=== PATIENT | female | born 1950 | race Caucasian/White ===

== ENCOUNTER 2016-09-24 13:54 | Inpatient (IN) | payer MEDICARE, MEDICAID, OTHER ==
--- NOTE | 2016-09-24 14:07 | EDM.PDOC ---
ED HPI GENERAL MEDICAL PROBLEM - General Chief Complaint: Respiratory Problem Stated Complaint: SOB Time Seen by Provider: 09/24/16 13:59 - History of Present Illness INITIAL COMMENTS - FREE TEXT/NARRATIVE: 65-year-old female presents emergency room with shortness of breath. This shortness of breath has been progressively been getting worse over the last week. The patient has noticed an increased cough sometimes productive. She denies fevers or chills however. Patient has a history of emphysema. She's currently using dulara this is her only medication. She cannot recall ever being on steroids for her breathing problems in the past. She denies any history of heart problems. The patient has long smoking history she has not used alcohol in many years and does not use any illicit drugs Lower Back Pain Score (Numeric/FACES): 1 - Related Data Allergies Allergy/AdvReac Type Severity Reaction Status Date / Time No Known Allergies Allergy Verified 09/24/16 14:00 Home Meds: Home Meds Mometasone/Formoterol [Dulera 200-5 MCG] 2 puff IH QID 09/24/16 [History] ED ROS GENERAL - Review of Systems Review Of Systems: See Below Constitutional: Denies: fever, chills HEENT: Reports: No symptoms Respiratory: Reports: Shortness of Breath, Wheezing, Cough Cardiovascular: Denies: Chest pain, Palpitations, Syncope GI/Abdominal: Reports: No symptoms : Reports: no symptoms Neurological: Reports: No Symptoms ED EXAM, GENERAL - Physical Exam Exam: See Below Exam Limited By: No limitations General Appearance: alert, other (She is tachycardic and was hypoxic upon arrival she has a rapid pulse with a rate that resembles atrial fibrillation pulse rate is 110 to 120s) Ears: normal external exam, normal canal, hearing grossly normal, normal TMs Nose: normal inspection, normal mucosa, no blood Throat/Mouth: Normal inspection, Normal lips, Normal gums, Normal oropharynx, Normal voice, No airway compromise, Other (Stained teeth from smoking). No: Normal teeth Head: atraumatic, normocephalic Neck: normal inspection, supple, non-tender, full range of motion. No: lymphadenopathy (L), lymphadenopathy (R) Respiratory/Chest: decreased breath sounds. No: rales, rhonchi, wheezing Cardiovascular: no edema, no murmur, tachycardia, irregularly irregular GI/Abdominal: normal bowel sounds, soft, non tender, no organomegaly, no distention, no abnormal bruit, no mass Back Exam: normal inspection. No: CVA tenderness (L), CVA tenderness (R) Extremities: normal inspection, no pedal edema Neurological: alert, oriented Course - Vital Signs Last Recorded V/S: Last Vital Signs Temp 35.8 C 09/24/16 14:05 Pulse 124 H 09/24/16 14:05 Resp 22 H 09/24/16 14:05 BP 149/86 H 09/24/16 14:05 Pulse Ox 95 09/24/16 14:29 - Orders/Labs/Meds Orders: Active Orders 24 hr Category Date Time Status Patient Status [ADT] Stat ADT 09/24/16 16:14 Ordered EKG 12 Lead [EKG Documentation Completion] [RC] STAT Care 09/24/16 14:00 Active RT Aerosol Therapy [RC] ASDIRECTED Care 09/24/16 14:19 Active RT Arterial Blood Gases, ABG [RC] Click To Edit Care 09/24/16 14:05 Active Chest 1V Frontal [CR] Stat Exams 09/24/16 14:18 Taken CULTURE BLOOD [BC] Stat Lab 09/24/16 16:12 Ordered CULTURE BLOOD [BC] Stat Lab 09/24/16 16:12 Ordered Azithromycin [Zithromax] 500 mg Med 09/24/16 16:12 Ordered Sodium Chloride 0.9% [Normal Saline] 250 ml IV ONETIME cefTRIAXone [Rocephin] Med 09/24/16 16:15 Ordered 1,000 mg IVPUSH Q24H Blood Culture x2 Reflex Set [OM.PC] Stat Oth 09/24/16 16:12 Ordered Medication Orders Ceftriaxone Sodium (Rocephin) 1,000 mg IVPUSH Q24H KADEEM Azithromycin 500 mg/ Sodium (Chloride) 250 mls @ 250 mls/hr IV ONETIME ONE Stop: 09/24/16 17:11 Labs: Laboratory Tests 09/24/16 09/24/16 09/24/16 Range/Units 14:00 14:00 14:00 WBC 11.13 H (3.98-10.04) K/mm3 RBC 5.05 (3.98-5.22) M/mm3 Hgb 15.2 (11.2-15.7) gm/L Hct 44.4 (34.1-44.9) % MCV 87.9 (79.4-94.8) fl MCH 30.1 (25.6-32.2) pg MCHC 34.2 (32.2-35.5) g/dl RDW Std Deviation 40.6 (36.4-46.3) fL Plt Count 564 H (182-369) K/mm3 MPV 9.4 (9.4-12.3) fl Neutrophils % (Manual) 84 H (40-60) % Band Neutrophils % 0 (0-10) % Lymphocytes % (Manual) 13 L (20-40) % Atypical Lymphs % 0 % Monocytes % (Manual) 3 (2-10) % Eosinophils % (Manual) 0 L (0.7-5.8) % Basophils % (Manual) 0 L (0.1-1.2) Platelet Estimate Increased Plt Morphology Comment Normal RBC Morph Comment Normal PT 11.4 (8.0-13.0) SECONDS INR 1.04 APTT 31 (22-36) SECONDS Puncture Site ABG pH (7.35-7.45) ABG pCO2 (35.0-45.0) mmHg ABG pO2 (80.0-100.0) mmHg ABG HCO3 (22.0-26.0) meq/L ABG O2 Saturation (96.0-97.0) % ABG Base Excess (-2-2.0) Foreign Test A-a Gradient mmHg O2 Delivery Device Oxygen Flow Rate FiO2 (21.00-100.00) % Sodium 138 (136-145) mEq/L Potassium 4.5 (3.5-5.1) mEq/L Chloride 98 (98-107) mEq/L Carbon Dioxide 26 (21-32) mEq/L Anion Gap 18.5 H (5-15) BUN 18 (7-18) mg/dL Creatinine 0.7 (0.55-1.02) mg/dL Est Cr Clr Drug Dosing 62.27 mL/min Estimated GFR (MDRD) > 60 (>60) mL/min BUN/Creatinine Ratio 25.7 H (14-18) Glucose 91 (80-115) mg/dL Calcium 9.5 (8.5-10.1) mg/dL Total Bilirubin 0.8 (0.2-1.0) mg/dL AST 22 (15-37) U/L ALT 15 (14-59) U/L Alkaline Phosphatase 77 (46-116) U/L Troponin I < 0.017 (0.00-0.056) ng/mL B-Natriuretic Peptide (0-100) pg/mL Total Protein 8.0 (6.4-8.2) g/dl Albumin 3.4 (3.4-5.0) g/dl Globulin 4.6 gm/dL Albumin/Globulin Ratio 0.7 L (1-2) Mycoplasma pneumon IgM (NEGATIVE) 09/24/16 09/24/16 09/24/16 Range/Units 14:00 14:00 14:16 WBC (3.98-10.04) K/mm3 RBC (3.98-5.22) M/mm3 Hgb (11.2-15.7) gm/L Hct (34.1-44.9) % MCV (79.4-94.8) fl MCH (25.6-32.2) pg MCHC (32.2-35.5) g/dl RDW Std Deviation (36.4-46.3) fL Plt Count (182-369) K/mm3 MPV (9.4-12.3) fl Neutrophils % (Manual) (40-60) % Band Neutrophils % (0-10) % Lymphocytes % (Manual) (20-40) % Atypical Lymphs % % Monocytes % (Manual) (2-10) % Eosinophils % (Manual) (0.7-5.8) % Basophils % (Manual) (0.1-1.2) Platelet Estimate Plt Morphology Comment RBC Morph Comment PT (8.0-13.0) SECONDS INR APTT (22-36) SECONDS Puncture Site Rt radial ABG pH 7.33 L (7.35-7.45) ABG pCO2 43.9 (35.0-45.0) mmHg ABG pO2 81.0 (80.0-100.0) mmHg ABG HCO3 22.2 (22.0-26.0) meq/L ABG O2 Saturation 95.2 L (96.0-97.0) % ABG Base Excess -3.3 L (-2-2.0) Foreign Test Positive A-a Gradient 80 mmHg O2 Delivery Device Nasal cannula Oxygen Flow Rate 3.0 FiO2 32.00 (21.00-100.00) % Sodium (136-145) mEq/L Potassium (3.5-5.1) mEq/L Chloride (98-107) mEq/L Carbon Dioxide (21-32) mEq/L Anion Gap (5-15) BUN (7-18) mg/dL Creatinine (0.55-1.02) mg/dL Est Cr Clr Drug Dosing mL/min Estimated GFR (MDRD) (>60) mL/min BUN/Creatinine Ratio (14-18) Glucose (80-115) mg/dL Calcium (8.5-10.1) mg/dL Total Bilirubin (0.2-1.0) mg/dL AST (15-37) U/L ALT (14-59) U/L Alkaline Phosphatase (46-116) U/L Troponin I (0.00-0.056) ng/mL B-Natriuretic Peptide 36 (0-100) pg/mL Total Protein (6.4-8.2) g/dl Albumin (3.4-5.0) g/dl Globulin gm/dL Albumin/Globulin Ratio (1-2) Mycoplasma pneumon IgM Positive H (NEGATIVE) Meds: Medications Generic Name Dose Route Start Last Admin Trade Name Freq PRN Reason Stop Dose Admin Ceftriaxone Sodium 1,000 mg 09/24/16 16:15 Rocephin IVPUSH Q24H KADEEM Azithromycin 500 mg/ Sodium 250 mls @ 250 mls/hr 09/24/16 16:12 Chloride IV 09/24/16 17:11 ONETIME ONE Discontinued Medications Generic Name Dose Route Start Last Admin Trade Name Freq PRN Reason Stop Dose Admin Albuterol/Ipratropium 3 ml 09/24/16 14:19 09/24/16 14:28 Duoneb 3.0-0.5 Mg/3 Ml NEB 09/24/16 14:20 3 ml ONETIME ONE Administration Methylprednisolone Sodium Succinate 125 mg 09/24/16 14:19 09/24/16 14:58 Solu-Medrol IVPUSH 09/24/16 14:20 125 mg ONETIME ONE Administration - Re-Assessments/Exams Free Text/Narrative Re-Assessment/Exam: 09/24/16 16:16 Chest x-ray suggestive of right lower lobe infiltrate small effusion significant emphysematous changes. Cannot exclude a mass or lesion in the right upper lobe near the apex. Laboratory evaluation negative troponin negative BNP mycoplasmas is positive. With the patient's hypoxia the patient will be admitted for treatment of her pneumonia with Rocephin and Zithromax after blood cultures obtained in be admitted to our hospitalist Dr. Valdez. Departure - Departure Time of Disposition: 16:10 Disposition: Admitted As Inpatient 65 Clinical Impression: Pneumonia, Emphysema lung, Hypoxia - My Orders Last 24 Hours: My Active Orders 09/24/16 14:00 EKG 12 Lead [EKG Documentation Completion] [RC] STAT 09/24/16 14:05 RT Arterial Blood Gases, ABG [RC] Click To Edit 09/24/16 14:18 Chest 1V Frontal [CR] Stat 09/24/16 14:19 RT Aerosol Therapy [RC] ASDIRECTED 09/24/16 16:12 CULTURE BLOOD [BC] Stat CULTURE BLOOD [BC] Stat Azithromycin [Zithromax] 500 mg Sodium Chloride 0.9% [Normal Saline] 250 ml IV ONETIME Blood Culture x2 Reflex Set [OM.PC] Stat 09/24/16 16:14 Patient Status [ADT] Stat 09/24/16 16:15 cefTRIAXone [Rocephin] 1,000 mg IVPUSH Q24H - Assessment/Plan Last 24 Hours: My Active Orders 09/24/16 14:00 EKG 12 Lead [EKG Documentation Completion] [RC] STAT 09/24/16 14:05 RT Arterial Blood Gases, ABG [RC] Click To Edit 09/24/16 14:18 Chest 1V Frontal [CR] Stat 09/24/16 14:19 RT Aerosol Therapy [RC] ASDIRECTED 09/24/16 16:12 CULTURE BLOOD [BC] Stat CULTURE BLOOD [BC] Stat Azithromycin [Zithromax] 500 mg Sodium Chloride 0.9% [Normal Saline] 250 ml IV ONETIME Blood Culture x2 Reflex Set [OM.PC] Stat 09/24/16 16:14 Patient Status [ADT] Stat 09/24/16 16:15 cefTRIAXone [Rocephin] 1,000 mg IVPUSH Q24H
[2016-09-24] MEDS ORDERED: methylPREDNISolone Sodium Succinate 125 MG/2 ML SDV IVPUSH ONE (14:19)
[2016-09-24] MEDS ORDERED: Albuterol/Ipratropium 3.0-0.5 MG/3 ML Neb Soln NEB ONE (14:19)
[2016-09-24] MEDS ORDERED: cefTRIAXone 1 GM in Sodium Chloride 0.9% 100 ML IV SCH (16:00)
[2016-09-24] MEDS ORDERED: Azithromycin 500 MG in Sodium Chloride 0.9% 250 ML IV ONE (16:12)
--- NOTE | 2016-09-24 16:12 | CT ---
CT chest Technique: Multiple axial sections were obtained to the chest. Intravenous contrast was not utilized. Comparison: Previous chest x-ray performed earlier on the same day, no previous chest CT is available. Findings: Cyst noted within the liver measuring 1.9 cm. Other visualized portions of the abdomen appear within normal limits. No pericardial thickening is seen. Mild coronary artery calcification is seen. Aorta shows atherosclerotic change. Ascending aorta is slightly ectatic at 3.0 cm. Severe emphysematous changes are seen throughout both lungs. Parenchymal density is noted within the right lung base which is nonspecific for fibrosis versus an area of pneumonia. There appears to be some atelectasis within the right lung base as well. Lungs otherwise are clear. Impression: 1. Parenchymal density within the right lung base. As mentioned above, uncertain if this represents chronic change or an area of pneumonia. There is mild right basilar atelectasis also seen. 2. Severe emphysematous changes are noted within both lungs. 3. Other incidental findings. Diagnostic code #3
[2016-09-24] MEDS ORDERED: cefTRIAXone 1,000 MG VIAL IVPUSH SCH (16:15)
[2016-09-24] MEDS ORDERED: cefTRIAXone 1 GM in Sodium Chloride 0.9% 100 ML IV ONE (16:19)
[2016-09-24] MEDS ORDERED: Azithromycin 500 MG in Sodium Chloride 0.9% 250 ML IV SCH (17:00)
[2016-09-24] MEDS ORDERED: Pneumococcal Polyvalent-23 Vaccine 0.5 ML SDV IM ONE (17:20)
[2016-09-24] MEDS ORDERED: Polyethylene Glycol 3350 Powder 17 GM Packet PO PRN (17:24)
[2016-09-24] MEDS ORDERED: HYDROmorphone 1 MG/ML Syringe IVPUSH PRN (17:24)
[2016-09-24] MEDS ORDERED: Bisacodyl 5 MG Tab PO PRN (17:24)
[2016-09-24] MEDS ORDERED: Acetaminophen/HYDROcodone 325-5 MG Tab PO PRN (17:24)
[2016-09-24] MEDS ORDERED: Temazepam 15 MG Cap PO PRN (17:24)
[2016-09-24] MEDS ORDERED: Ondansetron 4 MG/2 ML SDV IV PRN (17:24)
--- NOTE | 2016-09-24 17:24 | PCM.HP ---
H&P History of Present Illness - General Date of Service: 09/24/16 Admit Problem/Dx: Admission Diagnosis/Problem Admission Diagnosis/Problem Pneumonia due to Mycoplasma pneumoniae Source of Information: Patient, Provider, RN notes reviewed History Limitations: Reports: No limitations - History of Present Illness Initial Comments - Free Text/Narative: This is a 65 yo white female with a hx/o active smoking who comes in with c/o worsening shortness of breath that is associated with productive cough ( yellowish sputum) that has been going one for over a week now. Patient also carries a hx/o advanced COPD on Dulera for maintenance medication. She denies being on oral steroids or supplemental O2. She still smokes to date with varying numbers of cigarettes daily. Patient denies any chest pain, fever, chills, nausea, vomiting, diarrhea or abdominal pain. Her initial ED work up shows a CBC remarkable for WBC of 11.13, Platelet of 564 and Neutrophils of 84. Her chemistry is significant for AG of 18.5, and CRP of 11.7. Troponin x 1 and PT/PTT were all within normal limits. She is pos for Mycoplasma. CXR shows advanced emphysema. Patient was admitted for Mycoplasma PNA, COPD Exacerbation and Hypoxia. Her code status is full at this time. Lower Back Pain Score (Numeric/FACES): 1 - Related Data Allergies/Adverse Reactions: Allergies Allergy/AdvReac Type Severity Reaction Status Date / Time No Known Allergies Allergy Verified 09/24/16 17:18 Home Medications: Home Meds Mometasone/Formoterol [Dulera 200-5 MCG] 2 puff IH QID 09/24/16 [History] Past Medical History HEENT History: Reports: Impaired vision, Other (see below) Other HEENT History: teeth are bad. Respiratory History: Reports: COPD Musculoskeletal History: Reports: Arthritis Social & Family History - Family History HEENT: Reports: Impaired vision Respiratory: Reports: Asthma, COPD Musculoskeletal: Reports: Arthritis Oncologic: Reports: Breast, Colon, Lymphoma, Pancreatic - Tobacco Use Smoking Status *Q: Current Every Day Smoker Years of Tobacco use: 46 Packs/Tins Daily: 1 - Caffeine Use Caffeine Use: Reports: Coffee - Recreational Drug Use Recreational Drug Use: No H&P Review of Systems - Review of Systems: Review Of Systems: See Below General: Denies: fever, chills, malaise, weakness, fatigue, decreased appetite HEENT: Reports: no symptoms Pulmonary: Reports: Shortness of Breath, Wheezing, Cough, Sputum Cardiovascular: Reports: dyspnea on exertion. Denies: chest pain, palpitations , edema, lightheadedness, syncope Gastrointestinal: Denies: Abdominal pain, Decreased appetite, Nausea, Vomiting Genitourinary: Reports: no symptoms Musculoskeletal: Reports: no symptoms Skin: Denies: cyanosis, pallor, pruritis, rash Psychiatric: Denies: confusion, depression, anxiety, hallucinations, suicidal ideation Neurological: Denies: Confusion, Seizure, Syncope, Difficulty Walking, Weakness Hematologic/Lymphatic: Reports: no symptoms Immunologic: Reports: no symptoms Exam - Exam Exam: See Below - Vital Signs Vital Signs: Last Vital Signs Temp 35.8 C 09/24/16 14:05 Pulse 124 H 09/24/16 14:05 Resp 22 H 09/24/16 14:05 BP 149/86 H 09/24/16 14:05 Pulse Ox 95 09/24/16 14:29 Weight: 49.895 kg - Exam Quality Assessment: supplemental oxygen General: alert, oriented, cooperative, moderate distress, other (Cachectic) HEENT: Conjunctiva clear, EACs clear, EOMI, Hearing intact, Mucosa moist & pink , Nares patent, Normal nasal septum, Posterior pharynx clear, Pupils equal, Pupils reactive, TMs clear, Other (bitemporal wasting) Neck: supple, trachea midline, 2+ carotid pulse wo bruit, full range of motion, other (mild accessory muscle use) Lungs: Normal respiratory effort, Decreased breath sounds Cardiovascular: regular rate, tachycardia. No: systolic murmur Abdomen: normal bowel sounds, soft, organomegaly. No: distention, guarding, rigidity, rebound, tenderness (Female) Exam: Deferred Rectal (Female) Exam: Deferred Back Exam: normal inspection, decreased range of motion Extremities: normal inspection, normal pulses. No: clubbing, cyanosis, calf tenderness, edema Peripheral Pulses: 2+: posterior tibial (L), posterior tibial (R), dorsalis pedis (L), dorsalis pedis (R) Skin: warm, dry, intact. No: rash, petechia, ecchymosis Neuro Extensive - Mental Status: oriented x3, normal cognition, memory intact Neuro Extensive - Motor, Sensory, Reflexes: CN II-XII intact, normal gait Psychiatric: alert, normal affect, normal mood - Patient Data Result Diagrams: 09/24/16 14:00 09/24/16 14:00 EKG INTERPRETATION EKG Date: 09/24/16 Time: 02:04 Rhythm: a-flutter Rate (beats/min): 119 Comparison: NA - no prior EKG *Q Meaningful Use (ADM) - VTE *Q VTE Criteria *Q: - Stroke *Q Stroke Criteria *Q: - AMI *Q AMI Criteria *Q: Problem List Initiated/Reviewed/Updated: Yes Orders Last 24hrs: Medication Orders Ceftriaxone Sodium (Rocephin) 1,000 mg IVPUSH Q24H [facility] Last Admin: 09/24/16 16:20 Dose: Not Given Assessment/Plan Comment:: Assessment/Plan: Acute: COPD Exacerbation - Hx/o Severe Emphysema - Hyperinflation on CXR - Still active smoker - Supplemental O2, Bronchodilators, Oral Steroids, IV Azithromycin for Anti- inflammation, Decongestant/Expectorant - Routine RT care and IS q2 awake - Sputum Cx/Sx Mycoplasma Pneumonia - Mycoplasma positive - Iv Azithromycin and Rocephin Daily - CRP is 11.7 - Serial CXR Hypoxia - 2/2 Above - 79% on RA, 94-95% on 3L NC in ED - Supplemental O2, titrate to keep O2 > 90% Leukocytosis - 2/2 above +/- steroids - Continue to monitor Thrombocytosis - Platelet 564 - This is likely reactive 2/2 infection above - Platelet Morphology: normal ( meaning not a bone defect) Atrial Flutter with 2:1 AV Block - No baseline comparison - Anticogas for stroke prophylaxis - Metoprolol 5 mg IVP Q4 PRN rate control meds Nicotine Abuse/Dependence - Still actively smokes - Counseled on smoking cessation - Refuses nicotine patch - Agreed with nicotine gum Severe Malnutrition/Muscle Wasting - 2/2 underlying emphysema - Dietary consult 1.9 cm Cystic Lesion within the Liver Per CT Scan - Unsure if this is new - No baseline comparison, image mercado Plan: Admit to Inpatient with Tele and Pulse Ox Routine AM Labs Close monitoring for sudden respiratory distress given her advanced emphysema Resume Home Medications PT/OT/RT consult Screen for Influenza SW/CM for d/c planning Code Status: TBD, would like to speak with family and let us know later but for now she will be full code until further notice
[2016-09-24] MEDS ORDERED: hydrALAZINE 20 MG/ML SDV IVPUSH PRN (17:32)
[2016-09-24] MEDS ORDERED: Magnesium Sulfate/Water 2 GM in Premix Bag 1 BAG IV ONE (18:24)
[2016-09-24] MEDS ORDERED: Nicotine Polacrilex 2 MG Gum CHEW PRN (19:34)
[2016-09-24] MEDS: Famotidine 20 MG Tab PO SCH (20:01)
[2016-09-24] MEDS: Magnesium Oxide 400 MG Tab PO SCH (20:01)
[2016-09-24] MEDS: guaiFENesin 600 MG Tab.ER PO SCH (20:01)
[2016-09-24] MEDS: Acetaminophen 325 MG Tab PO PRN (20:19)
[2016-09-24] MEDS: Formoterol/Mometasone 200-5 MCG 8.8 GM Inhaler IH SCH (20:43)
[2016-09-24] MEDS ORDERED: Enoxaparin 40 MG/0.4 ML Syringe SUBCUT ONE (21:46)
[2016-09-25] MEDS: predniSONE 20 MG Tab PO SCH (06:58)
[2016-09-25] MEDS: guaiFENesin 600 MG Tab.ER PO SCH ×2 (08:04→20:19)
[2016-09-25] MEDS: Magnesium Oxide 400 MG Tab PO SCH ×2 (08:05→20:19)
[2016-09-25] MEDS: Famotidine 20 MG Tab PO SCH ×2 (08:05→20:19)
[2016-09-25] MEDS: Enoxaparin 40 MG/0.4 ML Syringe SUBCUT SCH (08:06)
[2016-09-25] MEDS: Acetaminophen 325 MG Tab PO PRN ×2 (08:13→20:36)
--- NOTE | 2016-09-25 08:22 | CR ---
Chest: Portable view of the chest was obtained. Comparison: No previous chest x-ray. Findings: Slight blunting of the right lateral costophrenic angle is seen. Mild increased density behind the right heart is seen. Lungs otherwise are clear but hyperinflated. Increased central lung markings are seen believed to be chronic. Heart size is normal. Tortuous thoracic aorta is seen. Bony structures are osteopenic. Impression: 1. Mild increased density behind the right heart and slight blunting of the right lateral costophrenic angle. Please see subsequent chest CT for further discussion. 2. Diffuse emphysematous change. Diagnostic code #3
[2016-09-25] MEDS: Formoterol/Mometasone 200-5 MCG 8.8 GM Inhaler IH SCH ×2 (08:39→20:05)
--- NOTE | 2016-09-25 09:26 | PCM.PN ---
- General Info Date of Service: 09/25/16 Admission Dx/Problem (Free Text): Admission Diagnosis/Problem Admission Diagnosis/Problem Pneumonia due to Mycoplasma pneumoniae Subjective Update: Follow Up Functional Status: Reports: pain controlled, tolerating diet, ambulating, urinating. Denies: new symptoms - Review of Systems General: Denies: Fever, Weakness, Fatigue, Chills HEENT: Reports: no symptoms Pulmonary: Reports: cough, sputum. Denies: shortness of breath Cardiovascular: Denies: Chest Pain, Palpitations, Dyspnea on Exertion Gastrointestinal: Denies: Abdominal pain, Nausea, Vomiting Genitourinary: Reports: no symptoms Musculoskeletal: Reports: no symptoms Skin: Reports: no symptoms Neurological: Denies: Confusion, Seizure, Weakness Psychiatric: Denies: depression, anxiety, agitation, cravings, hallucinations Systems Review Comment:: No overnight or acute issues. She feels much better. She is on 2L NC. She coughs up phlegm but not much. She is afebrile w/o leukoctyosis. - Patient Data Vitals - most recent: Last Vital Signs Temp 37.4 C 09/25/16 08:04 Pulse 87 09/25/16 08:04 Resp 12 09/25/16 08:04 BP 125/81 09/25/16 08:04 Pulse Ox 96 09/25/16 08:39 Weight - most recent: 39.372 kg I&O - last 24 hours: Intake & Output 09/24/16 09/25/16 09/25/16 22:59 06:59 14:59 Intake Total 600 Output Total 400 Balance 200 Lab Results last 24 hrs: Laboratory Results - last 24 hr 09/25/16 09/25/16 Range/Units 05:17 05:17 WBC 7.78 (3.98-10.04) K/mm3 RBC 4.26 (3.98-5.22) M/mm3 Hgb 12.8 (11.2-15.7) gm/L Hct 37.3 (34.1-44.9) % MCV 87.6 (79.4-94.8) fl MCH 30.0 (25.6-32.2) pg MCHC 34.3 (32.2-35.5) g/dl RDW Std Deviation 39.3 (36.4-46.3) fL Plt Count 435 H (182-369) K/mm3 MPV 9.2 L (9.4-12.3) fl Neut % (Auto) 86.1 H (34.0-71.1) % Lymph % (Auto) 9.3 L (19.3-51.7) % [place] % (Auto) 4.2 L (4.7-12.5) % Eos % (Auto) 0 L (0.7-5.8) Baso % (Auto) 0.1 (0.1-1.2) % Neut # (Auto) 6.70 H (1.56-6.13) K/mm3 Lymph # (Auto) 0.72 L (1.18-3.74) K/mm3 [place] # (Auto) 0.33 (0.24-0.36) K/mm3 Eos # (Auto) 0.00 L (0.04-0.36) K/mm3 Baso # (Auto) 0.01 (0.01-0.08) K/mm3 Manual Slide Review Abnormal smear Sodium 139 (136-145) mEq/L Potassium 4.2 (3.5-5.1) mEq/L Chloride 104 (98-107) mEq/L Carbon Dioxide 31 (21-32) mEq/L Anion Gap 8.2 (5-15) BUN 22 H (7-18) mg/dL Creatinine 0.7 (0.55-1.02) mg/dL Est Cr Clr Drug Dosing 49.14 mL/min Estimated GFR (MDRD) > 60 (>60) mL/min BUN/Creatinine Ratio 31.4 H (14-18) Glucose 240 H (80-115) mg/dL Calcium 8.6 (8.5-10.1) mg/dL Magnesium 2.4 (1.8-2.4) mg/dl C-Reactive Protein 6.6 H* (<1.0) mg/dL Ahsan Results last 24 hrs: Microbiology 09/25/16 07:43 Gram Stain - Final Sputum - Expectorated 09/24/16 18:10 Influenza Type A Antigen Screen - Final Nasopharyngeal Swab - Nare, Left NEGATIVE INFLUENZA A VIRUS AG Influenza Type B Antigen Screen - Final NEGATIVE INFLUENZA B VIRUS AG Med Orders - Current: Current Medications Acetaminophen (Tylenol) 650 mg PO Q4H PRN PRN Reason: Pain (Mild 1-3)/fever Last Admin: 04/24/17 08:13 Dose: 650 mg Hydrocodone Bitart/Acetaminophen ([place] 325-5 Mg) 1 tab PO Q4H PRN PRN Reason: Pain (moderate 4-6) Albuterol/Ipratropium (Duoneb 3.0-0.5 Mg/3 Ml) 3 ml NEB Q4H PRN PRN Reason: Shortness Of Breath/wheezing Bisacodyl (Dulcolax) 5 mg PO DAILY PRN PRN Reason: Constipation Last Admin: 09/25/16 08:06 Dose: 5 mg Enoxaparin Sodium (Lovenox) 40 mg SUBCUT DAILY [facility] Last Admin: 09/25/16 08:06 Dose: 40 mg Famotidine (Pepcid) 20 mg PO BID [facility] Last Admin: 09/25/16 08:05 Dose: 20 mg Guaifenesin (Mucinex) 600 mg PO BID [facility] Last Admin: 09/25/16 08:04 Dose: 600 mg Hydralazine HCl (Apresoline) 20 mg IVPUSH Q4H PRN PRN Reason: Hypertension Hydromorphone HCl (Dilaudid) 0.25 mg IVPUSH Q2H PRN PRN Reason: Pain (severe 7-10) Azithromycin 500 mg/ Sodium (Chloride) 250 mls @ 250 mls/hr IV Q24H [facility] Ceftriaxone Sodium 1 gm/ (Sodium Chloride) 100 mls @ 200 mls/hr IV Q24H [facility] Lorazepam (Ativan) 1 mg IV Q6H PRN PRN Reason: Anxiety Magnesium Oxide (Magnesium Oxide) 400 mg PO BID [facility] Last Admin: 09/25/16 08:05 Dose: 400 mg Magnesium Sulfate (Pharmacy To Dose - Magnesium Replacement) 0 dose .XX ASDIRECTED PRN PRN Reason: rx dose Metoprolol Tartrate (Lopressor) 5 mg IVPUSH Q4H PRN PRN Reason: Tachycardia Mometasone Furoate/Formoterol Fumar (Dulera 200-5 Mcg) 2 puff IH QID [facility] Last Admin: 09/25/16 08:39 Dose: 2 puff Nicotine Polacrilex (Nicorelief) 2 mg CHEW Q2H PRN PRN Reason: Other Ondansetron HCl (Zofran) 4 mg IV Q6H PRN PRN Reason: Nausea/Vomiting Polyethylene Glycol (Miralax) 17 gm PO DAILY PRN PRN Reason: Constipation Potassium Chloride (Pharmacy To Dose - Potassium Replacement) 0 dose .XX ASDIRECTED PRN PRN Reason: rx dose Prednisone (Prednisone) 60 mg PO WITHBREAKFAST [facility] Stop: 09/28/16 07:00 Last Admin: 09/25/16 06:58 Dose: 60 mg Senna/Docusate Sodium (Senna Plus) 1 tab PO BID PRN PRN Reason: Constipation Temazepam (Restoril) 15 mg PO BEDTIME PRN PRN Reason: Sleep Discontinued Medications Albuterol/Ipratropium (Duoneb 3.0-0.5 Mg/3 Ml) 3 ml NEB ONETIME ONE Stop: 09/24/16 14:20 Last Admin: 09/24/16 14:28 Dose: 3 ml Ceftriaxone Sodium (Rocephin) 1,000 mg IVPUSH Q24H [facility] Last Admin: 09/24/16 16:20 Dose: Not Given Enoxaparin Sodium (Lovenox) 40 mg SUBCUT ONETIME ONE Stop: 09/24/16 21:47 Last Admin: 09/24/16 22:33 Dose: 40 mg Azithromycin 500 mg/ Sodium (Chloride) 250 mls @ 250 mls/hr IV ONETIME ONE Stop: 09/24/16 17:11 Last Admin: 09/24/16 16:52 Dose: 250 mls/hr Ceftriaxone Sodium 1 gm/ (Sodium Chloride) 100 mls @ 200 mls/hr IV ONETIME ONE Stop: 09/24/16 16:48 Last Admin: 09/24/16 18:01 Dose: 200 mls/hr Azithromycin 500 mg/ Sodium (Chloride) 250 mls @ 250 mls/hr IV Q24H [facility] Last Admin: 09/24/16 19:56 Dose: Not Given Ceftriaxone Sodium 1 gm/ (Sodium Chloride) 100 mls @ 200 mls/hr IV Q24H [facility] Last Admin: 09/24/16 19:55 Dose: Not Given Magnesium Sulfate 2 gm/ Premix 50 mls @ 25 mls/hr IV ONETIME ONE Stop: 09/24/16 20:23 Last Admin: 09/24/16 19:28 Dose: 25 mls/hr Methylprednisolone Sodium Succinate (Solu-Medrol) 125 mg IVPUSH ONETIME ONE Stop: 09/24/16 14:20 Last Admin: 09/24/16 14:58 Dose: 125 mg Pneumococcal Polyvalent Vaccine (Pneumovax 23) 0.5 ml IM .ONCE ONE Stop: 09/24/16 17:21 - Exam Quality Assessment: supplemental oxygen General: alert, oriented, cooperative, no acute distress HEENT: Pupils equal, Pupils reactive, EOMI, Mucous membr. moist/pink Neck: supple, trachea midline, no JVD Lungs: Normal respiratory effort, Decreased breath sounds Cardiovascular: Regular Rate, Regular Rhythm Abdomen: bowel sounds present, soft, no tenderness, no distension (Female) Exam: Deferred Back Exam: normal inspection, decreased range of motion Extremities: no edema, normal pulses, no tenderness/swelling, no clubbing, no cyanosis, no calf tenderness Peripheral Pulses: 2+: posterior tibial (L), posterior tibial (R), dorsalis pedis (L), dorsalis pedis (R) Skin: warm, dry, intact Neurological: no new focal deficit Psy/Mental Status: alert, normal affect, normal mood EKG INTERPRETATION EKG Date: 09/25/16 Time: 06:27 Rhythm: other (Sinus Rhythm) Rate (beats/min): 81 [place]: RAD-right axis deviation P-wave: present ST-T: elevated (sight elevation in leads 2,3 AVF) EKG Interpretation Comments: Q wave in V1-V3 - Problem List Review Problem List Initiated/Reviewed/Updated: Yes - My Orders Last 24 Hours: My Active Orders 09/24/16 17:24 Height and Weight [RC] 04 Oxygen Therapy [RC] PRN Up With Assistance [RC] ASDIRECTED Up ad Mallory [RC] ASDIRECTED VTE/DVT Education [RC] , Vital Signs [RC] Q4HR Acetaminophen [Tylenol] 650 mg PO Q4H PRN Acetaminophen/HYDROcodone [[place] 325-5 MG] 1 tab PO Q4H PRN Albuterol/Ipratropium [DuoNeb 3.0-0.5 MG/3 ML] 3 ml NEB Q4H PRN Bisacodyl [Dulcolax] 5 mg PO DAILY PRN Docusate Sodium/Sennosides [Senna Plus] 1 tab PO BID PRN HYDROmorphone [Dilaudid] 0.25 mg IVPUSH Q2H PRN LORazepam [Ativan] 1 mg IV Q6H PRN Ondansetron [Zofran] 4 mg IV Q6H PRN Polyethylene Glycol 3350 [MiraLAX] 17 gm PO DAILY PRN Temazepam [Restoril] 15 mg PO BEDTIME PRN Resuscitation Status Routine 09/24/16 17:25 Cardiac Monitoring [RC] CONTINUOUS Intake and Output [RC] 04,16 Pulse Oximetry [RC] CONTINUOUS 09/24/16 17:28 RT Aerosol Therapy [RC] ASDIRECTED 09/24/16 17:29 Consult to Case Management [CONS] Routine Consult to Box [employer] Maker [CONS] Routine OT Evaluation and Treatment [CONS] Routine PT Evaluation and Treatment [CONS] Routine Respiratory Care Assess and Treatment [CONS] Routine 09/24/16 17:32 Metoprolol Tartrate [Lopressor] 5 mg IVPUSH Q4H PRN hydrALAZINE [Apresoline] 20 mg IVPUSH Q4H PRN 09/24/16 17:45 Magnesium Rep Pharmacy to Dose [Pharmacy to Dose - Magnesium Replacement] 0 dose .XX ASDIRECTED PRN Potassium Rep Pharmacy to Dose [Pharmacy to Dose - Potassium Replacement] 0 dose .XX ASDIRECTED PRN 09/24/16 18:18 Consult to Dietary [Consult to Logistics Vice President] [CONS] Routine 09/24/16 19:34 Nicotine Polacrilex [Nicorelief] 2 mg CHEW Q2H PRN 09/24/16 21:00 Famotidine [Pepcid] 20 mg PO BID Magnesium Oxide 400 mg PO BID Mometasone/Formoterol [Dulera 200-5 MCG] 2 puff IH QID guaiFENesin [Mucinex] 600 mg PO BID 09/24/16 Dinner Regular Diet [DIET] 09/25/16 07:00 EKG 12 Lead [EKG Documentation Completion] [RC] AM predniSONE 60 mg PO WITHBREAKFAST 09/25/16 07:43 CULTURE SPUTUM + SMEAR [RM] Stat 09/25/16 09:00 Enoxaparin [Lovenox] 40 mg SUBCUT DAILY 09/25/16 16:00 cefTRIAXone [Rocephin] 1 gm Sodium Chloride 0.9% [Normal Saline] 100 ml IV Q24H 09/25/16 17:00 Azithromycin [Zithromax] 500 mg Sodium Chloride 0.9% [Normal Saline] 250 ml IV Q24H 09/26/16 05:11 Chest 2V [CR] AM BASIC METABOLIC PANEL,BMP [CHEM] AM C-REACTIVE PROTEIN [CHEM] AM CBC WITH AUTO DIFF [HEME] AM MAGNESIUM [CHEM] AM 09/27/16 05:11 BASIC METABOLIC PANEL,BMP [CHEM] AM C-REACTIVE PROTEIN [CHEM] AM CBC WITH AUTO DIFF [HEME] AM MAGNESIUM [CHEM] AM 09/28/16 05:11 BASIC METABOLIC PANEL,BMP [CHEM] AM C-REACTIVE PROTEIN [CHEM] AM CBC WITH AUTO DIFF [HEME] AM MAGNESIUM [CHEM] AM 09/28/16 07:00 CBC W/O DIFF,HEMOGRAM [HEME] MOTH@0700 10/02/16 07:00 CBC W/O DIFF,HEMOGRAM [HEME] MOTH@00 10/05/16 07:00 CBC W/O DIFF,HEMOGRAM [HEME] MOTH@0700 10/09/16 07:00 CBC W/O DIFF,HEMOGRAM [HEME] MOTH@0700 10/12/16 07:00 CBC W/O DIFF,HEMOGRAM [HEME] MOTH@0700 - Plan Plan:: Assessment/Plan: Acute: Mycoplasma Pneumonia - Mycoplasma positive - Iv Azithromycin and Rocephin Daily - CRP is 11.7---> 6.6 - Chest CT scan: no mass noted - Serial CXR COPD Exacerbation, Stable - Hx/o Severe Emphysema - Hyperinflation on CXR - Still active smoker - Supplemental O2, Bronchodilators, Oral Steroids, IV Azithromycin for Anti- inflammation, Decongestant/Expectorant - Routine RT care and IS q2 awake - Sputum Cx/Sx Thrombocytosis - Platelet 564--> 435 - This is likely reactive 2/2 infection above - Platelet Morphology: normal ( meaning not a bone defect) Nicotine Abuse/Dependence - Still actively smokes - Counseled on smoking cessation - Refuses nicotine patch - Agreed with nicotine gum Severe Malnutrition/Muscle Wasting - 2/2 underlying emphysema - Dietary following 1.9 cm Cystic Lesion within the Liver Per CT Scan - Unsure if this is new - No baseline comparison, image mercado Resolved: S/p Hypoxia - 2/2 Above - 79% on RA, 94-95% on 3L NC in ED - Supplemental O2, titrate to keep O2 > 90% S/p Leukocytosis - 2/2 above +/- steroids - Continue to monitor S/p Atrial Flutter with 2:1 AV Block - No baseline comparison - Anticogas for stroke prophylaxis - Metoprolol 5 mg IVP Q4 PRN rate control meds - She is now in Sinus Rhythm Plan: She looks much better this am Continue current treatment Routine AM Labs Close monitoring for sudden respiratory distress given her advanced emphysema Resume Home Medications Continue PT/OT/RT Screen for Influenza: negative SW/CM for d/c planning Additional orders as above Code Status: Full
[2016-09-25] MEDS ORDERED: HYDROmorphone 0.5 MG/0.5 ML Syringe IVPUSH PRN (10:59)
--- NOTE | 2016-09-25 11:48 | PCM.SN ---
- Free Text/Narrative Note: Patient admits to having anxiety. She tried paxil and cytalopram? but w/o much help. She is currently on any medications. Will consult Dr. Riley.
[2016-09-25] MEDS: Albuterol/Ipratropium 3.0-0.5 MG/3 ML Neb Soln NEB PRN (13:30)
[2016-09-25] MEDS: cefTRIAXone 1 GM in Sodium Chloride 0.9% 100 ML IV SCH (15:23)
[2016-09-25] MEDS: Azithromycin 500 MG in Sodium Chloride 0.9% 250 ML IV SCH (16:03)
[2016-09-26] MEDS: predniSONE 20 MG Tab PO SCH (06:29)
[2016-09-26] MEDS: Formoterol/Mometasone 200-5 MCG 8.8 GM Inhaler IH SCH ×2 (09:01→20:55)
[2016-09-26] MEDS: Albuterol/Ipratropium 3.0-0.5 MG/3 ML Neb Soln NEB PRN ×2 (09:07→17:50)
--- NOTE | 2016-09-26 09:10 | PCM.PN ---
- General Info Date of Service: 09/26/16 Admission Dx/Problem (Free Text): Admission Diagnosis/Problem Admission Diagnosis/Problem Pneumonia due to Mycoplasma pneumoniae Subjective Update: Follow Up Functional Status: Reports: pain controlled, tolerating diet, ambulating, urinating, new symptoms (a little drowsy ) - Review of Systems General: Denies: Fever, Weakness, Fatigue, Malaise, Chills HEENT: Reports: no symptoms Pulmonary: Denies: shortness of breath Gastrointestinal: Denies: Abdominal pain, Nausea, Vomiting Genitourinary: Reports: no symptoms Musculoskeletal: Reports: no symptoms Skin: Denies: cyanosis Neurological: Denies: Confusion, Dizziness, Seizure, Difficulty Walking Psychiatric: Denies: depression, anxiety, agitation, hallucinations Systems Review Comment:: No overnight issues. She slept really well but sleeping pill was too much for her. She feels she is getting better. She had some loose stools this am. - Patient Data Vitals - most recent: Last Vital Signs Temp 37.1 C 09/26/16 07:51 Pulse 85 09/26/16 07:51 Resp 14 09/26/16 07:51 BP 111/63 09/26/16 07:51 Pulse Ox 95 09/26/16 09:07 Weight - most recent: 41.867 kg I&O - last 24 hours: Intake & Output 09/25/16 09/26/16 09/26/16 22:59 06:59 14:59 Intake Total 2590 550 Output Total 600 450 Balance 1990 100 Lab Results last 24 hrs: Laboratory Results - last 24 hr 09/26/16 09/26/16 Range/Units 05:33 05:33 WBC 18.89 H (3.98-10.04) K/mm3 RBC 3.96 L (3.98-5.22) M/mm3 Hgb 12.0 (11.2-15.7) gm/L Hct 36.0 (34.1-44.9) % MCV 90.9 (79.4-94.8) fl MCH 30.3 (25.6-32.2) pg MCHC 33.3 (32.2-35.5) g/dl RDW Std Deviation 41.6 (36.4-46.3) fL Plt Count 414 H (182-369) K/mm3 MPV 9.4 (9.4-12.3) fl Neut % (Auto) 84.9 H (34.0-71.1) % Lymph % (Auto) 7.2 L (19.3-51.7) % [place] % (Auto) 7.4 (4.7-12.5) % Eos % (Auto) 0 L (0.7-5.8) Baso % (Auto) 0.1 (0.1-1.2) % Neut # (Auto) 16.05 H (1.56-6.13) K/mm3 Lymph # (Auto) 1.36 (1.18-3.74) K/mm3 [place] # (Auto) 1.40 H (0.24-0.36) K/mm3 Eos # (Auto) 0.00 L (0.04-0.36) K/mm3 Baso # (Auto) 0.01 (0.01-0.08) K/mm3 Manual Slide Review Abnormal smear Sodium 144 (136-145) mEq/L Potassium 3.5 (3.5-5.1) mEq/L Chloride 108 H (98-107) mEq/L Carbon Dioxide 34 H (21-32) mEq/L Anion Gap 5.5 (5-15) BUN 18 (7-18) mg/dL Creatinine 0.6 (0.55-1.02) mg/dL Est Cr Clr Drug Dosing 60.96 mL/min Estimated GFR (MDRD) > 60 (>60) mL/min BUN/Creatinine Ratio 30.0 H (14-18) Glucose 105 (80-115) mg/dL Calcium 8.8 (8.5-10.1) mg/dL Magnesium 2.1 (1.8-2.4) mg/dl C-Reactive Protein 3.1 H* (<1.0) mg/dL Ahsan Results last 24 hrs: Microbiology 09/25/16 07:43 Gram Stain - Final Sputum - Expectorated Sputum Culture - Preliminary Probable Strep Pneumoniae 09/24/16 16:30 Aerobic Blood Culture - Preliminary Blood - Venous NO GROWTH AFTER 1 DAY Anaerobic Blood Culture - Preliminary NO GROWTH AFTER 1 DAY 09/24/16 16:36 Aerobic Blood Culture - Preliminary Blood - Venous - Lab Draw NO GROWTH AFTER 1 DAY Anaerobic Blood Culture - Preliminary NO GROWTH AFTER 1 DAY Med Orders - Current: Current Medications Acetaminophen (Tylenol) 650 mg PO Q4H PRN PRN Reason: Pain (Mild 1-3)/fever Last Admin: 09/25/16 20:36 Dose: 650 mg Hydrocodone Bitart/Acetaminophen ([place] 325-5 Mg) 1 tab PO Q4H PRN PRN Reason: Pain (moderate 4-6) Albuterol/Ipratropium (Duoneb 3.0-0.5 Mg/3 Ml) 3 ml NEB Q4H PRN PRN Reason: Shortness Of Breath/wheezing Last Admin: 09/26/16 09:07 Dose: 3 ml Bisacodyl (Dulcolax) 5 mg PO DAILY PRN PRN Reason: Constipation Last Admin: 09/25/16 08:06 Dose: 5 mg Enoxaparin Sodium (Lovenox) 40 mg SUBCUT DAILY [facility] Last Admin: 09/25/16 08:06 Dose: 40 mg Famotidine (Pepcid) 20 mg PO BID [facility] Last Admin: 09/25/16 20:19 Dose: 20 mg Guaifenesin (Mucinex) 1,200 mg PO BID [facility] Last Admin: 09/25/16 20:19 Dose: 1,200 mg Hydralazine HCl (Apresoline) 20 mg IVPUSH Q4H PRN PRN Reason: Hypertension Hydromorphone HCl (Dilaudid) 0.25 mg IVPUSH Q2H PRN PRN Reason: Pain (severe 7-10) Azithromycin 500 mg/ Sodium (Chloride) 250 mls @ 250 mls/hr IV Q24H [facility] Last Admin: 09/25/16 16:03 Dose: 250 mls/hr Ceftriaxone Sodium 1 gm/ (Sodium Chloride) 100 mls @ 200 mls/hr IV Q24H [facility] Last Admin: 09/25/16 15:23 Dose: 200 mls/hr Lorazepam (Ativan) 1 mg IV Q6H PRN PRN Reason: Anxiety Magnesium Oxide (Magnesium Oxide) 400 mg PO BID [facility] Last Admin: 09/25/16 20:19 Dose: 400 mg Magnesium Sulfate (Pharmacy To Dose - Magnesium Replacement) 0 dose .XX ASDIRECTED PRN PRN Reason: rx dose Metoprolol Tartrate (Lopressor) 5 mg IVPUSH Q4H PRN PRN Reason: Tachycardia Mometasone Furoate/Formoterol Fumar (Dulera 200-5 Mcg) 2 puff IH BID [facility] Last Admin: 09/26/16 09:01 Dose: 2 puff Nicotine Polacrilex (Nicorelief) 2 mg CHEW Q2H PRN PRN Reason: Other Ondansetron HCl (Zofran) 4 mg IV Q6H PRN PRN Reason: Nausea/Vomiting Polyethylene Glycol (Miralax) 17 gm PO DAILY PRN PRN Reason: Constipation Potassium Chloride (Pharmacy To Dose - Potassium Replacement) 0 dose .XX ASDIRECTED PRN PRN Reason: rx dose Prednisone (Prednisone) 60 mg PO WITHBREAKFAST [facility] Stop: 09/28/16 07:00 Last Admin: 09/26/16 06:29 Dose: 60 mg Senna/Docusate Sodium (Senna Plus) 1 tab PO BID PRN PRN Reason: Constipation Temazepam (Restoril) 15 mg PO BEDTIME PRN PRN Reason: Sleep Last Admin: 09/25/16 20:36 Dose: 15 mg Discontinued Medications Albuterol/Ipratropium (Duoneb 3.0-0.5 Mg/3 Ml) 3 ml NEB ONETIME ONE Stop: 09/24/16 14:20 Last Admin: 09/24/16 14:28 Dose: 3 ml Ceftriaxone Sodium (Rocephin) 1,000 mg IVPUSH Q24H [facility] Last Admin: 09/24/16 16:20 Dose: Not Given Enoxaparin Sodium (Lovenox) 40 mg SUBCUT ONETIME ONE Stop: 09/24/16 21:47 Last Admin: 09/24/16 22:33 Dose: 40 mg Guaifenesin (Mucinex) 600 mg PO BID [facility] Last Admin: 09/25/16 08:04 Dose: 600 mg Hydromorphone HCl (Dilaudid) 0.25 mg IVPUSH Q2H PRN PRN Reason: Pain (severe 7-10) Azithromycin 500 mg/ Sodium (Chloride) 250 mls @ 250 mls/hr IV ONETIME ONE Stop: 09/24/16 17:11 Last Admin: 09/24/16 16:52 Dose: 250 mls/hr Ceftriaxone Sodium 1 gm/ (Sodium Chloride) 100 mls @ 200 mls/hr IV ONETIME ONE Stop: 09/24/16 16:48 Last Admin: 09/24/16 18:01 Dose: 200 mls/hr Azithromycin 500 mg/ Sodium (Chloride) 250 mls @ 250 mls/hr IV Q24H [facility] Last Admin: 09/24/16 19:56 Dose: Not Given Ceftriaxone Sodium 1 gm/ (Sodium Chloride) 100 mls @ 200 mls/hr IV Q24H [facility] Last Admin: 09/24/16 19:55 Dose: Not Given Magnesium Sulfate 2 gm/ Premix 50 mls @ 25 mls/hr IV ONETIME ONE Stop: 09/24/16 20:23 Last Admin: 09/24/16 19:28 Dose: 25 mls/hr Methylprednisolone Sodium Succinate (Solu-Medrol) 125 mg IVPUSH ONETIME ONE Stop: 09/24/16 14:20 Last Admin: 09/24/16 14:58 Dose: 125 mg Mometasone Furoate/Formoterol Fumar (Dulera 200-5 Mcg) 2 puff IH QID [facility] Last Admin: 09/25/16 08:39 Dose: 2 puff Pneumococcal Polyvalent Vaccine (Pneumovax 23) 0.5 ml IM .ONCE ONE Stop: 09/24/16 17:21 - Exam General: alert, oriented, cooperative, no acute distress, other (severely cachectic) HEENT: Pupils equal, Pupils reactive, EOMI, Mucous membr. moist/pink, Other ( bitemporal wasting) Neck: supple, trachea midline, no JVD, no thyromegaly Lungs: Clear to auscultation, Normal respiratory effort, Decreased breath sounds , Other (thoracic ribs area very prominent) Cardiovascular: Regular Rate, Regular Rhythm Abdomen: bowel sounds present, soft, no tenderness, no distension (Female) Exam: Deferred Back Exam: normal inspection, decreased range of motion Extremities: no edema, normal pulses, no tenderness/swelling, no clubbing, no cyanosis, no calf tenderness Peripheral Pulses: 2+: posterior tibial (L), posterior tibial (R), dorsalis pedis (L), dorsalis pedis (R) Skin: warm, dry, intact Neurological: no new focal deficit Psy/Mental Status: alert, normal affect, normal mood - Problem List Review Problem List Initiated/Reviewed/Updated: Yes - My Orders Last 24 Hours: My Active Orders 09/25/16 09:00 Enoxaparin [Lovenox] 40 mg SUBCUT DAILY 09/25/16 10:59 HYDROmorphone [Dilaudid] 0.25 mg IVPUSH Q2H PRN 09/25/16 11:48 Notify Provider Consults [RC] ASDIRECTED Consult to Physician [CONS] Routine 09/25/16 16:00 cefTRIAXone [Rocephin] 1 gm Sodium Chloride 0.9% [Normal Saline] 100 ml IV Q24H 09/25/16 17:00 Azithromycin [Zithromax] 500 mg Sodium Chloride 0.9% [Normal Saline] 250 ml IV Q24H 09/25/16 21:00 Mometasone/Formoterol [Dulera 200-5 MCG] 2 puff IH BID guaiFENesin [Mucinex] 1,200 mg PO BID 09/26/16 02:20 Resuscitation Status Routine 09/26/16 05:11 Chest 2V [CR] AM 09/27/16 05:11 BASIC METABOLIC PANEL,BMP [CHEM] AM C-REACTIVE PROTEIN [CHEM] AM CBC WITH AUTO DIFF [HEME] AM MAGNESIUM [CHEM] AM 09/28/16 05:11 BASIC METABOLIC PANEL,BMP [CHEM] AM C-REACTIVE PROTEIN [CHEM] AM CBC WITH AUTO DIFF [HEME] AM MAGNESIUM [CHEM] AM 09/28/16 07:00 CBC W/O DIFF,HEMOGRAM [HEME] MOTH@0700 10/02/16 07:00 CBC W/O DIFF,HEMOGRAM [HEME] MOTH@0700 10/05/16 07:00 CBC W/O DIFF,HEMOGRAM [HEME] MOTH@0700 10/09/16 07:00 CBC W/O DIFF,HEMOGRAM [HEME] MOTH@0700 10/12/16 07:00 CBC W/O DIFF,HEMOGRAM [HEME] MOTH@0700 - Plan Plan:: Assessment/Plan: Acute: Mycoplasma Pneumonia and +/- Step Pneumoniae - Mycoplasma positive - Continue IV Azithromycin and Rocephin Daily - CRP is 11.7---> 6.6 ---> 3.1 - Chest CT scan: no mass noted - Follow Up CXR: Stable from previous image COPD Exacerbation, Stable - Hx/o Severe Emphysema - Hyperinflation on CXR - Still active smoker - Supplemental O2, Bronchodilators, Oral Steroids, IV Azithromycin for Anti- inflammation, Decongestant/Expectorant - Routine RT care and IS q2 awake - Sputum Cx: Prelim: Probable Strep Pneumonia Thrombocytosis - Platelet 564--> 435 ---> 414 - This is likely reactive 2/2 infection above - Platelet Morphology: normal (meaning not a bone defect) Nicotine Abuse/Dependence - Still actively smokes - Counseled on smoking cessation - Refuses nicotine patch - Continue with nicotine gum Severe Malnutrition/Muscle Wasting - 2/2 underlying emphysema - Dietary following 1.9 cm Cystic Lesion within the Liver Per CT Scan - Unsure if this is new - No baseline comparison, image mercado Anxiety - Consulted Dr. Riley Resolved: S/p Hypoxia - 2/2 Above - 79% on RA, 94-95% on 3L NC in ED - Supplemental O2, titrate to keep O2 > 90% S/p Leukocytosis - 2/2 above +/- steroids - Continue to monitor S/p Atrial Flutter with 2:1 AV Block - No baseline comparison - Anticogas for stroke prophylaxis - Metoprolol 5 mg IVP Q4 PRN rate control meds - She is now in Sinus Rhythm Plan: She remains clinically stable despite having double pneumonia i.e. pos for both mycoplasma and strep pneumonia Continue current treatment Routine AM Labs Continue PT/OT/RT SW/CM for d/c planning Will cut down dose on Restoril to 7.5 mg po qhs Stools studies ordered Recommend Assisted Living or some other form placement Additional orders as above Code Status: Full Per SW her home is not safe for her to back to after discharge. Priya is working on getting her insurance and discharge placement that would be safe for her. LOS Anticipate > 96 hrs pending discharge placement
[2016-09-26] MEDS: Magnesium Oxide 400 MG Tab PO SCH ×2 (09:25→20:30)
[2016-09-26] MEDS: Famotidine 20 MG Tab PO SCH ×2 (09:25→20:30)
[2016-09-26] MEDS: Enoxaparin 40 MG/0.4 ML Syringe SUBCUT SCH (09:25)
[2016-09-26] MEDS ORDERED: Temazepam 7.5 MG Cap PO PRN (09:25)
[2016-09-26] MEDS: guaiFENesin 600 MG Tab.ER PO SCH ×2 (09:25→20:32)
--- NOTE | 2016-09-26 11:17 | CR ---
Chest: Two views of the chest were obtained. Comparison: Previous chest CT of 09/24/16 and chest x-ray of 09/24/16. Mild increased density within the right lung base is seen with pleural thickening. Findings are stable from prior exam. Lungs otherwise are clear but hyperinflated. Heart size and mediastinum are stable. Bony structures are also stable. Impression: 1. Severe emphysematous change. 2. Slight parenchymal density and pleural change within the right lung base which appears stable from previous chest x-ray and chest CT. Diagnostic code #3
[2016-09-26] MEDS: Azithromycin 500 MG in Sodium Chloride 0.9% 250 ML IV SCH (16:11)
[2016-09-26] MEDS: cefTRIAXone 1 GM in Sodium Chloride 0.9% 100 ML IV SCH (16:11)
--- NOTE | 2016-09-26 16:14 | CONS ---
CONSULTING PHYSICIAN: Elvis Riley MD DATE OF CONSULTATION: 09/26/2016 A 60-minute inpatient clinical event. IDENTIFICATION: The patient is a 65-year-old female who was admitted to the inpatient medical unit at [facility] on 09/24/2016 secondary to complications of mycoplasma pneumonia, COPD, and excessive weight loss. She is seen for psychiatric evaluation to assess for depression and anxiety. CHIEF COMPLAINT: "I was not feeling good." HISTORY OF PRESENT ILLNESS: The patient is a 65-year-old female, reports that she has been living at home by herself and she had not been "feeling good" and went to the Urgent Care to see a doctor and they transferred her from the clinic in [place], [place], where she lives to the hospital on 09/24/2016 because of severe weight loss and then complications from her COPD and then development of pneumonia. The patient also is stating that she has been struggling with "a lot of anxiety." She notes that her anxiety has been "off the charts." She states that when she is at home, she is typically "very scared." She states that she has maybe a little bit of depression but she states "it is the anxiety that is really bad." She denies that she is suicidal or homicidal. She denies any psychotic, delusional, or paranoid symptoms. She denies any illicit substance use or excessive alcohol use complicating the clinical picture. She denies any mood swings. She reports significantly decreased appetite "because I have not been feeling good." She also reports "I sleep very poorly." She states that she is open to trying something to help her feel better. She states she was on lorazepam in the past "and that helped but I just do not want to get addicted to anything." She also is concerned because "when I took it the last time, I was not like this." She expresses worries about whether it will compromise her respiratory function going forward but at the same time, she states if she could have lorazepam, it did help her in the past and she would be open to trying that get her nerves under better control. MEDICATIONS: At time of presentation: The patient has been prescribed Ativan on the unit. Prior to that admission, she has not been on any psychiatric medications. On the unit, she had been given Rocephin, Zithromax, an inhaler, prednisone, Pepcid, and Lovenox. ALLERGIES: No known drug allergies. PAST MEDICAL HISTORY: 1. COPD. 2. Mycoplasma pneumonia. 3. Increased weight loss. The patient is 5 feet 10 inches weighing 86 pounds at this point in time. REVIEW OF SYSTEMS: Aside from pulmonary and GI, all other major organ systems are negative at this point in time for acute difficulties or complications. FAMILY PSYCHIATRIC AND CD HISTORY: The patient reports father and brother may have had a history of alcoholism. PAST PSYCHIATRIC AND CD HISTORY: The patient denies any previous psychiatric hospitalizations or chemical dependency treatments. Denies any previous suicide attempts, self-injurious behavior history or eating disorder history. She is a one third pack per day smoker for the past 45 years. She used to smoke heavier but she has cut back in the amount of cigarettes she is using per day recently. PAST PSYCHIATRIC MEDICATION HISTORY: Includes Paxil, Lexapro, Celexa. PAST PSYCHIATRIC DIAGNOSIS: Includes clinical depression. SOCIAL HISTORY: The patient was born and raised in [place], [place]. She is oldest of 3 siblings and 2 younger brothers. The patient's parents were throughout childhood and adolescence. Father worked for the [employer] in [employer] department, mother was a homemaker. The patient's highest level of education is a GED plus 6 months of business school. The patient was working in [place], [place], and that is where she lives. She has never been , not involved in any current relationships. Denies any pregnancies or biological children. Describes sexual predisposition, is heterosexual. She denies any prior service or any current legal difficulties. She is Alevism in terms of her emanuel formation and attends christianity regularly. She enjoys reading in her spare time. MENTAL STATUS EXAM: The patient is a 65-year-old white female, in no apparent distress. Speech is of regular rate, rhythm. The patient is cognitively oriented. Psychomotor activities within normal limits. There are no abnormal motor movements or tics observed. Gait is steady. Station is normal. Mood is anxious, little depressed. Affect is cooperative overall for the purposes of the inpatient psychiatric consult. There is no behavioral or stated evidence of acute suicidal or homicidal ideation or acute psychotic, delusional, paranoid symptoms. Thought processes are organized. No acute manic symptoms or loose associations evident. Judgment and insight appear unimpaired at this point in time. Motivation for help appears good. Vitals: 5 feet 10 inches tall, 86 pounds, 111/63, 85, 14, 98.8 degrees. IMPRESSION: Adel I. 1. Major depressive disorder, recurrent, F33.2. 2. Anxiety disorder, not other specified, F41.9. Adel II: None. Adel III. 1. Mycoplasma pneumonia. 2. Chronic obstructive pulmonary disease. 3. Excessive weight loss of unknown etiology. Adel IV: Severe. Adel V: 55. PLAN: 1. Pastoral guidance. 2. Begin trial of Remeron 15 mg at bedtime. 3. Recommend that Ativan be initiated 0.25 mg b.i.d. scheduled for anxiety reduction but this will be per the discretion of the patient's primary medical treatment team if they feel that the patient will not have any excessive respiratory compromise with this medication being added to her regimen to help with anxiety reduction. 4. The patient is apprised of benefits and side effects of her newly initiated Remeron medication. She acknowledges understanding of these facts and has no further questions by the end of the interview session. 5. We will continue to follow up with the patient on a regular and as needed basis while she remains on the inpatient medical unit at [facility] in [place], [place]. 6. We will follow up with the patient, sooner if any complications in the interim. 7. Crisis plan is in place. RENITA /[id number]
[2016-09-26] MEDS: LORazepam 0.5 MG Tab PO SCH (17:42)
[2016-09-26] MEDS: Metoprolol Tartrate 5 MG/5 ML SDV IVPUSH PRN (19:00)
--- NOTE | 2016-09-26 20:18 | PCM.SN ---
- Free Text/Narrative Note: Patient was seen and evaluated by . He recommended Remeron 15 mg po QHS and Ativan 0.25 mg po BID.
[2016-09-26] MEDS: Acetaminophen 325 MG Tab PO PRN (20:30)
[2016-09-26] MEDS: Mirtazapine 15 MG Tab PO SCH (20:30)
[2016-09-27] MEDS: predniSONE 20 MG Tab PO SCH (06:02)
[2016-09-27] MEDS: Albuterol/Ipratropium 3.0-0.5 MG/3 ML Neb Soln NEB PRN ×3 (08:18→20:17)
[2016-09-27] MEDS: Formoterol/Mometasone 200-5 MCG 8.8 GM Inhaler IH SCH ×2 (08:18→20:17)
--- NOTE | 2016-09-27 08:37 | PCM.PN ---
- General Info Date of Service: 09/27/16 Admission Dx/Problem (Free Text): Admission Diagnosis/Problem Admission Diagnosis/Problem Pneumonia due to Mycoplasma pneumoniae Holly is seen this morning. Overall she is starting to gain strength back, eating better, working with PT/ OT. SW is discussing possible [facility] placement with patient and family. Functional Status: Reports: pain controlled, tolerating diet, ambulating, urinating. Denies: new symptoms - Review of Systems General: Reports: Weakness HEENT: Reports: no symptoms Pulmonary: Reports: shortness of breath, cough (improving) Cardiovascular: Reports: Dyspnea on Exertion (chronic but improved). Denies: Chest Pain, Palpitations Gastrointestinal: Reports: Diarrhea (improved, 2 soft stools reported per nursing over the past 12+ hours) Genitourinary: Reports: no symptoms Musculoskeletal: Reports: other (generalized weakness) Psychiatric: Reports: anxiety (spoke with/consulted with Dr. Riley yesterday [facility] addition of medications) - Patient Data Vitals - most recent: Last Vital Signs Temp 98.4 F 09/27/16 08:11 Pulse 103 H 09/27/16 08:11 Resp 18 09/27/16 08:11 BP 138/71 09/27/16 08:11 Pulse Ox 94 L 09/27/16 08:18 Weight - most recent: 94 lb 1.6 oz I&O - last 24 hours: Intake & Output 09/26/16 09/27/16 09/27/16 22:59 06:59 14:59 Intake Total 2330 400 Output Total 800 500 Balance 1530 -100 Lab Results last 24 hrs: Laboratory Results - last 24 hr 09/26/16 09/27/16 09/27/16 Range/Units 12:48 05:28 05:28 WBC 11.03 H (3.98-10.04) K/mm3 RBC 4.02 (3.98-5.22) M/mm3 Hgb 12.1 (11.2-15.7) gm/L Hct 37.4 (34.1-44.9) % MCV 93.0 (79.4-94.8) fl MCH 30.1 (25.6-32.2) pg MCHC 32.4 (32.2-35.5) g/dl RDW Std Deviation 42.2 (36.4-46.3) fL Plt Count 422 H (182-369) K/mm3 MPV 9.4 (9.4-12.3) fl Neut % (Auto) 74.0 H (34.0-71.1) % Lymph % (Auto) 16.5 L (19.3-51.7) % [place] % (Auto) 8.6 (4.7-12.5) % Eos % (Auto) 0.3 L (0.7-5.8) Baso % (Auto) 0.1 (0.1-1.2) % Neut # (Auto) 8.16 H (1.56-6.13) K/mm3 Lymph # (Auto) 1.82 (1.18-3.74) K/mm3 [place] # (Auto) 0.95 H (0.24-0.36) K/mm3 Eos # (Auto) 0.03 L (0.04-0.36) K/mm3 Baso # (Auto) 0.01 (0.01-0.08) K/mm3 Sodium 142 (136-145) mEq/L Potassium 4.3 (3.5-5.1) mEq/L Chloride 105 (98-107) mEq/L Carbon Dioxide 35 H (21-32) mEq/L Anion Gap 6.3 (5-15) BUN 20 H (7-18) mg/dL Creatinine 0.6 (0.55-1.02) mg/dL Est Cr Clr Drug Dosing 62.15 mL/min Estimated GFR (MDRD) > 60 (>60) mL/min BUN/Creatinine Ratio 33.3 H (14-18) Glucose 134 H (80-115) mg/dL Calcium 8.5 (8.5-10.1) mg/dL Magnesium 2.1 (1.8-2.4) mg/dl C-Reactive Protein 1.7 H* (<1.0) mg/dL C.difficile [id number] Presumptive negative C. difficile Tox (PCR) Negative Ahsan Results last 24 hrs: Microbiology 09/24/16 16:30 Aerobic Blood Culture - Preliminary Blood - Venous NO GROWTH AFTER 2 DAYS Anaerobic Blood Culture - Preliminary NO GROWTH AFTER 2 DAYS 09/24/16 16:36 Aerobic Blood Culture - Preliminary Blood - Venous - Lab Draw NO GROWTH AFTER 2 DAYS Anaerobic Blood Culture - Preliminary NO GROWTH AFTER 2 DAYS 09/25/16 07:43 Gram Stain - Final Sputum - Expectorated Sputum Culture - Preliminary Probable Strep Pneumoniae Med Orders - Current: Current Medications Acetaminophen (Tylenol) 650 mg PO Q4H PRN PRN Reason: Pain (Mild 1-3)/fever Last Admin: 09/26/16 20:30 Dose: 650 mg Hydrocodone Bitart/Acetaminophen (Adams 325-5 Mg) 1 tab PO Q4H PRN PRN Reason: Pain (moderate 4-6) Albuterol/Ipratropium (Duoneb 3.0-0.5 Mg/3 Ml) 3 ml NEB Q4H PRN PRN Reason: Shortness Of Breath/wheezing Last Admin: 09/27/16 08:18 Dose: 3 ml Bisacodyl (Dulcolax) 5 mg PO DAILY PRN PRN Reason: Constipation Last Admin: 09/25/16 08:06 Dose: 5 mg Enoxaparin Sodium (Lovenox) 40 mg SUBCUT DAILY [facility] Last Admin: 09/26/16 09:25 Dose: 40 mg Famotidine (Pepcid) 20 mg PO BID [facility] Last Admin: 09/26/16 20:30 Dose: 20 mg Guaifenesin (Mucinex) 1,200 mg PO BID [facility] Last Admin: 09/26/16 20:32 Dose: 1,200 mg Hydralazine HCl (Apresoline) 20 mg IVPUSH Q4H PRN PRN Reason: Hypertension Hydromorphone HCl (Dilaudid) 0.25 mg IVPUSH Q2H PRN PRN Reason: Pain (severe 7-10) Azithromycin 500 mg/ Sodium (Chloride) 250 mls @ 250 mls/hr IV Q24H [facility] Last Admin: 09/26/16 16:11 Dose: 250 mls/hr Ceftriaxone Sodium 1 gm/ (Sodium Chloride) 100 mls @ 200 mls/hr IV Q24H [facility] Last Admin: 09/26/16 16:11 Dose: 200 mls/hr Lorazepam (Ativan) 1 mg IV Q6H PRN PRN Reason: Anxiety Lorazepam (Ativan) 0.5 mg PO BID@0800,1800 [facility] Last Admin: 09/26/16 17:42 Dose: 0.5 mg Magnesium Oxide (Magnesium Oxide) 400 mg PO BID [facility] Last Admin: 09/26/16 20:30 Dose: 400 mg Magnesium Sulfate (Pharmacy To Dose - Magnesium Replacement) 0 dose .XX ASDIRECTED PRN PRN Reason: rx dose Metoprolol Tartrate (Lopressor) 5 mg IVPUSH Q4H PRN PRN Reason: Tachycardia Last Admin: 09/26/16 19:00 Dose: 5 mg Mirtazapine (Remeron) 15 mg PO BEDTIME [facility] Last Admin: 09/26/16 20:30 Dose: 15 mg Mometasone Furoate/Formoterol Fumar (Dulera 200-5 Mcg) 2 puff IH BID [facility] Last Admin: 09/27/16 08:18 Dose: 2 puff Nicotine Polacrilex (Nicorelief) 2 mg CHEW Q2H PRN PRN Reason: Other Ondansetron HCl (Zofran) 4 mg IV Q6H PRN PRN Reason: Nausea/Vomiting Polyethylene Glycol (Miralax) 17 gm PO DAILY PRN PRN Reason: Constipation Potassium Chloride (Pharmacy To Dose - Potassium Replacement) 0 dose .XX ASDIRECTED PRN PRN Reason: rx dose Prednisone (Prednisone) 60 mg PO WITHBREAKFAST [facility] Stop: 09/28/16 07:00 Last Admin: 09/27/16 06:02 Dose: 60 mg Senna/Docusate Sodium (Senna Plus) 1 tab PO BID PRN PRN Reason: Constipation Discontinued Medications Albuterol/Ipratropium (Duoneb 3.0-0.5 Mg/3 Ml) 3 ml NEB ONETIME ONE Stop: 09/24/16 14:20 Last Admin: 09/24/16 14:28 Dose: 3 ml Ceftriaxone Sodium (Rocephin) 1,000 mg IVPUSH Q24H [facility] Last Admin: 09/24/16 16:20 Dose: Not Given Enoxaparin Sodium (Lovenox) 40 mg SUBCUT ONETIME ONE Stop: 09/24/16 21:47 Last Admin: 09/24/16 22:33 Dose: 40 mg Guaifenesin (Mucinex) 600 mg PO BID [facility] Last Admin: 09/25/16 08:04 Dose: 600 mg Hydromorphone HCl (Dilaudid) 0.25 mg IVPUSH Q2H PRN PRN Reason: Pain (severe 7-10) Azithromycin 500 mg/ Sodium (Chloride) 250 mls @ 250 mls/hr IV ONETIME ONE Stop: 09/24/16 17:11 Last Admin: 09/24/16 16:52 Dose: 250 mls/hr Ceftriaxone Sodium 1 gm/ (Sodium Chloride) 100 mls @ 200 mls/hr IV ONETIME ONE Stop: 09/24/16 16:48 Last Admin: 09/24/16 18:01 Dose: 200 mls/hr Azithromycin 500 mg/ Sodium (Chloride) 250 mls @ 250 mls/hr IV Q24H [facility] Last Admin: 09/24/16 19:56 Dose: Not Given Ceftriaxone Sodium 1 gm/ (Sodium Chloride) 100 mls @ 200 mls/hr IV Q24H [facility] Last Admin: 09/24/16 19:55 Dose: Not Given Magnesium Sulfate 2 gm/ Premix 50 mls @ 25 mls/hr IV ONETIME ONE Stop: 09/24/16 20:23 Last Admin: 09/24/16 19:28 Dose: 25 mls/hr Methylprednisolone Sodium Succinate (Solu-Medrol) 125 mg IVPUSH ONETIME ONE Stop: 09/24/16 14:20 Last Admin: 09/24/16 14:58 Dose: 125 mg Mometasone Furoate/Formoterol Fumar (Dulera 200-5 Mcg) 2 puff IH QID [facility] Last Admin: 09/25/16 08:39 Dose: 2 puff Pneumococcal Polyvalent Vaccine (Pneumovax 23) 0.5 ml IM .ONCE ONE Stop: 09/24/16 17:21 Temazepam (Restoril) 15 mg PO BEDTIME PRN PRN Reason: Sleep Last Admin: 09/25/16 20:36 Dose: 15 mg Temazepam (Restoril) 7.5 mg PO BEDTIME PRN PRN Reason: Sleep - Exam Quality Assessment: supplemental oxygen, DVT prophylaxis General: alert, oriented, cooperative, other (very thin) HEENT: Pupils equal, Pupils reactive, EOMI, Mucous membr. moist/pink Neck: supple Lungs: Normal respiratory effort, Decreased breath sounds (throughout), Wheezing Cardiovascular: Regular Rate, Regular Rhythm Abdomen: bowel sounds present, soft, no tenderness, no distension (Female) Exam: Deferred Extremities: no edema, no calf tenderness Peripheral Pulses: 1+: dorsalis pedis (L), dorsalis pedis (R) Neurological: no new focal deficit Psy/Mental Status: alert, normal affect, normal mood - Problem List & Annotations (1) Pneumonia SNOMED Code(s): 150898409 Code(s): J18.9 - PNEUMONIA, UNSPECIFIED ORGANISM Status: Acute Priority: High Current Visit: Yes Qualifiers: Pneumonia type: due to Mycoplasma pneumoniae (2) Hypoxia SNOMED Code(s): 426368281, 401970643 Code(s): R09.02 - HYPOXEMIA Status: Resolved Priority: High Current Visit: Yes (3) Emphysema lung SNOMED Code(s): 82140095 Code(s): J43.9 - EMPHYSEMA, UNSPECIFIED Status: Chronic Priority: High Current Visit: Yes Qualifiers: Emphysema type: unspecified Qualified Code(s): J43.9 - Emphysema, unspecified (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 SNOMED Code(s): 748143707 Code(s): J44.9 - CHRONIC OBSTRUCTIVE PULMONARY DISEASE, UNSPECIFIED; R64 - CACHEXIA Status: Chronic Priority: High Current Visit: Yes (5) Failure to thrive in adult SNOMED Code(s): 896832320 Code(s): R62.7 - ADULT FAILURE TO THRIVE Status: Chronic Priority: High Current Visit: Yes - Problem List Review Problem List Initiated/Reviewed/Updated: Yes - My Orders Last 24 Hours: My Active Orders 09/26/16 11:56 CULTURE STOOL + SHIGATOX [RM] Routine WBC, STOOL [OP] Routine 09/26/16 12:03 OVA & PARASITES BY IMMUNOASSAY [MREF] Routine - Plan Plan:: Assessment/Plan: Acute: Mycoplasma Pneumonia and +/- Step Pneumoniae - Mycoplasma positive - Continue IV Azithromycin and Rocephin Daily - CRP is 11.7---> 6.6 ---> 3.1--> 1.7 - Chest CT scan: no mass noted - Follow Up CXR: Stable from previous image COPD Exacerbation, Stable - Hx/o Severe Emphysema - Hyperinflation on CXR - Still active smoker - Supplemental O2, Bronchodilators, Oral Steroids, IV Azithromycin for Anti- inflammation, Decongestant/Expectorant - Routine RT care and IS q2 awake - Sputum Cx: Prelim: Probable Strep Pneumonia Thrombocytosis - Platelet 564--> 435 ---> 414 - This is likely reactive 2/2 infection above - Platelet Morphology: normal (meaning not a bone defect) Nicotine Abuse/Dependence - Still actively smokes - Counseled on smoking cessation - Refuses nicotine patch - Continue with nicotine gum Severe Malnutrition/Muscle Wasting - 2/2 underlying emphysema - Dietary following 1.9 cm Cystic Lesion within the Liver Per CT Scan - Unsure if this is new - No baseline comparison, image mercado Anxiety - Consulted Dr. Riley -Addition of Remeron 15mg QHS and ativan 0.25mg PO BID; doing better with this already Resolved: S/p Hypoxia - 2/2 Above - 79% on RA, 94-95% on 3L NC in ED - Supplemental O2, titrate to keep O2 > 90% S/p Leukocytosis - 2/2 above +/- steroids - Continue to monitor S/p Atrial Flutter with 2:1 AV Block - No baseline comparison - Anticogas for stroke prophylaxis - Metoprolol 5 mg IVP Q4 PRN rate control meds - She is now in Sinus Rhythm Plan: She remains clinically stable despite having double pneumonia i.e. pos for both mycoplasma and strep pneumonia Continue current treatment Routine AM Labs Continue PT/OT/RT SW/CM for d/c planning Will cut down dose on Restoril to 7.5 mg po qhs Stools studies ordered for loose stool; c-diff negative, remainder pending and/ or uncollected oas of yet. Recommend Assisted Living or some other form placement Additional orders as above Code Status: Full Per SW her home is not safe for her to back to after discharge. Priya is working on getting her insurance and discharge placement that would be safe for her. LOS Anticipate > 96 hrs pending discharge placement
[2016-09-27] MEDS: Famotidine 20 MG Tab PO SCH ×2 (09:06→20:13)
[2016-09-27] MEDS: Magnesium Oxide 400 MG Tab PO SCH ×2 (09:06→20:12)
[2016-09-27] MEDS: guaiFENesin 600 MG Tab.ER PO SCH ×2 (09:08→20:13)
[2016-09-27] MEDS: LORazepam 0.5 MG Tab PO SCH ×2 (09:08→18:46)
[2016-09-27] MEDS: Enoxaparin 40 MG/0.4 ML Syringe SUBCUT SCH (09:09)
[2016-09-27] MEDS ORDERED: Metoprolol Tartrate 25 MG Tab PO SCH (09:15)
[2016-09-27] MEDS: Metoprolol Tartrate 5 MG/5 ML SDV IVPUSH PRN (11:43)
[2016-09-27] MEDS: Saccharomyces Boulardii (Probiotic) 250 MG Cap PO SCH ×2 (14:48→20:13)
[2016-09-27] MEDS: LORazepam 2 MG/ML MDV IV PRN (14:48)
[2016-09-27] MEDS: Diltiazem 25 MG/5 ML SDV IVPUSH ONE ×2 (14:51→15:35)
[2016-09-27] MEDS ORDERED: Pneumococcal 13-Valent Conjugate Vaccine 0.5 ML Syringe IM ONE (15:15)
[2016-09-27] MEDS ORDERED: Diltiazem 25 MG/5 ML SDV IVPUSH PRN (15:51)
--- NOTE | 2016-09-27 15:51 | PCM.SN ---
- Free Text/Narrative Note: Patient's heart rate in the upper teens to 120s for the most part this am. Reviewed her EKG she has atypical a-flutter. She received oral and IV Metoprolol but w/o improvement. We gave 5 mg IVP cardizem challenge and she responded well. Her heart rate now in the low 90s. Will make changes to her rate control meds. Will switch her anticoags to eliquis po BID for stroke prophylaxis.
[2016-09-27] MEDS: cefTRIAXone 1 GM in Sodium Chloride 0.9% 100 ML IV SCH (17:53)
[2016-09-27] MEDS: Azithromycin 500 MG in Sodium Chloride 0.9% 250 ML IV SCH (18:46)
[2016-09-27] MEDS: Acetaminophen 325 MG Tab PO PRN (20:11)
[2016-09-27] MEDS: Apixaban 5 MG Tab PO SCH (20:12)
[2016-09-27] MEDS: Mirtazapine 15 MG Tab PO SCH (20:13)
[2016-09-28] MEDS: predniSONE 20 MG Tab PO SCH (07:49)
[2016-09-28] MEDS: LORazepam 0.5 MG Tab PO SCH ×2 (07:52→17:01)
[2016-09-28] MEDS: Famotidine 20 MG Tab PO SCH ×2 (08:03→20:08)
[2016-09-28] MEDS: Apixaban 5 MG Tab PO SCH (08:03)
[2016-09-28] MEDS: Saccharomyces Boulardii (Probiotic) 250 MG Cap PO SCH ×2 (08:03→20:08)
[2016-09-28] MEDS: guaiFENesin 600 MG Tab.ER PO SCH ×2 (08:03→20:08)
[2016-09-28] MEDS: Formoterol/Mometasone 200-5 MCG 8.8 GM Inhaler IH SCH ×2 (08:15→20:14)
[2016-09-28] MEDS: Albuterol/Ipratropium 3.0-0.5 MG/3 ML Neb Soln NEB PRN ×2 (08:15→13:22)
[2016-09-28] MEDS: Magnesium Oxide 400 MG Tab PO SCH ×2 (08:22→20:08)
[2016-09-28] MEDS ORDERED: Diltiazem 120 MG Cap.CD PO SCH (09:00)
[2016-09-28] MEDS ORDERED: Diltiazem 120 MG Cap.CD PO ONE (10:11)
--- NOTE | 2016-09-28 13:30 | PCM.PN ---
- General Info Date of Service: 09/28/16 Admission Dx/Problem (Free Text): Admission Diagnosis/Problem Admission Diagnosis/Problem Pneumonia due to Mycoplasma pneumoniae Holly is seen this morning. Overall she is starting to gain strength back, eating better, working with PT/ OT. Continues to be SOB and with SLAUGHTER, but requiring less supplemental oxygen, down to 1L/NC today HR has been elevated yesterday and today; medication adjustments being made for rate control. SW is discussing possible [facility] placement with patient and family. Functional Status: Reports: pain controlled, tolerating diet, ambulating, urinating. Denies: new symptoms - Review of Systems General: Reports: Fatigue HEENT: Reports: no symptoms Pulmonary: Reports: shortness of breath, cough Cardiovascular: Reports: Dyspnea on Exertion. Denies: Chest Pain, Palpitations Gastrointestinal: Reports: No symptoms Genitourinary: Reports: no symptoms Musculoskeletal: Reports: no symptoms Neurological: Reports: No Symptoms Psychiatric: Reports: anxiety - Patient Data Vitals - most recent: Last Vital Signs Temp 98.4 F 09/28/16 12:32 Pulse 119 H 09/28/16 12:32 Resp 14 09/28/16 12:32 BP 138/74 09/28/16 12:32 Pulse Ox 93 L 09/28/16 12:32 Weight - most recent: 96 lb 3.2 oz I&O - last 24 hours: Intake & Output 09/27/16 09/28/16 09/28/16 22:59 06:59 14:59 Intake Total 1250 450 480 Output Total 1350 400 Balance -100 50 480 Lab Results last 24 hrs: Laboratory Results - last 24 hr 09/27/16 09/28/16 09/28/16 Range/Units 13:05 06:20 06:20 WBC 10.84 H (3.98-10.04) K/mm3 RBC 4.04 (3.98-5.22) M/mm3 Hgb 12.0 (11.2-15.7) gm/L Hct 38.3 (34.1-44.9) % MCV 94.8 (79.4-94.8) fl MCH 29.7 (25.6-32.2) pg MCHC 31.3 L (32.2-35.5) g/dl RDW Std Deviation 43.8 (36.4-46.3) fL Plt Count 437 H (182-369) K/mm3 MPV 9.0 L (9.4-12.3) fl Neut % (Auto) 70.8 (34.0-71.1) % Lymph % (Auto) 19.3 (19.3-51.7) % [place] % (Auto) 8.4 (4.7-12.5) % Eos % (Auto) 0.5 L (0.7-5.8) Baso % (Auto) 0.1 (0.1-1.2) % Neut # (Auto) 7.68 H (1.56-6.13) K/mm3 Lymph # (Auto) 2.09 (1.18-3.74) K/mm3 [place] # (Auto) 0.91 H (0.24-0.36) K/mm3 Eos # (Auto) 0.05 (0.04-0.36) K/mm3 Baso # (Auto) 0.01 (0.01-0.08) K/mm3 Manual Slide Review Normal smear PT (8.0-13.0) SECONDS INR Sodium 155 H (136-145) mEq/L Potassium 5.0 (3.5-5.1) mEq/L Chloride 116 H (98-107) mEq/L Carbon Dioxide 35 H (21-32) mEq/L Anion Gap 9.0 (5-15) BUN 21 H (7-18) mg/dL Creatinine 0.5 L (0.55-1.02) mg/dL Est Cr Clr Drug Dosing 76.24 mL/min Estimated GFR (MDRD) > 60 (>60) mL/min BUN/Creatinine Ratio 42.0 H (14-18) Glucose 108 (80-115) mg/dL Calcium 8.7 (8.5-10.1) mg/dL Magnesium 2.2 (1.8-2.4) mg/dl CK-MB (CK-2) 0.5 (0-3.6) ng/ml Troponin I < 0.017 (0.00-0.056) ng/mL C-Reactive Protein 0.7 (<1.0) mg/dL 09/28/16 Range/Units 12:17 WBC (3.98-10.04) K/mm3 RBC (3.98-5.22) M/mm3 Hgb (11.2-15.7) gm/L Hct (34.1-44.9) % MCV (79.4-94.8) fl MCH (25.6-32.2) pg MCHC (32.2-35.5) g/dl RDW Std Deviation (36.4-46.3) fL Plt Count (182-369) K/mm3 MPV (9.4-12.3) fl Neut % (Auto) (34.0-71.1) % Lymph % (Auto) (19.3-51.7) % [place] % (Auto) (4.7-12.5) % Eos % (Auto) (0.7-5.8) Baso % (Auto) (0.1-1.2) % Neut # (Auto) (1.56-6.13) K/mm3 Lymph # (Auto) (1.18-3.74) K/mm3 [place] # (Auto) (0.24-0.36) K/mm3 Eos # (Auto) (0.04-0.36) K/mm3 Baso # (Auto) (0.01-0.08) K/mm3 Manual Slide Review PT 10.2 (8.0-13.0) SECONDS INR 0.94 Sodium (136-145) mEq/L Potassium (3.5-5.1) mEq/L Chloride (98-107) mEq/L Carbon Dioxide (21-32) mEq/L Anion Gap (5-15) BUN (7-18) mg/dL Creatinine (0.55-1.02) mg/dL Est Cr Clr Drug Dosing mL/min Estimated GFR (MDRD) (>60) mL/min BUN/Creatinine Ratio (14-18) Glucose (80-115) mg/dL Calcium (8.5-10.1) mg/dL Magnesium (1.8-2.4) mg/dl CK-MB (CK-2) (0-3.6) ng/ml Troponin I (0.00-0.056) ng/mL C-Reactive Protein (<1.0) mg/dL Ahsan Results last 24 hrs: Microbiology 09/28/16 06:40 Stool for WBCs - Final Stool / Feces - Stool, Formed NO WBC SEEN 09/25/16 07:43 Gram Stain - Final Sputum - Expectorated Sputum Culture - Final Streptococcus Pneumoniae 09/24/16 16:30 Aerobic Blood Culture - Preliminary Blood - Venous NO GROWTH AFTER 3 DAYS Anaerobic Blood Culture - Preliminary NO GROWTH AFTER 3 DAYS 09/24/16 16:36 Aerobic Blood Culture - Preliminary Blood - Venous - Lab Draw NO GROWTH AFTER 3 DAYS Anaerobic Blood Culture - Preliminary NO GROWTH AFTER 3 DAYS Med Orders - Current: Current Medications Acetaminophen (Tylenol) 650 mg PO Q4H PRN PRN Reason: Pain (Mild 1-3)/fever Last Admin: 09/27/16 20:11 Dose: 650 mg Hydrocodone Bitart/Acetaminophen (Secor 325-5 Mg) 1 tab PO Q4H PRN PRN Reason: Pain (moderate 4-6) Albuterol/Ipratropium (Duoneb 3.0-0.5 Mg/3 Ml) 3 ml NEB Q4H PRN PRN Reason: Shortness Of Breath/wheezing Last Admin: 09/28/16 13:22 Dose: 3 ml Bisacodyl (Dulcolax) 5 mg PO DAILY PRN PRN Reason: Constipation Last Admin: 09/25/16 08:06 Dose: 5 mg Diltiazem HCl (Diltiazem) 5 mg IVPUSH Q6H PRN PRN Reason: Tachycardia Last Admin: 09/28/16 09:15 Dose: 5 mg Diltiazem HCl (Dilacor Xr) 240 mg PO DAILY [facility] Famotidine (Pepcid) 20 mg PO BID [facility] Last Admin: 09/28/16 08:03 Dose: 20 mg Guaifenesin (Mucinex) 1,200 mg PO BID [facility] Last Admin: 09/28/16 08:03 Dose: 1,200 mg Hydralazine HCl (Apresoline) 20 mg IVPUSH Q4H PRN PRN Reason: Hypertension Hydromorphone HCl (Dilaudid) 0.25 mg IVPUSH Q2H PRN PRN Reason: Pain (severe 7-10) Azithromycin 500 mg/ Sodium (Chloride) 250 mls @ 250 mls/hr IV Q24H [facility] Last Admin: 09/27/16 18:46 Dose: 250 mls/hr Ceftriaxone Sodium 1 gm/ (Sodium Chloride) 100 mls @ 200 mls/hr IV Q24H [facility] Last Admin: 09/27/16 17:53 Dose: 200 mls/hr Lorazepam (Ativan) 1 mg IV Q6H PRN PRN Reason: Anxiety Last Admin: 09/27/16 14:48 Dose: 1 mg Lorazepam (Ativan) 0.5 mg PO BID@0800,1800 [facility] Last Admin: 09/28/16 07:52 Dose: 0.5 mg Magnesium Oxide (Magnesium Oxide) 400 mg PO BID [facility] Last Admin: 09/28/16 08:22 Dose: 400 mg Magnesium Sulfate (Pharmacy To Dose - Magnesium Replacement) 0 dose .XX ASDIRECTED PRN PRN Reason: rx dose Mirtazapine (Remeron) 15 mg PO BEDTIME [facility] Last Admin: 09/27/16 20:13 Dose: 15 mg Mometasone Furoate/Formoterol Fumar (Dulera 200-5 Mcg) 2 puff IH BID [facility] Last Admin: 09/28/16 08:15 Dose: 2 puff Nicotine Polacrilex (Nicorelief) 2 mg CHEW Q2H PRN PRN Reason: Other Ondansetron HCl (Zofran) 4 mg IV Q6H PRN PRN Reason: Nausea/Vomiting Polyethylene Glycol (Miralax) 17 gm PO DAILY PRN PRN Reason: Constipation Potassium Chloride (Pharmacy To Dose - Potassium Replacement) 0 dose .XX ASDIRECTED PRN PRN Reason: rx dose Saccharomyces Boulardii (Florastor) 250 mg PO BID [facility] Last Admin: 09/28/16 08:03 Dose: 250 mg Senna/Docusate Sodium (Senna Plus) 1 tab PO BID PRN PRN Reason: Constipation Warfarin Sodium (Coumadin) 7.5 mg PO ONETIME ONE Stop: 09/28/16 18:01 Warfarin Sodium (Pharmacy To Dose - Warfarin) 0 dose .XX ASDIRECTED PRN PRN Reason: RX TO DOSE COUMADIN Discontinued Medications Albuterol/Ipratropium (Duoneb 3.0-0.5 Mg/3 Ml) 3 ml NEB ONETIME ONE Stop: 09/24/16 14:20 Last Admin: 09/24/16 14:28 Dose: 3 ml Apixaban (Eliquis) 5 mg PO BID [facility] Last Admin: 09/28/16 08:03 Dose: 5 mg Ceftriaxone Sodium (Rocephin) 1,000 mg IVPUSH Q24H [facility] Last Admin: 09/24/16 16:20 Dose: Not Given Diltiazem HCl (Diltiazem) 5 mg IVPUSH ONETIME ONE Stop: 09/27/16 14:36 Last Admin: 09/27/16 15:35 Dose: 2.5 mg Diltiazem HCl (Cardizem Cd) 120 mg PO DAILY [facility] Last Admin: 09/28/16 08:03 Dose: 120 mg Diltiazem HCl (Cardizem Cd) 180 mg PO DAILY [facility] Diltiazem HCl (Cardizem Cd) 120 mg PO ONETIME ONE Stop: 09/28/16 10:12 Last Admin: 09/28/16 10:50 Dose: 120 mg Enoxaparin Sodium (Lovenox) 40 mg SUBCUT DAILY [facility] Last Admin: 09/27/16 09:09 Dose: 40 mg Enoxaparin Sodium (Lovenox) 40 mg SUBCUT ONETIME ONE Stop: 09/24/16 21:47 Last Admin: 09/24/16 22:33 Dose: 40 mg Guaifenesin (Mucinex) 600 mg PO BID [facility] Last Admin: 09/25/16 08:04 Dose: 600 mg Hydromorphone HCl (Dilaudid) 0.25 mg IVPUSH Q2H PRN PRN Reason: Pain (severe 7-10) Azithromycin 500 mg/ Sodium (Chloride) 250 mls @ 250 mls/hr IV ONETIME ONE Stop: 09/24/16 17:11 Last Admin: 09/24/16 16:52 Dose: 250 mls/hr Ceftriaxone Sodium 1 gm/ (Sodium Chloride) 100 mls @ 200 mls/hr IV ONETIME ONE Stop: 09/24/16 16:48 Last Admin: 09/24/16 18:01 Dose: 200 mls/hr Azithromycin 500 mg/ Sodium (Chloride) 250 mls @ 250 mls/hr IV Q24H [facility] Last Admin: 09/24/16 19:56 Dose: Not Given Ceftriaxone Sodium 1 gm/ (Sodium Chloride) 100 mls @ 200 mls/hr IV Q24H [facility] Last Admin: 09/24/16 19:55 Dose: Not Given Magnesium Sulfate 2 gm/ Premix 50 mls @ 25 mls/hr IV ONETIME ONE Stop: 09/24/16 20:23 Last Admin: 04/23/17 19:28 Dose: 25 mls/hr Methylprednisolone Sodium Succinate (Solu-Medrol) 125 mg IVPUSH ONETIME ONE Stop: 09/24/16 14:20 Last Admin: 09/24/16 14:58 Dose: 125 mg Metoprolol Tartrate (Lopressor) 5 mg IVPUSH Q4H PRN PRN Reason: Tachycardia Last Admin: 09/27/16 11:43 Dose: 5 mg Metoprolol Tartrate (Lopressor) 25 mg PO BID [facility] Last Admin: 09/27/16 10:33 Dose: 25 mg Mometasone Furoate/Formoterol Fumar (Dulera 200-5 Mcg) 2 puff IH QID [facility] Last Admin: 09/25/16 08:39 Dose: 2 puff Pneumococcal 13-Valent Conj Vacc (Prevnar 13) 0.5 ml IM .ONCE ONE Stop: 09/27/16 15:16 Prednisone (Prednisone) 60 mg PO WITHBREAKFAST [facility] Stop: 09/28/16 07:00 Last Admin: 09/28/16 07:49 Dose: 60 mg Temazepam (Restoril) 15 mg PO BEDTIME PRN PRN Reason: Sleep Last Admin: 09/25/16 20:36 Dose: 15 mg Temazepam (Restoril) 7.5 mg PO BEDTIME PRN PRN Reason: Sleep - Exam Quality Assessment: supplemental oxygen, DVT prophylaxis General: alert, oriented, cooperative, no acute distress HEENT: Pupils equal, Pupils reactive, EOMI, Mucous membr. moist/pink Neck: supple Lungs: Normal respiratory effort, Decreased breath sounds (throughout all [place] ) Cardiovascular: Regular Rate, Regular Rhythm Abdomen: bowel sounds present, soft, no tenderness, no distension (Female) Exam: Deferred Back Exam: other (cachectic ) Extremities: no calf tenderness, edema (very minimal to ankles bilat) Peripheral Pulses: 1+: dorsalis pedis (L), dorsalis pedis (R) Skin: warm, dry Neurological: no new focal deficit Psy/Mental Status: alert, normal affect, normal mood - Problem List & Annotations (1) Pneumonia SNOMED Code(s): 028219386 Code(s): J18.9 - PNEUMONIA, UNSPECIFIED ORGANISM Status: Acute Priority: High Current Visit: Yes Qualifiers: Pneumonia type: due to Mycoplasma pneumoniae (2) Hypoxia SNOMED Code(s): 708624801, 181166294 Code(s): R09.02 - HYPOXEMIA Status: Resolved Priority: High Current Visit: Yes (3) Emphysema lung SNOMED Code(s): 09014628 Code(s): J43.9 - EMPHYSEMA, UNSPECIFIED Status: Chronic Priority: High Current Visit: Yes Qualifiers: Emphysema type: unspecified Qualified Code(s): J43.9 - Emphysema, unspecified (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 SNOMED Code(s): 641597902 Code(s): J44.9 - CHRONIC OBSTRUCTIVE PULMONARY DISEASE, UNSPECIFIED; R64 - CACHEXIA Status: Chronic Priority: High Current Visit: Yes (5) Failure to thrive in adult SNOMED Code(s): 407686319 Code(s): R62.7 - ADULT FAILURE TO THRIVE Status: Chronic Priority: High Current Visit: Yes (6) Anxiety SNOMED Code(s): 40806899 Code(s): F41.9 - ANXIETY DISORDER, UNSPECIFIED Status: Acute Priority: High Current Visit: Yes - Problem List Review Problem List Initiated/Reviewed/Updated: Yes - My Orders Last 24 Hours: My Active Orders 09/28/16 06:40 CULTURE STOOL + SHIGATOX [RM] Routine OVA & PARASITES BY IMMUNOASSAY [MREF] Routine 09/28/16 12:15 Warfarin Pharmacy to Dose [Pharmacy to Dose - Warfarin] 0 dose .XX ASDIRECTED PRN 09/28/16 18:00 Warfarin [Coumadin] 7.5 mg PO ONETIME ONE 09/28/16 Lunch Heart Healthy Diet [DIET] 09/29/16 05:00 INR,PT,PROTHROMBIN TIME [COAG] DAILY 09/30/16 05:00 INR,PT,PROTHROMBIN TIME [COAG] DAILY 10/01/16 05:00 INR,PT,PROTHROMBIN TIME [COAG] DAILY 10/02/16 05:00 INR,PT,PROTHROMBIN TIME [COAG] DAILY 10/03/16 05:00 INR,PT,PROTHROMBIN TIME [COAG] DAILY - Plan Plan:: Assessment/Plan: Acute: Mycoplasma Pneumonia and Step Pneumoniae - Continue IV Azithromycin and Rocephin Daily - CRP is 11.7---> 6.6 ---> 3.1--> 1.7 - Chest CT scan: no mass noted - Follow Up CXR: Stable from previous image COPD Exacerbation, Stable - Hx/o Severe Emphysema - Hyperinflation on CXR - Still active smoker - Supplemental O2, Bronchodilators, Oral Steroids, IV Azithromycin for Anti- inflammation, Decongestant/Expectorant - Routine RT care and IS q2 awake - Sputum Cx: Strep Pneumonia Thrombocytosis - Platelet 564--> 435 ---> 414 - This is likely reactive 2/2 infection above - Platelet Morphology: normal (meaning not a bone defect) Nicotine Abuse/Dependence - Still actively smokes - Counseled on smoking cessation - Refuses nicotine patch - Continue with nicotine gum Severe Malnutrition/Muscle Wasting - 2/2 underlying emphysema - Dietary following; supplements 1.9 cm Cystic Lesion within the Liver Per CT Scan - Unsure if this is new - No baseline comparison, image mercado Anxiety - Consulted Dr. Riley -Addition of Remeron 15mg QHS-- dose to 7.5 and will increase ativan to 0.5mg TID Paroxysmal atrial flutter with tachycardia -Cardizem started yesterday PO 120mg, dose increased to 240 today; if rate not better controlled will need IV drip started and to ICU status, cont close monitoring. -Eliquis was started yesterday but patient without insurance/financial to pay so will switch to Coumadin. 7.5mg PO tonight, INR's daily and pharmacy to dose. Resolved: S/p Hypoxia - 2/2 Above - 79% on RA, 94-95% on 3L NC in ED - Supplemental O2, titrate to keep O2 > 90% S/p Leukocytosis - 2/2 above +/- steroids - Continue to monitor S/p Atrial Flutter with 2:1 AV Block - No baseline comparison - Anticogas for stroke prophylaxis - Metoprolol 5 mg IVP Q4 PRN rate control meds - She is now in Sinus Rhythm Plan: She remains clinically stable despite having double pneumonia i.e. pos for both mycoplasma and strep pneumonia Continue current treatment Routine AM Labs Continue PT/OT/RT SW/CM for d/c planning Will cut down dose on Restoril to 7.5 mg po qhs Stools studies ordered for loose stool; c-diff negative, remainder of stool studies negative. Recommend Assisted Living or some other form placement Additional orders as above Code Status: Full Per SW her home is not safe for her to back to after discharge. Priya is working on getting her insurance and discharge placement that would be safe for her. LOS Anticipate > 96 hrs pending discharge placement
[2016-09-28] MEDS: LORazepam 2 MG/ML MDV IV PRN ×2 (13:37→22:30)
[2016-09-28] MEDS ORDERED: Diltiazem 100 MG AdvVial ONE (14:21)
[2016-09-28] MEDS ORDERED: Sodium Chloride 0.9% 100 ML ONE (14:22)
--- NOTE | 2016-09-28 14:22 | PCM.SN ---
- Free Text/Narrative Note: Patient continues with tachycardia rates of 130's; had iv cardizem 5 hours ago, due for another dose. Will transfer patient to ICU and start cardizem drip for better rate control. EKG will be obtained now. Dr. Valdez updated and aware of plan, in agreement.
[2016-09-28] MEDS ORDERED: Diltiazem 125 MG in Sodium Chloride 0.9% 100 ML IV SCH (14:30)
[2016-09-28] MEDS: Levalbuterol HCl 1.25 MG/3 ML Neb NEB SCH ×2 (15:03→20:13)
--- NOTE | 2016-09-28 15:04 | PCM.SN ---
- Free Text/Narrative Note: Patient is now is ICU. HR is the 130s. Her EKG shows sinus tachycardia. Awaiting Cardizem drip to start.
[2016-09-28] MEDS: Digoxin 500 MCG/2 ML Amp IVPUSH SCH ×2 (15:30→20:08)
[2016-09-28] MEDS: cefTRIAXone 1 GM in Sodium Chloride 0.9% 100 ML IV SCH (15:58)
[2016-09-28] MEDS: Azithromycin 500 MG in Sodium Chloride 0.9% 250 ML IV SCH (16:00)
[2016-09-28] MEDS ORDERED: Warfarin 7.5 MG Tab PO ONE (18:00)
[2016-09-28] MEDS: Mirtazapine 15 MG Tab PO SCH (20:08)
[2016-09-29] MEDS: Levalbuterol HCl 1.25 MG/3 ML Neb NEB SCH ×4 (03:03→20:22)
--- NOTE | 2016-09-29 07:13 | PCM.PN ---
- General Info Date of Service: 09/29/16 Admission Dx/Problem (Free Text): Admission Diagnosis/Problem Admission Diagnosis/Problem Pneumonia due to Mycoplasma pneumoniae Subjective Update: Follow Up Functional Status: Reports: pain controlled, tolerating diet, ambulating, urinating. Denies: new symptoms - Review of Systems General: Denies: Fever, Weakness, Fatigue, Malaise HEENT: Reports: no symptoms Pulmonary: Denies: shortness of breath Cardiovascular: Denies: Chest Pain Gastrointestinal: Denies: Abdominal pain, Nausea, Vomiting Genitourinary: Reports: no symptoms Musculoskeletal: Reports: no symptoms Skin: Denies: cyanosis Neurological: Denies: Confusion, Difficulty Walking, Weakness, Gait Disturbance Psychiatric: Reports: anxiety. Denies: confusion, depression, agitation, cravings, hallucinations Systems Review Comment:: No overnight issues. She is doing fairly well this am. HR is stable in the 90s. Cardizem drip was stopped emergency services professional. She has no new complaints. - Patient Data Vitals - most recent: Last Vital Signs Temp 36.6 C 09/29/16 04:00 Pulse 86 09/29/16 04:00 Resp 22 H 09/29/16 04:00 BP 122/57 L 09/29/16 04:00 Pulse Ox 97 09/29/16 04:00 Weight - most recent: 43.363 kg I&O - last 24 hours: Intake & Output 09/28/16 09/29/16 09/29/16 22:59 06:59 14:59 Intake Total 1050 540 Output Total 1000 750 Balance 50 -210 Lab Results last 24 hrs: Laboratory Results - last 24 hr 09/28/16 09/28/16 09/28/16 Range/Units 12:17 17:20 19:50 WBC (3.98-10.04) K/mm3 RBC (3.98-5.22) M/mm3 Hgb (11.2-15.7) gm/L Hct (34.1-44.9) % MCV (79.4-94.8) fl MCH (25.6-32.2) pg MCHC (32.2-35.5) g/dl RDW Std Deviation (36.4-46.3) fL Plt Count (182-369) K/mm3 MPV (9.4-12.3) fl PT 10.2 (8.0-13.0) SECONDS INR 0.94 Puncture Site Rt radial Rt radial ABG pH 7.35 7.41 (7.35-7.45) ABG pCO2 59.7 H 54.8 H (35.0-45.0) mmHg ABG pO2 64.0 L 71.0 L (80.0-100.0) mmHg ABG HCO3 32.0 H 34.0 H (22.0-26.0) meq/L ABG O2 Saturation 91.9 L 96.1 (96.0-97.0) % ABG Base Excess 4.8 H 8.2 H (-2-2.0) Foreign Test Positive A-a Gradient 15 14 mmHg O2 Delivery Device Nasal cannula Bipap Oxygen Flow Rate 1.0 FiO2 24.00 24.00 (21.00-100.00) % 09/29/16 09/29/16 Range/Units 05:37 05:47 WBC 13.43 H (3.98-10.04) K/mm3 RBC 4.21 (3.98-5.22) M/mm3 Hgb 12.4 (11.2-15.7) gm/L Hct 40.0 (34.1-44.9) % MCV 95.0 H (79.4-94.8) fl MCH 29.5 (25.6-32.2) pg MCHC 31.0 L (32.2-35.5) g/dl RDW Std Deviation 44.0 (36.4-46.3) fL Plt Count 454 H (182-369) K/mm3 MPV 9.4 (9.4-12.3) fl PT 11.3 (8.0-13.0) SECONDS INR 1.03 Puncture Site ABG pH (7.35-7.45) ABG pCO2 (35.0-45.0) mmHg ABG pO2 (80.0-100.0) mmHg ABG HCO3 (22.0-26.0) meq/L ABG O2 Saturation (96.0-97.0) % ABG Base Excess (-2-2.0) Foreign Test A-a Gradient mmHg O2 Delivery Device Oxygen Flow Rate FiO2 (21.00-100.00) % Ahsan Results last 24 hrs: Microbiology 09/24/16 16:30 Aerobic Blood Culture - Preliminary Blood - Venous NO GROWTH AFTER 4 DAYS Anaerobic Blood Culture - Preliminary NO GROWTH AFTER 4 DAYS 09/24/16 16:36 Aerobic Blood Culture - Preliminary Blood - Venous - Lab Draw NO GROWTH AFTER 4 DAYS Anaerobic Blood Culture - Preliminary NO GROWTH AFTER 4 DAYS 09/28/16 06:40 Stool for WBCs - Final Stool / Feces - Stool, Formed NO WBC SEEN 09/25/16 07:43 Gram Stain - Final Sputum - Expectorated Sputum Culture - Final Streptococcus Pneumoniae Med Orders - Current: Current Medications Acetaminophen (Tylenol) 650 mg PO Q4H PRN PRN Reason: Pain (Mild 1-3)/fever Last Admin: 09/27/16 20:11 Dose: 650 mg Hydrocodone Bitart/Acetaminophen ([place] 325-5 Mg) 1 tab PO Q4H PRN PRN Reason: Pain (moderate 4-6) Albuterol/Ipratropium (Duoneb 3.0-0.5 Mg/3 Ml) 3 ml NEB Q4H PRN PRN Reason: Shortness Of Breath/wheezing Last Admin: 09/28/16 13:22 Dose: 3 ml Bisacodyl (Dulcolax) 5 mg PO DAILY PRN PRN Reason: Constipation Last Admin: 09/25/16 08:06 Dose: 5 mg Diltiazem HCl (Cardizem Cd) 340 mg PO DAILY [facility] Famotidine (Pepcid) 20 mg PO BID [facility] Last Admin: 09/28/16 20:08 Dose: 20 mg Guaifenesin (Mucinex) 1,200 mg PO BID [facility] Last Admin: 09/28/16 20:08 Dose: 1,200 mg Hydralazine HCl (Apresoline) 20 mg IVPUSH Q4H PRN PRN Reason: Hypertension Hydromorphone HCl (Dilaudid) 0.25 mg IVPUSH Q2H PRN PRN Reason: Pain (severe 7-10) Azithromycin 500 mg/ Sodium (Chloride) 250 mls @ 250 mls/hr IV Q24H [facility] Last Admin: 09/28/16 16:00 Dose: 250 mls/hr Ceftriaxone Sodium 1 gm/ (Sodium Chloride) 100 mls @ 200 mls/hr IV Q24H [facility] Last Admin: 09/28/16 15:58 Dose: 200 mls/hr Levalbuterol HCl (Xopenex) 1.25 mg NEB Q6HRRT [facility] Last Admin: 09/29/16 03:03 Dose: 1.25 mg Lorazepam (Ativan) 1 mg IV Q6H PRN PRN Reason: Anxiety Last Admin: 09/28/16 22:30 Dose: 1 mg Lorazepam (Ativan) 0.5 mg PO BID@0800,1800 [facility] Last Admin: 09/28/16 17:01 Dose: 0.5 mg Magnesium Oxide (Magnesium Oxide) 400 mg PO BID [facility] Last Admin: 09/28/16 20:08 Dose: 400 mg Magnesium Sulfate (Pharmacy To Dose - Magnesium Replacement) 0 dose .XX ASDIRECTED PRN PRN Reason: rx dose Mirtazapine (Remeron) 15 mg PO BEDTIME [facility] Last Admin: 09/28/16 20:08 Dose: 15 mg Mometasone Furoate/Formoterol Fumar (Dulera 200-5 Mcg) 2 puff IH BID [facility] Last Admin: 09/28/16 20:14 Dose: 2 puff Nicotine Polacrilex (Nicorelief) 2 mg CHEW Q2H PRN PRN Reason: Other Ondansetron HCl (Zofran) 4 mg IV Q6H PRN PRN Reason: Nausea/Vomiting Polyethylene Glycol (Miralax) 17 gm PO DAILY PRN PRN Reason: Constipation Potassium Chloride (Pharmacy To Dose - Potassium Replacement) 0 dose .XX ASDIRECTED PRN PRN Reason: rx dose Saccharomyces Boulardii (Florastor) 250 mg PO BID [facility] Last Admin: 09/28/16 20:08 Dose: 250 mg Senna/Docusate Sodium (Senna Plus) 1 tab PO BID PRN PRN Reason: Constipation Warfarin Sodium (Pharmacy To Dose - Warfarin) 0 dose .XX ASDIRECTED PRN PRN Reason: RX TO DOSE COUMADIN Discontinued Medications Albuterol/Ipratropium (Duoneb 3.0-0.5 Mg/3 Ml) 3 ml NEB ONETIME ONE Stop: 09/24/16 14:20 Last Admin: 09/24/16 14:28 Dose: 3 ml Apixaban (Eliquis) 5 mg PO BID [facility] Last Admin: 09/28/16 08:03 Dose: 5 mg Ceftriaxone Sodium (Rocephin) 1,000 mg IVPUSH Q24H [facility] Last Admin: 09/24/16 16:20 Dose: Not Given Digoxin (Lanoxin) 250 mcg IVPUSH Q4H [facility] Stop: 09/29/16 03:31 Last Admin: 09/28/16 20:08 Dose: 250 mcg Diltiazem HCl (Diltiazem) 5 mg IVPUSH ONETIME ONE Stop: 09/27/16 14:36 Last Admin: 09/27/16 15:35 Dose: 2.5 mg Diltiazem HCl (Cardizem Cd) 120 mg PO DAILY [facility] Last Admin: 09/28/16 08:03 Dose: 120 mg Diltiazem HCl (Diltiazem) 5 mg IVPUSH Q6H PRN PRN Reason: Tachycardia Last Admin: 09/28/16 09:15 Dose: 5 mg Diltiazem HCl (Cardizem Cd) 180 mg PO DAILY [facility] Diltiazem HCl (Dilacor Xr) 240 mg PO DAILY [facility] Diltiazem HCl (Cardizem Cd) 120 mg PO ONETIME ONE Stop: 09/28/16 10:12 Last Admin: 09/28/16 10:50 Dose: 120 mg Diltiazem HCl (Cardizem) Confirm Administered Dose 100 mg .ROUTE .STK-MED ONE Stop: 09/28/16 14:22 Last Admin: 09/28/16 15:05 Dose: 100 mg Enoxaparin Sodium (Lovenox) 40 mg SUBCUT DAILY [facility] Last Admin: 09/27/16 09:09 Dose: 40 mg Enoxaparin Sodium (Lovenox) 40 mg SUBCUT ONETIME ONE Stop: 09/24/16 21:47 Last Admin: 09/24/16 22:33 Dose: 40 mg Guaifenesin (Mucinex) 600 mg PO BID [facility] Last Admin: 09/25/16 08:04 Dose: 600 mg Hydromorphone HCl (Dilaudid) 0.25 mg IVPUSH Q2H PRN PRN Reason: Pain (severe 7-10) Azithromycin 500 mg/ Sodium (Chloride) 250 mls @ 250 mls/hr IV ONETIME ONE Stop: 09/24/16 17:11 Last Admin: 09/24/16 16:52 Dose: 250 mls/hr Ceftriaxone Sodium 1 gm/ (Sodium Chloride) 100 mls @ 200 mls/hr IV ONETIME ONE Stop: 09/24/16 16:48 Last Admin: 09/24/16 18:01 Dose: 200 mls/hr Azithromycin 500 mg/ Sodium (Chloride) 250 mls @ 250 mls/hr IV Q24H [facility] Last Admin: 09/24/16 19:56 Dose: Not Given Ceftriaxone Sodium 1 gm/ (Sodium Chloride) 100 mls @ 200 mls/hr IV Q24H [facility] Last Admin: 09/24/16 19:55 Dose: Not Given Magnesium Sulfate 2 gm/ Premix 50 mls @ 25 mls/hr IV ONETIME ONE Stop: 09/24/16 20:23 Last Admin: 09/24/16 19:28 Dose: 25 mls/hr Diltiazem HCl 125 mg/ Sodium (Chloride) 125 mls @ 5 mls/hr IV TITRATE [facility]; 5 MG /HR PRN Reason: Protocol Last Titration: 09/29/16 01:41 Dose: 0 mg/hr, 0 mls/hr Sodium Chloride (Normal Saline) Confirm Administered Dose 100 mls @ as directed .ROUTE .STK-MED ONE Stop: 09/28/16 14:23 Last Admin: 09/28/16 15:05 Dose: 15 ml Methylprednisolone Sodium Succinate (Solu-Medrol) 125 mg IVPUSH ONETIME ONE Stop: 09/24/16 14:20 Last Admin: 09/24/16 14:58 Dose: 125 mg Metoprolol Tartrate (Lopressor) 5 mg IVPUSH Q4H PRN PRN Reason: Tachycardia Last Admin: 09/27/16 11:43 Dose: 5 mg Metoprolol Tartrate (Lopressor) 25 mg PO BID [facility] Last Admin: 09/27/16 10:33 Dose: 25 mg Mometasone Furoate/Formoterol Fumar (Dulera 200-5 Mcg) 2 puff IH QID [facility] Last Admin: 09/25/16 08:39 Dose: 2 puff Pneumococcal 13-Valent Conj Vacc (Prevnar 13) 0.5 ml IM .ONCE ONE Stop: 09/27/16 15:16 Prednisone (Prednisone) 60 mg PO WITHBREAKFAST [facility] Stop: 09/28/16 07:00 Last Admin: 09/28/16 07:49 Dose: 60 mg Temazepam (Restoril) 15 mg PO BEDTIME PRN PRN Reason: Sleep Last Admin: 09/25/16 20:36 Dose: 15 mg Temazepam (Restoril) 7.5 mg PO BEDTIME PRN PRN Reason: Sleep Warfarin Sodium (Coumadin) 7.5 mg PO ONETIME ONE Stop: 09/28/16 18:01 Last Admin: 09/28/16 17:09 Dose: 7.5 mg - Exam Quality Assessment: supplemental oxygen General: alert, oriented, cooperative, no acute distress, other (Cachexia) HEENT: Pupils equal, Pupils reactive, Mucous membr. moist/pink Neck: supple, trachea midline, no JVD, no thyromegaly Lungs: Normal respiratory effort, Decreased breath sounds Cardiovascular: Regular Rate, Regular Rhythm Abdomen: bowel sounds present, soft, no tenderness, no distension (Female) Exam: Deferred Back Exam: normal inspection, decreased range of motion Extremities: no edema, normal pulses, no tenderness/swelling, no clubbing, no cyanosis, no calf tenderness Peripheral Pulses: 2+: posterior tibial (L), posterior tibial (R), dorsalis pedis (L), dorsalis pedis (R) Skin: warm, dry, intact Neurological: no new focal deficit Psy/Mental Status: alert, normal affect, normal mood - Problem List Review Problem List Initiated/Reviewed/Updated: Yes - My Orders Last 24 Hours: My Active Orders 09/28/16 17:40 BIPAP [RT BiPAP/CPAP] [RC] .PRN 09/29/16 05:11 BASIC METABOLIC PANEL,BMP [CHEM] Routine 09/29/16 09:00 Diltiazem [Cardizem CD] 340 mg PO DAILY 09/30/16 05:11 BMP [BASIC METABOLIC PANEL,BMP] [CHEM] AM 10/01/16 05:11 BMP [BASIC METABOLIC PANEL,BMP] [CHEM] AM 10/02/16 05:11 BMP [BASIC METABOLIC PANEL,BMP] [CHEM] AM 10/02/16 07:00 CBC W/O DIFF,HEMOGRAM [HEME] MOTH@0710/03/16 05:11 BMP [BASIC METABOLIC PANEL,BMP] [CHEM] AM 10/04/16 05:11 BMP [BASIC METABOLIC PANEL,BMP] [CHEM] AM 10/05/16 07:00 CBC W/O DIFF,HEMOGRAM [HEME] MOTH@0700 10/09/16 07:00 CBC W/O DIFF,HEMOGRAM [HEME] MOTH@0700 10/12/16 07:00 CBC W/O DIFF,HEMOGRAM [HEME] MOTH@0700 - Plan Plan:: Assessment/Plan: Acute: Mycoplasma Pneumonia and Step Pneumoniae - Continue IV Azithromycin and Rocephin Daily - CRP is 11.7---> 6.6 ---> 3.1--> 1.7--> 0.7 - Chest CT scan: no mass noted - Follow Up CXR in AM - Received 5 day course of IV Rocephin COPD Exacerbation, Stable - Hx/o Severe Emphysema - Hyperinflation on CXR - Still active smoker - Supplemental O2, Bronchodilators, Oral Steroids, IV Azithromycin for Anti- inflammation, Decongestant/Expectorant - Routine RT care and IS q2 awake - Sputum Cx: Strep Pneumonia Thrombocytosis - Platelet 564--> 454 - This is likely reactive 2/2 infection above - Platelet Morphology: normal (meaning not a bone defect) Nicotine Abuse/Dependence - Still actively smokes - Counseled on smoking cessation - Refuses nicotine patch - Continue with nicotine gum Severe Malnutrition/Muscle Wasting - 2/2 underlying emphysema - Dietary following: on supplements 1.9 cm Cystic Lesion within the Liver Per CT Scan - Unsure if this is new - No baseline comparison, image mercado Anxiety - Consulted Dr. Riley - Addition of Remeron 15mg QHS-- dose to 7.5 and will increase ativan to 0.5mg TID Paroxysmal atrial flutter with tachycardia - Cardizem started yesterday PO 120mg, dose increased to 240 today; if rate not better controlled will need IV drip started and to ICU status, cont close monitoring. - Eliquis was started yesterday but patient without insurance/financial to pay so will switch to Coumadin. 7.5mg PO tonight, INR's daily and pharmacy to dose. Subtherapeutic INR - INR 1.0 - Will bridge with Lovenox SubQ BID - Pharmacy to monitor/dose warfarin Resolved: S/p Hypoxia - 2/2 Above - 79% on RA, 94-95% on 3L NC in ED - Supplemental O2, titrate to keep O2 > 90% S/p Leukocytosis - 2/2 above +/- steroids - Continue to monitor S/p Atrial Flutter with 2:1 AV Block - No baseline comparison - Anticogas for stroke prophylaxis - Metoprolol 5 mg IVP Q4 PRN rate control meds - She is now in Sinus Rhythm Plan: She remains clinically stable despite having double pneumonia i.e. pos for both mycoplasma and strep pneumonia Continue current treatment Will keep her in ICU and re-assess later this afternoon Routine AM Labs Continue PT/OT/RT SW/CM for d/c planning Recommend Assisted Living or some other form placement Additional orders as above Code Status: DNR/DNI LOS Anticipate > 96 hrs pending discharge placement
[2016-09-29] MEDS: Saccharomyces Boulardii (Probiotic) 250 MG Cap PO SCH ×2 (08:09→20:09)
[2016-09-29] MEDS: Famotidine 20 MG Tab PO SCH ×2 (08:09→20:09)
[2016-09-29] MEDS: LORazepam 0.5 MG Tab PO SCH ×2 (08:09→17:11)
[2016-09-29] MEDS: Diltiazem 180 MG Cap.CD PO SCH (08:10)
[2016-09-29] MEDS: Magnesium Oxide 400 MG Tab PO SCH ×2 (08:10→20:09)
[2016-09-29] MEDS: guaiFENesin 600 MG Tab.ER PO SCH ×2 (08:10→20:09)
[2016-09-29] MEDS: Formoterol/Mometasone 200-5 MCG 8.8 GM Inhaler IH SCH ×2 (08:53→20:22)
[2016-09-29] MEDS ORDERED: Diltiazem 180 MG Cap.CD PO SCH ×2 (09:00)
[2016-09-29] MEDS ORDERED: Diltiazem 240 MG Cap.ER PO SCH (09:00)
--- NOTE | 2016-09-29 13:49 | PCM.SN ---
<Emeli Cadet M - Last Filed: 09/29/16 13:46> - Free Text/Narrative Note: Spoke with family member/cousin Swati today, updated on oHlly's medical condition. Reviewed current meds, labs, status, PT progression, recommend that if she continues to improve and HR's maintain with current therapy [facility] would be an excellent option for patient. Reviewed that echocardiogram is pending and can update when results returned. Respiratory status is stable now, HR's stable now. Phone number: [phone] <Jaun Valdez T - Last Filed: 09/29/16 14:31> - Free Text/Narrative Note: HR back up in the 120s-130s. Will restart Cardizem 5 mg IVP Q4 PRN for HR > 110. She may need Digoxin as she responded to this beautifully yesterday. Will defer using BB, she has MDD. BB could worsen her depression.
[2016-09-29] MEDS ORDERED: Diltiazem 25 MG/5 ML SDV IVPUSH PRN (14:23)
[2016-09-29] MEDS: Diltiazem 25 MG/5 ML SDV IVPUSH PRN ×2 (14:47→20:09)
[2016-09-29] MEDS: Digoxin 500 MCG/2 ML Amp IVPUSH SCH ×2 (15:50→20:08)
[2016-09-29] MEDS: Warfarin 5 MG Tab PO ONE ×2 (16:50→17:49)
[2016-09-29] MEDS: Azithromycin 250 MG Tab PO SCH (16:50)
[2016-09-29] MEDS: LORazepam 2 MG/ML MDV IV PRN (20:09)
[2016-09-29] MEDS: Mirtazapine 15 MG Tab PO SCH (20:09)
[2016-09-30] MEDS: Digoxin 500 MCG/2 ML Amp IVPUSH SCH (00:19)
[2016-09-30] MEDS: Levalbuterol HCl 1.25 MG/3 ML Neb NEB SCH ×4 (03:03→20:24)
--- NOTE | 2016-09-30 07:26 | PCM.PN ---
- General Info Date of Service: 09/30/16 Admission Dx/Problem (Free Text): Admission Diagnosis/Problem Admission Diagnosis/Problem Pneumonia due to Mycoplasma pneumoniae Subjective Update: Follow Up Functional Status: Reports: pain controlled, tolerating diet, ambulating, urinating. Denies: new symptoms - Review of Systems General: Denies: Fever, Weakness, Fatigue, Malaise, Chills HEENT: Reports: no symptoms Pulmonary: Reports: shortness of breath. Denies: pleuritic chest pain, wheezing Cardiovascular: Denies: Chest Pain, Palpitations, Dyspnea on Exertion, Edema Gastrointestinal: Denies: Abdominal pain, Nausea, Vomiting Genitourinary: Reports: no symptoms Musculoskeletal: Reports: no symptoms Skin: Denies: cyanosis Neurological: Denies: Confusion, Difficulty Walking, Weakness, Gait Disturbance Psychiatric: Denies: depression, cravings, hallucinations, suicidal ideation, homicidal ideation Systems Review Comment:: HR is holding fairly well. She feels tired. She looks anxious but not depressed. She is not homocidal or suicidal. - Patient Data Vitals - most recent: Last Vital Signs Temp 36.5 C 09/30/16 04:00 Pulse 89 09/30/16 04:00 Resp 21 H 09/30/16 04:00 BP 124/63 09/30/16 04:00 Pulse Ox 93 L 09/30/16 04:00 Weight - most recent: 43.409 kg I&O - last 24 hours: Intake & Output 09/29/16 09/30/16 09/30/16 22:59 06:59 14:59 Intake Total 1560 0 Output Total 950 600 Balance 610 -600 Lab Results last 24 hrs: Laboratory Results - last 24 hr 09/28/16 09/29/16 09/30/16 Range/Units 06:20 22:50 05:16 PT 14.0 H (8.0-13.0) SECONDS INR 1.27 Sodium 141 (136-145) mEq/L Potassium 5.0 (3.5-5.1) mEq/L Chloride 104 (98-107) mEq/L Carbon Dioxide 35 H (21-32) mEq/L Anion Gap 7.0 (5-15) BUN 21 H (7-18) mg/dL Creatinine 0.5 L (0.55-1.02) mg/dL Est Cr Clr Drug Dosing 76.24 mL/min Estimated GFR (MDRD) > 60 (>60) mL/min BUN/Creatinine Ratio 42.0 H (14-18) Glucose 108 (80-115) mg/dL Calcium 8.7 (8.5-10.1) mg/dL Magnesium 2.2 (1.8-2.4) mg/dl C-Reactive Protein 0.7 (<1.0) mg/dL Digoxin 1.2 (0.9-2.0) ng/mL 09/30/16 Range/Units 05:16 PT (8.0-13.0) SECONDS INR Sodium 137 (136-145) mEq/L Potassium 4.5 (3.5-5.1) mEq/L Chloride 101 (98-107) mEq/L Carbon Dioxide 35 H (21-32) mEq/L Anion Gap 5.5 (5-15) BUN 29 H (7-18) mg/dL Creatinine 0.5 L (0.55-1.02) mg/dL Est Cr Clr Drug Dosing 75.84 mL/min Estimated GFR (MDRD) > 60 (>60) mL/min BUN/Creatinine Ratio 58.0 H (14-18) Glucose 99 (80-115) mg/dL Calcium 8.5 (8.5-10.1) mg/dL Magnesium (1.8-2.4) mg/dl C-Reactive Protein (<1.0) mg/dL Digoxin (0.9-2.0) ng/mL Ahsan Results last 24 hrs: Microbiology 09/24/16 16:30 Aerobic Blood Culture - Preliminary Blood - Venous NO GROWTH AFTER 5 DAYS Anaerobic Blood Culture - Preliminary NO GROWTH AFTER 5 DAYS 09/24/16 16:36 Aerobic Blood Culture - Preliminary Blood - Venous - Lab Draw NO GROWTH AFTER 5 DAYS Anaerobic Blood Culture - Preliminary NO GROWTH AFTER 5 DAYS 09/28/16 06:40 Stool Culture - Preliminary Stool / Feces - Stool, Formed - Final NEGATIVE FOR SHIGA TOXIN 1 - Final NEGATIVE FOR SHIGA TOXIN 2 09/28/16 06:40 Cryptosporidium/Giardia - Final Stool / Feces - Stool, Formed Med Orders - Current: Current Medications Acetaminophen (Tylenol) 650 mg PO Q4H PRN PRN Reason: Pain (Mild 1-3)/fever Last Admin: 09/27/16 20:11 Dose: 650 mg Hydrocodone Bitart/Acetaminophen ([place] 325-5 Mg) 1 tab PO Q4H PRN PRN Reason: Pain (moderate 4-6) Albuterol/Ipratropium (Duoneb 3.0-0.5 Mg/3 Ml) 3 ml NEB Q4H PRN PRN Reason: Shortness Of Breath/wheezing Last Admin: 09/28/16 13:22 Dose: 3 ml Azithromycin (Zithromax) 250 mg PO DAILY@1700 [facility] Stop: 09/30/16 17:01 Last Admin: 09/29/16 16:50 Dose: 250 mg Bisacodyl (Dulcolax) 5 mg PO DAILY PRN PRN Reason: Constipation Last Admin: 09/25/16 08:06 Dose: 5 mg Digoxin (Lanoxin) 250 mcg IVPUSH ONETIME ONE Stop: 09/30/16 09:01 Diltiazem HCl (Cardizem Cd) 360 mg PO DAILY [facility] Last Admin: 09/29/16 08:10 Dose: 360 mg Diltiazem HCl (Diltiazem) 5 mg IVPUSH Q4H PRN PRN Reason: Tachycardia Last Admin: 09/29/16 20:09 Dose: 5 mg Enoxaparin Sodium (Lovenox) 40 mg SUBCUT Q12HR [facility] Famotidine (Pepcid) 20 mg PO BID [facility] Last Admin: 09/29/16 20:09 Dose: 20 mg Guaifenesin (Mucinex) 1,200 mg PO BID [facility] Last Admin: 09/29/16 20:09 Dose: 1,200 mg Hydralazine HCl (Apresoline) 20 mg IVPUSH Q4H PRN PRN Reason: Hypertension Hydromorphone HCl (Dilaudid) 0.25 mg IVPUSH Q2H PRN PRN Reason: Pain (severe 7-10) Levalbuterol HCl (Xopenex) 1.25 mg NEB Q6HRRT [facility] Last Admin: 09/30/16 03:03 Dose: 1.25 mg Lorazepam (Ativan) 1 mg IV Q6H PRN PRN Reason: Anxiety Last Admin: 09/29/16 20:09 Dose: 1 mg Lorazepam (Ativan) 0.5 mg PO BID@0800,1800 [facility] Last Admin: 09/29/16 17:11 Dose: 0.5 mg Magnesium Oxide (Magnesium Oxide) 400 mg PO BID [facility] Last Admin: 09/29/16 20:09 Dose: 400 mg Magnesium Sulfate (Pharmacy To Dose - Magnesium Replacement) 0 dose .XX ASDIRECTED PRN PRN Reason: rx dose Mirtazapine (Remeron) 15 mg PO BEDTIME [facility] Last Admin: 09/29/16 20:09 Dose: 15 mg Mometasone Furoate/Formoterol Fumar (Dulera 200-5 Mcg) 2 puff IH BID [facility] Last Admin: 09/29/16 20:22 Dose: 2 puff Nicotine Polacrilex (Nicorelief) 2 mg CHEW Q2H PRN PRN Reason: Other Ondansetron HCl (Zofran) 4 mg IV Q6H PRN PRN Reason: Nausea/Vomiting Polyethylene Glycol (Miralax) 17 gm PO DAILY PRN PRN Reason: Constipation Potassium Chloride (Pharmacy To Dose - Potassium Replacement) 0 dose .XX ASDIRECTED PRN PRN Reason: rx dose Saccharomyces Boulardii (Florastor) 250 mg PO BID [facility] Last Admin: 09/29/16 20:09 Dose: 250 mg Senna/Docusate Sodium (Senna Plus) 1 tab PO BID PRN PRN Reason: Constipation Warfarin Sodium (Pharmacy To Dose - Warfarin) 0 dose .XX ASDIRECTED PRN PRN Reason: RX TO DOSE COUMADIN Discontinued Medications Albuterol/Ipratropium (Duoneb 3.0-0.5 Mg/3 Ml) 3 ml NEB ONETIME ONE Stop: 09/24/16 14:20 Last Admin: 09/24/16 14:28 Dose: 3 ml Apixaban (Eliquis) 5 mg PO BID [facility] Last Admin: 09/28/16 08:03 Dose: 5 mg Ceftriaxone Sodium (Rocephin) 1,000 mg IVPUSH Q24H [facility] Last Admin: 09/24/16 16:20 Dose: Not Given Digoxin (Lanoxin) 250 mcg IVPUSH Q4H [facility] Stop: 09/29/16 03:31 Last Admin: 09/28/16 20:08 Dose: 250 mcg Digoxin (Lanoxin) 250 mcg IVPUSH Q4H [facility] Stop: 09/30/16 03:46 Last Admin: 09/30/16 00:19 Dose: 250 mcg Diltiazem HCl (Diltiazem) 5 mg IVPUSH ONETIME ONE Stop: 09/27/16 14:36 Last Admin: 09/27/16 15:35 Dose: 2.5 mg Diltiazem HCl (Cardizem Cd) 120 mg PO DAILY [facility] Last Admin: 09/28/16 08:03 Dose: 120 mg Diltiazem HCl (Diltiazem) 5 mg IVPUSH Q6H PRN PRN Reason: Tachycardia Last Admin: 09/28/16 09:15 Dose: 5 mg Diltiazem HCl (Cardizem Cd) 180 mg PO DAILY [facility] Diltiazem HCl (Dilacor Xr) 240 mg PO DAILY [facility] Diltiazem HCl (Cardizem Cd) 120 mg PO ONETIME ONE Stop: 09/28/16 10:12 Last Admin: 09/28/16 10:50 Dose: 120 mg Diltiazem HCl (Cardizem) Confirm Administered Dose 100 mg .ROUTE .STK-MED ONE Stop: 09/28/16 14:22 Last Admin: 09/28/16 15:05 Dose: 100 mg Diltiazem HCl (Cardizem Cd) 360 mg PO DAILY [facility] Enoxaparin Sodium (Lovenox) 40 mg SUBCUT DAILY [facility] Last Admin: 09/27/16 09:09 Dose: 40 mg Enoxaparin Sodium (Lovenox) 40 mg SUBCUT ONETIME ONE Stop: 09/24/16 21:47 Last Admin: 09/24/16 22:33 Dose: 40 mg Guaifenesin (Mucinex) 600 mg PO BID [facility] Last Admin: 09/25/16 08:04 Dose: 600 mg Hydromorphone HCl (Dilaudid) 0.25 mg IVPUSH Q2H PRN PRN Reason: Pain (severe 7-10) Azithromycin 500 mg/ Sodium (Chloride) 250 mls @ 250 mls/hr IV ONETIME ONE Stop: 09/24/16 17:11 Last Admin: 09/24/16 16:52 Dose: 250 mls/hr Ceftriaxone Sodium 1 gm/ (Sodium Chloride) 100 mls @ 200 mls/hr IV ONETIME ONE Stop: 09/24/16 16:48 Last Admin: 09/24/16 18:01 Dose: 200 mls/hr Azithromycin 500 mg/ Sodium (Chloride) 250 mls @ 250 mls/hr IV Q24H [facility] Last Admin: 09/24/16 19:56 Dose: Not Given Ceftriaxone Sodium 1 gm/ (Sodium Chloride) 100 mls @ 200 mls/hr IV Q24H [facility] Last Admin: 09/24/16 19:55 Dose: Not Given Azithromycin 500 mg/ Sodium (Chloride) 250 mls @ 250 mls/hr IV Q24H [facility] Last Admin: 09/28/16 16:00 Dose: 250 mls/hr Ceftriaxone Sodium 1 gm/ (Sodium Chloride) 100 mls @ 200 mls/hr IV Q24H [facility] Last Admin: 09/28/16 15:58 Dose: 200 mls/hr Magnesium Sulfate 2 gm/ Premix 50 mls @ 25 mls/hr IV ONETIME ONE Stop: 09/24/16 20:23 Last Admin: 09/24/16 19:28 Dose: 25 mls/hr Diltiazem HCl 125 mg/ Sodium (Chloride) 125 mls @ 5 mls/hr IV TITRATE KADEEM; 5 MG /HR PRN Reason: Protocol Last Titration: 09/29/16 01:41 Dose: 0 mg/hr, 0 mls/hr Sodium Chloride (Normal Saline) Confirm Administered Dose 100 mls @ as directed .ROUTE .STK-MED ONE Stop: 09/28/16 14:23 Last Admin: 09/28/16 15:05 Dose: 15 ml Methylprednisolone Sodium Succinate (Solu-Medrol) 125 mg IVPUSH ONETIME ONE Stop: 09/24/16 14:20 Last Admin: 09/24/16 14:58 Dose: 125 mg Metoprolol Tartrate (Lopressor) 5 mg IVPUSH Q4H PRN PRN Reason: Tachycardia Last Admin: 09/27/16 11:43 Dose: 5 mg Metoprolol Tartrate (Lopressor) 25 mg PO BID [facility] Last Admin: 09/27/16 10:33 Dose: 25 mg Mometasone Furoate/Formoterol Fumar (Dulera 200-5 Mcg) 2 puff IH QID [facility] Last Admin: 09/25/16 08:39 Dose: 2 puff Pneumococcal 13-Valent Conj Vacc (Prevnar 13) 0.5 ml IM .ONCE ONE Stop: 09/27/16 15:16 Prednisone (Prednisone) 60 mg PO WITHBREAKFAST [facility] Stop: 09/28/16 07:00 Last Admin: 09/28/16 07:49 Dose: 60 mg Temazepam (Restoril) 15 mg PO BEDTIME PRN PRN Reason: Sleep Last Admin: 09/25/16 20:36 Dose: 15 mg Temazepam (Restoril) 7.5 mg PO BEDTIME PRN PRN Reason: Sleep Warfarin Sodium (Coumadin) 7.5 mg PO ONETIME ONE Stop: 09/28/16 18:01 Last Admin: 09/28/16 17:09 Dose: 7.5 mg Warfarin Sodium (Coumadin) 5 mg PO ONETIME ONE Stop: 09/29/16 18:01 Last Admin: 09/29/16 17:49 Dose: Not Given - Exam Quality Assessment: supplemental oxygen General: alert, oriented, cooperative, no acute distress HEENT: Pupils equal, Pupils reactive, EOMI, Mucous membr. moist/pink Neck: supple, trachea midline, no JVD, no thyromegaly Lungs: Normal respiratory effort, Decreased breath sounds Cardiovascular: Regular Rate, Regular Rhythm Abdomen: bowel sounds present, soft, no tenderness, no distension (Female) Exam: Deferred Back Exam: normal inspection, decreased range of motion Extremities: no edema, normal pulses, no tenderness/swelling, no clubbing, no cyanosis, no calf tenderness Peripheral Pulses: 2+: dorsalis pedis (L), dorsalis pedis (R) Skin: warm, dry, intact Neurological: no new focal deficit Psy/Mental Status: alert, normal affect, normal mood - Problem List Review Problem List Initiated/Reviewed/Updated: Yes - My Orders Last 24 Hours: My Active Orders 09/29/16 09:00 Diltiazem [Cardizem CD] 360 mg PO DAILY 09/29/16 14:13 Diltiazem 5 mg IVPUSH Q4H PRN 09/30/16 09:00 Digoxin [Lanoxin] 250 mcg IVPUSH ONETIME ONE Enoxaparin [Lovenox] 40 mg SUBCUT Q12HR 10/01/16 05:11 BMP [BASIC METABOLIC PANEL,BMP] [CHEM] AM 10/02/16 05:11 BMP [BASIC METABOLIC PANEL,BMP] [CHEM] AM 10/02/16 07:00 CBC W/O DIFF,HEMOGRAM [HEME] MOTH@0700 CBC W/O DIFF,HEMOGRAM [HEME] MOTH@0700 10/03/16 05:11 BMP [BASIC METABOLIC PANEL,BMP] [CHEM] AM 10/04/16 05:11 BMP [BASIC METABOLIC PANEL,BMP] [CHEM] AM 10/05/16 07:00 CBC W/O DIFF,HEMOGRAM [HEME] MOTH@0700 CBC W/O DIFF,HEMOGRAM [HEME] MOTH@00 10/09/16 07:00 CBC W/O DIFF,HEMOGRAM [HEME] MOTH@0700 CBC W/O DIFF,HEMOGRAM [HEME] MOTH@69910/12/16 07:00 CBC W/O DIFF,HEMOGRAM [HEME] MOTH@0700 CBC W/O DIFF,HEMOGRAM [HEME] MOTH@69910/16/16 07:00 CBC W/O DIFF,HEMOGRAM [HEME] MOTH@69910/19/16 07:00 CBC W/O DIFF,HEMOGRAM [HEME] MOTH@0700 - Plan Plan:: Assessment/Plan: Acute: Paroxysmal atrial flutter with tachycardia - Cardizem started yesterday PO 120mg, dose increased to 240 today; if rate not better controlled will need IV drip started and to ICU status, cont close monitoring - Eliquis was started yesterday but patient without insurance/financial to pay so will switch to Coumadin. 7.5mg PO tonight, INR's daily and pharmacy to dose - On Cardizem and Digoxin, HR hold well right now. If not response, we may consider BB. Subtherapeutic INR - INR 1.0 ---> 1.27 - Continue Lovenox SubQ BID - Pharmacy to monitor/dose warfarin Mycoplasma Pneumonia and Step Pneumoniae - Continue IV Azithromycin and Rocephin Daily - CRP is 11.7---> 6.6 ---> 3.1--> 1.7--> 0.7 - Chest CT scan: no mass noted - Will defer follow up CXR - Received 5 day course of IV Rocephin; Today is the 5th dose of her Azithromycin COPD - Hx/o Severe Emphysema - Hyperinflation on CXR - Still active smoker - Supplemental O2, Bronchodilators, Oral Steroids, IV Azithromycin for Anti- inflammation, Decongestant/Expectorant - Routine RT care and IS q2 awake - Sputum Cx: Strep Pneumonia Thrombocytosis - Platelet 564--> 454 - This is likely reactive 2/2 infection above - Platelet Morphology: normal (meaning not a bone defect) Nicotine Abuse/Dependence - Still actively smokes - Counseled on smoking cessation - Refuses nicotine patch - Continue with nicotine gum Severe Malnutrition/Muscle Wasting - 2/2 underlying emphysema - Dietary following: on supplements 1.9 cm Cystic Lesion within the Liver Per CT Scan - Unsure if this is new - No baseline comparison, image mercado Anxiety - Consulted Dr. Riley - Addition of Remeron 15mg QHS-- dose to 7.5 and will increase ativan to 0.5mg TID Resolved: S/p Hypoxia - 2/2 Above - 79% on RA, 94-95% on 3L NC in ED - Supplemental O2, titrate to keep O2 > 90% S/p Leukocytosis - 2/2 above +/- steroids - Continue to monitor S/p Atrial Flutter with 2:1 AV Block - No baseline comparison - Anticogas for stroke prophylaxis - Metoprolol 5 mg IVP Q4 PRN rate control meds - She is now in Sinus Rhythm Plan: She essentially the same Continue current treatment She remains in ICU until HR is fully controlled Routine AM Labs Continue PT/OT/RT SW/CM for d/c planning Recommend Assisted Living or some other form placement Additional orders as above Code Status: DNR/DNI LOS Anticipate > 96 hrs pending discharge placement
[2016-09-30] MEDS: Saccharomyces Boulardii (Probiotic) 250 MG Cap PO SCH ×2 (08:14→20:02)
[2016-09-30] MEDS: Enoxaparin 40 MG/0.4 ML Syringe SUBCUT SCH ×2 (08:14→20:05)
[2016-09-30] MEDS: guaiFENesin 600 MG Tab.ER PO SCH ×2 (08:14→20:02)
[2016-09-30] MEDS: Diltiazem 180 MG Cap.CD PO SCH (08:14)
[2016-09-30] MEDS: LORazepam 0.5 MG Tab PO SCH ×2 (08:15→17:09)
[2016-09-30] MEDS: Magnesium Oxide 400 MG Tab PO SCH ×2 (08:15→20:02)
[2016-09-30] MEDS: Famotidine 20 MG Tab PO SCH ×2 (08:16→20:02)
[2016-09-30] MEDS ORDERED: Digoxin 500 MCG/2 ML Amp IVPUSH ONE (09:00)
[2016-09-30] MEDS: Formoterol/Mometasone 200-5 MCG 8.8 GM Inhaler IH SCH ×2 (09:09→20:24)
[2016-09-30] MEDS ORDERED: Metoprolol Tartrate 5 MG/5 ML SDV IVPUSH ONE (11:52)
[2016-09-30] MEDS ORDERED: Metoprolol Tartrate 5 MG/5 ML SDV IVPUSH PRN (12:19)
--- NOTE | 2016-09-30 12:26 | PCM.SN ---
- Free Text/Narrative Note: Got 360 of oral cardizem and Digoxin. HR is stayed in the 120s. Tried one time dose of IV BB- heart is now down to the 90s. Patient is not suicidal and definitely not depressed but rather anxious. Will try Metoprolol scheduled and PRN to further control her HR.
[2016-09-30] MEDS: Azithromycin 250 MG Tab PO SCH (17:10)
[2016-09-30] MEDS ORDERED: Warfarin 5 MG Tab PO SCH (18:00)
[2016-09-30] MEDS: Metoprolol Tartrate 50 MG Tab PO SCH (20:02)
[2016-09-30] MEDS: Mirtazapine 15 MG Tab PO SCH (20:03)
[2016-10-01] MEDS: Levalbuterol HCl 1.25 MG/3 ML Neb NEB SCH ×4 (02:57→20:40)
--- NOTE | 2016-10-01 07:08 | PCM.PN ---
- General Info Date of Service: 10/01/16 Admission Dx/Problem (Free Text): Admission Diagnosis/Problem Admission Diagnosis/Problem Pneumonia due to Mycoplasma pneumoniae Subjective Update: Follow Up Functional Status: Reports: pain controlled, tolerating diet, ambulating, urinating. Denies: new symptoms - Review of Systems General: Denies: Fever, Weakness, Fatigue, Malaise, Chills HEENT: Reports: no symptoms Pulmonary: Reports: shortness of breath Cardiovascular: Denies: Chest Pain, Palpitations, Dyspnea on Exertion Gastrointestinal: Denies: Abdominal pain, Nausea, Vomiting Genitourinary: Reports: no symptoms Musculoskeletal: Reports: no symptoms Skin: Reports: no symptoms Neurological: Denies: Confusion, Difficulty Walking, Weakness, Gait Disturbance Psychiatric: Denies: confusion, anxiety, agitation, hallucinations Systems Review Comment:: No overnight issues. HR has been controlled with combined BB and CCB. She feels goos. She has no new complaints. - Patient Data Vitals - most recent: Last Vital Signs Temp 36.6 C 10/01/16 04:00 Pulse 81 10/01/16 04:00 Resp 20 10/01/16 04:00 BP 110/60 10/01/16 04:00 Pulse Ox 93 L 10/01/16 04:00 Weight - most recent: 42.638 kg I&O - last 24 hours: Intake & Output 09/30/16 10/01/16 10/01/16 22:59 06:59 14:59 Intake Total 240 300 Output Total 845 500 Balance -605 -200 Lab Results last 24 hrs: Laboratory Results - last 24 hr 10/01/16 10/01/16 10/01/16 Range/Units 04:46 04:46 04:46 PT 16.4 H (8.0-13.0) SECONDS INR 1.47 Sodium 139 (136-145) mEq/L Potassium 4.4 (3.5-5.1) mEq/L Chloride 102 (98-107) mEq/L Carbon Dioxide 36 H (21-32) mEq/L Anion Gap 5.4 (5-15) BUN 25 H (7-18) mg/dL Creatinine 0.4 L (0.55-1.02) mg/dL Est Cr Clr Drug Dosing 94.81 mL/min Estimated GFR (MDRD) > 60 (>60) mL/min BUN/Creatinine Ratio 62.5 H (14-18) Glucose 102 (80-115) mg/dL Calcium 8.4 L (8.5-10.1) mg/dL Digoxin 1.3 (0.9-2.0) ng/mL Ahsan Results last 24 hrs: Microbiology 09/24/16 16:30 Aerobic Blood Culture - Preliminary Blood - Venous NO GROWTH AFTER 6 DAYS Anaerobic Blood Culture - Preliminary NO GROWTH AFTER 6 DAYS 09/24/16 16:36 Aerobic Blood Culture - Preliminary Blood - Venous - Lab Draw NO GROWTH AFTER 6 DAYS Anaerobic Blood Culture - Preliminary NO GROWTH AFTER 6 DAYS 09/28/16 06:40 Stool Culture - Preliminary Stool / Feces - Stool, Formed NORMAL ENTERIC GEORGE 2 DAYS - Final NEGATIVE FOR SHIGA TOXIN 1 - Final NEGATIVE FOR SHIGA TOXIN 2 Med Orders - Current: Current Medications Acetaminophen (Tylenol) 650 mg PO Q4H PRN PRN Reason: Pain (Mild 1-3)/fever Last Admin: 09/27/16 20:11 Dose: 650 mg Hydrocodone Bitart/Acetaminophen ([place] 325-5 Mg) 1 tab PO Q4H PRN PRN Reason: Pain (moderate 4-6) Albuterol/Ipratropium (Duoneb 3.0-0.5 Mg/3 Ml) 3 ml NEB Q4H PRN PRN Reason: Shortness Of Breath/wheezing Last Admin: 09/28/16 13:22 Dose: 3 ml Bisacodyl (Dulcolax) 5 mg PO DAILY PRN PRN Reason: Constipation Last Admin: 09/25/16 08:06 Dose: 5 mg Digoxin (Lanoxin) 250 mcg PO DAILY [facility] Diltiazem HCl (Cardizem Cd) 360 mg PO DAILY [facility] Last Admin: 09/30/16 08:14 Dose: 360 mg Diltiazem HCl (Diltiazem) 5 mg IVPUSH Q4H PRN PRN Reason: Tachycardia Last Admin: 09/29/16 20:09 Dose: 5 mg Enoxaparin Sodium (Lovenox) 40 mg SUBCUT Q12HR [facility] Last Admin: 09/30/16 20:05 Dose: 40 mg Famotidine (Pepcid) 20 mg PO BID [facility] Last Admin: 09/30/16 20:02 Dose: 20 mg Guaifenesin (Mucinex) 1,200 mg PO BID [facility] Last Admin: 09/30/16 20:02 Dose: 1,200 mg Hydralazine HCl (Apresoline) 20 mg IVPUSH Q4H PRN PRN Reason: Hypertension Hydromorphone HCl (Dilaudid) 0.25 mg IVPUSH Q2H PRN PRN Reason: Pain (severe 7-10) Levalbuterol HCl (Xopenex) 1.25 mg NEB Q6HRRT [facility] Last Admin: 10/01/16 02:57 Dose: 1.25 mg Lorazepam (Ativan) 1 mg IV Q6H PRN PRN Reason: Anxiety Last Admin: 09/29/16 20:09 Dose: 1 mg Lorazepam (Ativan) 0.5 mg PO BID@0800,1800 [facility] Last Admin: 09/30/16 17:09 Dose: 0.5 mg Magnesium Oxide (Magnesium Oxide) 400 mg PO BID [facility] Last Admin: 09/30/16 20:02 Dose: 400 mg Magnesium Sulfate (Pharmacy To Dose - Magnesium Replacement) 0 dose .XX ASDIRECTED PRN PRN Reason: rx dose Metoprolol Tartrate (Lopressor) 50 mg PO Q12HR [facility] Last Admin: 09/30/16 20:02 Dose: 50 mg Metoprolol Tartrate (Lopressor) 5 mg IVPUSH Q4H PRN PRN Reason: Tachycardia Last Admin: 09/30/16 15:27 Dose: 5 mg Mirtazapine (Remeron) 15 mg PO BEDTIME [facility] Last Admin: 09/30/16 20:03 Dose: 15 mg Mometasone Furoate/Formoterol Fumar (Dulera 200-5 Mcg) 2 puff IH BID [facility] Last Admin: 09/30/16 20:24 Dose: 2 puff Nicotine Polacrilex (Nicorelief) 2 mg CHEW Q2H PRN PRN Reason: Other Ondansetron HCl (Zofran) 4 mg IV Q6H PRN PRN Reason: Nausea/Vomiting Polyethylene Glycol (Miralax) 17 gm PO DAILY PRN PRN Reason: Constipation Potassium Chloride (Pharmacy To Dose - Potassium Replacement) 0 dose .XX ASDIRECTED PRN PRN Reason: rx dose Saccharomyces Boulardii (Florastor) 250 mg PO BID [facility] Last Admin: 09/30/16 20:02 Dose: 250 mg Senna/Docusate Sodium (Senna Plus) 1 tab PO BID PRN PRN Reason: Constipation Warfarin Sodium (Pharmacy To Dose - Warfarin) 0 dose .XX ASDIRECTED PRN PRN Reason: RX TO DOSE COUMADIN Discontinued Medications Albuterol/Ipratropium (Duoneb 3.0-0.5 Mg/3 Ml) 3 ml NEB ONETIME ONE Stop: 09/24/16 14:20 Last Admin: 09/24/16 14:28 Dose: 3 ml Apixaban (Eliquis) 5 mg PO BID [facility] Last Admin: 09/28/16 08:03 Dose: 5 mg Azithromycin (Zithromax) 250 mg PO DAILY@1700 [facility] Stop: 09/30/16 17:01 Last Admin: 09/30/16 17:10 Dose: 250 mg Ceftriaxone Sodium (Rocephin) 1,000 mg IVPUSH Q24H [facility] Last Admin: 09/24/16 16:20 Dose: Not Given Digoxin (Lanoxin) 250 mcg IVPUSH Q4H [facility] Stop: 09/29/16 03:31 Last Admin: 09/28/16 20:08 Dose: 250 mcg Digoxin (Lanoxin) 250 mcg IVPUSH Q4H [facility] Stop: 09/30/16 03:46 Last Admin: 09/30/16 00:19 Dose: 250 mcg Digoxin (Lanoxin) 250 mcg IVPUSH ONETIME ONE Stop: 09/30/16 09:01 Last Admin: 09/30/16 08:15 Dose: 250 mcg Diltiazem HCl (Diltiazem) 5 mg IVPUSH ONETIME ONE Stop: 09/27/16 14:36 Last Admin: 09/27/16 15:35 Dose: 2.5 mg Diltiazem HCl (Cardizem Cd) 120 mg PO DAILY [facility] Last Admin: 09/28/16 08:03 Dose: 120 mg Diltiazem HCl (Diltiazem) 5 mg IVPUSH Q6H PRN PRN Reason: Tachycardia Last Admin: 09/28/16 09:15 Dose: 5 mg Diltiazem HCl (Cardizem Cd) 180 mg PO DAILY [facility] Diltiazem HCl (Dilacor Xr) 240 mg PO DAILY [facility] Diltiazem HCl (Cardizem Cd) 120 mg PO ONETIME ONE Stop: 09/28/16 10:12 Last Admin: 09/28/16 10:50 Dose: 120 mg Diltiazem HCl (Cardizem) Confirm Administered Dose 100 mg .ROUTE .STK-MED ONE Stop: 09/28/16 14:22 Last Admin: 09/28/16 15:05 Dose: 100 mg Diltiazem HCl (Cardizem Cd) 360 mg PO DAILY [facility] Enoxaparin Sodium (Lovenox) 40 mg SUBCUT DAILY [facility] Last Admin: 09/27/16 09:09 Dose: 40 mg Enoxaparin Sodium (Lovenox) 40 mg SUBCUT ONETIME ONE Stop: 09/24/16 21:47 Last Admin: 09/24/16 22:33 Dose: 40 mg Guaifenesin (Mucinex) 600 mg PO BID [facility] Last Admin: 09/25/16 08:04 Dose: 600 mg Hydromorphone HCl (Dilaudid) 0.25 mg IVPUSH Q2H PRN PRN Reason: Pain (severe 7-10) Azithromycin 500 mg/ Sodium (Chloride) 250 mls @ 250 mls/hr IV ONETIME ONE Stop: 09/24/16 17:11 Last Admin: 09/24/16 16:52 Dose: 250 mls/hr Ceftriaxone Sodium 1 gm/ (Sodium Chloride) 100 mls @ 200 mls/hr IV ONETIME ONE Stop: 09/24/16 16:48 Last Admin: 09/24/16 18:01 Dose: 200 mls/hr Azithromycin 500 mg/ Sodium (Chloride) 250 mls @ 250 mls/hr IV Q24H [facility] Last Admin: 09/24/16 19:56 Dose: Not Given Ceftriaxone Sodium 1 gm/ (Sodium Chloride) 100 mls @ 200 mls/hr IV Q24H [facility] Last Admin: 09/24/16 19:55 Dose: Not Given Azithromycin 500 mg/ Sodium (Chloride) 250 mls @ 250 mls/hr IV Q24H [facility] Last Admin: 09/28/16 16:00 Dose: 250 mls/hr Ceftriaxone Sodium 1 gm/ (Sodium Chloride) 100 mls @ 200 mls/hr IV Q24H [facility] Last Admin: 09/28/16 15:58 Dose: 200 mls/hr Magnesium Sulfate 2 gm/ Premix 50 mls @ 25 mls/hr IV ONETIME ONE Stop: 09/24/16 20:23 Last Admin: 09/24/16 19:28 Dose: 25 mls/hr Diltiazem HCl 125 mg/ Sodium (Chloride) 125 mls @ 5 mls/hr IV TITRATE [facility]; 5 MG /HR PRN Reason: Protocol Last Titration: 09/29/16 01:41 Dose: 0 mg/hr, 0 mls/hr Sodium Chloride (Normal Saline) Confirm Administered Dose 100 mls @ as directed .ROUTE .STK-MED ONE Stop: 09/28/16 14:23 Last Admin: 09/28/16 15:05 Dose: 15 ml Methylprednisolone Sodium Succinate (Solu-Medrol) 125 mg IVPUSH ONETIME ONE Stop: 09/24/16 14:20 Last Admin: 09/24/16 14:58 Dose: 125 mg Metoprolol Tartrate (Lopressor) 5 mg IVPUSH Q4H PRN PRN Reason: Tachycardia Last Admin: 09/27/16 11:43 Dose: 5 mg Metoprolol Tartrate (Lopressor) 25 mg PO BID [facility] Last Admin: 09/27/16 10:33 Dose: 25 mg Metoprolol Tartrate (Lopressor) 5 mg IVPUSH ONETIME ONE Stop: 09/30/16 11:53 Last Admin: 09/30/16 11:58 Dose: 5 mg Mometasone Furoate/Formoterol Fumar (Dulera 200-5 Mcg) 2 puff IH QID [facility] Last Admin: 09/25/16 08:39 Dose: 2 puff Pneumococcal 13-Valent Conj Vacc (Prevnar 13) 0.5 ml IM .ONCE ONE Stop: 09/27/16 15:16 Prednisone (Prednisone) 60 mg PO WITHBREAKFAST [facility] Stop: 09/28/16 07:00 Last Admin: 09/28/16 07:49 Dose: 60 mg Temazepam (Restoril) 15 mg PO BEDTIME PRN PRN Reason: Sleep Last Admin: 09/25/16 20:36 Dose: 15 mg Temazepam (Restoril) 7.5 mg PO BEDTIME PRN PRN Reason: Sleep Warfarin Sodium (Coumadin) 7.5 mg PO ONETIME ONE Stop: 09/28/16 18:01 Last Admin: 09/28/16 17:09 Dose: 7.5 mg Warfarin Sodium (Coumadin) 5 mg PO ONETIME ONE Stop: 09/29/16 18:01 Last Admin: 09/29/16 17:49 Dose: Not Given Warfarin Sodium (Coumadin) 5 mg PO QPM [facility] Stop: 09/30/16 21:00 Last Admin: 09/30/16 17:10 Dose: 5 mg - Exam General: alert, oriented, cooperative, no acute distress HEENT: Pupils equal, Pupils reactive, EOMI, Mucous membr. moist/pink Neck: supple, trachea midline, no JVD, no thyromegaly Lungs: Clear to auscultation, Normal respiratory effort Cardiovascular: Regular Rate, Regular Rhythm Abdomen: bowel sounds present, soft, no tenderness, no distension (Female) Exam: Deferred Back Exam: normal inspection, decreased range of motion Extremities: no edema, normal pulses, no tenderness/swelling, no clubbing, no cyanosis, no calf tenderness Peripheral Pulses: 2+: dorsalis pedis (L), dorsalis pedis (R) Skin: warm, dry, intact Neurological: no new focal deficit Psy/Mental Status: alert, normal affect, normal mood - Problem List Review Problem List Initiated/Reviewed/Updated: Yes - My Orders Last 24 Hours: My Active Orders 09/30/16 09:00 Enoxaparin [Lovenox] 40 mg SUBCUT Q12HR 09/30/16 10:43 Communication Order [RC] ASDIRECTED 09/30/16 12:19 Metoprolol Tartrate [Lopressor] 5 mg IVPUSH Q4H PRN 09/30/16 21:00 Metoprolol Tartrate [Lopressor] 50 mg PO Q12HR 10/01/16 09:00 Digoxin [Lanoxin] 250 mcg PO DAILY 10/02/16 05:11 BMP [BASIC METABOLIC PANEL,BMP] [CHEM] AM 10/02/16 07:00 CBC W/O DIFF,HEMOGRAM [HEME] MOTH@0700 CBC W/O DIFF,HEMOGRAM [HEME] MOTH@0700 10/03/16 05:11 BMP [BASIC METABOLIC PANEL,BMP] [CHEM] AM 10/04/16 05:11 BMP [BASIC METABOLIC PANEL,BMP] [CHEM] AM 10/05/16 07:00 CBC W/O DIFF,HEMOGRAM [HEME] MOTH@0700 CBC W/O DIFF,HEMOGRAM [HEME] MOTH@0700 10/09/16 07:00 CBC W/O DIFF,HEMOGRAM [HEME] MOTH@0700 CBC W/O DIFF,HEMOGRAM [HEME] MOTH@00 10/12/16 07:00 CBC W/O DIFF,HEMOGRAM [HEME] MOTH@07 CBC W/O DIFF,HEMOGRAM [HEME] MOTH@69910/16/16 07:00 CBC W/O DIFF,HEMOGRAM [HEME] MOTH@69910/19/16 07:00 CBC W/O DIFF,HEMOGRAM [HEME] MOTH@07 - Plan Plan:: Assessment/Plan: Acute: Paroxysmal atrial flutter with tachycardia - Cardizem started yesterday PO 120mg, dose increased to 240 today; if rate not better controlled will need IV drip started and to ICU status, cont close monitoring - Eliquis was started yesterday but patient without insurance/financial to pay so will switch to Coumadin. 7.5mg PO tonight, INR's daily and pharmacy to dose - She respond to well to BB and CCB, continue Cardizem 360 mg po daily and Metoprolol 50 mg po BID - Will discontinue Digoxin Subtherapeutic INR - INR 1.0 ---> 1.27 ---> 1.47 - Continue Lovenox SubQ BID - Pharmacy to monitor/dose warfarin COPD - Hx/o Severe Emphysema - Hyperinflation on CXR - Still active smoker - Supplemental O2, Bronchodilators, Oral Steroids, IV Azithromycin for Anti- inflammation, Decongestant/Expectorant - Routine RT care and IS q2 awake - Sputum Cx: Strep Pneumonia Thrombocytosis - Platelet 564--> 454 - This is likely reactive 2/2 infection above - Platelet Morphology: normal (meaning not a bone defect) Nicotine Abuse/Dependence - Still actively smokes - Counseled on smoking cessation - Refuses nicotine patch - Continue with nicotine gum Severe Malnutrition/Muscle Wasting - 2/2 underlying emphysema - Dietary following: on supplements 1.9 cm Cystic Lesion within the Liver Per CT Scan - Unsure if this is new - No baseline comparison, image mercado - PCP to monitor Anxiety, Stable - Consulted Dr. Riley - Addition of Remeron 15mg QHS-- dose to 7.5 and will increase ativan to 0.5mg TID Resolved: S/p Hypoxia - 2/2 Above - 79% on RA, 94-95% on 3L NC in ED - Supplemental O2, titrate to keep O2 > 90% S/p Leukocytosis - 2/2 above +/- steroids - Continue to monitor S/p Atrial Flutter with 2:1 AV Block - No baseline comparison - Anticogas for stroke prophylaxis - Metoprolol 5 mg IVP Q4 PRN rate control meds - She is now in Sinus Rhythm S/p Mycoplasma Pneumonia and Step Pneumoniae - Continue IV Azithromycin and Rocephin Daily - CRP is 11.7---> 6.6 ---> 3.1--> 1.7--> 0.7 - Chest CT scan: no mass noted - Will defer follow up CXR - Received 5 day course of IV Rocephin; Today is the 5th dose of her Azithromycin Plan: She is clinically stable Continue current treatment Transfer to [facility] with Tele Routine AM Labs Continue PT/OT/RT SW/CM for d/c planning Recommend Assisted Living or some other form placement Additional orders as above Code Status: DNR/DNI LOS Anticipate > 96 hrs pending discharge placement
[2016-10-01] MEDS: Famotidine 20 MG Tab PO SCH ×2 (08:34→20:10)
[2016-10-01] MEDS: Magnesium Oxide 400 MG Tab PO SCH ×2 (08:34→20:10)
[2016-10-01] MEDS: LORazepam 0.5 MG Tab PO SCH ×2 (08:34→17:44)
[2016-10-01] MEDS: Metoprolol Tartrate 50 MG Tab PO SCH ×2 (08:34→20:10)
[2016-10-01] MEDS: guaiFENesin 600 MG Tab.ER PO SCH ×2 (08:35→20:10)
[2016-10-01] MEDS: Diltiazem 180 MG Cap.CD PO SCH (08:35)
[2016-10-01] MEDS: Saccharomyces Boulardii (Probiotic) 250 MG Cap PO SCH ×2 (08:35→20:09)
[2016-10-01] MEDS: Enoxaparin 40 MG/0.4 ML Syringe SUBCUT SCH ×2 (08:36→20:09)
[2016-10-01] MEDS: Formoterol/Mometasone 200-5 MCG 8.8 GM Inhaler IH SCH ×2 (08:40→20:40)
[2016-10-01] MEDS ORDERED: Digoxin 250 MCG Tab PO SCH (09:00)
--- NOTE | 2016-10-01 11:41 | PCM.SN ---
- Free Text/Narrative Note: HR has been stable in the 80-90s with resting and ambulation. She is now on combo BB and CCB. Will go ahead and transfer her to med-surg with tele and d/c digoxin.
[2016-10-01] MEDS ORDERED: Warfarin 5 MG Tab PO SCH (18:00)
[2016-10-01] MEDS: Mirtazapine 15 MG Tab PO SCH (20:10)
[2016-10-02] MEDS: Levalbuterol HCl 1.25 MG/3 ML Neb NEB SCH ×4 (02:00→20:38)
--- NOTE | 2016-10-02 06:43 | PCM.PN ---
- General Info Date of Service: 10/02/16 Admission Dx/Problem (Free Text): Admission Diagnosis/Problem Admission Diagnosis/Problem Pneumonia due to Mycoplasma pneumoniae Subjective Update: Follow Up Functional Status: Reports: pain controlled, tolerating diet, ambulating, urinating. Denies: new symptoms - Review of Systems General: Denies: Fever, Weakness, Fatigue, Malaise, Chills HEENT: Reports: no symptoms Pulmonary: Reports: no symptoms. Denies: shortness of breath Cardiovascular: Denies: Chest Pain, Palpitations, Dyspnea on Exertion Gastrointestinal: Denies: Abdominal pain, Nausea, Vomiting Genitourinary: Reports: no symptoms Musculoskeletal: Reports: no symptoms Skin: Reports: no symptoms Neurological: Denies: Confusion, Difficulty Walking, Weakness, Gait Disturbance Psychiatric: Denies: depression, anxiety, agitation, hallucinations Systems Review Comment:: No overnight issues. She is essentially the same. She slept and feels good this morning. She was smiling and did not appear exhausted. She has no new complaints. - Patient Data Vitals - most recent: Last Vital Signs Temp 36.3 C 10/02/16 03:54 Pulse 80 10/02/16 03:54 Resp 21 H 10/02/16 03:54 BP 125/64 10/02/16 03:54 Pulse Ox 91 L 10/02/16 03:54 Weight - most recent: 44.135 kg I&O - last 24 hours: Intake & Output 10/01/16 10/01/16 10/02/16 14:59 22:59 06:59 Intake Total 240 890 350 Output Total 900 600 350 Balance -660 290 0 Lab Results last 24 hrs: Laboratory Results - last 24 hr 10/01/16 10/02/16 Range/Units 04:46 05:48 WBC 14.31 H (3.98-10.04) K/mm3 RBC 3.81 L (3.98-5.22) M/mm3 Hgb 11.5 (11.2-15.7) gm/L Hct 35.9 (34.1-44.9) % MCV 94.2 (79.4-94.8) fl MCH 30.2 (25.6-32.2) pg MCHC 32.0 L (32.2-35.5) g/dl RDW Std Deviation 43.7 (36.4-46.3) fL Plt Count 418 H (182-369) K/mm3 MPV 9.2 L (9.4-12.3) fl TSH 3rd Generation 1.118 (0.358-3.74) uIU/mL Ahsan Results last 24 hrs: Microbiology 09/24/16 16:30 Aerobic Blood Culture - Final Blood - Venous NO GROWTH AFTER 7 DAYS Anaerobic Blood Culture - Final NO GROWTH AFTER 7 DAYS 09/24/16 16:36 Aerobic Blood Culture - Final Blood - Venous - Lab Draw NO GROWTH AFTER 7 DAYS Anaerobic Blood Culture - Final NO GROWTH AFTER 7 DAYS 09/28/16 06:40 Stool Culture - Final Stool / Feces - Stool, Formed NORMAL ENTERIC GEORGE. NO SALMONELLA, SHIGELLA , CAMPYLOBACTER, E.COLI O157 OR YERSINIA ISOLATED. - Final NEGATIVE FOR SHIGA TOXIN 1 - Final NEGATIVE FOR SHIGA TOXIN 2 Med Orders - Current: Current Medications Acetaminophen (Tylenol) 650 mg PO Q4H PRN PRN Reason: Pain (Mild 1-3)/fever Last Admin: 09/27/16 20:11 Dose: 650 mg Hydrocodone Bitart/Acetaminophen ([place] 325-5 Mg) 1 tab PO Q4H PRN PRN Reason: Pain (moderate 4-6) Albuterol/Ipratropium (Duoneb 3.0-0.5 Mg/3 Ml) 3 ml NEB Q4H PRN PRN Reason: Shortness Of Breath/wheezing Last Admin: 09/28/16 13:22 Dose: 3 ml Bisacodyl (Dulcolax) 5 mg PO DAILY PRN PRN Reason: Constipation Last Admin: 09/25/16 08:06 Dose: 5 mg Diltiazem HCl (Cardizem Cd) 360 mg PO DAILY [facility] Last Admin: 10/01/16 08:35 Dose: 360 mg Diltiazem HCl (Diltiazem) 5 mg IVPUSH Q4H PRN PRN Reason: Tachycardia Last Admin: 09/29/16 20:09 Dose: 5 mg Enoxaparin Sodium (Lovenox) 40 mg SUBCUT Q12HR [facility] Last Admin: 10/01/16 20:09 Dose: 40 mg Famotidine (Pepcid) 20 mg PO BID [facility] Last Admin: 10/01/16 20:10 Dose: 20 mg Guaifenesin (Mucinex) 1,200 mg PO BID [facility] Last Admin: 10/01/16 20:10 Dose: 1,200 mg Hydralazine HCl (Apresoline) 20 mg IVPUSH Q4H PRN PRN Reason: Hypertension Hydromorphone HCl (Dilaudid) 0.25 mg IVPUSH Q2H PRN PRN Reason: Pain (severe 7-10) Levalbuterol HCl (Xopenex) 1.25 mg NEB Q6HRRT [facility] Last Admin: 10/02/16 02:00 Dose: 1.25 mg Lorazepam (Ativan) 1 mg IV Q6H PRN PRN Reason: Anxiety Last Admin: 09/29/16 20:09 Dose: 1 mg Lorazepam (Ativan) 0.5 mg PO BID@0800,1800 [facility] Last Admin: 10/01/16 17:44 Dose: 0.5 mg Magnesium Oxide (Magnesium Oxide) 400 mg PO BID [facility] Last Admin: 10/01/16 20:10 Dose: 400 mg Magnesium Sulfate (Pharmacy To Dose - Magnesium Replacement) 0 dose .XX ASDIRECTED PRN PRN Reason: rx dose Metoprolol Tartrate (Lopressor) 50 mg PO Q12HR [facility] Last Admin: 10/01/16 20:10 Dose: 50 mg Metoprolol Tartrate (Lopressor) 5 mg IVPUSH Q4H PRN PRN Reason: Tachycardia Last Admin: 09/30/16 15:27 Dose: 5 mg Mirtazapine (Remeron) 15 mg PO BEDTIME [facility] Last Admin: 10/01/16 20:10 Dose: 15 mg Mometasone Furoate/Formoterol Fumar (Dulera 200-5 Mcg) 2 puff IH BID [facility] Last Admin: 10/01/16 20:40 Dose: 2 puff Nicotine Polacrilex (Nicorelief) 2 mg CHEW Q2H PRN PRN Reason: Other Ondansetron HCl (Zofran) 4 mg IV Q6H PRN PRN Reason: Nausea/Vomiting Polyethylene Glycol (Miralax) 17 gm PO DAILY PRN PRN Reason: Constipation Potassium Chloride (Pharmacy To Dose - Potassium Replacement) 0 dose .XX ASDIRECTED PRN PRN Reason: rx dose Saccharomyces Boulardii (Florastor) 250 mg PO BID [facility] Last Admin: 10/01/16 20:09 Dose: 250 mg Senna/Docusate Sodium (Senna Plus) 1 tab PO BID PRN PRN Reason: Constipation Warfarin Sodium (Pharmacy To Dose - Warfarin) 0 dose .XX ASDIRECTED PRN PRN Reason: RX TO DOSE COUMADIN Discontinued Medications Albuterol/Ipratropium (Duoneb 3.0-0.5 Mg/3 Ml) 3 ml NEB ONETIME ONE Stop: 09/24/16 14:20 Last Admin: 09/24/16 14:28 Dose: 3 ml Apixaban (Eliquis) 5 mg PO BID [facility] Last Admin: 09/28/16 08:03 Dose: 5 mg Azithromycin (Zithromax) 250 mg PO DAILY@1700 [facility] Stop: 09/30/16 17:01 Last Admin: 09/30/16 17:10 Dose: 250 mg Ceftriaxone Sodium (Rocephin) 1,000 mg IVPUSH Q24H [facility] Last Admin: 09/24/16 16:20 Dose: Not Given Digoxin (Lanoxin) 250 mcg IVPUSH Q4H [facility] Stop: 09/29/16 03:31 Last Admin: 09/28/16 20:08 Dose: 250 mcg Digoxin (Lanoxin) 250 mcg IVPUSH Q4H [facility] Stop: 09/30/16 03:46 Last Admin: 09/30/16 00:19 Dose: 250 mcg Digoxin (Lanoxin) 250 mcg IVPUSH ONETIME ONE Stop: 09/30/16 09:01 Last Admin: 09/30/16 08:15 Dose: 250 mcg Digoxin (Lanoxin) 250 mcg PO DAILY [facility] Last Admin: 10/01/16 08:37 Dose: Not Given Diltiazem HCl (Diltiazem) 5 mg IVPUSH ONETIME ONE Stop: 09/27/16 14:36 Last Admin: 09/27/16 15:35 Dose: 2.5 mg Diltiazem HCl (Cardizem Cd) 120 mg PO DAILY [facility] Last Admin: 09/28/16 08:03 Dose: 120 mg Diltiazem HCl (Diltiazem) 5 mg IVPUSH Q6H PRN PRN Reason: Tachycardia Last Admin: 09/28/16 09:15 Dose: 5 mg Diltiazem HCl (Cardizem Cd) 180 mg PO DAILY [facility] Diltiazem HCl (Dilacor Xr) 240 mg PO DAILY [facility] Diltiazem HCl (Cardizem Cd) 120 mg PO ONETIME ONE Stop: 09/28/16 10:12 Last Admin: 09/28/16 10:50 Dose: 120 mg Diltiazem HCl (Cardizem) Confirm Administered Dose 100 mg .ROUTE .STK-MED ONE Stop: 09/28/16 14:22 Last Admin: 09/28/16 15:05 Dose: 100 mg Diltiazem HCl (Cardizem Cd) 360 mg PO DAILY [facility] Enoxaparin Sodium (Lovenox) 40 mg SUBCUT DAILY [facility] Last Admin: 09/27/16 09:09 Dose: 40 mg Enoxaparin Sodium (Lovenox) 40 mg SUBCUT ONETIME ONE Stop: 09/24/16 21:47 Last Admin: 09/24/16 22:33 Dose: 40 mg Guaifenesin (Mucinex) 600 mg PO BID [facility] Last Admin: 09/25/16 08:04 Dose: 600 mg Hydromorphone HCl (Dilaudid) 0.25 mg IVPUSH Q2H PRN PRN Reason: Pain (severe 7-10) Azithromycin 500 mg/ Sodium (Chloride) 250 mls @ 250 mls/hr IV ONETIME ONE Stop: 09/24/16 17:11 Last Admin: 09/24/16 16:52 Dose: 250 mls/hr Ceftriaxone Sodium 1 gm/ (Sodium Chloride) 100 mls @ 200 mls/hr IV ONETIME ONE Stop: 09/24/16 16:48 Last Admin: 09/24/16 18:01 Dose: 200 mls/hr Azithromycin 500 mg/ Sodium (Chloride) 250 mls @ 250 mls/hr IV Q24H [facility] Last Admin: 09/24/16 19:56 Dose: Not Given Ceftriaxone Sodium 1 gm/ (Sodium Chloride) 100 mls @ 200 mls/hr IV Q24H [facility] Last Admin: 09/24/16 19:55 Dose: Not Given Azithromycin 500 mg/ Sodium (Chloride) 250 mls @ 250 mls/hr IV Q24H [facility] Last Admin: 09/28/16 16:00 Dose: 250 mls/hr Ceftriaxone Sodium 1 gm/ (Sodium Chloride) 100 mls @ 200 mls/hr IV Q24H [facility] Last Admin: 09/28/16 15:58 Dose: 200 mls/hr Magnesium Sulfate 2 gm/ Premix 50 mls @ 25 mls/hr IV ONETIME ONE Stop: 09/24/16 20:23 Last Admin: 09/24/16 19:28 Dose: 25 mls/hr Diltiazem HCl 125 mg/ Sodium (Chloride) 125 mls @ 5 mls/hr IV TITRATE [facility]; 5 MG /HR PRN Reason: Protocol Last Titration: 09/29/16 01:41 Dose: 0 mg/hr, 0 mls/hr Sodium Chloride (Normal Saline) Confirm Administered Dose 100 mls @ as directed .ROUTE .STK-MED ONE Stop: 09/28/16 14:23 Last Admin: 09/28/16 15:05 Dose: 15 ml Methylprednisolone Sodium Succinate (Solu-Medrol) 125 mg IVPUSH ONETIME ONE Stop: 09/24/16 14:20 Last Admin: 09/24/16 14:58 Dose: 125 mg Metoprolol Tartrate (Lopressor) 5 mg IVPUSH Q4H PRN PRN Reason: Tachycardia Last Admin: 09/27/16 11:43 Dose: 5 mg Metoprolol Tartrate (Lopressor) 25 mg PO BID [facility] Last Admin: 09/27/16 10:33 Dose: 25 mg Metoprolol Tartrate (Lopressor) 5 mg IVPUSH ONETIME ONE Stop: 09/30/16 11:53 Last Admin: 09/30/16 11:58 Dose: 5 mg Mometasone Furoate/Formoterol Fumar (Dulera 200-5 Mcg) 2 puff IH QID [facility] Last Admin: 09/25/16 08:39 Dose: 2 puff Pneumococcal 13-Valent Conj Vacc (Prevnar 13) 0.5 ml IM .ONCE ONE Stop: 09/27/16 15:16 Prednisone (Prednisone) 60 mg PO WITHBREAKFAST [facility] Stop: 09/28/16 07:00 Last Admin: 09/28/16 07:49 Dose: 60 mg Temazepam (Restoril) 15 mg PO BEDTIME PRN PRN Reason: Sleep Last Admin: 09/25/16 20:36 Dose: 15 mg Temazepam (Restoril) 7.5 mg PO BEDTIME PRN PRN Reason: Sleep Warfarin Sodium (Coumadin) 7.5 mg PO ONETIME ONE Stop: 09/28/16 18:01 Last Admin: 09/28/16 17:09 Dose: 7.5 mg Warfarin Sodium (Coumadin) 5 mg PO ONETIME ONE Stop: 09/29/16 18:01 Last Admin: 09/29/16 17:49 Dose: Not Given Warfarin Sodium (Coumadin) 5 mg PO QPM [facility] Stop: 09/30/16 21:00 Last Admin: 09/30/16 17:10 Dose: 5 mg Warfarin Sodium (Coumadin) 5 mg PO QPM [facility] Stop: 10/01/16 21:00 Last Admin: 10/01/16 17:44 Dose: 5 mg - Exam Quality Assessment: supplemental oxygen (1L NC at 92%) General: alert, oriented, cooperative, no acute distress, other (cachetic) HEENT: Pupils equal, Pupils reactive, EOMI, Mucous membr. moist/pink Neck: supple, trachea midline, no JVD, no thyromegaly Lungs: Clear to auscultation, Normal respiratory effort Cardiovascular: Regular Rate, Regular Rhythm Abdomen: bowel sounds present, soft, no tenderness, no distension (Female) Exam: Deferred Back Exam: normal inspection, decreased range of motion Extremities: no edema, normal pulses, no tenderness/swelling, no clubbing, no cyanosis, no calf tenderness Peripheral Pulses: 2+: dorsalis pedis (L), dorsalis pedis (R) Skin: warm, dry, intact Neurological: no new focal deficit Psy/Mental Status: alert, normal affect, normal mood - Problem List Review Problem List Initiated/Reviewed/Updated: Yes - My Orders Last 24 Hours: My Active Orders 10/01/16 11:43 Patient Status [ADT] Routine 10/02/16 05:48 BMP [BASIC METABOLIC PANEL,BMP] [CHEM] AM 10/03/16 05:11 BMP [BASIC METABOLIC PANEL,BMP] [CHEM] AM 10/04/16 05:11 BMP [BASIC METABOLIC PANEL,BMP] [CHEM] AM 10/05/16 07:00 CBC W/O DIFF,HEMOGRAM [HEME] MOTH@0700 CBC W/O DIFF,HEMOGRAM [HEME] MOTH@0700 10/09/16 07:00 CBC W/O DIFF,HEMOGRAM [HEME] MOTH@0700 CBC W/O DIFF,HEMOGRAM [HEME] MOTH@0700 10/12/16 07:00 CBC W/O DIFF,HEMOGRAM [HEME] MOTH@0700 CBC W/O DIFF,HEMOGRAM [HEME] MOTH@0700 10/16/16 07:00 CBC W/O DIFF,HEMOGRAM [HEME] MOTH@69910/19/16 07:00 CBC W/O DIFF,HEMOGRAM [HEME] MOTH@07 - Plan Plan:: Assessment/Plan: Acute: Paroxysmal atrial flutter with tachycardia - Cardizem started yesterday PO 120mg, dose increased to 240 today; if rate not better controlled will need IV drip started and to ICU status, cont close monitoring - Eliquis was started yesterday but patient without insurance/financial to pay so will switch to Coumadin. 7.5mg PO tonight, INR's daily and pharmacy to dose - Continue Cardizem 360 mg po daily and Metoprolol 50 mg po BID COPD - Hx/o Severe Emphysema - Hyperinflation on CXR - Still active smoker - Supplemental O2, Bronchodilators, Oral Steroids, IV Azithromycin for Anti- inflammation, Decongestant/Expectorant - Routine RT care and IS q2 awake - Sputum Cx: Strep Pneumonia Thrombocytosis - Platelet 564--> 454 - This is likely reactive 2/2 infection above - Platelet Morphology: normal (meaning not a bone defect) Nicotine Abuse/Dependence - Still actively smokes - Counseled on smoking cessation - Refuses nicotine patch - Continue with nicotine gum Severe Malnutrition/Muscle Wasting - 2/2 underlying emphysema - Dietary following: on supplements 1.9 cm Cystic Lesion within the Liver Per CT Scan - Unsure if this is new - No baseline comparison, image mercado - PCP to monitor Anxiety, Stable - Consulted Dr. Riley - Addition of Remeron 15mg QHS-- dose to 7.5 and will increase ativan to 0.5mg TID Subtherapeutic INR - INR is 1.43 - Continue Lovenox SubQ BID - Pharmacy to monitor/dose warfarin Resolved: S/p Hypoxia - 2/2 Above - 79% on RA, 94-95% on 3L NC in ED - Supplemental O2, titrate to keep O2 > 90% S/p Leukocytosis - 2/2 above +/- steroids - Continue to monitor S/p Atrial Flutter with 2:1 AV Block - No baseline comparison - Anticogas for stroke prophylaxis - Metoprolol 5 mg IVP Q4 PRN rate control meds - She is now in Sinus Rhythm S/p Mycoplasma Pneumonia and Step Pneumoniae - Continue IV Azithromycin and Rocephin Daily - CRP is 11.7---> 6.6 ---> 3.1--> 1.7--> 0.7 - Chest CT scan: no mass noted - Will defer follow up CXR - Received 5 day course of IV Rocephin; Today is the 5th dose of her Azithromycin Plan: She is essentially the same Continue current treatment Routine AM Labs Continue PT/OT/RT SW/CM for d/c planning Additional orders as above Code Status: DNR/DNI LOS Anticipate > 96 hrs pending discharge placement
[2016-10-02] MEDS: Formoterol/Mometasone 200-5 MCG 8.8 GM Inhaler IH SCH ×2 (08:09→20:38)
[2016-10-02] MEDS: Metoprolol Tartrate 50 MG Tab PO SCH ×2 (08:20→20:33)
[2016-10-02] MEDS: Saccharomyces Boulardii (Probiotic) 250 MG Cap PO SCH ×2 (08:20→20:32)
[2016-10-02] MEDS: Diltiazem 180 MG Cap.CD PO SCH (08:21)
[2016-10-02] MEDS: Magnesium Oxide 400 MG Tab PO SCH ×2 (08:21→20:32)
[2016-10-02] MEDS: LORazepam 0.5 MG Tab PO SCH ×2 (08:21→17:45)
[2016-10-02] MEDS: Famotidine 20 MG Tab PO SCH ×2 (08:22→20:32)
[2016-10-02] MEDS: guaiFENesin 600 MG Tab.ER PO SCH ×2 (08:22→20:32)
[2016-10-02] MEDS: Enoxaparin 40 MG/0.4 ML Syringe SUBCUT SCH ×2 (08:22→20:32)
[2016-10-02] MEDS ORDERED: Warfarin 10 MG Tab PO ONE (18:00)
[2016-10-02] MEDS: Mirtazapine 15 MG Tab PO SCH (20:33)
[2016-10-03] MEDS: Levalbuterol HCl 1.25 MG/3 ML Neb NEB SCH ×4 (02:21→20:31)
--- NOTE | 2016-10-03 07:21 | PCM.PN ---
- General Info Date of Service: 10/03/16 Admission Dx/Problem (Free Text): Admission Diagnosis/Problem Admission Diagnosis/Problem Pneumonia due to Mycoplasma pneumoniae Doing well; breathing much better. Energy improved, appetite improved. Mood is improved, smiling and talkative today. Discharge plan is pending placement. Functional Status: Reports: pain controlled, tolerating diet, ambulating, urinating. Denies: new symptoms - Review of Systems General: Reports: No Symptoms HEENT: Reports: no symptoms Pulmonary: Reports: no symptoms, shortness of breath (much improved), cough ( much improved), wheezing (much improved). Denies: pleuritic chest pain Cardiovascular: Reports: No Symptoms, Dyspnea on Exertion (improved). Denies: Chest Pain, Palpitations Gastrointestinal: Reports: No symptoms Genitourinary: Reports: no symptoms Musculoskeletal: Reports: no symptoms Skin: Reports: no symptoms Neurological: Reports: No Symptoms Psychiatric: Reports: no symptoms, depression (improved), anxiety (improved) - Patient Data Vitals - most recent: Last Vital Signs Temp 97.2 F 10/03/16 03:32 Pulse 68 10/03/16 03:32 Resp 15 10/03/16 03:32 BP 98/50 L 10/03/16 03:32 Pulse Ox 97 10/03/16 03:32 Weight - most recent: 94 lb 3.2 oz I&O - last 24 hours: Intake & Output 10/02/16 10/03/16 10/03/16 22:59 06:59 14:59 Intake Total 1400 800 Output Total 600 1000 Balance 800 -200 Lab Results last 24 hrs: Laboratory Results - last 24 hr 10/02/16 10/03/16 Range/Units 05:48 05:57 PT 19.9 H (8.0-13.0) SECONDS INR 1.76 Sodium 141 (136-145) mEq/L Potassium 4.3 (3.5-5.1) mEq/L Chloride 103 (98-107) mEq/L Carbon Dioxide 36 H (21-32) mEq/L Anion Gap 6.3 (5-15) BUN 24 H (7-18) mg/dL Creatinine 0.4 L (0.55-1.02) mg/dL Est Cr Clr Drug Dosing 96.39 mL/min Estimated GFR (MDRD) > 60 (>60) mL/min BUN/Creatinine Ratio 60.0 H (14-18) Glucose 104 (80-115) mg/dL Calcium 8.6 (8.5-10.1) mg/dL Med Orders - Current: Current Medications Acetaminophen (Tylenol) 650 mg PO Q4H PRN PRN Reason: Pain (Mild 1-3)/fever Last Admin: 09/27/16 20:11 Dose: 650 mg Hydrocodone Bitart/Acetaminophen ([place] 325-5 Mg) 1 tab PO Q4H PRN PRN Reason: Pain (moderate 4-6) Albuterol/Ipratropium (Duoneb 3.0-0.5 Mg/3 Ml) 3 ml NEB Q4H PRN PRN Reason: Shortness Of Breath/wheezing Last Admin: 09/28/16 13:22 Dose: 3 ml Bisacodyl (Dulcolax) 5 mg PO DAILY PRN PRN Reason: Constipation Last Admin: 09/25/16 08:06 Dose: 5 mg Diltiazem HCl (Cardizem Cd) 360 mg PO DAILY [facility], [facility] Last Admin: 10/02/16 08:21 Dose: 360 mg Diltiazem HCl (Diltiazem) 5 mg IVPUSH Q4H PRN PRN Reason: Tachycardia Last Admin: 09/29/16 20:09 Dose: 5 mg Enoxaparin Sodium (Lovenox) 40 mg SUBCUT Q12HR [facility], [facility] Last Admin: 10/02/16 20:32 Dose: 40 mg Famotidine (Pepcid) 20 mg PO BID [facility] Last Admin: 10/02/16 20:32 Dose: 20 mg Guaifenesin (Mucinex) 1,200 mg PO BID [facility] Last Admin: 10/02/16 20:32 Dose: 1,200 mg Hydralazine HCl (Apresoline) 20 mg IVPUSH Q4H PRN PRN Reason: Hypertension Hydromorphone HCl (Dilaudid) 0.25 mg IVPUSH Q2H PRN PRN Reason: Pain (severe 7-10) Levalbuterol HCl (Xopenex) 1.25 mg NEB Q6HRRT [facility] Last Admin: 10/03/16 02:21 Dose: 1.25 mg Lorazepam (Ativan) 1 mg IV Q6H PRN PRN Reason: Anxiety Last Admin: 09/29/16 20:09 Dose: 1 mg Lorazepam (Ativan) 0.5 mg PO BID@0800,1800 [facility] Last Admin: 10/02/16 17:45 Dose: 0.5 mg Magnesium Oxide (Magnesium Oxide) 400 mg PO BID [facility] Last Admin: 10/02/16 20:32 Dose: 400 mg Magnesium Sulfate (Pharmacy To Dose - Magnesium Replacement) 0 dose .XX ASDIRECTED PRN PRN Reason: rx dose Metoprolol Tartrate (Lopressor) 50 mg PO Q12HR [facility] Last Admin: 10/02/16 20:33 Dose: 50 mg Metoprolol Tartrate (Lopressor) 5 mg IVPUSH Q4H PRN PRN Reason: Tachycardia Last Admin: 09/30/16 15:27 Dose: 5 mg Mirtazapine (Remeron) 15 mg PO BEDTIME [facility] Last Admin: 10/02/16 20:33 Dose: 15 mg Mometasone Furoate/Formoterol Fumar (Dulera 200-5 Mcg) 2 puff IH BID [facility] Last Admin: 10/02/16 20:38 Dose: 2 puff Nicotine Polacrilex (Nicorelief) 2 mg CHEW Q2H PRN PRN Reason: Other Ondansetron HCl (Zofran) 4 mg IV Q6H PRN PRN Reason: Nausea/Vomiting Polyethylene Glycol (Miralax) 17 gm PO DAILY PRN PRN Reason: Constipation Potassium Chloride (Pharmacy To Dose - Potassium Replacement) 0 dose .XX ASDIRECTED PRN PRN Reason: rx dose Saccharomyces Boulardii (Florastor) 250 mg PO BID [facility] Last Admin: 10/02/16 20:32 Dose: 250 mg Senna/Docusate Sodium (Senna Plus) 1 tab PO BID PRN PRN Reason: Constipation Warfarin Sodium (Pharmacy To Dose - Warfarin) 0 dose .XX ASDIRECTED PRN PRN Reason: RX TO DOSE COUMADIN Discontinued Medications Albuterol/Ipratropium (Duoneb 3.0-0.5 Mg/3 Ml) 3 ml NEB ONETIME ONE Stop: 09/24/16 14:20 Last Admin: 09/24/16 14:28 Dose: 3 ml Apixaban (Eliquis) 5 mg PO BID [facility] Last Admin: 09/28/16 08:03 Dose: 5 mg Azithromycin (Zithromax) 250 mg PO DAILY@1700 [facility] Stop: 09/30/16 17:01 Last Admin: 09/30/16 17:10 Dose: 250 mg Ceftriaxone Sodium (Rocephin) 1,000 mg IVPUSH Q24H [facility] Last Admin: 09/24/16 16:20 Dose: Not Given Digoxin (Lanoxin) 250 mcg IVPUSH Q4H [facility] Stop: 09/29/16 03:31 Last Admin: 09/28/16 20:08 Dose: 250 mcg Digoxin (Lanoxin) 250 mcg IVPUSH Q4H [facility] Stop: 09/30/16 03:46 Last Admin: 09/30/16 00:19 Dose: 250 mcg Digoxin (Lanoxin) 250 mcg IVPUSH ONETIME ONE Stop: 09/30/16 09:01 Last Admin: 09/30/16 08:15 Dose: 250 mcg Digoxin (Lanoxin) 250 mcg PO DAILY [facility] Last Admin: 10/01/16 08:37 Dose: Not Given Diltiazem HCl (Diltiazem) 5 mg IVPUSH ONETIME ONE Stop: 09/27/16 14:36 Last Admin: 09/27/16 15:35 Dose: 2.5 mg Diltiazem HCl (Cardizem Cd) 120 mg PO DAILY [facility] Last Admin: 09/28/16 08:03 Dose: 120 mg Diltiazem HCl (Diltiazem) 5 mg IVPUSH Q6H PRN PRN Reason: Tachycardia Last Admin: 09/28/16 09:15 Dose: 5 mg Diltiazem HCl (Cardizem Cd) 180 mg PO DAILY [facility] Diltiazem HCl (Dilacor Xr) 240 mg PO DAILY [facility] Diltiazem HCl (Cardizem Cd) 120 mg PO ONETIME ONE Stop: 09/28/16 10:12 Last Admin: 09/28/16 10:50 Dose: 120 mg Diltiazem HCl (Cardizem) Confirm Administered Dose 100 mg .ROUTE .STK-MED ONE Stop: 09/28/16 14:22 Last Admin: 09/28/16 15:05 Dose: 100 mg Diltiazem HCl (Cardizem Cd) 360 mg PO DAILY [facility] Enoxaparin Sodium (Lovenox) 40 mg SUBCUT DAILY [facility] Last Admin: 09/27/16 09:09 Dose: 40 mg Enoxaparin Sodium (Lovenox) 40 mg SUBCUT ONETIME ONE Stop: 09/24/16 21:47 Last Admin: 09/24/16 22:33 Dose: 40 mg Guaifenesin (Mucinex) 600 mg PO BID [facility] Last Admin: 09/25/16 08:04 Dose: 600 mg Hydromorphone HCl (Dilaudid) 0.25 mg IVPUSH Q2H PRN PRN Reason: Pain (severe 7-10) Azithromycin 500 mg/ Sodium (Chloride) 250 mls @ 250 mls/hr IV ONETIME ONE Stop: 09/24/16 17:11 Last Admin: 09/24/16 16:52 Dose: 250 mls/hr Ceftriaxone Sodium 1 gm/ (Sodium Chloride) 100 mls @ 200 mls/hr IV ONETIME ONE Stop: 09/24/16 16:48 Last Admin: 09/24/16 18:01 Dose: 200 mls/hr Azithromycin 500 mg/ Sodium (Chloride) 250 mls @ 250 mls/hr IV Q24H [facility] Last Admin: 09/24/16 19:56 Dose: Not Given Ceftriaxone Sodium 1 gm/ (Sodium Chloride) 100 mls @ 200 mls/hr IV Q24H [facility] Last Admin: 09/24/16 19:55 Dose: Not Given Azithromycin 500 mg/ Sodium (Chloride) 250 mls @ 250 mls/hr IV Q24H [facility] Last Admin: 09/28/16 16:00 Dose: 250 mls/hr Ceftriaxone Sodium 1 gm/ (Sodium Chloride) 100 mls @ 200 mls/hr IV Q24H [facility] Last Admin: 09/28/16 15:58 Dose: 200 mls/hr Magnesium Sulfate 2 gm/ Premix 50 mls @ 25 mls/hr IV ONETIME ONE Stop: 09/24/16 20:23 Last Admin: 09/24/16 19:28 Dose: 25 mls/hr Diltiazem HCl 125 mg/ Sodium (Chloride) 125 mls @ 5 mls/hr IV TITRATE [place]ADE[place]; 5 MG /HR PRN Reason: Protocol Last Titration: 09/29/16 01:41 Dose: 0 mg/hr, 0 mls/hr Sodium Chloride (Normal Saline) Confirm Administered Dose 100 mls @ as directed .ROUTE .STK-MED ONE Stop: 09/28/16 14:23 Last Admin: 09/28/16 15:05 Dose: 15 ml Methylprednisolone Sodium Succinate (Solu-Medrol) 125 mg IVPUSH ONETIME ONE Stop: 09/24/16 14:20 Last Admin: 09/24/16 14:58 Dose: 125 mg Metoprolol Tartrate (Lopressor) 5 mg IVPUSH Q4H PRN PRN Reason: Tachycardia Last Admin: 09/27/16 11:43 Dose: 5 mg Metoprolol Tartrate (Lopressor) 25 mg PO BID [facility] Last Admin: 09/27/16 10:33 Dose: 25 mg Metoprolol Tartrate (Lopressor) 5 mg IVPUSH ONETIME ONE Stop: 09/30/16 11:53 Last Admin: 09/30/16 11:58 Dose: 5 mg Mometasone Furoate/Formoterol Fumar (Dulera 200-5 Mcg) 2 puff IH QID [facility] Last Admin: 09/25/16 08:39 Dose: 2 puff Pneumococcal 13-Valent Conj Vacc (Prevnar 13) 0.5 ml IM .ONCE ONE Stop: 09/27/16 15:16 Prednisone (Prednisone) 60 mg PO WITHBREAKFAST [facility] Stop: 09/28/16 07:00 Last Admin: 09/28/16 07:49 Dose: 60 mg Temazepam (Restoril) 15 mg PO BEDTIME PRN PRN Reason: Sleep Last Admin: 09/25/16 20:36 Dose: 15 mg Temazepam (Restoril) 7.5 mg PO BEDTIME PRN PRN Reason: Sleep Warfarin Sodium (Coumadin) 7.5 mg PO ONETIME ONE Stop: 09/28/16 18:01 Last Admin: 09/28/16 17:09 Dose: 7.5 mg Warfarin Sodium (Coumadin) 5 mg PO ONETIME ONE Stop: 09/29/16 18:01 Last Admin: 09/29/16 17:49 Dose: Not Given Warfarin Sodium (Coumadin) 5 mg PO QPM [facility] Stop: 09/30/16 21:00 Last Admin: 09/30/16 17:10 Dose: 5 mg Warfarin Sodium (Coumadin) 5 mg PO QPM [place] Stop: 10/01/16 21:00 Last Admin: 10/01/16 17:44 Dose: 5 mg Warfarin Sodium (Coumadin) 10 mg PO ONETIME@1800 ONE Stop: 10/02/16 18:01 Last Admin: 10/02/16 17:46 Dose: 10 mg - Exam Quality Assessment: supplemental oxygen, DVT prophylaxis General: alert, oriented, cooperative, no acute distress HEENT: Pupils equal, Pupils reactive, EOMI Neck: supple Lungs: Normal respiratory effort, Decreased breath sounds (throughout) Cardiovascular: Regular Rate, Regular Rhythm Abdomen: bowel sounds present, soft, no tenderness, no distension (Female) Exam: Deferred Back Exam: normal inspection, other (cachectic) Extremities: no edema, no calf tenderness Peripheral Pulses: 1+: dorsalis pedis (L), dorsalis pedis (R) Skin: warm, dry, intact Neurological: no new focal deficit Psy/Mental Status: alert, normal affect, normal mood - Problem List & Annotations (1) Pneumonia SNOMED Code(s): 389891585 Code(s): J18.9 - PNEUMONIA, UNSPECIFIED ORGANISM Status: Acute Priority: High Current Visit: Yes Qualifiers: Pneumonia type: due to Mycoplasma pneumoniae (2) Hypoxia SNOMED Code(s): 971248087, 817402537 Code(s): R09.02 - HYPOXEMIA Status: Resolved Priority: High Current Visit: Yes (3) Emphysema lung SNOMED Code(s): 39766038 Code(s): J43.9 - EMPHYSEMA, UNSPECIFIED Status: Chronic Priority: High Current Visit: Yes Qualifiers: Emphysema type: unspecified Qualified Code(s): J43.9 - Emphysema, unspecified (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 SNOMED Code(s): 262737388 Code(s): J44.9 - CHRONIC OBSTRUCTIVE PULMONARY DISEASE, UNSPECIFIED; R64 - CACHEXIA Status: Chronic Priority: High Current Visit: Yes (5) Failure to thrive in adult SNOMED Code(s): 767064899 Code(s): R62.7 - ADULT FAILURE TO THRIVE Status: Chronic Priority: High Current Visit: Yes (6) Anxiety SNOMED Code(s): 01173819 Code(s): F41.9 - ANXIETY DISORDER, UNSPECIFIED Status: Acute Priority: High Current Visit: Yes (7) Atrial fib/flutter, transient SNOMED Code(s): 825743807 Code(s): BDX3166 - Status: Resolved Priority: High Current Visit: Yes - Problem List Review Problem List Initiated/Reviewed/Updated: Yes - My Orders Last 24 Hours: My Active Orders 10/03/16 07:15 Echo Comp wo Cont [US] Routine - Plan Plan:: Assessment/Plan: Acute: Paroxysmal atrial flutter with RVR--- rate controlled now - Eliquis was started yesterday but patient without insurance/financial to pay so will switch to Coumadin. 7.5mg PO tonight, INR's daily and pharmacy to dose - Continue Cardizem 360 mg po daily and Metoprolol 50 mg po BID; was on digoxin- this has been dc'd as rate controlled with CCB and BB now. - Echo to be obtained today COPD - Hx/o Severe Emphysema - Hyperinflation on CXR - Still active smoker - Supplemental O2, Bronchodilators, Oral Steroids, Decongestant/Expectorant - Routine RT care and IS q2 awake - Sputum Cx: Strep Pneumonia Thrombocytosis - Platelet 564--> 454 - This is likely reactive 2/2 infection above - Platelet Morphology: normal (meaning not a bone defect) Nicotine Abuse/Dependence - Still actively smokes - Counseled on smoking cessation - Refuses nicotine patch - Continue with nicotine gum Severe Malnutrition/Muscle Wasting - 2/2 underlying emphysema - Dietary following: on supplements 1.9 cm Cystic Lesion within the Liver Per CT Scan - Unsure if this is new - No baseline comparison, image mercado - PCP to monitor Anxiety, Stable - Consulted Dr. Riley - Addition of Remeron 15mg QHS-- dose to 7.5 and will increase ativan to 0.5mg TID Subtherapeutic INR - INR is improving; 1.76 today, pending this morning at time of note - Continue Lovenox SubQ BID until 2.0 or > - Pharmacy to monitor/dose warfarin Resolved: S/p Hypoxia - 2/2 Above - 79% on RA, 94-95% on 3L NC in ED - Supplemental O2, titrate to keep O2 > 90% S/p Leukocytosis - 2/2 above +/- steroids - Continue to monitor S/p Atrial Flutter with 2:1 AV Block - No baseline comparison - Anticogas for stroke prophylaxis - Metoprolol 5 mg IVP Q4 PRN rate control meds - She is now in Sinus Rhythm S/p Mycoplasma Pneumonia and Step Pneumoniae - Continue IV Azithromycin and Rocephin Daily - CRP is 11.7---> 6.6 ---> 3.1--> 1.7--> 0.7 - Chest CT scan: no mass noted - Will defer follow up CXR - Received 5 day course of IV Rocephin; Today is the 5th dose of her Azithromycin Plan: She is essentially the same Continue current treatment as outlined above Routine AM Labs Continue PT/OT/RT SW/CM for d/c planning Additional orders as above Code Status: DNR/DNI LOS Anticipate > 96 hrs pending discharge placement
[2016-10-03] MEDS: Saccharomyces Boulardii (Probiotic) 250 MG Cap PO SCH ×2 (08:12→20:50)
[2016-10-03] MEDS: Enoxaparin 40 MG/0.4 ML Syringe SUBCUT SCH ×2 (08:12→20:51)
[2016-10-03] MEDS: guaiFENesin 600 MG Tab.ER PO SCH ×2 (08:13→20:50)
[2016-10-03] MEDS: LORazepam 0.5 MG Tab PO SCH ×2 (08:13→17:22)
[2016-10-03] MEDS: Famotidine 20 MG Tab PO SCH ×2 (08:13→20:51)
[2016-10-03] MEDS: Magnesium Oxide 400 MG Tab PO SCH ×2 (08:13→20:50)
[2016-10-03] MEDS: Metoprolol Tartrate 50 MG Tab PO SCH ×2 (08:16→20:51)
[2016-10-03] MEDS: Diltiazem 180 MG Cap.CD PO SCH (08:17)
[2016-10-03] MEDS: Formoterol/Mometasone 200-5 MCG 8.8 GM Inhaler IH SCH ×2 (08:46→20:30)
[2016-10-03] MEDS: Tiotropium Inhaler 18 MCG Inhalation Powder Cap Kit of 5 INH SCH (10:05)
[2016-10-03] MEDS: Cephalexin 500 MG Cap PO SCH ×2 (14:43→20:50)
[2016-10-03] MEDS ORDERED: Warfarin 7.5 MG Tab PO ONE (18:00)
[2016-10-03] MEDS: Mirtazapine 15 MG Tab PO SCH (20:50)
[2016-10-04] MEDS: Levalbuterol HCl 1.25 MG/3 ML Neb NEB SCH ×4 (02:13→20:32)
[2016-10-04] MEDS: Famotidine 20 MG Tab PO SCH ×2 (08:17→20:27)
[2016-10-04] MEDS: Saccharomyces Boulardii (Probiotic) 250 MG Cap PO SCH ×2 (08:17→20:21)
[2016-10-04] MEDS: guaiFENesin 600 MG Tab.ER PO SCH ×2 (08:17→20:25)
[2016-10-04] MEDS: Diltiazem 180 MG Cap.CD PO SCH (08:18)
[2016-10-04] MEDS: Cephalexin 500 MG Cap PO SCH ×3 (08:18→20:27)
[2016-10-04] MEDS: Magnesium Oxide 400 MG Tab PO SCH ×2 (08:18→20:27)
[2016-10-04] MEDS: LORazepam 0.5 MG Tab PO SCH ×2 (08:18→17:04)
[2016-10-04] MEDS: Metoprolol Tartrate 50 MG Tab PO SCH ×2 (08:18→20:22)
[2016-10-04] MEDS: Tiotropium Inhaler 18 MCG Inhalation Powder Cap Kit of 5 INH SCH (08:58)
[2016-10-04] MEDS: Formoterol/Mometasone 200-5 MCG 8.8 GM Inhaler IH SCH ×2 (08:58→20:32)
--- NOTE | 2016-10-04 14:06 | PCM.PN ---
- General Info Date of Service: 10/04/16 Admission Dx/Problem (Free Text): Admission Diagnosis/Problem Admission Diagnosis/Problem Pneumonia due to Mycoplasma pneumoniae Doing well; breathing much better. Energy improved, appetite improved. Mood is improved, smiling and talkative today. Discharge plan is pending placement. Functional Status: Reports: tolerating diet, ambulating, urinating. Denies: new symptoms - Review of Systems General: Reports: No Symptoms HEENT: Reports: no symptoms Pulmonary: Reports: shortness of breath, cough Cardiovascular: Reports: No Symptoms Gastrointestinal: Reports: No symptoms Genitourinary: Reports: no symptoms Musculoskeletal: Reports: no symptoms Skin: Reports: no symptoms Neurological: Reports: No Symptoms Psychiatric: Reports: no symptoms - Patient Data Vitals - most recent: Last Vital Signs Temp 97.5 F 10/04/16 07:49 Pulse 84 10/04/16 08:18 Resp 22 H 10/04/16 07:49 BP 120/59 L 10/04/16 08:18 Pulse Ox 92 L 10/04/16 08:59 Weight - most recent: 96 lb 2 oz I&O - last 24 hours: Intake & Output 10/03/16 10/04/16 10/04/16 22:59 06:59 14:59 Intake Total 840 400 240 Output Total 700 900 Balance 140 -500 240 Lab Results last 24 hrs: Laboratory Results - last 24 hr 10/04/16 10/04/16 10/04/16 Range/Units 05:43 05:43 05:43 WBC 10.30 H (3.98-10.04) K/mm3 RBC 3.94 L (3.98-5.22) M/mm3 Hgb 11.7 (11.2-15.7) gm/L Hct 37.7 (34.1-44.9) % MCV 95.7 H (79.4-94.8) fl MCH 29.7 (25.6-32.2) pg MCHC 31.0 L (32.2-35.5) g/dl RDW Std Deviation 44.8 (36.4-46.3) fL Plt Count 448 H (182-369) K/mm3 MPV 10.4 (9.4-12.3) fl Neut % (Auto) 70.3 (34.0-71.1) % Lymph % (Auto) 16.3 L (19.3-51.7) % [place] % (Auto) 10.4 (4.7-12.5) % Eos % (Auto) 1.4 (0.7-5.8) Baso % (Auto) 1.1 (0.1-1.2) % Neut # (Auto) 7.25 H (1.56-6.13) K/mm3 Lymph # (Auto) 1.68 (1.18-3.74) K/mm3 [place] # (Auto) 1.07 H (0.24-0.36) K/mm3 Eos # (Auto) 0.14 (0.04-0.36) K/mm3 Baso # (Auto) 0.11 H (0.01-0.08) K/mm3 PT 33.7 H (8.0-13.0) SECONDS INR 2.89 Sodium 146 H (136-145) mEq/L Potassium 4.2 (3.5-5.1) mEq/L Chloride 107 (98-107) mEq/L Carbon Dioxide 34 H (21-32) mEq/L Anion Gap 9.2 (5-15) BUN 23 H (7-18) mg/dL Creatinine 0.4 L (0.55-1.02) mg/dL Est Cr Clr Drug Dosing 95.23 mL/min Estimated GFR (MDRD) > 60 (>60) mL/min BUN/Creatinine Ratio 57.5 H (14-18) Glucose 91 (80-115) mg/dL Calcium 8.5 (8.5-10.1) mg/dL Med Orders - Current: Current Medications Acetaminophen (Tylenol) 650 mg PO Q4H PRN PRN Reason: Pain (Mild 1-3)/fever Last Admin: 09/27/16 20:11 Dose: 650 mg Hydrocodone Bitart/Acetaminophen ([place] 325-5 Mg) 1 tab PO Q4H PRN PRN Reason: Pain (moderate 4-6) Albuterol/Ipratropium (Duoneb 3.0-0.5 Mg/3 Ml) 3 ml NEB Q4H PRN PRN Reason: Shortness Of Breath/wheezing Last Admin: 09/28/16 13:22 Dose: 3 ml Bisacodyl (Dulcolax) 5 mg PO DAILY PRN PRN Reason: Constipation Last Admin: 09/25/16 08:06 Dose: 5 mg Cephalexin (Keflex) 500 mg PO TID [facility] Stop: 10/08/16 15:01 Last Admin: 10/04/16 08:18 Dose: 500 mg Diltiazem HCl (Cardizem Cd) 360 mg PO DAILY [facility] Last Admin: 10/04/16 08:18 Dose: 360 mg Diltiazem HCl (Diltiazem) 5 mg IVPUSH Q4H PRN PRN Reason: Tachycardia Last Admin: 09/29/16 20:09 Dose: 5 mg Famotidine (Pepcid) 20 mg PO BID [facility] Last Admin: 10/04/16 08:17 Dose: 20 mg Guaifenesin (Mucinex) 1,200 mg PO BID [facility] Last Admin: 10/04/16 08:17 Dose: 1,200 mg Hydralazine HCl (Apresoline) 20 mg IVPUSH Q4H PRN PRN Reason: Hypertension Levalbuterol HCl (Xopenex) 1.25 mg NEB Q6HRRT [facility] Last Admin: 10/04/16 08:59 Dose: 1.25 mg Lorazepam (Ativan) 1 mg IV Q6H PRN PRN Reason: Anxiety Last Admin: 09/29/16 20:09 Dose: 1 mg Lorazepam (Ativan) 0.5 mg PO BID@0800,1800 [facility] Last Admin: 10/04/16 08:18 Dose: 0.5 mg Magnesium Oxide (Magnesium Oxide) 400 mg PO BID [facility] Last Admin: 10/04/16 08:18 Dose: 400 mg Magnesium Sulfate (Pharmacy To Dose - Magnesium Replacement) 0 dose .XX ASDIRECTED PRN PRN Reason: rx dose Metoprolol Tartrate (Lopressor) 50 mg PO Q12HR [facility] Last Admin: 10/04/16 08:18 Dose: 50 mg Metoprolol Tartrate (Lopressor) 5 mg IVPUSH Q4H PRN PRN Reason: Tachycardia Last Admin: 09/30/16 15:27 Dose: 5 mg Mirtazapine (Remeron) 15 mg PO BEDTIME [facility] Last Admin: 10/03/16 20:50 Dose: 15 mg Mometasone Furoate/Formoterol Fumar (Dulera 200-5 Mcg) 2 puff IH BID [facility] Last Admin: 10/04/16 08:58 Dose: 2 puff Nicotine Polacrilex (Nicorelief) 2 mg CHEW Q2H PRN PRN Reason: Other Ondansetron HCl (Zofran) 4 mg IV Q6H PRN PRN Reason: Nausea/Vomiting Polyethylene Glycol (Miralax) 17 gm PO DAILY PRN PRN Reason: Constipation Potassium Chloride (Pharmacy To Dose - Potassium Replacement) 0 dose .XX ASDIRECTED PRN PRN Reason: rx dose Saccharomyces Boulardii (Florastor) 250 mg PO BID [facility] Last Admin: 10/04/16 08:17 Dose: 250 mg Senna/Docusate Sodium (Senna Plus) 1 tab PO BID PRN PRN Reason: Constipation Tiotropium [place] (Spiriva Handihaler) 18 mcg INH DAILY [facility] Last Admin: 10/04/16 08:58 Dose: 1 puff Warfarin Sodium (Pharmacy To Dose - Warfarin) 0 dose .XX ASDIRECTED PRN PRN Reason: RX TO DOSE COUMADIN Warfarin Sodium (Coumadin) 5 mg PO ONETIME@1800 ONE Stop: 10/04/16 18:01 Discontinued Medications Albuterol/Ipratropium (Duoneb 3.0-0.5 Mg/3 Ml) 3 ml NEB ONETIME ONE Stop: 09/24/16 14:20 Last Admin: 09/24/16 14:28 Dose: 3 ml Apixaban (Eliquis) 5 mg PO BID [facility] Last Admin: 09/28/16 08:03 Dose: 5 mg Azithromycin (Zithromax) 250 mg PO DAILY@1700 [facility] Stop: 09/30/16 17:01 Last Admin: 09/30/16 17:10 Dose: 250 mg Ceftriaxone Sodium (Rocephin) 1,000 mg IVPUSH Q24H [facility] Last Admin: 09/24/16 16:20 Dose: Not Given Digoxin (Lanoxin) 250 mcg IVPUSH Q4H [facility] Stop: 09/29/16 03:31 Last Admin: 09/28/16 20:08 Dose: 250 mcg Digoxin (Lanoxin) 250 mcg IVPUSH Q4H [facility] Stop: 09/30/16 03:46 Last Admin: 09/30/16 00:19 Dose: 250 mcg Digoxin (Lanoxin) 250 mcg IVPUSH ONETIME ONE Stop: 09/30/16 09:01 Last Admin: 09/30/16 08:15 Dose: 250 mcg Digoxin (Lanoxin) 250 mcg PO DAILY [facility] Last Admin: 10/01/16 08:37 Dose: Not Given Diltiazem HCl (Diltiazem) 5 mg IVPUSH ONETIME ONE Stop: 09/27/16 14:36 Last Admin: 09/27/16 15:35 Dose: 2.5 mg Diltiazem HCl (Cardizem Cd) 120 mg PO DAILY [facility] Last Admin: 09/28/16 08:03 Dose: 120 mg Diltiazem HCl (Diltiazem) 5 mg IVPUSH Q6H PRN PRN Reason: Tachycardia Last Admin: 09/28/16 09:15 Dose: 5 mg Diltiazem HCl (Cardizem Cd) 180 mg PO DAILY [facility] Diltiazem HCl (Dilacor Xr) 240 mg PO DAILY [facility] Diltiazem HCl (Cardizem Cd) 120 mg PO ONETIME ONE Stop: 09/28/16 10:12 Last Admin: 09/28/16 10:50 Dose: 120 mg Diltiazem HCl (Cardizem) Confirm Administered Dose 100 mg .ROUTE .STK-MED ONE Stop: 09/28/16 14:22 Last Admin: 09/28/16 15:05 Dose: 100 mg Diltiazem HCl (Cardizem Cd) 360 mg PO DAILY [facility] Enoxaparin Sodium (Lovenox) 40 mg SUBCUT DAILY [facility] Last Admin: 09/27/16 09:09 Dose: 40 mg Enoxaparin Sodium (Lovenox) 40 mg SUBCUT ONETIME ONE Stop: 09/24/16 21:47 Last Admin: 09/24/16 22:33 Dose: 40 mg Enoxaparin Sodium (Lovenox) 40 mg SUBCUT Q12HR [facility] Last Admin: 10/03/16 20:51 Dose: 40 mg Guaifenesin (Mucinex) 600 mg PO BID [facility] Last Admin: 09/25/16 08:04 Dose: 600 mg Hydromorphone HCl (Dilaudid) 0.25 mg IVPUSH Q2H PRN PRN Reason: Pain (severe 7-10) Hydromorphone HCl (Dilaudid) 0.25 mg IVPUSH Q2H PRN PRN Reason: Pain (severe 7-10) Azithromycin 500 mg/ Sodium (Chloride) 250 mls @ 250 mls/hr IV ONETIME ONE Stop: 09/24/16 17:11 Last Admin: 09/24/16 16:52 Dose: 250 mls/hr Ceftriaxone Sodium 1 gm/ (Sodium Chloride) 100 mls @ 200 mls/hr IV ONETIME ONE Stop: 09/24/16 16:48 Last Admin: 09/24/16 18:01 Dose: 200 mls/hr Azithromycin 500 mg/ Sodium (Chloride) 250 mls @ 250 mls/hr IV Q24H [place] Last Admin: 09/24/16 19:56 Dose: Not Given Ceftriaxone Sodium 1 gm/ (Sodium Chloride) 100 mls @ 200 mls/hr IV Q24H [place] Last Admin: 09/24/16 19:55 Dose: Not Given Azithromycin 500 mg/ Sodium (Chloride) 250 mls @ 250 mls/hr IV Q24H [place] Last Admin: 09/28/16 16:00 Dose: 250 mls/hr Ceftriaxone Sodium 1 gm/ (Sodium Chloride) 100 mls @ 200 mls/hr IV Q24H [place] Last Admin: 09/28/16 15:58 Dose: 200 mls/hr Magnesium Sulfate 2 gm/ Premix 50 mls @ 25 mls/hr IV ONETIME ONE Stop: 09/24/16 20:23 Last Admin: 09/24/16 19:28 Dose: 25 mls/hr Diltiazem HCl 125 mg/ Sodium (Chloride) 125 mls @ 5 mls/hr IV TITRATE [place]; 5 MG /HR PRN Reason: Protocol Last Titration: 09/29/16 01:41 Dose: 0 mg/hr, 0 mls/hr Sodium Chloride (Normal Saline) Confirm Administered Dose 100 mls @ as directed .ROUTE .STK-MED ONE Stop: 09/28/16 14:23 Last Admin: 09/28/16 15:05 Dose: 15 ml Methylprednisolone Sodium Succinate (Solu-Medrol) 125 mg IVPUSH ONETIME ONE Stop: 09/24/16 14:20 Last Admin: 09/24/16 14:58 Dose: 125 mg Metoprolol Tartrate (Lopressor) 5 mg IVPUSH Q4H PRN PRN Reason: Tachycardia Last Admin: 09/27/16 11:43 Dose: 5 mg Metoprolol Tartrate (Lopressor) 25 mg PO BID [place] Last Admin: 09/27/16 10:33 Dose: 25 mg Metoprolol Tartrate (Lopressor) 5 mg IVPUSH ONETIME ONE Stop: 09/30/16 11:53 Last Admin: 09/30/16 11:58 Dose: 5 mg Mometasone Furoate/Formoterol Fumar (Dulera 200-5 Mcg) 2 puff IH QID [facility] Last Admin: 09/25/16 08:39 Dose: 2 puff Pneumococcal 13-Valent Conj Vacc (Prevnar 13) 0.5 ml IM .ONCE ONE Stop: 09/27/16 15:16 Prednisone (Prednisone) 60 mg PO WITHBREAKFAST [facility] Stop: 09/28/16 07:00 Last Admin: 09/28/16 07:49 Dose: 60 mg Temazepam (Restoril) 15 mg PO BEDTIME PRN PRN Reason: Sleep Last Admin: 09/25/16 20:36 Dose: 15 mg Temazepam (Restoril) 7.5 mg PO BEDTIME PRN PRN Reason: Sleep Warfarin Sodium (Coumadin) 7.5 mg PO ONETIME ONE Stop: 09/28/16 18:01 Last Admin: 09/28/16 17:09 Dose: 7.5 mg Warfarin Sodium (Coumadin) 5 mg PO ONETIME ONE Stop: 09/29/16 18:01 Last Admin: 09/29/16 17:49 Dose: Not Given Warfarin Sodium (Coumadin) 5 mg PO QPM [facility] Stop: 09/30/16 21:00 Last Admin: 09/30/16 17:10 Dose: 5 mg Warfarin Sodium (Coumadin) 5 mg PO QPM [facility] Stop: 10/01/16 21:00 Last Admin: 10/01/16 17:44 Dose: 5 mg Warfarin Sodium (Coumadin) 10 mg PO ONETIME@1800 ONE Stop: 10/02/16 18:01 Last Admin: 10/02/16 17:46 Dose: 10 mg Warfarin Sodium (Coumadin) 7.5 mg PO ONETIME@1800 ONE Stop: 10/03/16 18:01 Last Admin: 10/03/16 17:22 Dose: 7.5 mg - Exam Quality Assessment: supplemental oxygen, DVT prophylaxis General: alert, oriented, cooperative, no acute distress HEENT: Pupils equal, EOMI, Mucous membr. moist/pink Neck: supple Lungs: Normal respiratory effort, Decreased breath sounds Cardiovascular: Regular Rate, Regular Rhythm Abdomen: bowel sounds present, soft, no tenderness Back Exam: normal inspection Extremities: no edema, no calf tenderness Neurological: no new focal deficit Psy/Mental Status: alert, normal affect, normal mood - Problem List & Annotations (1) Pneumonia SNOMED Code(s): 935989698 Code(s): J18.9 - PNEUMONIA, UNSPECIFIED ORGANISM Status: Acute Priority: High Current Visit: Yes Qualifiers: Pneumonia type: due to Mycoplasma pneumoniae (2) Hypoxia SNOMED Code(s): 713707961, 406961100 Code(s): R09.02 - HYPOXEMIA Status: Resolved Priority: High Current Visit: Yes (3) Emphysema lung SNOMED Code(s): 66283288 Code(s): J43.9 - EMPHYSEMA, UNSPECIFIED Status: Chronic Priority: High Current Visit: Yes Qualifiers: Emphysema type: unspecified Qualified Code(s): J43.9 - Emphysema, unspecified (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 SNOMED Code(s): 570168015 Code(s): J44.9 - CHRONIC OBSTRUCTIVE PULMONARY DISEASE, UNSPECIFIED; R64 - [place] Status: Chronic Priority: High Current Visit: Yes (5) Failure to thrive in adult SNOMED Code(s): 680864272 Code(s): R62.7 - ADULT FAILURE TO THRIVE Status: Chronic Priority: High Current Visit: Yes (6) Anxiety SNOMED Code(s): 11204029 Code(s): F41.9 - ANXIETY DISORDER, UNSPECIFIED Status: Acute Priority: High Current Visit: Yes (7) Atrial fib/flutter, transient SNOMED Code(s): 728925467 Code(s): BTH6348 - Status: Resolved Priority: High Current Visit: Yes - Problem List Review Problem List Initiated/Reviewed/Updated: Yes - My Orders Last 24 Hours: My Active Orders 10/03/16 15:00 Cephalexin [Keflex] 500 mg PO TID - Plan Plan:: Assessment/Plan: Acute: Paroxysmal atrial flutter with RVR--- rate controlled now - Eliquis was started but patient without insurance/financial to pay so will switch to Coumadin. 7.5mg PO tonight, INR's daily and pharmacy to dose - Continue Cardizem 360 mg po daily and Metoprolol 50 mg po BID; was on digoxin- this has been dc'd as rate controlled with CCB and BB now. - Echo obtained; EF of 60-65%, no valvular concerns. COPD - Hx/o Severe Emphysema - Hyperinflation on CXR - Still active smoker - Supplemental O2, Bronchodilators, Oral Steroids, Decongestant/Expectorant - Routine RT care and IS q2 awake - Sputum Cx: Strep Pneumonia Thrombocytosis - Platelet 564--> 454 - This is likely reactive 2/2 infection above - Platelet Morphology: normal (meaning not a bone defect) Nicotine Abuse/Dependence - Still actively smokes - Counseled on smoking cessation - Refuses nicotine patch - Continue with nicotine gum Severe Malnutrition/Muscle Wasting - 2/2 underlying emphysema - Dietary following: on supplements 1.9 cm Cystic Lesion within the Liver Per CT Scan - Unsure if this is new - No baseline comparison, image mercado - PCP to monitor Anxiety, Stable - Consulted Dr. Riley - Addition of Remeron 15mg QHS and will increase ativan to 0.5mg TID Subtherapeutic INR - INR is now therapeutic at 2.78, will dc lovenox - Pharmacy to monitor/dose warfarin Resolved: S/p Hypoxia - 2/2 Above - 79% on RA, 94-95% on 3L NC in ED - Supplemental O2, titrate to keep O2 > 90% S/p Leukocytosis - 2/2 above +/- steroids - Continue to monitor S/p Atrial Flutter with 2:1 AV Block - No baseline comparison - Anticogas for stroke prophylaxis - Metoprolol 5 mg IVP Q4 PRN rate control meds - She is now in Sinus Rhythm S/p Mycoplasma Pneumonia and Step Pneumoniae - Continue IV Azithromycin and Rocephin Daily - CRP is 11.7---> 6.6 ---> 3.1--> 1.7--> 0.7 - Chest CT scan: no mass noted - Will defer follow up CXR - Received 5 day course of IV Rocephin; Today is the 5th dose of her Azithromycin Plan: She is essentially the same Continue current treatment as outlined above Routine AM Labs Continue PT/OT/RT SW/CM for d/c planning Additional orders as above Code Status: DNR/DNI LOS Anticipate > 96 hrs pending discharge placement
[2016-10-04] MEDS ORDERED: Warfarin 5 MG Tab PO ONE (18:00)
[2016-10-04] MEDS: Mirtazapine 15 MG Tab PO SCH (20:27)
[2016-10-05] MEDS: Levalbuterol HCl 1.25 MG/3 ML Neb NEB SCH ×2 (03:05→08:25)
[2016-10-05] MEDS: LORazepam 0.5 MG Tab PO SCH (08:07)
[2016-10-05] MEDS: Metoprolol Tartrate 50 MG Tab PO SCH (08:09)
[2016-10-05] MEDS: Saccharomyces Boulardii (Probiotic) 250 MG Cap PO SCH (08:09)
[2016-10-05 08:10] VITALS: BP 116/58
[2016-10-05] MEDS: Cephalexin 500 MG Cap PO SCH (08:10)
[2016-10-05] MEDS: Diltiazem 180 MG Cap.CD PO SCH (08:10)
[2016-10-05] MEDS: Famotidine 20 MG Tab PO SCH (08:10)
[2016-10-05] MEDS: guaiFENesin 600 MG Tab.ER PO SCH (08:10)
[2016-10-05] MEDS: Magnesium Oxide 400 MG Tab PO SCH (08:10)
[2016-10-05] MEDS: Formoterol/Mometasone 200-5 MCG 8.8 GM Inhaler IH SCH (08:25)
[2016-10-05] MEDS: Tiotropium Inhaler 18 MCG Inhalation Powder Cap Kit of 5 INH SCH (08:25)
[2016-10-05] MEDS ORDERED: Warfarin 7.5 MG Tab PO ONE (18:00)
--- NOTE | 2016-10-07 13:10 | PCM.DCSUM1 ---
Discharge Summary - Hospital Course Free Text/Narrative:: 65 year old female with rapid heart rate, had PAF, finally rate controlled. Required medication change for anticoagulation. During hospital stay received at least 5 days of IV antibiotics. Prolong stay was caused by initially slow response to therapy but placement in a SNF extended the stay even longer. Primary DX A Flutter, 2:1 block; paroxysmal COPD, tobacco dependent Severe Emphysema Pneumonia, hypoxia Anxiety Condition Stable Activity As tolerated Diet Usual diet Meds See Discharge Plan List Appt PCP as scheduled. - Discharge Data Discharge Date: 10/05/16 Discharge Disposition: DC/Tfer to SNF 03 Condition: Good - Patient Summary/Data Consults: Consultations 09/24/16 17:29 Consult to Case Management [CONS] Routine Consult to Trouble Shooting Mechanic [CONS] Routine OT Evaluation and Treatment [CONS] Routine PT Evaluation and Treatment [CONS] Routine Respiratory Care Assess and Treatment [CONS] Routine 09/24/16 18:18 Consult to Dietary [Consult to Case Filler] [CONS] Routine 09/25/16 11:48 Consult to Physician [CONS] Routine 09/26/16 10:57 Consult to Spiritual Care [CONS] Routine - Patient Instructions Diet: Usual Diet as Tolerated Activity: As Tolerated Driving: Do Not Drive Showering/Bathing: May Shower Notify Provider of: Fever - Discharge Plan Prescriptions/Med Rec: Metoprolol Tartrate [Lopressor] 50 mg PO Q12HR #60 tablet Albuterol/Ipratropium [DuoNeb 3.0-0.5 MG/3 ML] 3 ml NEB Q6HRRT PRN #120 neb PRN Reason: Shortness Of Breath Cephalexin [IJD: Cephalexin] 500 mg PO TID #21 capsule Famotidine [Pepcid] 20 mg PO BID #60 tablet Mirtazapine [Remeron] 15 mg PO BEDTIME #30 tablet Home Medications: Home Meds Mometasone/Formoterol [Dulera 200-5 MCG] 2 puff IH BID 09/24/16 [History] Albuterol/Ipratropium [DuoNeb 3.0-0.5 MG/3 ML] 3 ml NEB Q6HRRT PRN #120 neb 09/18 [Rx] Bisacodyl [Dulcolax] 5 mg PO DAILY PRN #30 tablet 10/05/16 [Rx] Cephalexin [IJD: Cephalexin] 500 mg PO TID #21 capsule 10/05/16 [Rx] Diltiazem [Cardizem CD] 360 mg PO DAILY cap.cd 10/05/16 [Rx] Docusate Sodium/Sennosides [Senna Plus] 1 tab PO BID PRN #60 tablet 10/05/16 [Rx ] Famotidine [Pepcid] 20 mg PO BID #60 tablet 10/05/16 [Rx] Metoprolol Tartrate [Lopressor] 50 mg PO Q12HR #60 tablet 10/05/16 [Rx] Mirtazapine [Remeron] 15 mg PO BEDTIME #30 tablet 10/05/16 [Rx] Mometasone/Formoterol [Dulera 200-5 MCG] 2 puff IH BID inhaler 10/05/16 [Rx] Tiotropium [Spiriva HandiHaler] 18 mcg INH DAILY cap 10/05/16 [Rx] Warfarin Pharmacy to Dose [Pharmacy to Dose - Warfarin] 7.5 dose PO ASDIRECTED # 5 each 10/05/16 [Rx] Patient Handouts: Smoking Cessation, Tips for Success, [id number], How to Use a Nebulizer, Chronic Obstructive Pulmonary Disease, [id number], Metered Dose Inhaler (No Spacer Used), Tobacco Use Disorder, Community-Acquired Pneumonia, Adult, [id number] Forms: ED Department Discharge Referrals: Serjio Sloan MD [Physician] - - Discharge Summary/Plan Comment DC Time >30 min.: No - General Info Date of Service: 09/24/16 Functional Status: Reports: tolerating diet - Review of Systems General: Reports: No Symptoms HEENT: Reports: no symptoms Pulmonary: Reports: no symptoms Cardiovascular: Reports: No Symptoms Gastrointestinal: Reports: No symptoms Genitourinary: Reports: no symptoms Musculoskeletal: Reports: no symptoms Skin: Reports: no symptoms Neurological: Reports: No Symptoms Psychiatric: Reports: no symptoms - Patient Data Vitals - Most Recent: Last Vital Signs Temp 36.9 C 10/05/16 08:05 Pulse 90 10/05/16 08:09 Resp 14 10/05/16 08:05 BP 116/58 L 10/05/16 08:09 Pulse Ox 97 10/05/16 08:25 Weight - Most Recent: 43.545 kg Med Orders - Current: Current Medications Discontinued Medications Acetaminophen (Tylenol) 650 mg PO Q4H PRN PRN Reason: Pain (Mild 1-3)/fever Last Admin: 09/27/16 20:11 Dose: 650 mg Hydrocodone Bitart/Acetaminophen ([place] 325-5 Mg) 1 tab PO Q4H PRN PRN Reason: Pain (moderate 4-6) Albuterol/Ipratropium (Duoneb 3.0-0.5 Mg/3 Ml) 3 ml NEB ONETIME ONE Stop: 09/24/16 14:20 Last Admin: 09/24/16 14:28 Dose: 3 ml Albuterol/Ipratropium (Duoneb 3.0-0.5 Mg/3 Ml) 3 ml NEB Q4H PRN PRN Reason: Shortness Of Breath/wheezing Last Admin: 09/28/16 13:22 Dose: 3 ml Apixaban (Eliquis) 5 mg PO BID [facility] Last Admin: 09/28/16 08:03 Dose: 5 mg Azithromycin (Zithromax) 250 mg PO DAILY@1700 [facility] Stop: 09/30/16 17:01 Last Admin: 09/30/16 17:10 Dose: 250 mg Bisacodyl (Dulcolax) 5 mg PO DAILY PRN PRN Reason: Constipation Last Admin: 09/25/16 08:06 Dose: 5 mg Ceftriaxone Sodium (Rocephin) 1,000 mg IVPUSH Q24H [facility] Last Admin: 09/24/16 16:20 Dose: Not Given Cephalexin (Keflex) 500 mg PO TID [facility] Stop: 10/08/16 15:01 Last Admin: 10/05/16 08:10 Dose: 500 mg Digoxin (Lanoxin) 250 mcg IVPUSH Q4H [facility] Stop: 09/29/16 03:31 Last Admin: 09/28/16 20:08 Dose: 250 mcg Digoxin (Lanoxin) 250 mcg IVPUSH Q4H [facility] Stop: 09/30/16 03:46 Last Admin: 09/30/16 00:19 Dose: 250 mcg Digoxin (Lanoxin) 250 mcg IVPUSH ONETIME ONE Stop: 09/30/16 09:01 Last Admin: 09/30/16 08:15 Dose: 250 mcg Digoxin (Lanoxin) 250 mcg PO DAILY [facility] Last Admin: 10/01/16 08:37 Dose: Not Given Diltiazem HCl (Diltiazem) 5 mg IVPUSH ONETIME ONE Stop: 09/27/16 14:36 Last Admin: 09/27/16 15:35 Dose: 2.5 mg Diltiazem HCl (Cardizem Cd) 120 mg PO DAILY [facility] Last Admin: 09/28/16 08:03 Dose: 120 mg Diltiazem HCl (Diltiazem) 5 mg IVPUSH Q6H PRN PRN Reason: Tachycardia Last Admin: 09/28/16 09:15 Dose: 5 mg Diltiazem HCl (Cardizem Cd) 180 mg PO DAILY [facility] Diltiazem HCl (Dilacor Xr) 240 mg PO DAILY [facility] Diltiazem HCl (Cardizem Cd) 120 mg PO ONETIME ONE Stop: 09/28/16 10:12 Last Admin: 09/28/16 10:50 Dose: 120 mg Diltiazem HCl (Cardizem) Confirm Administered Dose 100 mg .ROUTE .STK-MED ONE Stop: 09/28/16 14:22 Last Admin: 09/28/16 15:05 Dose: 100 mg Diltiazem HCl (Cardizem Cd) 360 mg PO DAILY [facility] Diltiazem HCl (Cardizem Cd) 360 mg PO DAILY [facility] Last Admin: 10/05/16 08:10 Dose: 360 mg Diltiazem HCl (Diltiazem) 5 mg IVPUSH Q4H PRN PRN Reason: Tachycardia Last Admin: 09/29/16 20:09 Dose: 5 mg Enoxaparin Sodium (Lovenox) 40 mg SUBCUT DAILY [facility] Last Admin: 09/27/16 09:09 Dose: 40 mg Enoxaparin Sodium (Lovenox) 40 mg SUBCUT ONETIME ONE Stop: 09/24/16 21:47 Last Admin: 09/24/16 22:33 Dose: 40 mg Enoxaparin Sodium (Lovenox) 40 mg SUBCUT Q12HR [facility] Last Admin: 10/03/16 20:51 Dose: 40 mg Famotidine (Pepcid) 20 mg PO BID [facility] Last Admin: 10/05/16 08:10 Dose: 20 mg Guaifenesin (Mucinex) 600 mg PO BID [facility] Last Admin: 09/25/16 08:04 Dose: 600 mg Guaifenesin (Mucinex) 1,200 mg PO BID [facility] Last Admin: 10/05/16 08:10 Dose: 1,200 mg Hydralazine HCl (Apresoline) 20 mg IVPUSH Q4H PRN PRN Reason: Hypertension Hydromorphone HCl (Dilaudid) 0.25 mg IVPUSH Q2H PRN PRN Reason: Pain (severe 7-10) Hydromorphone HCl (Dilaudid) 0.25 mg IVPUSH Q2H PRN PRN Reason: Pain (severe 7-10) Azithromycin 500 mg/ Sodium (Chloride) 250 mls @ 250 mls/hr IV ONETIME ONE Stop: 09/24/16 17:11 Last Admin: 09/24/16 16:52 Dose: 250 mls/hr Ceftriaxone Sodium 1 gm/ (Sodium Chloride) 100 mls @ 200 mls/hr IV ONETIME ONE Stop: 09/24/16 16:48 Last Admin: 09/24/16 18:01 Dose: 200 mls/hr Azithromycin 500 mg/ Sodium (Chloride) 250 mls @ 250 mls/hr IV Q24H [facility] Last Admin: 09/24/16 19:56 Dose: Not Given Ceftriaxone Sodium 1 gm/ (Sodium Chloride) 100 mls @ 200 mls/hr IV Q24H [facility] Last Admin: 09/24/16 19:55 Dose: Not Given Azithromycin 500 mg/ Sodium (Chloride) 250 mls @ 250 mls/hr IV Q24H [facility] Last Admin: 09/28/16 16:00 Dose: 250 mls/hr Ceftriaxone Sodium 1 gm/ (Sodium Chloride) 100 mls @ 200 mls/hr IV Q24H [facility] Last Admin: 09/28/16 15:58 Dose: 200 mls/hr Magnesium Sulfate 2 gm/ Premix 50 mls @ 25 mls/hr IV ONETIME ONE Stop: 09/24/16 20:23 Last Admin: 09/24/16 19:28 Dose: 25 mls/hr Diltiazem HCl 125 mg/ Sodium (Chloride) 125 mls @ 5 mls/hr IV TITRATE KADE[place]; 5 MG /HR PRN Reason: Protocol Last Titration: 09/29/16 01:41 Dose: 0 mg/hr, 0 mls/hr Sodium Chloride (Normal Saline) Confirm Administered Dose 100 mls @ as directed .ROUTE .STK-MED ONE Stop: 09/28/16 14:23 Last Admin: 09/28/16 15:05 Dose: 15 ml Levalbuterol HCl (Xopenex) 1.25 mg NEB Q6HRRT [facility] Last Admin: 10/05/16 08:25 Dose: 1.25 mg Lorazepam (Ativan) 1 mg IV Q6H PRN PRN Reason: Anxiety Last Admin: 09/29/16 20:09 Dose: 1 mg Lorazepam (Ativan) 0.5 mg PO BID@0800,1800 [facility] Last Admin: 10/05/16 08:07 Dose: Not Given Magnesium Oxide (Magnesium Oxide) 400 mg PO BID [facility] Last Admin: 10/05/16 08:10 Dose: 400 mg Magnesium Sulfate (Pharmacy To Dose - Magnesium Replacement) 0 dose .XX ASDIRECTED PRN PRN Reason: rx dose Methylprednisolone Sodium Succinate (Solu-Medrol) 125 mg IVPUSH ONETIME ONE Stop: 09/24/16 14:20 Last Admin: 09/24/16 14:58 Dose: 125 mg Metoprolol Tartrate (Lopressor) 5 mg IVPUSH Q4H PRN PRN Reason: Tachycardia Last Admin: 09/27/16 11:43 Dose: 5 mg Metoprolol Tartrate (Lopressor) 25 mg PO BID [facility] Last Admin: 09/27/16 10:33 Dose: 25 mg Metoprolol Tartrate (Lopressor) 5 mg IVPUSH ONETIME ONE Stop: 09/30/16 11:53 Last Admin: 09/30/16 11:58 Dose: 5 mg Metoprolol Tartrate (Lopressor) 50 mg PO Q12HR [facility] Last Admin: 10/05/16 08:09 Dose: 50 mg Metoprolol Tartrate (Lopressor) 5 mg IVPUSH Q4H PRN PRN Reason: Tachycardia Last Admin: 09/30/16 15:27 Dose: 5 mg Mirtazapine (Remeron) 15 mg PO BEDTIME [facility] Last Admin: 10/04/16 20:27 Dose: 15 mg Mometasone Furoate/Formoterol Fumar (Dulera 200-5 Mcg) 2 puff IH QID [facility] Last Admin: 09/25/16 08:39 Dose: 2 puff Mometasone Furoate/Formoterol Fumar (Dulera 200-5 Mcg) 2 puff IH BID [facility] Last Admin: 10/05/16 08:25 Dose: 2 puff Nicotine Polacrilex (Nicorelief) 2 mg CHEW Q2H PRN PRN Reason: Other Ondansetron HCl (Zofran) 4 mg IV Q6H PRN PRN Reason: Nausea/Vomiting Pneumococcal 13-Valent Conj Vacc (Prevnar 13) 0.5 ml IM .ONCE ONE Stop: 09/27/16 15:16 Last Admin: 10/05/16 11:22 Dose: 0.5 ml Polyethylene Glycol (Miralax) 17 gm PO DAILY PRN PRN Reason: Constipation Potassium Chloride (Pharmacy To Dose - Potassium Replacement) 0 dose .XX ASDIRECTED PRN PRN Reason: rx dose Prednisone (Prednisone) 60 mg PO WITHBREAKFAST [facility] Stop: 09/28/16 07:00 Last Admin: 09/28/16 07:49 Dose: 60 mg Saccharomyces Boulardii (Florastor) 250 mg PO BID [facility] Last Admin: 10/05/16 08:09 Dose: 250 mg Senna/Docusate Sodium (Senna Plus) 1 tab PO BID PRN PRN Reason: Constipation Temazepam (Restoril) 15 mg PO BEDTIME PRN PRN Reason: Sleep Last Admin: 09/25/16 20:36 Dose: 15 mg Temazepam (Restoril) 7.5 mg PO BEDTIME PRN PRN Reason: Sleep Tiotropium [place] (Spiriva Handihaler) 18 mcg INH DAILY [facility] Last Admin: 10/05/16 08:25 Dose: 1 puff Warfarin Sodium (Coumadin) 7.5 mg PO ONETIME ONE Stop: 09/28/16 18:01 Last Admin: 09/28/16 17:09 Dose: 7.5 mg Warfarin Sodium (Pharmacy To Dose - Warfarin) 0 dose .XX ASDIRECTED PRN PRN Reason: RX TO DOSE COUMADIN Warfarin Sodium (Coumadin) 5 mg PO ONETIME ONE Stop: 09/29/16 18:01 Last Admin: 09/29/16 17:49 Dose: Not Given Warfarin Sodium (Coumadin) 5 mg PO QPM [facility] Stop: 09/30/16 21:00 Last Admin: 09/30/16 17:10 Dose: 5 mg Warfarin Sodium (Coumadin) 5 mg PO QPM [facility] Stop: 10/01/16 21:00 Last Admin: 10/01/16 17:44 Dose: 5 mg Warfarin Sodium (Coumadin) 10 mg PO ONETIME@1800 ONE Stop: 10/02/16 18:01 Last Admin: 10/02/16 17:46 Dose: 10 mg Warfarin Sodium (Coumadin) 7.5 mg PO ONETIME@1800 ONE Stop: 10/03/16 18:01 Last Admin: 10/03/16 17:22 Dose: 7.5 mg Warfarin Sodium (Coumadin) 5 mg PO ONETIME@1800 ONE Stop: 10/04/16 18:01 Last Admin: 10/04/16 17:04 Dose: 5 mg Warfarin Sodium (Coumadin) 7.5 mg PO ONETIME@1800 ONE Stop: 10/05/16 18:01 - Exam Quality Assessment: Reports: DVT prophylaxis General: Reports: alert, oriented, no acute distress HEENT: Reports: Pupils equal, Pupils reactive, EOMI Neck: Reports: supple, trachea midline Lungs: Reports: Normal respiratory effort Cardiovascular: Reports: Regular Rate Abdomen: Reports: bowel sounds present, soft, no tenderness, no distension (Female) Exam: Deferred Rectal (Female) Exam: Deferred Back Exam: Reports: Normal Inspection Extremities: Reports: normal pulses Skin: Reports: warm Neurological: Reports: no new focal deficit Psy/Mental Status: Reports: alert *Q Meaningful Use (DIS) - VTE *Q VTE Criteria *Q: - Stroke *Q Stroke Criteria *Q: - AMI *Q AMI Criteria *Q:
== END 2016-10-05 13:56 | DRG 190 ==
LOC: JD.ED 13:54 → JD.MS 16:14 → JD.ICU 09-28 14:16 → JD.MS 10-01 21:17
PROVIDERS: ADMIT Internal Medicine; ATTEND Internal Medicine
PROC: 3E0234Z Introduction of Serum, Toxoid and Vaccine into Muscle, Percutaneous Approach (ICD-10-PCS; principal; 2016-10-05)
DX: J18.9 Pneumonia, unspecified organism (principal); J44.0 Chronic obstructive pulmonary disease with (acute) lower respiratory infection; J15.7 Pneumonia due to Mycoplasma pneumoniae; Z87.891 Personal history of nicotine dependence; I48.92 Unspecified atrial flutter; E46 Unspecified protein-calorie malnutrition; F33.2 Major depressive disorder, recurrent severe without psychotic features; B95.3 Streptococcus pneumoniae as the cause of diseases classified elsewhere; J44.1 Chronic obstructive pulmonary disease with (acute) exacerbation; F17.210 Nicotine dependence, cigarettes, uncomplicated; R09.02 Hypoxemia; D47.3 Essential (hemorrhagic) thrombocythemia; J43.9 Emphysema, unspecified; K76.9 Liver disease, unspecified; F41.9 Anxiety disorder, unspecified; R63.4 Abnormal weight loss; Z23 Encounter for immunization; R62.7 Adult failure to thrive; Z66 Do not resuscitate; R79.1 Abnormal coagulation profile; M19.90 Unspecified osteoarthritis, unspecified site; Z79.899 Other long term (current) drug therapy
CPT/HCPCS: 36415; 36600; 71010; 71250; 80053; 82803; 83880; 84484; 85025; 85610; 85730; 86140; 86738; 93005; 94664; 96374; 99285; J2930; 71020; 71020-26; 80048; 80162; 82553; 83735; 84443; 85027; 87040; 87046; 87070; 87077; 87181; 87184; 87205; 87328; 87329; 87427; 87493; 87804; 89055; 90670; 93306; 94640; 94640-76; 94660; 94760; 94761; 94762; 96375; 97110-GO; 97110-GP; 97112-GP; 97116-GP; 97161-GP; 97165-GO; 97530-GO; 97535-GO; 99284; A9270; A9270-GY; G0009; J0456; J0696; J1160; J1650; J2060; J3475; J3490; J7030; J7050

== ENCOUNTER 2017-03-22 03:52 | Inpatient (IN) | payer MEDICARE, MEDICAID ==
--- NOTE | 2017-03-22 04:22 | EDM.PDOC ---
<Kang Hagan - Last Filed: 03/22/17 07:50> ED HPI GENERAL MEDICAL PROBLEM - General Chief Complaint: Respiratory Problem Stated Complaint: [facility] Time Seen by Provider: 03/22/17 03:57 Source of Information: Reports: Patient, Old Records, RN Notes Reviewed History Limitations: Reports: No Limitations - History of Present Illness INITIAL COMMENTS - FREE TEXT/NARRATIVE: The patient states that she has chronic dyspnea on exertion, but that it is worse tonight. She states that she has been wheezing for the past 2 days, and has had a dry cough for the past 2 or 3 days. Transfer [facility] indicate that the patient had a temperature of 101.3, however, she is found to have a temperature of 98.5 here in the ED. The patient was given a DuoNeb prior to transport to the ED, around 03:30 this morning. The patient states that she ordinarily takes supplemental oxygen at 1 L/m during the day, with occasional increases when she exerts herself, and 1.5 L nightly. Currently, the patient is on 3 L, saturating 92%. The patient reports similar symptoms in the past, due to pneumonia and COPD exacerbation. The patient's PCP is Dr. Sloan. - Related Data Allergies Allergy/AdvReac Type Severity Reaction Status Date / Time No Known Allergies Allergy Verified 03/22/17 03:59 Home Meds: Home Meds Albuterol/Ipratropium [DuoNeb 3.0-0.5 MG/3 ML] 3 ml NEB Q6HRRT PRN #120 neb 09/18 [Rx] Bisacodyl [Dulcolax] 5 mg PO DAILY PRN #30 tablet 10/05/16 [Rx] Diltiazem [Cardizem CD] 360 mg PO DAILY cap.cd 10/05/16 [Rx] Docusate Sodium/Sennosides [Senna Plus] 1 tab PO BID PRN #60 tablet 10/05/16 [Rx ] Famotidine [Pepcid] 20 mg PO BID #60 tablet 10/05/16 [Rx] Metoprolol Tartrate [Lopressor] 50 mg PO Q12HR #60 tablet 10/05/16 [Rx] Mirtazapine [Remeron] 15 mg PO BEDTIME #30 tablet 10/05/16 [Rx] Albuterol Sulfate [Proventil Hfa] 1 puff INH DAILY 03/22/17 [History] Calcium Carbonate/Vitamin D3 [Calcium 500 + Vit D 400] 1 tab PO BID 03/22/17 [ History] DULoxetine [Cymbalta] 30 mg PO DAILY 03/22/17 [History] Fluticasone/Vilanterol [Breo Ellipta 100-25 MCG Inhalation Kit] 1 puff INH DAILY 03/22/17 [History] LORazepam [Ativan] 1 mg PO BID PRN 03/22/17 [History] Multivitamin W/Iron, Minerals [Compete] 1 tab PO DAILY 03/22/17 [History] Umeclidinium Malott [Incruse Ellipta*] 1 puff INH DAILY 03/22/17 [History] Warfarin Pharmacy to Dose [Pharmacy to Dose - Warfarin] 7.5 dose PO MOFR [History] Warfarin [Coumadin] 10 mg PO SUTUWETHSA 03/22/17 [History] busPIRone [Buspar] 50 mg PO BID 03/22/17 [History] Past Medical History HEENT History: Reports: Impaired Vision Cardiovascular History: Reports: Arrhythmia (Atrial flutter), Hypertension Respiratory History: Reports: COPD (supected, never confirmed) Gastrointestinal History: Reports: GERD Genitourinary History: Reports: Urinary Incontinence (stress incontinence) Musculoskeletal History: Reports: Arthritis Psychiatric History: Reports: Anxiety, Depression - Past Surgical History HEENT Surgical History: Reports: Oral Surgery (Orient teeth extraction) Social & Family History - Family History Family Medical History: Noncontributory HEENT: Reports: Impaired Vision Respiratory: Reports: Asthma, COPD Musculoskeletal: Reports: Arthritis Oncologic: Reports: Breast, Colon, Lymphoma, Pancreatic - Tobacco Use Smoking Status *Q: Former Smoker Years of Tobacco use: 47 Packs/Tins Daily: 1.5 Month Tobacco Last Used: Quit 09/24/2016 - Caffeine Use Caffeine Use: Reports: Coffee - Alcohol Use Alcohol Use History: Yes Alcohol Use Frequency: Rarely - Recreational Drug Use Recreational Drug Use: No - Living Situation & Occupation Living situation: Reports: Single, Extended Care Facility ([facility]) Occupation: Retired ED ROS GENERAL - Review of Systems Review Of Systems: See Below Constitutional: Reports: No Symptoms HEENT: Reports: No Symptoms Respiratory: Reports: No Symptoms Cardiovascular: Reports: No Symptoms Endocrine: Reports: No Symptoms GI/Abdominal: Reports: No Symptoms : Reports: No Symptoms Musculoskeletal: Reports: No Symptoms Skin: Reports: No Symptoms Neurological: Reports: No Symptoms Psychiatric: Reports: No Symptoms Hematologic/Lymphatic: Reports: No Symptoms Immunologic: Reports: No Symptoms ED EXAM, GENERAL - Physical Exam Exam: See Below Exam Limited By: No Limitations General Appearance: Alert, WD/WN, No Apparent Distress Eye Exam: Bilateral Eye: Normal Inspection Ears: Normal External Exam, Hearing Grossly Normal Nose: Normal Inspection, No Blood Throat/Mouth: Normal Inspection, Normal Lips, Normal Voice, No Airway Compromise Head: Atraumatic, Normocephalic Neck: Normal Inspection, Full Range of Motion Respiratory/Chest: No Respiratory Distress, Lungs Clear, No Accessory Muscle Use , Decreased Breath Sounds. No: Crackles, Rhonchi, Wheezing, Prolonged Expiration Cardiovascular: Normal Peripheral Pulses, No Gallop, No JVD, No Murmur, No Rub, Tachycardia (regular) Peripheral Pulses: 4+: Radial (L), Radial (R) GI/Abdominal: Normal Bowel Sounds, Soft, Non-Tender, No Organomegaly, No Distention, No Abnormal Bruit, No Mass (Female) Exam: Deferred Rectal (Female) Exam: Deferred Back Exam: Normal Inspection, Full Range of Motion, NT Extremities: Normal Inspection, Normal Range of Motion, No Pedal Edema, Normal Capillary Refill Neurological: Alert, Oriented, Normal Cognition, No Motor/Sensory Deficits Psychiatric: Normal Affect Skin Exam: Warm, Dry, Intact, Normal Color, No Rash EKG INTERPRETATION EKG Date: 03/22/17 Time: 06:43 Rhythm: NSR (Sinus tachycardia) Rate (Beats/Min): 99 [place]: Normal P-Wave: Present QRS: Normal ST-T: Normal QT: Normal Comparison: No Change (10/02/2016) Course - Vital Signs Last Recorded V/S: Last Vital Signs Temp 98.5 F 03/22/17 03:57 Pulse 106 H 03/22/17 03:57 Resp 21 H 03/22/17 03:57 BP 147/76 H 03/22/17 03:57 Pulse Ox 95 03/22/17 09:15 - Orders/Labs/Meds Orders: Active Orders 24 hr Category Date Time Status EKG Documentation Completion [RC] STAT Care 03/22/17 04:15 Active EKG Documentation Completion [RC] STAT Care 03/22/17 07:49 Active RT Aerosol Therapy [RC] ASDIRECTED Care 03/22/17 08:55 Active CULTURE BLOOD [BC] Stat Lab 03/22/17 04:26 Received CULTURE BLOOD [BC] Stat Lab 03/22/17 04:37 Received Sodium Chloride 0.9% [Normal Saline] 1,000 ml Med 03/22/17 06:30 Active IV ASDIRECTED Sodium Chloride 0.9% [Saline Flush] Med 03/22/17 06:42 Active 10 ml FLUSH ONETIME PRN Blood Culture x2 Reflex Set [OM.PC] Stat Oth 03/22/17 04:15 Ordered Medication Orders Sodium Chloride (Normal Saline) 1,000 mls @ 150 mls/hr IV ASDIRECTED KADEEM Last Admin: 03/22/17 06:30 Dose: 150 mls/hr Sodium Chloride (Saline Flush) 10 ml FLUSH ONETIME PRN PRN Reason: IV Flush Last Admin: 03/22/17 07:17 Dose: 10 ml Labs: Laboratory Tests 03/22/17 03/22/17 03/22/17 Range/Units 04:15 04:26 04:26 WBC 13.78 H (3.98-10.04) K/mm3 RBC 4.49 (3.98-5.22) M/mm3 Hgb 13.4 (11.2-15.7) gm/L Hct 40.0 (34.1-44.9) % MCV 89.1 (79.4-94.8) fl MCH 29.8 (25.6-32.2) pg MCHC 33.5 (32.2-35.5) g/dl RDW Std Deviation 42.9 (36.4-46.3) fL Plt Count 318 (182-369) K/mm3 MPV 9.1 L (9.4-12.3) fl Neutrophils % (Manual) 79 H (40-60) % Band Neutrophils % 5 (0-10) % Lymphocytes % (Manual) 9 L (20-40) % Atypical Lymphs % 1 % Monocytes % (Manual) 6 (2-10) % Eosinophils % (Manual) 0 L (0.7-5.8) % Basophils % (Manual) 0 L (0.1-1.2) Toxic Granulation 1+ slight Platelet Estimate Adequate Plt Morphology Comment Normal RBC Morph Comment Normal PT 34.1 H (8.0-13.0) SECONDS INR 2.92 APTT 46 H (22-36) SECONDS D-Dimer, Quantitative 0.19 (0.19-0.59) mg/L Puncture Site Rt radial ABG pH 7.37 (7.35-7.45) ABG pCO2 52.8 H (35.0-45.0) mmHg ABG pO2 66.0 L (80.0-100.0) mmHg ABG HCO3 29.6 H (22.0-26.0) meq/L ABG O2 Saturation 92.2 L (96.0-97.0) % ABG Base Excess 3.6 H (-2-2.0) A-a Gradient 99 mmHg O2 Delivery Device Nasal cannula Oxygen Flow Rate 4.0 FiO2 36.00 (21.00-100.00) % Sodium (136-145) mEq/L Potassium (3.5-5.1) mEq/L Chloride (98-107) mEq/L Carbon Dioxide (21-32) mEq/L Anion Gap (5-15) BUN (7-18) mg/dL Creatinine (0.55-1.02) mg/dL Est Cr Clr Drug Dosing mL/min Estimated GFR (MDRD) (>60) mL/min BUN/Creatinine Ratio (14-18) Glucose (80-115) mg/dL Lactic Acid (0.4-2.0) mmol/L Calcium (8.5-10.1) mg/dL Total Bilirubin (0.2-1.0) mg/dL AST (15-37) U/L ALT (14-59) U/L Alkaline Phosphatase (46-116) U/L Troponin I (0.00-0.056) ng/mL NT-Pro-B Natriuret Pep (0-125) pg/mL Total Protein (6.4-8.2) g/dl Albumin (3.4-5.0) g/dl Globulin gm/dL Albumin/Globulin Ratio (1-2) 03/22/17 03/22/17 Range/Units 04:26 04:26 WBC (3.98-10.04) K/mm3 RBC (3.98-5.22) M/mm3 Hgb (11.2-15.7) gm/L Hct (34.1-44.9) % MCV (79.4-94.8) fl MCH (25.6-32.2) pg MCHC (32.2-35.5) g/dl RDW Std Deviation (36.4-46.3) fL Plt Count (182-369) K/mm3 MPV (9.4-12.3) fl Neutrophils % (Manual) (40-60) % Band Neutrophils % (0-10) % Lymphocytes % (Manual) (20-40) % Atypical Lymphs % % Monocytes % (Manual) (2-10) % Eosinophils % (Manual) (0.7-5.8) % Basophils % (Manual) (0.1-1.2) Toxic Granulation Platelet Estimate Plt Morphology Comment RBC Morph Comment PT (8.0-13.0) SECONDS INR APTT (22-36) SECONDS D-Dimer, Quantitative (0.19-0.59) mg/L Puncture Site ABG pH (7.35-7.45) ABG pCO2 (35.0-45.0) mmHg ABG pO2 (80.0-100.0) mmHg ABG HCO3 (22.0-26.0) meq/L ABG O2 Saturation (96.0-97.0) % ABG Base Excess (-2-2.0) A-a Gradient mmHg O2 Delivery Device Oxygen Flow Rate FiO2 (21.00-100.00) % Sodium 141 (136-145) mEq/L Potassium 4.0 (3.5-5.1) mEq/L Chloride 105 (98-107) mEq/L Carbon Dioxide 30 (21-32) mEq/L Anion Gap 10.0 (5-15) BUN 17 (7-18) mg/dL Creatinine 0.7 (0.55-1.02) mg/dL Est Cr Clr Drug Dosing 82.09 mL/min Estimated GFR (MDRD) > 60 (>60) mL/min BUN/Creatinine Ratio 24.3 H (14-18) Glucose 140 H (80-115) mg/dL Lactic Acid 1.6 (0.4-2.0) mmol/L Calcium 8.9 (8.5-10.1) mg/dL Total Bilirubin 0.4 (0.2-1.0) mg/dL AST 21 (15-37) U/L ALT 22 (14-59) U/L Alkaline Phosphatase 66 (46-116) U/L Troponin I < 0.017 (0.00-0.056) ng/mL NT-Pro-B Natriuret Pep 223 H (0-125) pg/mL Total Protein 7.0 (6.4-8.2) g/dl Albumin 3.3 L (3.4-5.0) g/dl Globulin 3.7 gm/dL Albumin/Globulin Ratio 0.9 L (1-2) Meds: Medications Generic Name Dose Route Start Last Admin Trade Name Freq PRN Reason Stop Dose Admin Sodium Chloride 1,000 mls @ 150 mls/hr 03/22/17 06:30 03/22/17 06:30 Normal Saline IV 150 mls/hr ASDIRECTED KADEEM Administration Sodium Chloride 10 ml 03/22/17 06:42 03/22/17 07:17 Saline Flush FLUSH 10 ml ONETIME PRN Administration IV Flush Discontinued Medications Generic Name Dose Route Start Last Admin Trade Name Freq PRN Reason Stop Dose Admin Albuterol/Ipratropium 3 ml 03/22/17 08:55 03/22/17 09:15 Duoneb 3.0-0.5 Mg/3 Ml NEB 03/22/17 08:56 3 ml ONETIME ONE Administration Iopamidol 80 ml 03/22/17 06:42 03/22/17 07:17 Isovue-300 (61%) IVPUSH 03/22/17 06:43 80 ml ONETIME ONE Administration Levofloxacin 750 mg 03/22/17 06:17 03/22/17 06:24 Levaquin PO 03/22/17 06:18 750 mg ONETIME STA Administration Methylprednisolone Sodium Succinate 125 mg 03/22/17 09:18 03/22/17 09:24 Solu-Medrol IVPUSH 03/22/17 09:19 125 mg ONETIME ONE Administration - Re-Assessments/Exams Free Text/Narrative Re-Assessment/Exam: 03/22/17 06:18 Two-view chest radiograph reviewed. Cardiac silhouette is within normal limits. No pulmonary vascular congestion. No pleural effusions. A reticular infiltrate involves the entire right lung field. Thickening of the trachea, consistent with tracheobronchitis is noted. No pneumothorax. Hyperinflation and bilateral diaphragmatic flattening, consistent with severe COPD noted. Formal read per the Radiologist pending. 03/22/17 06:25 The patient's chest radiograph has the above abnormality to the right lung field , she has an elevated WBC count of 13.78 with 5% bandemia, and, while she is afebrile here, has a report of a fever at the long term. The patient therefore meets criteria for pneumonia, and I therefore started her on oral Levaquin. The infiltrate of the right lung field, however, does not obey anatomic boundaries and is therefore concerning for malignancy. I have ordered a CT of the chest with IV contrast. IV fluid has been ordered. 03/22/17 07:[address] of the chest has been performed, but results are still pending. Case discussed with Dr. Billy Mason and care of the patient turned over to him at this time, for change of shift. Departure - Departure Disposition: DC/Tfer to [facility] 62 Clinical Impression: Pneumonia Qualifiers: Pneumonia type: due to unspecified organism Laterality: right Lung location: lower lobe of lung Qualified Code(s): J18.1 - Lobar pneumonia, unspecified organism - Discharge Information Referrals: Serjio Sloan MD [Primary Care Provider] - Forms: ED Department Discharge - My Orders Last 24 Hours: My Active Orders 03/22/17 08:55 RT Aerosol Therapy [RC] ASDIRECTED - Assessment/Plan Last 24 Hours: My Active Orders 03/22/17 08:55 RT Aerosol Therapy [RC] ASDIRECTED <Billy Smith L - Last Filed: 03/22/17 09:29> Course - Re-Assessments/Exams Free Text/Narrative Re-Assessment/Exam: 03/22/17 08:57. Have assumed care from Dr. Hagan after change of shift. I agree with his history and exam. CT report is back and has been read out as having pneumonia as strongly suspected from her chest x-ray. There is no sign of malignancy reported. Severe emphysematous changes. See report for details. She already has been given Levaquin 750 mg by mouth, tolerating that well. Sats currently running 92-93% on her baseline 2 L O2 nasal cannula. We are going to give her a DuoNeb treatment, with consideration to continue treatment at the long term. 03/22/17 09:10. When patient was assisted to get up to the commode just a very short time ago her sats dropped clear down to about 80% on HER-2 liters nasal cannula. When I discussed with her charge nurse up at the long term just a very short time ago they state that she also dropped her sats very significantly early this morning prompting her being sent here to the ED. With that she will need to be admitted for hospitalization, further treatment before she'll be able to go back up to the [facility]. Have discussed this with Dr. Trejo, hospitalist. Steroids have not yet been given so we'll give Solu -Medrol 125 mg at this time Departure - Departure Time of Disposition: 09:01 Condition: Fair ED Communication - Discussed Case With (1) Discussed Case With (1): Admitting Provider (Dr. Trejo, decision to admit at about 9:15.)
[2017-03-22] MEDS ORDERED: Levofloxacin 750 MG Tab PO STA (06:17)
[2017-03-22] MEDS: Sodium Chloride 0.9% 1,000 ML IV SCH ×2 (06:30→14:24)
[2017-03-22] MEDS ORDERED: Sodium Chloride 0.9% 10 ML Syringe FLUSH PRN (06:42)
[2017-03-22] MEDS ORDERED: Iopamidol 612 MG/ML 100 ML Bottle IVPUSH ONE (06:42)
--- NOTE | 2017-03-22 07:24 | CT ---
CT chest Technique: Multiple axial sections were obtained from above the lung apices inferiorly through the lung bases. Intravenous contrast was utilized. Comparison: Previous chest x-ray performed earlier on the same day as well as previous chest CT performed on 09/24/16. Findings: Severe emphysematous change is seen throughout both lungs. There is increased density within the septa located within the emphysematous change within both right upper and right lower lungs which is increased from prior study presumably representing pneumonia. Left lung is clear. Mediastinum and hilar regions show no adenopathy. Slight coronary artery calcification is seen. Several cysts are seen within the left lobe of the liver. Slight degenerative endplate spurring is incidentally noted within the spine. Old anterior wedge deformity seen within the lower thoracic spine as well as mild compression deformity within the mid thoracic spine which appears old. Impression: 1. Diffuse increased septal thickening surrounding emphysematous change within the right lung. Findings most likely represent pneumonia. 2. Severe emphysematous change is seen. 3. Other incidental findings. Diagnostic code #3
--- NOTE | 2017-03-22 07:37 | CR ---
Chest: Two views of the chest were obtained. Comparison: Previous chest x-ray of 09/26/16. Diffuse increased density within the right upper lung is seen most likely representing diffuse pneumonia superimposed upon emphysematous change. Left lung is clear. Lungs are hyperinflated compatible with emphysematous change. Bony structures shows a mild anterior wedge deformity within the lower thoracic spine which is stable. Heart size and mediastinum are normal. Impression: 1. Diffuse increased density within the right upper lung most likely representing pneumonia. 2. Emphysematous change and other incidental findings. Diagnostic code #3
[2017-03-22] MEDS ORDERED: Albuterol/Ipratropium 3.0-0.5 MG/3 ML Neb Soln NEB ONE (08:55)
[2017-03-22] MEDS ORDERED: methylPREDNISolone Sodium Succinate 125 MG/2 ML SDV IVPUSH ONE (09:18)
[2017-03-22] MEDS ORDERED: FLU Vacc TS 2017-18 (65yr UP)/PF 180 MCG/0.5 ML Syringe IM ONE (11:45)
[2017-03-22] MEDS ORDERED: Bisacodyl 5 MG Tab PO PRN (13:28)
[2017-03-22] MEDS ORDERED: Warfarin 5 MG Tab PO SCH (13:30)
--- NOTE | 2017-03-22 14:01 | PCM.HP ---
H&P History of Present Illness - General Date of Service: 03/22/17 Admit Problem/Dx: Admission Diagnosis/Problem Admission Diagnosis/Problem Pneumonia DUPLICATE H AND P Source of Information: Patient, Provider History Limitations: Reports: No Limitations - History of Present Illness Initial Comments - Free Text/Narative: DUPLICATE H AN P, COULD NOT DELETE - Related Data Allergies/Adverse Reactions: Allergies Allergy/AdvReac Type Severity Reaction Status Date / Time No Known Allergies Allergy Verified 04/03/17 10:15 Home Medications: Home Meds Albuterol/Ipratropium [DuoNeb 3.0-0.5 MG/3 ML] 3 ml NEB Q6HRRT PRN #120 neb 09/18 [Rx] Bisacodyl [Dulcolax] 5 mg PO DAILY PRN #30 tablet 10/05/16 [Rx] Famotidine [Pepcid] 20 mg PO BID #60 tablet 10/05/16 [Rx] Metoprolol Tartrate [Lopressor] 50 mg PO Q12HR #60 tablet 10/05/16 [Rx] Mirtazapine [Remeron] 15 mg PO BEDTIME #30 tablet 10/05/16 [Rx] Albuterol Sulfate [Proventil Hfa] 1 puff INH DAILY 03/22/17 [History] Calcium Carbonate/Vitamin D3 [Calcium 500 + Vit D 400] 1 tab PO BID 03/22/17 [ History] DULoxetine [Cymbalta] 30 mg PO DAILY 03/22/17 [History] Diltiazem HCl [Cardizem Cd] 360 mg PO DAILY 03/22/17 [History] Fluticasone/Vilanterol [Breo Ellipta 100-25 MCG Inhalation Kit] 1 puff INH DAILY @2100 03/22/17 [History] LORazepam [Ativan] 1 mg PO BID PRN 03/22/17 [History] Multivitamin W/Iron, Minerals [Compete] 1 tab PO DAILY 03/22/17 [History] Umeclidinium [place] [Incruse Ellipta*] 1 puff INH DAILY 03/22/17 [History] Warfarin [Coumadin] 10 mg PO SUTUWETHSA 03/22/17 [History] busPIRone [Buspar] 20 mg PO 0800 03/22/17 [History] busPIRone [Buspar] 40 mg PO QPM 03/22/17 [History] Bifidobacter. Bifidum/B.Longum [Florajen Bifidoblend] 460 mg PO DAILY #30 capsule 03/28/17 [Rx] Potassium Chloride [Klor-Con M20] 20 meq PO BID #60 tab.er 03/28/17 [Rx] guaiFENesin [Mucinex] 600 mg PO BID #60 tab.er 03/28/17 [Rx] Acetaminophen [Tylenol] 650 mg PO Q4HR PRN 04/03/17 [History] Warfarin [Coumadin] 7.5 mg PO MOFR 04/03/17 [History] Albuterol [Proventil HFA] 6.7 gm INH Q6H PRN 04/04/17 [History] Docusate Sodium [Colace] 100 mg PO BID PRN 04/04/17 [History] LORazepam [Ativan] 0.5 mg PO TID #90 tablet 04/05/17 [Rx] Prednisone [IJD: Prednisone] 10 mg PO DAILY #30 tab 04/05/17 [Rx] Loperamide [Imodium] 2 mg PO Q6H PRN #20 cap 04/06/17 [Rx] Past Medical History HEENT History: Reports: Impaired Vision Cardiovascular History: Reports: Arrhythmia, Hypertension Other Cardiovascular History: atrial flutter Respiratory History: Reports: COPD, Pneumonia, Recurrent Gastrointestinal History: Reports: GERD Genitourinary History: Reports: Urinary Incontinence Other Genitourinary History: dribbling Musculoskeletal History: Reports: Arthritis Neurological History: Reports: Migraines Psychiatric History: Reports: Anxiety, Depression - Infectious Disease History Infectious Disease History: Reports: Chicken Pox - Past Surgical History HEENT Surgical History: Reports: Oral Surgery Cardiovascular Surgical History: Reports: None Female Surgical History: Reports: None Social & Family History - Family History Family Medical History: Noncontributory HEENT: Reports: Impaired Vision Respiratory: Reports: Asthma, COPD Musculoskeletal: Reports: Arthritis Oncologic: Reports: Breast, Colon, Lymphoma, Pancreatic - Tobacco Use Smoking Status *Q: Former Smoker Years of Tobacco use: 47 Packs/Tins Daily: 1.5 Used Tobacco, but Quit: Yes Month Tobacco Last Used: september 2016 Second Hand Smoke Exposure: No - Caffeine Use Caffeine Use: Reports: None - Recreational Drug Use Recreational Drug Use: No Recreational Drug Type: Reports: Marijuana/Hashish Recreational Drug Use Frequency: Not Used In Over 6 Months - Living Situation & Occupation Living situation: Reports: Single, Extended Care Facility ([facility]) Occupation: Retired H&P Review of Systems - Review of Systems: Review Of Systems: See Below Free Text/Narrative: DUPLICATE H AND P Exam - Exam Exam: See Below - Vital Signs Vital Signs: Last Vital Signs Temp 36.3 C 03/22/17 10:41 Pulse 107 H 03/22/17 10:41 Resp 16 03/22/17 10:41 BP 147/69 H 03/22/17 10:41 Pulse Ox 91 L 03/22/17 10:41 DUPLICATE H AND P Weight: 65.771 kg - Patient Data Result Diagrams: 03/28/17 05:55 03/28/17 05:55 *Q Meaningful Use (ADM) - VTE *Q VTE Criteria *Q: - Stroke *Q Stroke Criteria *Q: - AMI *Q AMI Criteria *Q: Problem List Initiated/Reviewed/Updated: Yes Orders Last 24hrs: Active Orders 24 hr Category Date Time Status BMP [BASIC METABOLIC PANEL,BMP] [CHEM] DAILY Lab 03/23/17 05:00 Ordered BMP [BASIC METABOLIC PANEL,BMP] [CHEM] DAILY Lab 03/24/17 05:00 Ordered BMP [BASIC METABOLIC PANEL,BMP] [CHEM] DAILY Lab 03/25/17 05:00 Ordered BMP [BASIC METABOLIC PANEL,BMP] [CHEM] DAILY Lab 03/26/17 05:00 Ordered CBC WITH AUTO DIFF [HEME] DAILY Lab 03/23/17 05:00 Ordered CBC WITH AUTO DIFF [HEME] DAILY Lab 03/24/17 05:00 Ordered CBC WITH AUTO DIFF [HEME] DAILY Lab 03/25/17 05:00 Ordered CBC WITH AUTO DIFF [HEME] DAILY Lab 03/26/17 05:00 Ordered CRP [C-REACTIVE PROTEIN] [CHEM] DAILY Lab 03/23/17 05:00 Ordered CRP [C-REACTIVE PROTEIN] [CHEM] DAILY Lab 03/24/17 05:00 Ordered CRP [C-REACTIVE PROTEIN] [CHEM] DAILY Lab 03/25/17 05:00 Ordered CRP [C-REACTIVE PROTEIN] [CHEM] DAILY Lab 03/26/17 05:00 Ordered CULTURE SPUTUM + SMEAR [RM] Routine Lab 03/22/17 13:36 Uncollected LACTIC ACID [CHEM] Routine Lab 03/23/17 05:00 Ordered METH-RESIST S.AUR,MRSA BY PCR [MOLEC] Routine Lab 03/22/17 11:00 Received MYCOPLASMA PNEUMONIAE IGM AB [CHEM] Routine Lab 03/23/17 05:00 Ordered STREP PNEUMONIAE ANTIGEN [MREF] Routine Lab 03/22/17 14:00 Uncollected Albuterol/Ipratropium [DuoNeb 3.0-0.5 MG/3 ML] Med 03/22/17 13:28 Ordered 3 ml NEB QID PRN Bisacodyl [Dulcolax] Med 03/22/17 13:28 Ordered 5 mg PO DAILY PRN DULoxetine [Cymbalta] Med 03/23/17 09:00 Ordered 30 mg PO DAILY Diltiazem HCl [Cardizem Cd] Med 03/23/17 09:00 Ordered 360 mg PO DAILY Docusate Sodium/Sennosides [Senna Plus] Med 03/22/17 13:28 Ordered 1 tab PO BID PRN Famotidine [Pepcid] Med 03/22/17 21:00 Ordered 20 mg PO BID Fluticasone/Vilanterol Med 03/23/17 09:00 Ordered 1 puff INH DAILY LORazepam [Ativan] Med 03/22/17 13:28 Ordered 1 mg PO BID PRN Levofloxacin/Dextrose 5%-Water [Levaquin in D5W 750 MG/ Med 03/23/17 07:00 Ordered 150 ML] 750 mg Premix Bag 1 bag IV Q24H Metoprolol Tartrate [Lopressor] Med 03/22/17 21:00 Ordered 50 mg PO Q12HR Mirtazapine [Remeron] Med 03/22/17 21:00 Ordered 15 mg PO BEDTIME Multivitamin W/Iron, Minerals [Compete] Med 03/23/17 09:00 Ordered 1 tab PO DAILY Umeclidinium [place] Med 03/23/17 09:00 Ordered 1 puff INH DAILY busPIRone Med 03/23/17 08:00 Ordered 20 mg PO 0800 busPIRone Med 03/22/17 21:00 Ordered 40 mg PO BEDTIME busPIRone [Buspar] Med 03/22/17 21:00 Active 10 mg PO BEDTIME Medication Orders Albuterol/Ipratropium (Duoneb 3.0-0.5 Mg/3 Ml) 3 ml NEB QID PRN PRN Reason: Shortness of Breath Bisacodyl (Dulcolax) 5 mg PO DAILY PRN PRN Reason: Constipation Buspirone HCl (Buspar) 30 mg PO BEDTIME [facility] Buspirone HCl (Buspar) 20 mg PO 0800 [facility] Buspirone HCl (Buspar) 10 mg PO BEDTIME [facility] Diltiazem HCl (Cardizem Cd) 360 mg PO DAILY [facility] Duloxetine HCl (Cymbalta) 30 mg PO DAILY [facility] Famotidine (Pepcid) 20 mg PO BID [facility] Sodium Chloride (Normal Saline) 1,000 mls @ 150 mls/hr IV ASDIRECTED KADE[facility] Last Admin: 03/22/17 06:30 Dose: 150 mls/hr Levofloxacin/Dextrose 750 mg/ (Premix) 150 mls @ 100 mls/hr IV Q24H [facility] Lorazepam (Ativan) 1 mg PO BID PRN PRN Reason: Anxiety Metoprolol Tartrate (Lopressor) 50 mg PO Q12HR [facility] Mirtazapine (Remeron) 15 mg PO BEDTIME [facility] Mometasone Furoate/Formoterol Fumar (Dulera 100-5 Mcg) 2 puff IH DAILY [facility] Multivitamins (Thera) 1 each PO DAILY [facility] Umeclidinium [place] (1 Puff) 0 each INH DAILY [facility] Senna/Docusate Sodium (Senna Plus) 1 tab PO BID PRN PRN Reason: Constipation Sodium Chloride (Saline Flush) 10 ml FLUSH ONETIME PRN PRN Reason: IV Flush Last Admin: 03/22/17 07:17 Dose: 10 ml Assessment/Plan Comment:: DUPLICATE H AND P
[2017-03-22] MEDS ORDERED: Metoprolol Tartrate 50 MG Tab PO ONE (14:08)
[2017-03-22] MEDS: Albuterol/Ipratropium 3.0-0.5 MG/3 ML Neb Soln NEB PRN (14:28)
--- NOTE | 2017-03-22 14:49 | PCM.HP ---
H&P History of Present Illness - General Date of Service: 03/22/17 Admit Problem/Dx: Admission Diagnosis/Problem Admission Diagnosis/Problem Pneumonia Source of Information: Patient, Provider History Limitations: Reports: No Limitations - History of Present Illness Initial Comments - Free Text/Narative: 66 year old [place] resident has been admitted for pneumonia, she has had a dry cough for at least 2 days. Has had malaise with generalized weakness during that time frame. She has been afebrile. In the ED, she has received Levoquin which will be continued. The patient is oxygen dependent requiring 1 l/m during the day, and usually 1.5 l/m at night. Onset of Symptoms: Reports: Gradual Symptom Onset Date: 03/20/17 Duration of Symptoms: Reports: Day(s):, Getting Worse Location: Reports: Chest Severity: Moderate Improves with: Reports: Medication Worsens with: Reports: None Associated Symptoms: Reports: Cough, Loss of Appetite, Malaise, Weakness - Related Data Allergies/Adverse Reactions: Allergies Allergy/AdvReac Type Severity Reaction Status Date / Time No Known Allergies Allergy Verified 03/22/17 03:59 Home Medications: Home Meds Albuterol/Ipratropium [DuoNeb 3.0-0.5 MG/3 ML] 3 ml NEB Q6HRRT PRN #120 neb 09/18 [Rx] Bisacodyl [Dulcolax] 5 mg PO DAILY PRN #30 tablet 10/05/16 [Rx] Docusate Sodium/Sennosides [Senna Plus] 1 tab PO BID PRN #60 tablet 10/05/16 [Rx ] Famotidine [Pepcid] 20 mg PO BID #60 tablet 10/05/16 [Rx] Metoprolol Tartrate [Lopressor] 50 mg PO Q12HR #60 tablet 10/05/16 [Rx] Mirtazapine [Remeron] 15 mg PO BEDTIME #30 tablet 10/05/16 [Rx] Albuterol Sulfate [Proair Respiclick] 90 mcg IH QID PRN 03/22/17 [History] Albuterol Sulfate [Proventil Hfa] 1 puff INH DAILY 03/22/17 [History] Calcium Carbonate/Vitamin D3 [Calcium 500 + Vit D 400] 1 tab PO BID 03/22/17 [ History] DULoxetine [Cymbalta] 30 mg PO DAILY 03/22/17 [History] Diltiazem HCl [Cardizem Cd] 360 mg PO DAILY 03/22/17 [History] Fluticasone/Vilanterol [Breo Ellipta 100-25 MCG Inhalation Kit] 1 puff INH DAILY 03/22/17 [History] LORazepam [Ativan] 1 mg PO BID PRN 03/22/17 [History] Multivitamin W/Iron, Minerals [Compete] 1 tab PO DAILY 03/22/17 [History] Umeclidinium [place] [Incruse Ellipta*] 1 puff INH DAILY 03/22/17 [History] Warfarin Pharmacy to Dose [Pharmacy to Dose - Warfarin] 7.5 dose PO MOFR [History] Warfarin [Coumadin] 10 mg PO SUTUWETHSA 03/22/17 [History] busPIRone [Buspar] 20 mg PO 0800 03/22/17 [History] busPIRone [Buspar] 40 mg PO BEDTIME 03/22/17 [History] Past Medical History HEENT History: Reports: Impaired Vision Cardiovascular History: Reports: Arrhythmia, Hypertension Other Cardiovascular History: atrial flutter Respiratory History: Reports: COPD, Pneumonia, Recurrent Gastrointestinal History: Reports: GERD Genitourinary History: Reports: Urinary Incontinence Other Genitourinary History: dribbling Musculoskeletal History: Reports: Arthritis Neurological History: Reports: Migraines Psychiatric History: Reports: Anxiety, Depression - Infectious Disease History Infectious Disease History: Reports: Chicken Pox - Past Surgical History HEENT Surgical History: Reports: Oral Surgery Cardiovascular Surgical History: Reports: None Female Surgical History: Reports: None Social & Family History - Family History Family Medical History: Noncontributory HEENT: Reports: Impaired Vision Respiratory: Reports: Asthma, COPD Musculoskeletal: Reports: Arthritis Oncologic: Reports: Breast, Colon, Lymphoma, Pancreatic - Tobacco Use Smoking Status *Q: Former Smoker Years of Tobacco use: 47 Packs/Tins Daily: 1.5 Used Tobacco, but Quit: Yes Month Tobacco Last Used: september 2016 Second Hand Smoke Exposure: No - Caffeine Use Caffeine Use: Reports: None - Recreational Drug Use Recreational Drug Use: No Recreational Drug Type: Reports: Marijuana/Hashish Recreational Drug Use Frequency: Not Used In Over 6 Months - Living Situation & Occupation Living situation: Reports: Single, Extended Care Facility ([facility]) Occupation: Retired Exam - Vital Signs Vital Signs: Last Vital Signs Temp 36.3 C 03/22/17 10:41 Pulse 117 H 03/22/17 14:18 Resp 16 03/22/17 10:41 BP 138/65 03/22/17 14:18 Pulse Ox 91 L 03/22/17 10:41 Weight: 65.771 kg - Patient Data Result Diagrams: 03/22/17 04:26 03/22/17 04:26 *Q Meaningful Use (ADM) - VTE *Q VTE Criteria *Q: - Stroke *Q Stroke Criteria *Q: - AMI *Q AMI Criteria *Q: Orders Last 24hrs: Active Orders 24 hr Category Date Time Status BMP [BASIC METABOLIC PANEL,BMP] [CHEM] DAILY Lab 03/23/17 05:00 Ordered BMP [BASIC METABOLIC PANEL,BMP] [CHEM] DAILY Lab 03/24/17 05:00 Ordered BMP [BASIC METABOLIC PANEL,BMP] [CHEM] DAILY Lab 03/25/17 05:00 Ordered BMP [BASIC METABOLIC PANEL,BMP] [CHEM] DAILY Lab 03/26/17 05:00 Ordered CBC WITH AUTO DIFF [HEME] DAILY Lab 03/23/17 05:00 Ordered CBC WITH AUTO DIFF [HEME] DAILY Lab 03/24/17 05:00 Ordered CBC WITH AUTO DIFF [HEME] DAILY Lab 03/25/17 05:00 Ordered CBC WITH AUTO DIFF [HEME] DAILY Lab 03/26/17 05:00 Ordered CRP [C-REACTIVE PROTEIN] [CHEM] DAILY Lab 03/23/17 05:00 Ordered CRP [C-REACTIVE PROTEIN] [CHEM] DAILY Lab 03/24/17 05:00 Ordered CRP [C-REACTIVE PROTEIN] [CHEM] DAILY Lab 03/25/17 05:00 Ordered CRP [C-REACTIVE PROTEIN] [CHEM] DAILY Lab 03/26/17 05:00 Ordered CULTURE SPUTUM + SMEAR [RM] Routine Lab 03/22/17 13:36 Uncollected LACTIC ACID [CHEM] Routine Lab 03/23/17 05:00 Ordered METH-RESIST S.AUR,MRSA BY PCR [MOLEC] Routine Lab 03/22/17 11:00 Received MYCOPLASMA PNEUMONIAE IGM AB [CHEM] Routine Lab 03/23/17 05:00 Ordered STREP PNEUMONIAE ANTIGEN [MREF] Routine Lab 03/22/17 14:00 Uncollected Albuterol/Ipratropium [DuoNeb 3.0-0.5 MG/3 ML] Med 03/22/17 13:28 Active 3 ml NEB QID PRN Bisacodyl [Dulcolax] Med 03/22/17 13:28 Active 5 mg PO DAILY PRN DULoxetine [Cymbalta] Med 03/23/17 09:00 Active 30 mg PO DAILY Diltiazem [Cardizem CD] Med 03/23/17 09:00 Active 360 mg PO DAILY Docusate Sodium/Sennosides [Senna Plus] Med 03/22/17 13:28 Active 1 tab PO BID PRN Famotidine [Pepcid] Med 03/22/17 21:00 Active 20 mg PO BID LORazepam [Ativan] Med 03/22/17 13:28 Active 1 mg PO BID PRN Levofloxacin/Dextrose 5%-Water [Levaquin in D5W 750 MG/ Med 03/23/17 07:00 Active 150 ML] 750 mg Premix Bag 1 bag IV Q24H Metoprolol Tartrate [Lopressor] Med 03/22/17 21:00 Active 50 mg PO Q12HR Mirtazapine [Remeron] Med 03/22/17 21:00 Active 15 mg PO BEDTIME Mometasone/Formoterol [Dulera 100-5 MCG] Med 03/23/17 09:00 Active 2 puff IH DAILY Multivitamins,Therapeutic [Thera] Med 03/23/17 09:00 Active 1 each PO DAILY Patient's Own Medication [Ptom] Med 03/23/17 09:00 Active 0 each INH DAILY busPIRone [Buspar] Med 03/22/17 21:00 Active 10 mg PO BEDTIME busPIRone [Buspar] Med 03/23/17 08:00 Active 20 mg PO 0800 busPIRone [Buspar] Med 03/22/17 21:00 Active 30 mg PO BEDTIME Medication Orders Albuterol/Ipratropium (Duoneb 3.0-0.5 Mg/3 Ml) 3 ml NEB QID PRN PRN Reason: Shortness of Breath Last Admin: 03/22/17 14:28 Dose: 3 ml Bisacodyl (Dulcolax) 5 mg PO DAILY PRN PRN Reason: Constipation Buspirone HCl (Buspar) 30 mg PO BEDTIME [facility] Buspirone HCl (Buspar) 20 mg PO 0800 [facility] Buspirone HCl (Buspar) 10 mg PO BEDTIME [facility] Diltiazem HCl (Cardizem Cd) 360 mg PO DAILY [facility] Duloxetine HCl (Cymbalta) 30 mg PO DAILY [facility] Famotidine (Pepcid) 20 mg PO BID [facility] Sodium Chloride (Normal Saline) 1,000 mls @ 150 mls/hr IV ASDIRECTED [facility] Last Admin: 03/22/17 14:24 Dose: 150 mls/hr Infusion: 03/22/17 13:11 Dose: 150 mls/hr Admin: 03/22/17 06:30 Dose: 150 mls/hr Levofloxacin/Dextrose 750 mg/ (Premix) 150 mls @ 100 mls/hr IV Q24H [facility] Lorazepam (Ativan) 1 mg PO BID PRN PRN Reason: Anxiety Metoprolol Tartrate (Lopressor) 50 mg PO Q12HR [facility] Mirtazapine (Remeron) 15 mg PO BEDTIME [facility] Mometasone Furoate/Formoterol Fumar (Dulera 100-5 Mcg) 2 puff IH DAILY [facility] Multivitamins (Thera) 1 each PO DAILY [facility] Umeclidinium [place] (1 Puff) 0 each INH DAILY [facility] Senna/Docusate Sodium (Senna Plus) 1 tab PO BID PRN PRN Reason: Constipation Sodium Chloride (Saline Flush) 10 ml FLUSH ONETIME PRN PRN Reason: IV Flush Last Admin: 03/22/17 07:17 Dose: 10 ml
[2017-03-22] MEDS ORDERED: guaiFENesin 600 MG Tab.ER PO PRN (14:58)
--- NOTE | 2017-03-22 16:00 | PCM.HP ---
H&P History of Present Illness - General Date of Service: 03/22/17 Admit Problem/Dx: Admission Diagnosis/Problem Admission Diagnosis/Problem Pneumonia Source of Information: Patient, Provider History Limitations: Reports: No Limitations - History of Present Illness Initial Comments - Free Text/Narative: 66 year old with kn COPD, presents with SOB associated with a dry cough. She was febrile at [facility], however temp was WNL when evaluated in the ED. Initial plan was DC but she was hypoxic with ambulation. She is a former smoker without adequate documentation per EMR of COPD. O2 requirement is 1 liter/min during the day and 1.5 liter/minute at night.She received oral Levoquin before the disposition was changed from DC to home, to [place] telemetry. Onset of Symptoms: Reports: Gradual Symptom Onset Date: 03/20/17 Duration of Symptoms: Reports: Day(s):, Getting Worse Location: Reports: Chest Quality: Reports: Same as Previous Episode Severity: Moderate Improves with: Reports: Medication Worsens with: Reports: None Context: Reports: Exertion Associated Symptoms: Reports: Cough, Malaise, Shortness of Breath, Weakness - Related Data Allergies/Adverse Reactions: Allergies Allergy/AdvReac Type Severity Reaction Status Date / Time No Known Allergies Allergy Verified 03/22/17 03:59 Home Medications: Home Meds Albuterol/Ipratropium [DuoNeb 3.0-0.5 MG/3 ML] 3 ml NEB Q6HRRT PRN #120 neb 09/18 [Rx] Bisacodyl [Dulcolax] 5 mg PO DAILY PRN #30 tablet 10/05/16 [Rx] Docusate Sodium/Sennosides [Senna Plus] 1 tab PO BID PRN #60 tablet 10/05/16 [Rx ] Famotidine [Pepcid] 20 mg PO BID #60 tablet 10/05/16 [Rx] Metoprolol Tartrate [Lopressor] 50 mg PO Q12HR #60 tablet 10/05/16 [Rx] Mirtazapine [Remeron] 15 mg PO BEDTIME #30 tablet 10/05/16 [Rx] Albuterol Sulfate [Proair Respiclick] 90 mcg IH QID PRN 03/22/17 [History] Albuterol Sulfate [Proventil Hfa] 1 puff INH DAILY 03/22/17 [History] Calcium Carbonate/Vitamin D3 [Calcium 500 + Vit D 400] 1 tab PO BID 03/22/17 [ History] DULoxetine [Cymbalta] 30 mg PO DAILY 03/22/17 [History] Diltiazem HCl [Cardizem Cd] 360 mg PO DAILY 03/22/17 [History] Fluticasone/Vilanterol [Breo Ellipta 100-25 MCG Inhalation Kit] 1 puff INH DAILY 03/22/17 [History] LORazepam [Ativan] 1 mg PO BID PRN 03/22/17 [History] Multivitamin W/Iron, Minerals [Compete] 1 tab PO DAILY 03/22/17 [History] Umeclidinium [place] [Incruse Ellipta*] 1 puff INH DAILY 03/22/17 [History] Warfarin Pharmacy to Dose [Pharmacy to Dose - Warfarin] 7.5 dose PO MOFR [History] Warfarin [Coumadin] 10 mg PO SUTUWETHSA 03/22/17 [History] busPIRone [Buspar] 20 mg PO 0800 03/22/17 [History] busPIRone [Buspar] 40 mg PO BEDTIME 03/22/17 [History] Past Medical History HEENT History: Reports: Impaired Vision Cardiovascular History: Reports: Arrhythmia, Hypertension Other Cardiovascular History: atrial flutter Respiratory History: Reports: COPD, Pneumonia, Recurrent Gastrointestinal History: Reports: GERD Genitourinary History: Reports: Urinary Incontinence Other Genitourinary History: dribbling Musculoskeletal History: Reports: Arthritis Neurological History: Reports: Migraines Psychiatric History: Reports: Anxiety, Depression - Infectious Disease History Infectious Disease History: Reports: Chicken Pox - Past Surgical History HEENT Surgical History: Reports: Oral Surgery Cardiovascular Surgical History: Reports: None Female Surgical History: Reports: None Social & Family History - Family History Family Medical History: Noncontributory HEENT: Reports: Impaired Vision Respiratory: Reports: Asthma, COPD Musculoskeletal: Reports: Arthritis Oncologic: Reports: Breast, Colon, Lymphoma, Pancreatic - Tobacco Use Smoking Status *Q: Former Smoker Years of Tobacco use: 47 Packs/Tins Daily: 1.5 Used Tobacco, but Quit: Yes Month Tobacco Last Used: september 2016 Second Hand Smoke Exposure: No - Caffeine Use Caffeine Use: Reports: None - Recreational Drug Use Recreational Drug Use: No Recreational Drug Type: Reports: Marijuana/Hashish Recreational Drug Use Frequency: Not Used In Over 6 Months - Living Situation & Occupation Living situation: Reports: Single, Extended Care Facility ([facility]) Occupation: Retired H&P Review of Systems - Review of Systems: Review Of Systems: See Below General: Reports: Malaise, Weakness HEENT: Reports: No Symptoms Pulmonary: Reports: Shortness of Breath, Pleuritic Chest Pain Cardiovascular: Reports: No Symptoms Gastrointestinal: Reports: No Symptoms Genitourinary: Reports: No Symptoms Musculoskeletal: Reports: No Symptoms Skin: Reports: No Symptoms Psychiatric: Reports: No Symptoms Neurological: Reports: No Symptoms Hematologic/Lymphatic: Reports: No Symptoms Immunologic: Reports: No Symptoms Exam - Exam Exam: See Below - Vital Signs Vital Signs: Last Vital Signs Temp 36.3 C 03/22/17 10:41 Pulse 117 H 03/22/17 14:18 Resp 16 03/22/17 10:41 BP 138/65 03/22/17 14:18 Pulse Ox 78 L 03/22/17 14:28 Weight: 65.771 kg - Exam Quality Assessment: DVT Prophylaxis General: Alert, Oriented, Cooperative HEENT: Conjunctiva Clear, Nares Patent, Normal Nasal Septum, Pupils Equal, Pupils Reactive, PERRLA Neck: Supple, Trachea Midline Lungs: Normal Respiratory Effort, Decreased Breath Sounds, Rhonchi, Wheezing Cardiovascular: Regular Rate, Tachycardia GI/Abdominal Exam: Normal Bowel Sounds, Soft (Female) Exam: Deferred Rectal (Female) Exam: Deferred Back Exam: Normal Inspection Extremities: Normal Inspection Skin: Warm Neurological: Cranial Nerves Intact Neuro Extensive - Mental Status: Alert, Oriented x3 Neuro Extensive - Motor, Sensory, Reflexes: CN II-XII Intact Psychiatric: Alert, Normal Affect, Normal Mood - Patient Data Lab Results Last 24 hrs: Laboratory Results - last 24 hr 03/22/17 Range/Units 11:00 MRSA (PCR) Negative Result Diagrams: 03/22/17 04:26 03/22/17 04:26 *Q Meaningful Use (ADM) - VTE *Q VTE Criteria *Q: - Stroke *Q Stroke Criteria *Q: - AMI *Q AMI Criteria *Q: - Problem List (1) Pneumonia SNOMED Code(s): 385541242 ICD Code: J18.9 - PNEUMONIA, UNSPECIFIED ORGANISM Status: Acute Priority : High Current Visit: Yes Qualifiers: Pneumonia type: due to unspecified organism Laterality: right Lung location: lower lobe of lung Qualified Code(s): J18.1 - Lobar pneumonia, unspecified organism (2) Anxiety SNOMED Code(s): 51149148 ICD Code: F41.9 - ANXIETY DISORDER, UNSPECIFIED Status: Acute Priority: High Current Visit: No (3) Emphysema lung SNOMED Code(s): 21596024 ICD Code: J43.9 - EMPHYSEMA, UNSPECIFIED Status: Chronic Priority: High Current Visit: No Qualifiers: Emphysema type: unspecified Qualified Code(s): J43.9 - Emphysema, unspecified (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 SNOMED Code(s): 020405193 ICD Code: J44.9 - CHRONIC OBSTRUCTIVE PULMONARY DISEASE, UNSPECIFIED; R64 - CACHEXIA Status: Chronic Priority: High Current Visit: No (5) Atrial fib/flutter, transient SNOMED Code(s): 455054756 ICD Code: [id number] - Status: Resolved Priority: High Current Visit: No (6) Hypoxia SNOMED Code(s): 953626984 ICD Code: R09.02 - HYPOXEMIA Status: Resolved Priority: High Current Visit: No Problem List Initiated/Reviewed/Updated: Yes Orders Last 24hrs: Active Orders 24 hr Category Date Time Status Acapella [RT Chest Physiotherapy] [RC] ASDIRECTED Care 03/22/17 15:04 Active Clear Liquid Diet [DIET] Diet 03/22/17 Dinner Active BMP [BASIC METABOLIC PANEL,BMP] [CHEM] DAILY Lab 03/23/17 05:00 Ordered BMP [BASIC METABOLIC PANEL,BMP] [CHEM] DAILY Lab 03/24/17 05:00 Ordered BMP [BASIC METABOLIC PANEL,BMP] [CHEM] DAILY Lab 03/25/17 05:00 Ordered BMP [BASIC METABOLIC PANEL,BMP] [CHEM] DAILY Lab 03/26/17 05:00 Ordered CBC WITH AUTO DIFF [HEME] DAILY Lab 03/23/17 05:00 Ordered CBC WITH AUTO DIFF [HEME] DAILY Lab 03/24/17 05:00 Ordered CBC WITH AUTO DIFF [HEME] DAILY Lab 03/25/17 05:00 Ordered CBC WITH AUTO DIFF [HEME] DAILY Lab 03/26/17 05:00 Ordered CRP [C-REACTIVE PROTEIN] [CHEM] DAILY Lab 03/23/17 05:00 Ordered CRP [C-REACTIVE PROTEIN] [CHEM] DAILY Lab 03/24/17 05:00 Ordered CRP [C-REACTIVE PROTEIN] [CHEM] DAILY Lab 03/25/17 05:00 Ordered CRP [C-REACTIVE PROTEIN] [CHEM] DAILY Lab 03/26/17 05:00 Ordered CULTURE SPUTUM + SMEAR [RM] Routine Lab 03/22/17 15:35 Ordered LACTIC ACID [CHEM] Routine Lab 03/23/17 05:00 Ordered MYCOPLASMA PNEUMONIAE IGM AB [CHEM] Routine Lab 03/23/17 05:00 Ordered STREP PNEUMONIAE ANTIGEN [MREF] Routine Lab 03/22/17 15:27 Ordered Albuterol/Ipratropium [DuoNeb 3.0-0.5 MG/3 ML] Med 03/22/17 13:28 Active 3 ml NEB QID PRN Bisacodyl [Dulcolax] Med 03/22/17 13:28 Active 5 mg PO DAILY PRN DULoxetine [Cymbalta] Med 03/23/17 09:00 Active 30 mg PO DAILY Diltiazem [Cardizem CD] Med 03/23/17 09:00 Active 360 mg PO DAILY Docusate Sodium/Sennosides [Senna Plus] Med 03/22/17 13:28 Active 1 tab PO BID PRN Famotidine [Pepcid] Med 03/22/17 21:00 Active 20 mg PO BID LORazepam [Ativan] Med 03/22/17 13:28 Active 1 mg PO BID PRN Levofloxacin/Dextrose 5%-Water [Levaquin in D5W 750 MG/ Med 03/23/17 07:00 Active 150 ML] 750 mg Premix Bag 1 bag IV Q24H Metoprolol Tartrate [Lopressor] Med 03/22/17 21:00 Active 50 mg PO Q12HR Mirtazapine [Remeron] Med 03/22/17 21:00 Active 15 mg PO BEDTIME Mometasone/Formoterol [Dulera 100-5 MCG] Med 03/23/17 09:00 Active 2 puff IH DAILY Multivitamins,Therapeutic [Thera] Med 03/23/17 09:00 Active 1 each PO DAILY Patient's Own Medication [Ptom] Med 03/22/17 21:00 Active 0 each INH DAILY@2100 busPIRone [Buspar] Med 03/22/17 21:00 Active 10 mg PO BEDTIME busPIRone [Buspar] Med 03/23/17 08:00 Active 20 mg PO 0800 busPIRone [Buspar] Med 03/22/17 21:00 Active 30 mg PO BEDTIME guaiFENesin [Mucinex] Med 03/22/17 14:58 Active 600 mg PO TID PRN Code Status [Resuscitation Status] Routine Resus Stat 03/22/17 15:26 Ordered Medication Orders Albuterol/Ipratropium (Duoneb 3.0-0.5 Mg/3 Ml) 3 ml NEB QID PRN PRN Reason: Shortness of Breath Last Admin: 03/22/17 14:28 Dose: 3 ml Bisacodyl (Dulcolax) 5 mg PO DAILY PRN PRN Reason: Constipation Buspirone HCl (Buspar) 30 mg PO BEDTIME [facility] Buspirone HCl (Buspar) 20 mg PO 0800 [facility] Buspirone HCl (Buspar) 10 mg PO BEDTIME [facility] Diltiazem HCl (Cardizem Cd) 360 mg PO DAILY [facility] Duloxetine HCl (Cymbalta) 30 mg PO DAILY [facility] Famotidine (Pepcid) 20 mg PO BID [facility] Guaifenesin (Mucinex) 600 mg PO TID PRN PRN Reason: Congestion Last Admin: 03/22/17 15:23 Dose: 600 mg Sodium Chloride (Normal Saline) 1,000 mls @ 150 mls/hr IV ASDIRECTED [facility] Last Admin: 03/22/17 14:24 Dose: 150 mls/hr Infusion: 03/22/17 13:11 Dose: 150 mls/hr Admin: 03/22/17 06:30 Dose: 150 mls/hr Levofloxacin/Dextrose 750 mg/ (Premix) 150 mls @ 100 mls/hr IV Q24H [facility] Lorazepam (Ativan) 1 mg PO BID PRN PRN Reason: Anxiety Metoprolol Tartrate (Lopressor) 50 mg PO Q12HR [facility] Mirtazapine (Remeron) 15 mg PO BEDTIME [facility] Mometasone Furoate/Formoterol Fumar (Dulera 100-5 Mcg) 2 puff IH DAILY [facility] Multivitamins (Thera) 1 each PO DAILY [facility] Umeclidinium [place] ([Incruse Ellipta]) 0 each INH DAILY@2100 [facility] Senna/Docusate Sodium (Senna Plus) 1 tab PO BID PRN PRN Reason: Constipation Sodium Chloride (Saline Flush) 10 ml FLUSH ONETIME PRN PRN Reason: IV Flush Last Admin: 03/22/17 07:17 Dose: 10 ml Assessment/Plan Comment:: Impression: RL PNA, history of severe COPD requires continuous O2; abnormal appearance malignancy is not excluded Tracheobronchitis History of A Flutter HTN GERD Anxiety/Depression Plan: IV ATB Steroids/O2 Home meds CTA re: R lung Daily Labs DVT/GI prophylaxis CW/PT/OT
[2017-03-22] MEDS: busPIRone 15 MG Tab PO SCH (20:24)
[2017-03-22] MEDS: Metoprolol Tartrate 50 MG Tab PO SCH (20:25)
[2017-03-22] MEDS: busPIRone 5 MG Tab PO SCH (20:25)
[2017-03-22] MEDS: Mirtazapine 15 MG Tab PO SCH (20:25)
[2017-03-22] MEDS: Famotidine 20 MG Tab PO SCH (20:25)
[2017-03-22] MEDS ORDERED: Formoterol/Mometasone 100-5 MCG 8.8 GM Inhaler IH SCH (21:00)
[2017-03-22] MEDS ORDERED: UMECLIDINIUM BROMIDE INH SCH (21:00)
[2017-03-22] MEDS: VILANTEROL INH SCH (21:43)
[2017-03-22] MEDS: [UNRECOGNIZED DRUG - OTHER] INH SCH (21:43)
[2017-03-23] MEDS: Sodium Chloride 0.9% 1,000 ML IV SCH ×2 (06:04→16:50)
[2017-03-23] MEDS: Levofloxacin/Dextrose 5%-Water 750 MG in Premix Bag 1 BAG IV SCH (06:09)
[2017-03-23] MEDS: Albuterol/Ipratropium 3.0-0.5 MG/3 ML Neb Soln NEB PRN ×3 (08:25→20:10)
[2017-03-23] MEDS: UMECLIDINIUM BROMIDE INH SCH (08:26)
[2017-03-23] MEDS: Diltiazem 180 MG Cap.CD PO SCH (08:53)
[2017-03-23] MEDS: Metoprolol Tartrate 50 MG Tab PO SCH ×2 (08:53→20:55)
[2017-03-23] MEDS ORDERED: Formoterol/Mometasone 100-5 MCG 8.8 GM Inhaler IH SCH (09:00)
[2017-03-23] MEDS ORDERED: Patient's Own Medication 1 Each INH SCH (09:00)
[2017-03-23] MEDS ORDERED: Umeclidinium Bromide 1 PUFF INH SCH (09:00)
[2017-03-23] MEDS ORDERED: Enoxaparin 40 MG/0.4 ML Syringe SUBCUT SCH (09:00)
[2017-03-23] MEDS: Multivitamins,Therapeutic Tab PO SCH (09:02)
[2017-03-23] MEDS: Famotidine 20 MG Tab PO SCH ×2 (09:02→20:55)
[2017-03-23] MEDS: DULoxetine 30 MG Cap PO SCH (09:02)
[2017-03-23] MEDS: LORazepam 1 MG Tab PO PRN (09:05)
[2017-03-23] MEDS ORDERED: Morphine 2 MG/ML Syringe IVPUSH ONE (09:16)
[2017-03-23] MEDS: busPIRone 5 MG Tab PO SCH ×2 (09:25→20:54)
[2017-03-23] MEDS ORDERED: Piperacillin/Tazobactam 4.5 GM in Sodium Chloride 0.9% 100 ML IV ONE (09:45)
[2017-03-23] MEDS: methylPREDNISolone Sodium Succinate 125 MG/2 ML SDV IVPUSH SCH ×3 (10:28→21:02)
--- NOTE | 2017-03-23 13:31 | PCM.PN ---
- General Info Date of Service: 03/23/17 Functional Status: Reports: Tolerating Diet, Ambulating, Urinating - Review of Systems General: Reports: Weakness, Fatigue, Malaise HEENT: Reports: No Symptoms Pulmonary: Reports: Shortness of Breath Cardiovascular: Reports: No Symptoms Gastrointestinal: Reports: No Symptoms Genitourinary: Reports: No Symptoms Musculoskeletal: Reports: No Symptoms Skin: Reports: No Symptoms Neurological: Reports: No Symptoms Psychiatric: Reports: No Symptoms - Patient Data Vitals - Most Recent: Last Vital Signs Temp 36.8 C 03/23/17 07:37 Pulse 107 H 03/23/17 09:23 Resp 20 03/23/17 09:23 BP 150/76 H 03/23/17 09:23 Pulse Ox 91 L 03/23/17 09:23 Weight - Most Recent: 65.091 kg I&O - Last 24 Hours: Intake & Output 03/22/17 03/23/17 03/23/17 22:59 06:59 14:59 Intake Total 1700 593 Output Total 350 900 Balance 1350 -307 Lab Results Last 24 Hours: Laboratory Results - last 24 hr 03/22/17 03/23/17 03/23/17 Range/Units 11:00 05:40 05:40 WBC (3.98-10.04) K/mm3 RBC (3.98-5.22) M/mm3 Hgb (11.2-15.7) gm/L Hct (34.1-44.9) % MCV (79.4-94.8) fl MCH (25.6-32.2) pg MCHC (32.2-35.5) g/dl RDW Std Deviation (36.4-46.3) fL Plt Count (182-369) K/mm3 MPV (9.4-12.3) fl Neut % (Auto) (34.0-71.1) % Lymph % (Auto) (19.3-51.7) % [place] % (Auto) (4.7-12.5) % Eos % (Auto) (0.7-5.8) Baso % (Auto) (0.1-1.2) % Neut # (Auto) (1.56-6.13) K/mm3 Lymph # (Auto) (1.18-3.74) K/mm3 [place] # (Auto) (0.24-0.36) K/mm3 Eos # (Auto) (0.04-0.36) K/mm3 Baso # (Auto) (0.01-0.08) K/mm3 Manual Slide Review Sodium 145 (136-145) mEq/L Potassium 4.1 (3.5-5.1) mEq/L Chloride 109 H (98-107) mEq/L Carbon Dioxide 29 (21-32) mEq/L Anion Gap 11.1 (5-15) BUN 15 (7-18) mg/dL Creatinine 0.5 L (0.55-1.02) mg/dL Est Cr Clr Drug Dosing 112.19 mL/min Estimated GFR (MDRD) > 60 (>60) mL/min BUN/Creatinine Ratio 30.0 H (14-18) Glucose 135 H (80-115) mg/dL Lactic Acid 0.6 (0.4-2.0) mmol/L Calcium 8.9 (8.5-10.1) mg/dL C-Reactive Protein 19.3 H* (<1.0) mg/dL Mycoplasma pneumon IgM Negative (NEGATIVE) MRSA (PCR) Negative 03/23/17 Range/Units 05:45 WBC 19.29 H (3.98-10.04) K/mm3 RBC 3.88 L (3.98-5.22) M/mm3 Hgb 11.7 (11.2-15.7) gm/L Hct 34.8 (34.1-44.9) % MCV 89.7 (79.4-94.8) fl MCH 30.2 (25.6-32.2) pg MCHC 33.6 (32.2-35.5) g/dl RDW Std Deviation 43.0 (36.4-46.3) fL Plt Count 283 (182-369) K/mm3 MPV 9.0 L (9.4-12.3) fl Neut % (Auto) 85.4 H (34.0-71.1) % Lymph % (Auto) 7.2 L (19.3-51.7) % [place] % (Auto) 7.1 (4.7-12.5) % Eos % (Auto) 0 L (0.7-5.8) Baso % (Auto) 0.1 (0.1-1.2) % Neut # (Auto) 16.48 H (1.56-6.13) K/mm3 Lymph # (Auto) 1.39 (1.18-3.74) K/mm3 [place] # (Auto) 1.37 H (0.24-0.36) K/mm3 Eos # (Auto) 0.00 L (0.04-0.36) K/mm3 Baso # (Auto) 0.01 (0.01-0.08) K/mm3 Manual Slide Review Abnormal smear Sodium (136-145) mEq/L Potassium (3.5-5.1) mEq/L Chloride (98-107) mEq/L Carbon Dioxide (21-32) mEq/L Anion Gap (5-15) BUN (7-18) mg/dL Creatinine (0.55-1.02) mg/dL Est Cr Clr Drug Dosing mL/min Estimated GFR (MDRD) (>60) mL/min BUN/Creatinine Ratio (14-18) Glucose (80-115) mg/dL Lactic Acid (0.4-2.0) mmol/L Calcium (8.5-10.1) mg/dL C-Reactive Protein (<1.0) mg/dL Mycoplasma pneumon IgM (NEGATIVE) MRSA (PCR) Ahsan Results Last 24 Hours: Microbiology 03/23/17 06:20 Influenza Type A Antigen Screen - Final Nasal, Left NEGATIVE INFLUENZA A VIRUS AG Influenza Type B Antigen Screen - Final NEGATIVE INFLUENZA B VIRUS AG 03/22/17 15:35 Gram Stain - Final Sputum - Expectorated Sputum Culture - Preliminary Med Orders - Current: Current Medications Albuterol/Ipratropium (Duoneb 3.0-0.5 Mg/3 Ml) 3 ml NEB QID PRN PRN Reason: Shortness of Breath Last Admin: 03/23/17 08:25 Dose: 3 ml Bisacodyl (Dulcolax) 5 mg PO DAILY PRN PRN Reason: Constipation Buspirone HCl (Buspar) 30 mg PO BEDTIME [facility] Last Admin: 03/22/17 20:24 Dose: 30 mg Buspirone HCl (Buspar) 20 mg PO 0800 [facility] Last Admin: 03/23/17 09:25 Dose: 20 mg Buspirone HCl (Buspar) 10 mg PO BEDTIME [facility] Last Admin: 03/22/17 20:25 Dose: 10 mg Diltiazem HCl (Cardizem Cd) 360 mg PO DAILY [facility] Last Admin: 03/23/17 08:53 Dose: 360 mg Duloxetine HCl (Cymbalta) 30 mg PO DAILY [facility] Last Admin: 03/23/17 09:02 Dose: 30 mg Famotidine (Pepcid) 20 mg PO BID [facility] Last Admin: 03/23/17 09:02 Dose: 20 mg Guaifenesin (Mucinex) 600 mg PO TID PRN PRN Reason: Congestion Last Admin: 03/22/17 15:23 Dose: 600 mg Levofloxacin/Dextrose 750 mg/ (Premix) 150 mls @ 100 mls/hr IV Q24H [facility] Last Admin: 03/23/17 06:09 Dose: 100 mls/hr Sodium Chloride (Normal Saline) 1,000 mls @ 75 mls/hr IV ASDIRECTED [facility] Piperacillin Sod/Tazobactam (Sod 4.5 gm/ Sodium Chloride) 100 mls @ 25 mls/hr IV Q8H [facility] Lorazepam (Ativan) 1 mg PO BID PRN PRN Reason: Anxiety Last Admin: 03/23/17 09:05 Dose: 1 mg Methylprednisolone Sodium Succinate (Solu-Medrol) 125 mg IVPUSH Q6H [facility] Last Admin: 03/23/17 10:28 Dose: 125 mg Metoprolol Tartrate (Lopressor) 50 mg PO Q12HR [facility] Last Admin: 03/23/17 08:53 Dose: 50 mg Mirtazapine (Remeron) 15 mg PO BEDTIME [facility] Last Admin: 03/22/17 20:25 Dose: 15 mg Multivitamins (Thera) 1 each PO DAILY [facility] Last Admin: 03/23/17 09:02 Dose: 1 each Fluticasone/Vilnterol [Breo Ellipta] 100/25 Own Med 0 each INH BEDTIME [facility] Last Admin: 03/22/17 21:43 Dose: 1 each Umeclidinium [place] [Incruse Ellipta] * * Own Med 0 each INH DAILY [facility] Last Admin: 03/23/17 08:26 Dose: 1 each Senna/Docusate Sodium (Senna Plus) 1 tab PO BID PRN PRN Reason: Constipation Discontinued Medications Albuterol/Ipratropium (Duoneb 3.0-0.5 Mg/3 Ml) 3 ml NEB ONETIME ONE Stop: 03/22/17 08:56 Last Admin: 03/22/17 09:15 Dose: 3 ml Enoxaparin Sodium (Lovenox) 40 mg SUBCUT DAILY [facility] Last Admin: 03/23/17 09:07 Dose: 40 mg Sodium Chloride (Normal Saline) 1,000 mls @ 150 mls/hr IV ASDIRECTED [facility] Last Admin: 03/23/17 06:04 Dose: 150 mls/hr Piperacillin Sod/Tazobactam (Sod 4.5 gm/ Sodium Chloride) 100 mls @ 200 mls/hr IV ONETIME ONE Stop: 03/23/17 10:14 Last Admin: 03/23/17 10:28 Dose: 200 mls/hr Influenza Virus Vaccine (Pharmacy To Dose - Influenza Vaccine) 1 each IM ONETIME ONE Stop: 03/22/17 11:16 Influenza Virus Vaccine (Fluzone High-Dose ) 180 mcg IM .ONCE ONE Stop: 03/22/17 11:46 Iopamidol (Isovue-300 (61%)) 80 ml IVPUSH ONETIME ONE Stop: 03/22/17 06:43 Last Admin: 03/22/17 07:17 Dose: 80 ml Levofloxacin (Levaquin) 750 mg PO ONETIME STA Stop: 03/22/17 06:18 Last Admin: 03/22/17 06:24 Dose: 750 mg Methylprednisolone Sodium Succinate (Solu-Medrol) 125 mg IVPUSH ONETIME ONE Stop: 03/22/17 09:19 Last Admin: 03/22/17 09:24 Dose: 125 mg Metoprolol Tartrate (Lopressor) 50 mg PO ONETIME ONE Stop: 03/22/17 14:09 Last Admin: 03/22/17 14:18 Dose: 50 mg Morphine Sulfate (Morphine) 1 mg IVPUSH ONETIME ONE Stop: 03/23/17 09:17 Last Admin: 03/23/17 10:38 Dose: 1 mg Umeclidinium [place] (1 Puff) 0 each INH DAILY [facility] Umeclidinium [place] [Incruse Ellipta] * * Own Med 0 each INH DAILY@2100 [facility] Sodium Chloride (Saline Flush) 10 ml FLUSH ONETIME PRN PRN Reason: IV Flush Last Admin: 03/22/17 07:17 Dose: 10 ml Warfarin Sodium (Coumadin) 10 mg PO SUTUWETHSA [facility] Last Admin: 03/22/17 14:47 Dose: Not Given Warfarin Sodium (Pharmacy To Dose - Warfarin) 7.5 dose PO MOFR [facility] - Exam Quality Assessment: Supplemental Oxygen, DVT Prophylaxis General: Alert, Oriented, Cooperative, No Acute Distress HEENT: Pupils Equal, Pupils Reactive, EOMI Neck: Supple, Trachea Midline Lungs: Normal Respiratory Effort, Decreased Breath Sounds, Wheezing Cardiovascular: Regular Rate GI/Abdominal Exam: Normal Bowel Sounds, Soft, Non-Tender, No Organomegaly, No Distention (Female) Exam: Deferred Back Exam: Normal Inspection Extremities: Normal Inspection Skin: Warm Neurological: No New Focal Deficit Psy/Mental Status: Alert - Problem List & Annotations (1) Pneumonia SNOMED Code(s): 347020663 Code(s): J18.9 - PNEUMONIA, UNSPECIFIED ORGANISM Status: Acute Priority: High Current Visit: Yes Qualifiers: Pneumonia type: due to unspecified organism Laterality: right Lung location: lower lobe of lung Qualified Code(s): J18.1 - Lobar pneumonia, unspecified organism (2) Anxiety SNOMED Code(s): 14083995 Code(s): F41.9 - ANXIETY DISORDER, UNSPECIFIED Status: Acute Priority: High Current Visit: No (3) Emphysema lung SNOMED Code(s): 24270923 Code(s): J43.9 - EMPHYSEMA, UNSPECIFIED Status: Chronic Priority: High Current Visit: No Qualifiers: Emphysema type: unspecified Qualified Code(s): J43.9 - Emphysema, unspecified (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 SNOMED Code(s): 334378072 Code(s): J44.9 - CHRONIC OBSTRUCTIVE PULMONARY DISEASE, UNSPECIFIED; R64 - [place]HEXIA Status: Chronic Priority: High Current Visit: No (5) Atrial fib/flutter, transient SNOMED Code(s): 305608705 Code(s): PXA0047 - Status: Resolved Priority: High Current Visit: No (6) Hypoxia SNOMED Code(s): 117576970 Code(s): R09.02 - HYPOXEMIA Status: Resolved Priority: High Current Visit: No - Problem List Review Problem List Initiated/Reviewed/Updated: Yes - My Orders Last 24 Hours: My Active Orders 03/22/17 13:28 Albuterol/Ipratropium [DuoNeb 3.0-0.5 MG/3 ML] 3 ml NEB QID PRN Bisacodyl [Dulcolax] 5 mg PO DAILY PRN Docusate Sodium/Sennosides [Senna Plus] 1 tab PO BID PRN LORazepam [Ativan] 1 mg PO BID PRN 03/22/17 14:58 guaiFENesin [Mucinex] 600 mg PO TID PRN 03/22/17 15:04 Acapella [RT Chest Physiotherapy] [RC] ASDIRECTED 03/22/17 15:26 Code Status [Resuscitation Status] Routine 03/22/17 15:27 STREP PNEUMONIAE ANTIGEN [MREF] Routine 03/22/17 15:35 CULTURE SPUTUM + SMEAR [RM] Routine 03/22/17 18:39 Up With Assistance [RC] ASDIRECTED 03/22/17 20:16 Antiembolic Devices [RC] BID SOLOMON Hose [Antiembolic Hose] [OM.PC] Routine 03/22/17 21:00 Famotidine [Pepcid] 20 mg PO BID Metoprolol Tartrate [Lopressor] 50 mg PO Q12HR Mirtazapine [Remeron] 15 mg PO BEDTIME Patient's Own Medication [Ptom] 0 each INH BEDTIME busPIRone [Buspar] 10 mg PO BEDTIME busPIRone [Buspar] 30 mg PO BEDTIME 03/22/17 Dinner Clear Liquid Diet [DIET] 03/23/17 00:22 Oxygen Therapy [RC] PRN 03/23/17 07:00 Levofloxacin/Dextrose 5%-Water [Levaquin in D5W 750 MG/150 ML] 750 mg Premix Bag 1 bag IV Q24H 03/23/17 08:00 busPIRone [Buspar] 20 mg PO 0800 03/23/17 09:00 DULoxetine [Cymbalta] 30 mg PO DAILY Diltiazem [Cardizem CD] 360 mg PO DAILY Multivitamins,Therapeutic [Thera] 1 each PO DAILY Patient's Own Medication [Ptom] 0 each INH DAILY 03/23/17 10:00 methylPREDNISolone Sod Succ [Solu-MEDROL] 125 mg IVPUSH Q6H 10/20/17 18:00 Piperacillin/Tazobactam [Zosyn] 4.5 gm Sodium Chloride 0.9% [Normal Saline] 100 ml IV Q8H 03/24/17 05:00 BMP [BASIC METABOLIC PANEL,BMP] [CHEM] DAILY CBC WITH AUTO DIFF [HEME] DAILY CRP [C-REACTIVE PROTEIN] [CHEM] DAILY 03/25/17 05:00 BMP [BASIC METABOLIC PANEL,BMP] [CHEM] DAILY CBC WITH AUTO DIFF [HEME] DAILY CRP [C-REACTIVE PROTEIN] [CHEM] DAILY 03/26/17 05:00 BMP [BASIC METABOLIC PANEL,BMP] [CHEM] DAILY CBC WITH AUTO DIFF [HEME] DAILY CRP [C-REACTIVE PROTEIN] [CHEM] DAILY - Plan Plan:: Hospital Day #1 Impression: RL PNA, history of severe COPD requires continuous O2; abnormal appearance malignancy is not excluded Tracheobronchitis History of A Flutter HTN GERD Anxiety/Depression Plan: IV ATB Steroids/O2 Home meds CTA re: R lung Daily Labs DVT/GI prophylaxis CW/PT/OT
[2017-03-23] MEDS: Piperacillin/Tazobactam 4.5 GM in Sodium Chloride 0.9% 100 ML IV SCH (17:46)
[2017-03-23] MEDS: [UNRECOGNIZED DRUG - OTHER] INH SCH (20:09)
[2017-03-23] MEDS: VILANTEROL INH SCH (20:09)
[2017-03-23] MEDS: busPIRone 15 MG Tab PO SCH (20:54)
[2017-03-23] MEDS: Mirtazapine 15 MG Tab PO SCH (20:56)
[2017-03-24] MEDS: Piperacillin/Tazobactam 4.5 GM in Sodium Chloride 0.9% 100 ML IV SCH ×3 (02:44→17:18)
[2017-03-24] MEDS: methylPREDNISolone Sodium Succinate 125 MG/2 ML SDV IVPUSH SCH ×3 (05:33→17:18)
[2017-03-24] MEDS: Levofloxacin/Dextrose 5%-Water 750 MG in Premix Bag 1 BAG IV SCH (06:59)
[2017-03-24] MEDS: Sodium Chloride 0.9% 1,000 ML IV SCH (07:00)
[2017-03-24] MEDS: busPIRone 5 MG Tab PO SCH ×2 (08:27→21:32)
[2017-03-24] MEDS: Metoprolol Tartrate 50 MG Tab PO SCH ×2 (08:30→21:31)
[2017-03-24] MEDS: Diltiazem 180 MG Cap.CD PO SCH (08:30)
[2017-03-24] MEDS: DULoxetine 30 MG Cap PO SCH (08:30)
[2017-03-24] MEDS: Multivitamins,Therapeutic Tab PO SCH (08:31)
[2017-03-24] MEDS: Famotidine 20 MG Tab PO SCH ×2 (08:31→21:30)
[2017-03-24] MEDS: Albuterol/Ipratropium 3.0-0.5 MG/3 ML Neb Soln NEB PRN ×3 (08:37→20:32)
[2017-03-24] MEDS: UMECLIDINIUM BROMIDE INH SCH (08:37)
--- NOTE | 2017-03-24 09:26 | PCM.PN ---
- General Info Date of Service: 03/24/17 Admission Dx/Problem (Free Text): Admission Diagnosis/Problem Admission Diagnosis/Problem Pneumonia Subjective Update: Follow Up Functional Status: Reports: Pain Controlled, Tolerating Diet, Ambulating, Urinating - Review of Systems General: Denies: Fever, Weakness, Fatigue, Malaise, Chills HEENT: Reports: No Symptoms Pulmonary: Reports: Shortness of Breath, Cough Cardiovascular: Denies: Chest Pain, Palpitations, Dyspnea on Exertion Gastrointestinal: Denies: Abdominal Pain, Nausea, Vomiting Genitourinary: Reports: No Symptoms Musculoskeletal: Reports: No Symptoms Skin: Denies: Cyanosis Neurological: Denies: Confusion, Difficulty Walking, Weakness, Gait Disturbance Psychiatric: Denies: Depression, Anxiety, Agitation, Hallucinations Systems Review Comment:: No significant overnight or acute issues. She slept pretty good. She breaths better today. She is at 4L supplemental O2 at 91-92%. She has no new complaints. - Patient Data Vitals - Most Recent: Last Vital Signs Temp 36.4 C 03/24/17 08:29 Pulse 92 03/24/17 08:30 Resp 18 03/24/17 08:29 BP 142/70 H 03/24/17 08:30 Pulse Ox 91 L 03/24/17 08:37 Weight - Most Recent: 65.862 kg I&O - Last 24 Hours: Intake & Output 03/23/17 03/24/17 03/24/17 22:59 06:59 14:59 Intake Total 1715 1325 Output Total 1250 1300 Balance 465 25 Lab Results Last 24 Hours: Laboratory Results - last 24 hr 03/24/17 03/24/17 Range/Units 05:48 05:48 WBC 15.73 H (3.98-10.04) K/mm3 RBC 3.85 L (3.98-5.22) M/mm3 Hgb 11.5 (11.2-15.7) gm/L Hct 34.6 (34.1-44.9) % MCV 89.9 (79.4-94.8) fl MCH 29.9 (25.6-32.2) pg MCHC 33.2 (32.2-35.5) g/dl RDW Std Deviation 43.0 (36.4-46.3) fL Plt Count 315 (182-369) K/mm3 MPV 9.1 L (9.4-12.3) fl Neut % (Auto) 88.1 H (34.0-71.1) % Lymph % (Auto) 7.9 L (19.3-51.7) % [place] % (Auto) 3.4 L (4.7-12.5) % Eos % (Auto) 0 L (0.7-5.8) Baso % (Auto) 0.1 (0.1-1.2) % Neut # (Auto) 13.86 H (1.56-6.13) K/mm3 Lymph # (Auto) 1.25 (1.18-3.74) K/mm3 [place] # (Auto) 0.53 H (0.24-0.36) K/mm3 Eos # (Auto) 0.00 L (0.04-0.36) K/mm3 Baso # (Auto) 0.01 (0.01-0.08) K/mm3 Manual Slide Review Abnormal smear Sodium 148 H (136-145) mEq/L Potassium 4.0 (3.5-5.1) mEq/L Chloride 110 H (98-107) mEq/L Carbon Dioxide 29 (21-32) mEq/L Anion Gap 13.0 (5-15) BUN 16 (7-18) mg/dL Creatinine 0.5 L (0.55-1.02) mg/dL Est Cr Clr Drug Dosing 113.52 mL/min Estimated GFR (MDRD) > 60 (>60) mL/min BUN/Creatinine Ratio 32.0 H (14-18) Glucose 157 H (80-115) mg/dL Calcium 8.8 (8.5-10.1) mg/dL C-Reactive Protein 9.3 H* (<1.0) mg/dL Ahsan Results Last 24 Hours: Microbiology 03/22/17 15:27 Streptococcus pneumoniae Antigen (M - Final Urine 03/23/17 06:20 Influenza Type A Antigen Screen - Final Nasal, Left NEGATIVE INFLUENZA A VIRUS AG Influenza Type B Antigen Screen - Final NEGATIVE INFLUENZA B VIRUS AG 03/22/17 15:35 Gram Stain - Final Sputum - Expectorated Sputum Culture - Preliminary Med Orders - Current: Current Medications Albuterol/Ipratropium (Duoneb 3.0-0.5 Mg/3 Ml) 3 ml NEB QID PRN PRN Reason: Shortness of Breath Last Admin: 03/24/17 08:37 Dose: 3 ml Bisacodyl (Dulcolax) 5 mg PO DAILY PRN PRN Reason: Constipation Buspirone HCl (Buspar) 30 mg PO BEDTIME [facility] Last Admin: 03/23/17 20:54 Dose: 30 mg Buspirone HCl (Buspar) 20 mg PO 0800 [facility] Last Admin: 03/24/17 08:27 Dose: 20 mg Buspirone HCl (Buspar) 10 mg PO BEDTIME [facility] Last Admin: 03/23/17 20:54 Dose: 10 mg Diltiazem HCl (Cardizem Cd) 360 mg PO DAILY [facility] Last Admin: 03/24/17 08:30 Dose: 360 mg Duloxetine HCl (Cymbalta) 30 mg PO DAILY [facility] Last Admin: 03/24/17 08:30 Dose: 30 mg Famotidine (Pepcid) 20 mg PO BID [facility] Last Admin: 03/24/17 08:31 Dose: 20 mg Guaifenesin (Mucinex) 600 mg PO TID PRN PRN Reason: Congestion Last Admin: 03/22/17 15:23 Dose: 600 mg Levofloxacin/Dextrose 750 mg/ (Premix) 150 mls @ 100 mls/hr IV Q24H [facility] Last Admin: 03/24/17 06:59 Dose: 100 mls/hr Sodium Chloride (Normal Saline) 1,000 mls @ 75 mls/hr IV ASDIRECTED [facility] Last Admin: 03/24/17 07:00 Dose: 75 mls/hr Piperacillin Sod/Tazobactam (Sod 4.5 gm/ Sodium Chloride) 100 mls @ 25 mls/hr IV Q8H [facility] Last Admin: 03/24/17 02:44 Dose: 25 mls/hr Lorazepam (Ativan) 1 mg PO BID PRN PRN Reason: Anxiety Last Admin: 03/23/17 09:05 Dose: 1 mg Methylprednisolone Sodium Succinate (Solu-Medrol) 125 mg IVPUSH Q6H [facility] Last Admin: 03/24/17 05:33 Dose: 125 mg Metoprolol Tartrate (Lopressor) 50 mg PO Q12HR [facility] Last Admin: 03/24/17 08:30 Dose: 50 mg Mirtazapine (Remeron) 15 mg PO BEDTIME [facility] Last Admin: 03/23/17 20:56 Dose: 15 mg Multivitamins (Thera) 1 each PO DAILY [facility] Last Admin: 03/24/17 08:31 Dose: 1 each Fluticasone/Vilnterol [Breo Ellipta] 100/25 Own Med 0 each INH BEDTIME [facility] Last Admin: 03/23/17 20:09 Dose: 1 each Umeclidinium [place] [Incruse Ellipta] * * Own Med 0 each INH DAILY [facility] Last Admin: 03/24/17 08:37 Dose: 1 each Senna/Docusate Sodium (Senna Plus) 1 tab PO BID PRN PRN Reason: Constipation Discontinued Medications Albuterol/Ipratropium (Duoneb 3.0-0.5 Mg/3 Ml) 3 ml NEB ONETIME ONE Stop: 03/22/17 08:56 Last Admin: 03/22/17 09:15 Dose: 3 ml Enoxaparin Sodium (Lovenox) 40 mg SUBCUT DAILY [facility] Last Admin: 03/23/17 09:07 Dose: 40 mg Sodium Chloride (Normal Saline) 1,000 mls @ 150 mls/hr IV ASDIRECTED [facility] Last Admin: 03/23/17 06:04 Dose: 150 mls/hr Piperacillin Sod/Tazobactam (Sod 4.5 gm/ Sodium Chloride) 100 mls @ 200 mls/hr IV ONETIME ONE Stop: 03/23/17 10:14 Last Admin: 03/23/17 10:28 Dose: 200 mls/hr Influenza Virus Vaccine (Pharmacy To Dose - Influenza Vaccine) 1 each IM ONETIME ONE Stop: 03/22/17 11:16 Influenza Virus Vaccine (Fluzone High-Dose 2017-18) 180 mcg IM .ONCE ONE Stop: 03/22/17 11:46 Iopamidol (Isovue-300 (61%)) 80 ml IVPUSH ONETIME ONE Stop: 03/22/17 06:43 Last Admin: 03/22/17 07:17 Dose: 80 ml Levofloxacin (Levaquin) 750 mg PO ONETIME STA Stop: 03/22/17 06:18 Last Admin: 03/22/17 06:24 Dose: 750 mg Methylprednisolone Sodium Succinate (Solu-Medrol) 125 mg IVPUSH ONETIME ONE Stop: 03/22/17 09:19 Last Admin: 03/22/17 09:24 Dose: 125 mg Metoprolol Tartrate (Lopressor) 50 mg PO ONETIME ONE Stop: 03/22/17 14:09 Last Admin: 03/22/17 14:18 Dose: 50 mg Morphine Sulfate (Morphine) 1 mg IVPUSH ONETIME ONE Stop: 03/23/17 09:17 Last Admin: 03/23/17 10:38 Dose: 1 mg Umeclidinium [place] (1 Puff) 0 each INH DAILY [facility] Umeclidinium [place] [Incruse Ellipta] * * Own Med 0 each INH DAILY@2100 [facility] Sodium Chloride (Saline Flush) 10 ml FLUSH ONETIME PRN PRN Reason: IV Flush Last Admin: 03/22/17 07:17 Dose: 10 ml Warfarin Sodium (Coumadin) 10 mg PO SUTUWETHSA [facility] Last Admin: 03/22/17 14:47 Dose: Not Given Warfarin Sodium (Pharmacy To Dose - Warfarin) 7.5 dose PO MOFR [facility] - Exam Quality Assessment: Supplemental Oxygen General: Alert, Oriented, Cooperative, No Acute Distress HEENT: Pupils Equal, Pupils Reactive, EOMI, Mucous Membr. Moist/[place] Neck: Supple, Trachea Midline, No JVD, Other (No accessory muscle use) Lungs: Normal Respiratory Effort, Decreased Breath Sounds, Wheezing (occasional ) Cardiovascular: Regular Rate, Regular Rhythm GI/Abdominal Exam: Normal Bowel Sounds, Soft, Non-Tender, No Organomegaly, No Distention, No Abnormal Bruit, No Mass, Pelvis Stable (Female) Exam: Deferred Back Exam: Normal Inspection, Decreased Range of Motion Extremities: Normal Inspection, Normal Range of Motion, Non-Tender, No Pedal Edema, Normal Capillary Refill Peripheral Pulses: 2+: Dorsalis Pedis (L), Dorsalis Pedis (R) Skin: Warm, Dry, Intact Neurological: No New Focal Deficit Psy/Mental Status: Alert, Normal Affect, Normal Mood - Problem List Review Problem List Initiated/Reviewed/Updated: Yes - Plan Plan:: Assessment/Plan: Acute: Right Sided PNA, Improving - History of Severe COPD requires continuous O2; No malignancy on Chest CT scan - Chest CT scan: Diffuse increased septal thickening surrounding emphysematous change within the right lung - Cannot r/o Aspiration (On Ativan for Anxiety and has GERD/Reflux Disease) - CRP 19.3 --> 9.3 - MRSA/Mycoplasma and Strep Pneumoniae negative - Blood/Sputum culture/Influenza negative - Continue IV Levaquin/Zosyn, Routine RT Care and Acapella COPD Exacerbation, Improving - Patient carries hx/o it - Change Solumedrol 125 mg IVP to BID from QID Respiratory Failure - Acute on Chronic - She is currently on 4L NC - Titrate to get down to her baseline at 1.5-2L NC Leukocytosis - Infections +/- Steroids Use - Continue to monitor Chronic: History of A Flutter, on Warfarin, INR is therapeutic HTN, Fairly Stable Respiratory Failure, 1.5 L NC at night and 2L NC with activities GERD, 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
[2017-03-24] MEDS: Saccharomyces Boulardii (Probiotic) 250 MG Cap PO SCH ×3 (15:34→21:30)
[2017-03-24] MEDS: Warfarin 10 MG Tab PO SCH (19:00)
[2017-03-24] MEDS: VILANTEROL INH SCH (20:32)
[2017-03-24] MEDS: [UNRECOGNIZED DRUG - OTHER] INH SCH (20:32)
[2017-03-24] MEDS: Mirtazapine 15 MG Tab PO SCH (21:31)
[2017-03-24] MEDS: busPIRone 15 MG Tab PO SCH (21:33)
[2017-03-24] MEDS: LORazepam 1 MG Tab PO PRN (21:37)
[2017-03-25] MEDS: Sodium Chloride 0.9% 1,000 ML IV SCH ×2 (00:45→14:29)
[2017-03-25] MEDS: methylPREDNISolone Sodium Succinate 125 MG/2 ML SDV IVPUSH SCH ×3 (02:27→21:09)
[2017-03-25] MEDS: Piperacillin/Tazobactam 4.5 GM in Sodium Chloride 0.9% 100 ML IV SCH ×3 (02:28→17:32)
[2017-03-25] MEDS: Levofloxacin/Dextrose 5%-Water 750 MG in Premix Bag 1 BAG IV SCH (07:29)
--- NOTE | 2017-03-25 07:52 | PCM.PN ---
- General Info Date of Service: 03/25/17 Admission Dx/Problem (Free Text): Admission Diagnosis/Problem Admission Diagnosis/Problem Pneumonia Subjective Update: Follow Up Functional Status: Reports: Pain Controlled, Tolerating Diet, Ambulating, Urinating - Review of Systems General: Denies: Fever, Weakness, Fatigue, Malaise, Chills HEENT: Reports: No Symptoms Pulmonary: Reports: Shortness of Breath. Denies: Cough, Sputum, Wheezing Cardiovascular: Denies: Chest Pain Gastrointestinal: Denies: Abdominal Pain, Nausea, Vomiting Genitourinary: Reports: No Symptoms Musculoskeletal: Reports: No Symptoms Skin: Denies: Cyanosis, Rash Neurological: Denies: Confusion, Difficulty Walking, Weakness, Gait Disturbance Psychiatric: Denies: Depression, Anxiety, Agitation, Hallucinations Systems Review Comment:: No significant overnight or acute issues. She continues to breath better. She slept good. Her vitals are stable. She has no new complaints. - Patient Data Vitals - Most Recent: Last Vital Signs Temp 36.9 C 03/25/17 06:24 Pulse 78 03/25/17 06:24 Resp 18 03/25/17 06:24 BP 140/83 03/25/17 06:24 Pulse Ox 93 L 03/25/17 06:24 Weight - Most Recent: 67.585 kg I&O - Last 24 Hours: Intake & Output 03/24/17 03/25/17 03/25/17 22:59 06:59 14:59 Intake Total 1980 2225 Output Total 1250 400 Balance 730 1825 Lab Results Last 24 Hours: Laboratory Results - last 24 hr 03/24/17 03/25/17 03/25/17 Range/Units 18:12 06:10 06:10 WBC 15.21 H (3.98-10.04) K/mm3 RBC 3.87 L (3.98-5.22) M/mm3 Hgb 11.5 (11.2-15.7) gm/L Hct 34.7 (34.1-44.9) % MCV 89.7 (79.4-94.8) fl MCH 29.7 (25.6-32.2) pg MCHC 33.1 (32.2-35.5) g/dl RDW Std Deviation 43.3 (36.4-46.3) fL Plt Count 342 (182-369) K/mm3 MPV 9.0 L (9.4-12.3) fl Neut % (Auto) 89.4 H (34.0-71.1) % Lymph % (Auto) 6.6 L (19.3-51.7) % [place] % (Auto) 3.0 L (4.7-12.5) % Eos % (Auto) 0 L (0.7-5.8) Baso % (Auto) 0.1 (0.1-1.2) % Neut # (Auto) 13.61 H (1.56-6.13) K/mm3 Lymph # (Auto) 1.00 L (1.18-3.74) K/mm3 [place] # (Auto) 0.45 H (0.24-0.36) K/mm3 Eos # (Auto) 0.00 L (0.04-0.36) K/mm3 Baso # (Auto) 0.01 (0.01-0.08) K/mm3 Manual Slide Review Abnormal smear PT 27.2 H (8.0-13.0) SECONDS INR 2.36 Sodium 146 H (136-145) mEq/L Potassium 3.7 (3.5-5.1) mEq/L Chloride 109 H (98-107) mEq/L Carbon Dioxide 32 (21-32) mEq/L Anion Gap 8.7 (5-15) BUN 20 H (7-18) mg/dL Creatinine 0.6 (0.55-1.02) mg/dL Est Cr Clr Drug Dosing 97.08 mL/min Estimated GFR (MDRD) > 60 (>60) mL/min BUN/Creatinine Ratio 33.3 H (14-18) Glucose 152 H (80-115) mg/dL Calcium 8.4 L (8.5-10.1) mg/dL C-Reactive Protein 3.5 H* (<1.0) mg/dL Ahsan Results Last 24 Hours: Microbiology 03/22/17 15:35 Gram Stain - Final Sputum - Expectorated Sputum Culture - Preliminary [facility]AT[facility] 2 DAYS 03/22/17 15:27 Streptococcus pneumoniae Antigen (M - Final Urine Med Orders - Current: Current Medications Albuterol/Ipratropium (Duoneb 3.0-0.5 Mg/3 Ml) 3 ml NEB QID PRN PRN Reason: Shortness of Breath Last Admin: 03/24/17 20:32 Dose: 3 ml Bisacodyl (Dulcolax) 5 mg PO DAILY PRN PRN Reason: Constipation Buspirone HCl (Buspar) 30 mg PO BEDTIME [facility] Last Admin: 03/24/17 21:33 Dose: 30 mg Buspirone HCl (Buspar) 20 mg PO 0800 [facility] Last Admin: 03/24/17 08:27 Dose: 20 mg Buspirone HCl (Buspar) 10 mg PO BEDTIME [facility] Last Admin: 03/24/17 21:32 Dose: 10 mg Diltiazem HCl (Cardizem Cd) 360 mg PO DAILY [facility] Last Admin: 03/24/17 08:30 Dose: 360 mg Duloxetine HCl (Cymbalta) 30 mg PO DAILY [facility] Last Admin: 03/24/17 08:30 Dose: 30 mg Famotidine (Pepcid) 20 mg PO BID [facility] Last Admin: 03/24/17 21:30 Dose: 20 mg Guaifenesin (Mucinex) 600 mg PO TID PRN PRN Reason: Congestion Last Admin: 03/22/17 15:23 Dose: 600 mg Levofloxacin/Dextrose 750 mg/ (Premix) 150 mls @ 100 mls/hr IV Q24H [facility] Last Admin: 03/25/17 07:29 Dose: 100 mls/hr Sodium Chloride (Normal Saline) 1,000 mls @ 75 mls/hr IV ASDIRECTED [facility] Last Admin: 03/25/17 00:45 Dose: 75 mls/hr Piperacillin Sod/Tazobactam (Sod 4.5 gm/ Sodium Chloride) 100 mls @ 25 mls/hr IV Q8H [facility] Last Admin: 03/25/17 02:28 Dose: 25 mls/hr Lorazepam (Ativan) 1 mg PO BID PRN PRN Reason: Anxiety Last Admin: 03/24/17 21:37 Dose: 1 mg Methylprednisolone Sodium Succinate (Solu-Medrol) 125 mg IVPUSH Q8H [facility] Last Admin: 03/25/17 02:27 Dose: 125 mg Metoprolol Tartrate (Lopressor) 50 mg PO Q12HR [facility] Last Admin: 03/24/17 21:31 Dose: 50 mg Mirtazapine (Remeron) 15 mg PO BEDTIME [facility] Last Admin: 03/24/17 21:31 Dose: 15 mg Multivitamins (Thera) 1 each PO DAILY [facility] Last Admin: 03/24/17 08:31 Dose: 1 each Fluticasone/Vilnterol [Breo Ellipta] 100/25 Own Med 0 each INH BEDTIME [facility] Last Admin: 03/24/17 20:32 Dose: 1 each Umeclidinium [place] [Incruse Ellipta] * * Own Med 0 each INH DAILY [facility] Last Admin: 03/24/17 08:37 Dose: 1 each Saccharomyces Boulardii (Florastor) 250 mg PO TID [facility] Last Admin: 03/24/17 21:30 Dose: 250 mg Senna/Docusate Sodium (Senna Plus) 1 tab PO BID PRN PRN Reason: Constipation Warfarin Sodium (Coumadin) 7.5 mg PO MoFr@1800 [facility] Warfarin Sodium (Coumadin) 10 mg PO SuTuWeThSa@1800 [facility] Last Admin: 03/24/17 19:00 Dose: 10 mg Discontinued Medications Albuterol/Ipratropium (Duoneb 3.0-0.5 Mg/3 Ml) 3 ml NEB ONETIME ONE Stop: 03/22/17 08:56 Last Admin: 03/22/17 09:15 Dose: 3 ml Enoxaparin Sodium (Lovenox) 40 mg SUBCUT DAILY [facility] Last Admin: 03/23/17 09:07 Dose: 40 mg Sodium Chloride (Normal Saline) 1,000 mls @ 150 mls/hr IV ASDIRECTED [facility] Last Admin: 03/23/17 06:04 Dose: 150 mls/hr Piperacillin Sod/Tazobactam (Sod 4.5 gm/ Sodium Chloride) 100 mls @ 200 mls/hr IV ONETIME ONE Stop: 03/23/17 10:14 Last Admin: 03/23/17 10:28 Dose: 200 mls/hr Influenza Virus Vaccine (Pharmacy To Dose - Influenza Vaccine) 1 each IM ONETIME ONE Stop: 03/22/17 11:16 Influenza Virus Vaccine (Fluzone High-Dose 2017-18) 180 mcg IM .ONCE ONE Stop: 03/22/17 11:46 Iopamidol (Isovue-300 (61%)) 80 ml IVPUSH ONETIME ONE Stop: 03/22/17 06:43 Last Admin: 03/22/17 07:17 Dose: 80 ml Levofloxacin (Levaquin) 750 mg PO ONETIME [facility] Stop: 03/22/17 06:18 Last Admin: 03/22/17 06:24 Dose: 750 mg Methylprednisolone Sodium Succinate (Solu-Medrol) 125 mg IVPUSH ONETIME ONE Stop: 03/22/17 09:19 Last Admin: 03/22/17 09:24 Dose: 125 mg Methylprednisolone Sodium Succinate (Solu-Medrol) 125 mg IVPUSH Q6H [facility] Last Admin: 03/24/17 09:30 Dose: 125 mg Metoprolol Tartrate (Lopressor) 50 mg PO ONETIME ONE Stop: 03/22/17 14:09 Last Admin: 03/22/17 14:18 Dose: 50 mg Morphine Sulfate (Morphine) 1 mg IVPUSH ONETIME ONE Stop: 03/23/17 09:17 Last Admin: 03/23/17 10:38 Dose: 1 mg Umeclidinium [place] (1 Puff) 0 each INH DAILY [facility] Umeclidinium [place] [Incruse Ellipta] * * Own Med 0 each INH DAILY@2100 [facility] Sodium Chloride (Saline Flush) 10 ml FLUSH ONETIME PRN PRN Reason: IV Flush Last Admin: 03/22/17 07:17 Dose: 10 ml Warfarin Sodium (Coumadin) 10 mg PO SUTUWETHSA [facility] Last Admin: 03/22/17 14:47 Dose: Not Given Warfarin Sodium (Pharmacy To Dose - Warfarin) 7.5 dose PO MOFR [facility] - Exam Quality Assessment: Supplemental Oxygen General: Alert, Oriented, Cooperative, No Acute Distress HEENT: Pupils Equal, Pupils Reactive, EOMI, Mucous Membr. Moist/[place] Neck: Supple, Trachea Midline, No JVD, Other (No accessory muscle use) Lungs: Normal Respiratory Effort, Decreased Breath Sounds, Wheezing (but improved) Cardiovascular: Regular Rate, Regular Rhythm GI/Abdominal Exam: Normal Bowel Sounds, Soft, Non-Tender, No Organomegaly, No Distention, No Abnormal Bruit (Female) Exam: Deferred Back Exam: Normal Inspection, Decreased Range of Motion Extremities: Normal Inspection, Normal Range of Motion, Non-Tender, No Pedal Edema, Normal Capillary Refill Peripheral Pulses: 2+: Dorsalis Pedis (L), Dorsalis Pedis (R) Skin: Warm, Dry, Intact Neurological: No New Focal Deficit Psy/Mental Status: Alert, Normal Affect, Normal Mood - Problem List Review Problem List Initiated/Reviewed/Updated: Yes - My Orders Last 24 Hours: My Active Orders 03/24/17 13:45 Saccharomyces Boulardii [Florastor] 250 mg PO TID 03/24/17 18:00 Warfarin [Coumadin] 10 mg PO SuTuWeThSa@1800 methylPREDNISolone Sod Succ [Solu-MEDROL] 125 mg IVPUSH Q8H 03/26/17 18:00 Warfarin [Coumadin] 7.5 mg PO MoFr@1800 - Plan Plan:: Assessment/Plan: Acute: Right Sided PNA, Continues to Improve - History of Severe COPD requires continuous O2; No malignancy on Chest CT scan - Chest CT scan: Diffuse increased septal thickening surrounding emphysematous change within the right lung - Cannot r/o Aspiration (On Ativan for Anxiety and has GERD/Reflux Disease) - CRP 19.3 --> 9.3 --> 3.5 - MRSA/Mycoplasma and Strep Pneumoniae negative - Blood/Sputum culture/Influenza negative - Continue IV Levaquin/Zosyn, Routine RT Care and Acapella COPD Exacerbation, Continues to Improve - Patient carries hx/o it - Change Solumedrol 125 mg IVP to BID from QID Respiratory Failure - Acute on Chronic - She is currently on 4L NC - Continue to titrate to get down to her baseline at 1.5-2L NC Leukocytosis - WBC 15. 73 ---> 15. 21 - Infections +/- Steroids Use - Continue to monitor Chronic: History of A Flutter, on Warfarin, INR is therapeutic HTN, Fairly Stable Respiratory Failure, 1.5 L NC at night and 2L NC with activities GERD, H2B Advanced COPD Anxiety/Depression, Stable Plan: She remains clinically stable Continue current treatment Change Solumedrol to 80 mg IVP BID Routine AM Labs DVT/GI prophylaxis: Warfarin and H2B Continue PT/OT/RT Additional orders as above Code status: 1
[2017-03-25] MEDS: DULoxetine 30 MG Cap PO SCH (08:01)
[2017-03-25] MEDS: Diltiazem 180 MG Cap.CD PO SCH (08:01)
[2017-03-25] MEDS: Saccharomyces Boulardii (Probiotic) 250 MG Cap PO SCH ×3 (08:01→21:12)
[2017-03-25] MEDS: busPIRone 5 MG Tab PO SCH ×2 (08:01→21:14)
[2017-03-25] MEDS: Metoprolol Tartrate 50 MG Tab PO SCH ×2 (08:02→21:16)
[2017-03-25] MEDS: Famotidine 20 MG Tab PO SCH ×2 (08:02→21:15)
[2017-03-25] MEDS: Multivitamins,Therapeutic Tab PO SCH (08:02)
[2017-03-25] MEDS: Albuterol/Ipratropium 3.0-0.5 MG/3 ML Neb Soln NEB PRN ×3 (08:44→20:35)
[2017-03-25] MEDS: UMECLIDINIUM BROMIDE INH SCH (08:45)
[2017-03-25] MEDS: Warfarin 10 MG Tab PO SCH (17:32)
[2017-03-25] MEDS: [UNRECOGNIZED DRUG - OTHER] INH SCH (20:33)
[2017-03-25] MEDS: VILANTEROL INH SCH (20:33)
[2017-03-25] MEDS: busPIRone 15 MG Tab PO SCH (21:13)
[2017-03-25] MEDS: Mirtazapine 15 MG Tab PO SCH (21:15)
[2017-03-25] MEDS: LORazepam 1 MG Tab PO PRN (21:22)
[2017-03-26] MEDS: Piperacillin/Tazobactam 4.5 GM in Sodium Chloride 0.9% 100 ML IV SCH ×2 (02:09→10:15)
[2017-03-26] MEDS: Sodium Chloride 0.9% 1,000 ML IV SCH (04:04)
[2017-03-26] MEDS: Levofloxacin/Dextrose 5%-Water 750 MG in Premix Bag 1 BAG IV SCH (06:18)
[2017-03-26] MEDS: Famotidine 20 MG Tab PO SCH ×2 (08:07→22:12)
[2017-03-26] MEDS: methylPREDNISolone Sodium Succinate 125 MG/2 ML SDV IVPUSH SCH ×2 (08:07→22:14)
[2017-03-26] MEDS: Diltiazem 180 MG Cap.CD PO SCH (08:08)
[2017-03-26] MEDS: Metoprolol Tartrate 50 MG Tab PO SCH ×2 (08:08→22:12)
[2017-03-26] MEDS: DULoxetine 30 MG Cap PO SCH (08:08)
[2017-03-26] MEDS: Saccharomyces Boulardii (Probiotic) 250 MG Cap PO SCH ×3 (08:08→22:11)
[2017-03-26] MEDS: Multivitamins,Therapeutic Tab PO SCH (08:08)
--- NOTE | 2017-03-26 08:45 | CR ---
Chest: Two views of the chest were obtained. Comparison: Previous chest CT of 03/22/17 and chest x-ray of 03/22/17. Improved density within the right chest is seen from prior studies. There is an area of atelectasis which is more prominent within the right middle lobe. Blunting of the right lateral costophrenic angle is seen possibly due to atelectasis or small pleural effusion. This finding within the costophrenic angle is an interval change. Emphysematous changes are seen. Heart size does not appear enlarged. Tortuous thoracic aorta is seen. Bony structures are osteopenic. Scoliosis is noted within the spine. Impression: 1. Increased atelectasis within the right middle lobe from prior exams. 2. New blunting of the right lateral costophrenic angle either due to atelectasis or pleural effusion. 3. Chest x-ray is otherwise improved from previous studies. Diagnostic code #3
[2017-03-26] MEDS ORDERED: Potassium Chloride 20 MEQ Tab.ER PO ONE (09:16)
[2017-03-26] MEDS ORDERED: Furosemide 20 MG/2 ML VIAL IVPUSH ONE (09:16)
--- NOTE | 2017-03-26 09:25 | PCM.PN ---
- General Info Date of Service: 03/26/17 Admission Dx/Problem (Free Text): Admission Diagnosis/Problem Admission Diagnosis/Problem Pneumonia Holly is seen this morning, resting comfortably in bed. States still SOB especially when up and ambulatory; still on 4L/NC, baseline home O2 is 1.5L. Minimal to no coughing. Slept well. Afebrile; VSS; labs stable, K+ slightly low today Weight is up; UO is on + side. Functional Status: Reports: Pain Controlled, Tolerating Diet, Ambulating, Urinating. Denies: New Symptoms - Review of Systems General: Reports: Weakness, Fatigue. Denies: Fever HEENT: Reports: No Symptoms Pulmonary: Reports: Shortness of Breath, Cough (very minimal). Denies: Hemoptysis Cardiovascular: Reports: Dyspnea on Exertion. Denies: Chest Pain, Palpitations Gastrointestinal: Reports: No Symptoms. Denies: Diarrhea, Nausea, Vomiting Genitourinary: Reports: No Symptoms Neurological: Reports: No Symptoms - Patient Data Vitals - Most Recent: Last Vital Signs Temp 97.7 F 03/26/17 03:08 Pulse 81 03/26/17 08:08 Resp 14 03/26/17 03:08 BP 137/70 03/26/17 08:08 Pulse Ox 100 03/26/17 03:08 Weight - Most Recent: 150 lb 6.4 oz I&O - Last 24 Hours: Intake & Output 03/25/17 03/26/17 03/26/17 22:59 06:59 14:59 Intake Total 2250 2186 Output Total 600 Balance 1650 2186 Lab Results Last 24 Hours: Laboratory Results - last 24 hr 03/26/17 03/26/17 03/26/17 Range/Units 05:50 05:50 05:50 WBC 12.10 H (3.98-10.04) K/mm3 RBC 3.76 L (3.98-5.22) M/mm3 Hgb 11.3 (11.2-15.7) gm/L Hct 33.6 L (34.1-44.9) % MCV 89.4 (79.4-94.8) fl MCH 30.1 (25.6-32.2) pg MCHC 33.6 (32.2-35.5) g/dl RDW Std Deviation 42.6 (36.4-46.3) fL Plt Count 332 (182-369) K/mm3 MPV 9.0 L (9.4-12.3) fl Neut % (Auto) 83.5 H (34.0-71.1) % Lymph % (Auto) 6.9 L (19.3-51.7) % [place] % (Auto) 5.0 (4.7-12.5) % Eos % (Auto) 0 L (0.7-5.8) Baso % (Auto) 0.2 (0.1-1.2) % Neut # (Auto) 10.11 H (1.56-6.13) K/mm3 Lymph # (Auto) 0.84 L (1.18-3.74) K/mm3 [place] # (Auto) 0.60 H (0.24-0.36) K/mm3 Eos # (Auto) 0.00 L (0.04-0.36) K/mm3 Baso # (Auto) 0.02 (0.01-0.08) K/mm3 Manual Slide Review Abnormal smear PT 51.5 H* (8.0-13.0) SECONDS INR 4.30 Sodium 149 H (136-145) mEq/L Potassium 3.3 L (3.5-5.1) mEq/L Chloride 110 H (98-107) mEq/L Carbon Dioxide 32 (21-32) mEq/L Anion Gap 10.3 (5-15) BUN 18 (7-18) mg/dL Creatinine 0.5 L (0.55-1.02) mg/dL Est Cr Clr Drug Dosing 117.58 mL/min Estimated GFR (MDRD) > 60 (>60) mL/min BUN/Creatinine Ratio 36.0 H (14-18) Glucose 151 H (80-115) mg/dL Hemoglobin A1c (4.50-6.20) % Calcium 8.1 L (8.5-10.1) mg/dL C-Reactive Protein 1.2 H* (<1.0) mg/dL 03/26/17 Range/Units 05:50 WBC (3.98-10.04) K/mm3 RBC (3.98-5.22) M/mm3 Hgb (11.2-15.7) gm/L Hct (34.1-44.9) % MCV (79.4-94.8) fl MCH (25.6-32.2) pg MCHC (32.2-35.5) g/dl RDW Std Deviation (36.4-46.3) fL Plt Count (182-369) K/mm3 MPV (9.4-12.3) fl Neut % (Auto) (34.0-71.1) % Lymph % (Auto) (19.3-51.7) % [place] % (Auto) (4.7-12.5) % Eos % (Auto) (0.7-5.8) Baso % (Auto) (0.1-1.2) % Neut # (Auto) (1.56-6.13) K/mm3 Lymph # (Auto) (1.18-3.74) K/mm3 [place] # (Auto) (0.24-0.36) K/mm3 Eos # (Auto) (0.04-0.36) K/mm3 Baso # (Auto) (0.01-0.08) K/mm3 Manual Slide Review PT (8.0-13.0) SECONDS INR Sodium (136-145) mEq/L Potassium (3.5-5.1) mEq/L Chloride (98-107) mEq/L Carbon Dioxide (21-32) mEq/L Anion Gap (5-15) BUN (7-18) mg/dL Creatinine (0.55-1.02) mg/dL Est Cr Clr Drug Dosing mL/min Estimated GFR (MDRD) (>60) mL/min BUN/Creatinine Ratio (14-18) Glucose (80-115) mg/dL Hemoglobin A1c 6.00 (4.50-6.20) % Calcium (8.5-10.1) mg/dL C-Reactive Protein (<1.0) mg/dL Ahsan Results Last 24 Hours: Microbiology 03/22/17 15:35 Gram Stain - Final Sputum - Expectorated Sputum Culture - Final NORMAL RESPIRATORY GEORGE 2 DAYS Med Orders - Current: Current Medications Albuterol/Ipratropium (Duoneb 3.0-0.5 Mg/3 Ml) 3 ml NEB QID PRN PRN Reason: Shortness of Breath Last Admin: 03/25/17 20:35 Dose: 3 ml Bisacodyl (Dulcolax) 5 mg PO DAILY PRN PRN Reason: Constipation Buspirone HCl (Buspar) 30 mg PO BEDTIME KADEEM Last Admin: 03/25/17 21:13 Dose: 30 mg Buspirone HCl (Buspar) 20 mg PO 0800 KADEEM Last Admin: 03/25/17 08:01 Dose: 20 mg Buspirone HCl (Buspar) 10 mg PO BEDTIME KADEEM Last Admin: 03/25/17 21:14 Dose: 10 mg Diltiazem HCl (Cardizem Cd) 360 mg PO DAILY KADEEM Last Admin: 03/26/17 08:08 Dose: 360 mg Duloxetine HCl (Cymbalta) 30 mg PO DAILY KADEEM Last Admin: 03/26/17 08:08 Dose: 30 mg Famotidine (Pepcid) 20 mg PO BID KADEEM Last Admin: 03/26/17 08:07 Dose: 20 mg Furosemide (Lasix) 20 mg IVPUSH NOW ONE Stop: 03/26/17 09:17 Guaifenesin (Mucinex) 600 mg PO TID PRN PRN Reason: Congestion Last Admin: 03/22/17 15:23 Dose: 600 mg Levofloxacin/Dextrose 750 mg/ (Premix) 150 mls @ 100 mls/hr IV Q24H KADEEM Last Admin: 03/26/17 06:18 Dose: 100 mls/hr Piperacillin Sod/Tazobactam (Sod 4.5 gm/ Sodium Chloride) 100 mls @ 25 mls/hr IV Q8H KADEEM Last Admin: 03/26/17 02:09 Dose: 25 mls/hr Lorazepam (Ativan) 1 mg PO BID PRN PRN Reason: Anxiety Last Admin: 03/25/17 21:22 Dose: 1 mg Methylprednisolone Sodium Succinate (Solu-Medrol) 80 mg IVPUSH Q12H KADEEM Last Admin: 03/26/17 08:07 Dose: 80 mg Metoprolol Tartrate (Lopressor) 50 mg PO Q12HR KADEEM Last Admin: 03/26/17 08:08 Dose: 50 mg Mirtazapine (Remeron) 15 mg PO BEDTIME KADEEM Last Admin: 03/25/17 21:15 Dose: 15 mg Multivitamins (Thera) 1 each PO DAILY KADEEM Last Admin: 03/26/17 08:08 Dose: 1 each Fluticasone/Vilnterol [Breo Ellipta] 100/25 Own Med 0 each INH BEDTIME KADEEM Last Admin: 03/25/17 20:33 Dose: 1 each Umeclidinium Pioneer [Incruse Ellipta] * * Own Med 0 each INH DAILY [facility] Last Admin: 03/25/17 08:45 Dose: 1 each Potassium Chloride (Potassium Chloride) 40 meq PO ONETIME ONE Stop: 03/26/17 09:17 Saccharomyces Boulardii (Florastor) 250 mg PO TID KADEEM Last Admin: 03/26/17 08:08 Dose: 250 mg Senna/Docusate Sodium (Senna Plus) 1 tab PO BID PRN PRN Reason: Constipation Discontinued Medications Albuterol/Ipratropium (Duoneb 3.0-0.5 Mg/3 Ml) 3 ml NEB ONETIME ONE Stop: 03/22/17 08:56 Last Admin: 03/22/17 09:15 Dose: 3 ml Enoxaparin Sodium (Lovenox) 40 mg SUBCUT DAILY [facility] Last Admin: 03/23/17 09:07 Dose: 40 mg Sodium Chloride (Normal Saline) 1,000 mls @ 150 mls/hr IV ASDIRECTED [facility] Last Admin: 03/23/17 06:04 Dose: 150 mls/hr Sodium Chloride (Normal Saline) 1,000 mls @ 75 mls/hr IV ASDIRECTED [facility] Last Admin: 03/26/17 04:04 Dose: 75 mls/hr Piperacillin Sod/Tazobactam (Sod 4.5 gm/ Sodium Chloride) 100 mls @ 200 mls/hr IV ONETIME ONE Stop: 03/23/17 10:14 Last Admin: 03/23/17 10:28 Dose: 200 mls/hr Influenza Virus Vaccine (Pharmacy To Dose - Influenza Vaccine) 1 each IM ONETIME ONE Stop: 03/22/17 11:16 Influenza Virus Vaccine (Fluzone High-Dose 2016-18) 180 mcg IM .ONCE ONE Stop: 03/22/17 11:46 Iopamidol (Isovue-300 (61%)) 80 ml IVPUSH ONETIME ONE Stop: 03/22/17 06:43 Last Admin: 03/22/17 07:17 Dose: 80 ml Levofloxacin (Levaquin) 750 mg PO ONETIME STA Stop: 03/22/17 06:18 Last Admin: 03/22/17 06:24 Dose: 750 mg Methylprednisolone Sodium Succinate (Solu-Medrol) 125 mg IVPUSH ONETIME ONE Stop: 03/22/17 09:19 Last Admin: 03/22/17 09:24 Dose: 125 mg Methylprednisolone Sodium Succinate (Solu-Medrol) 125 mg IVPUSH Q6H [facility] Last Admin: 03/24/17 09:30 Dose: 125 mg Methylprednisolone Sodium Succinate (Solu-Medrol) 125 mg IVPUSH Q8H [facility] Last Admin: 03/25/17 09:29 Dose: 125 mg Metoprolol Tartrate (Lopressor) 50 mg PO ONETIME ONE Stop: 03/22/17 14:09 Last Admin: 03/22/17 14:18 Dose: 50 mg Morphine Sulfate (Morphine) 1 mg IVPUSH ONETIME ONE Stop: 03/23/17 09:17 Last Admin: 03/23/17 10:38 Dose: 1 mg Umeclidinium Pioneer (1 Puff) 0 each INH DAILY [facility] Umeclidinium Pioneer [Incruse Ellipta] * * Own Med 0 each INH DAILY@2100 [facility] Sodium Chloride (Saline Flush) 10 ml FLUSH ONETIME PRN PRN Reason: IV Flush Last Admin: 03/22/17 07:17 Dose: 10 ml Warfarin Sodium (Coumadin) 10 mg PO SUTUWETHSA [facility] Last Admin: 03/22/17 14:47 Dose: Not Given Warfarin Sodium (Pharmacy To Dose - Warfarin) 7.5 dose PO MOFR [facility] Warfarin Sodium (Coumadin) 7.5 mg PO MoFr@1800 [facility] Warfarin Sodium (Coumadin) 10 mg PO SuTuWeThSa@1800 [facility] Last Admin: 03/25/17 17:32 Dose: 10 mg - Exam Quality Assessment: Supplemental Oxygen, DVT Prophylaxis General: Alert, Oriented, Cooperative, No Acute Distress HEENT: Pupils Equal, EOMI, Mucous Membr. Moist/Joice Neck: Supple Lungs: Decreased Breath Sounds (throughout), Rhonchi (minimal), Wheezing Cardiovascular: Regular Rate, Regular Rhythm GI/Abdominal Exam: Normal Bowel Sounds, Soft, Non-Tender (Female) Exam: Deferred Extremities: Normal Inspection, Normal Capillary Refill Neurological: No New Focal Deficit Psy/Mental Status: Alert, Normal Affect, Normal Mood - Problem List & Annotations (1) Pneumonia SNOMED Code(s): 391637030 Code(s): J18.9 - PNEUMONIA, UNSPECIFIED ORGANISM Status: Acute Priority: High Current Visit: Yes Qualifiers: Pneumonia type: due to unspecified organism Laterality: right Lung location: lower lobe of lung Qualified Code(s): J18.1 - Lobar pneumonia, unspecified organism (2) Emphysema lung SNOMED Code(s): 24011416 Code(s): J43.9 - EMPHYSEMA, UNSPECIFIED Status: Chronic Priority: High Current Visit: Yes Qualifiers: Emphysema type: unspecified Qualified Code(s): J43.9 - Emphysema, unspecified (3) Failure to thrive in adult SNOMED Code(s): 887069612 Code(s): R62.7 - ADULT FAILURE TO THRIVE Status: Chronic Priority: High Current Visit: Yes (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 SNOMED Code(s): 868651002 Code(s): J44.9 - CHRONIC OBSTRUCTIVE PULMONARY DISEASE, UNSPECIFIED; R64 - [place] Status: Chronic Priority: High Current Visit: Yes (5) Atrial fib/flutter, transient SNOMED Code(s): 689663547 Code(s): RPG4774 - Status: Chronic Priority: Low Current Visit: Yes (6) Anxiety SNOMED Code(s): 68910385 Code(s): F41.9 - ANXIETY DISORDER, UNSPECIFIED Status: Chronic Priority: High Current Visit: Yes - Problem List Review Problem List Initiated/Reviewed/Updated: Yes - My Orders Last 24 Hours: My Active Orders 03/26/17 09:16 Furosemide [Lasix] 20 mg IVPUSH NOW ONE Potassium Chloride 40 meq PO ONETIME ONE 03/27/17 05:11 BASIC METABOLIC PANEL,BMP [CHEM] AM CBC WITH AUTO DIFF [HEME] AM - Plan Plan:: Assessment/Plan: Acute: Right Sided PNA, Continues to Improve - History of Severe COPD requires continuous O2; No malignancy on Chest CT scan - Chest CT scan: Diffuse increased septal thickening surrounding emphysematous change within the right lung - Cannot r/o Aspiration (On Ativan for Anxiety and has GERD/Reflux Disease)-- H2B BID - CRP 19.3 --> 9.3 --> 3.5 - MRSA/Mycoplasma and Strep Pneumoniae negative - Blood/Sputum culture/Influenza negative - Continue IV Levaquin/Zosyn, Routine RT Care and Acapella -Repeat CXR today with blunting of costophrenic angles; weight is up and on + UO side; DC fluids, lasix 20mg IVP today x 1 COPD Exacerbation, Continues to Improve - Patient carries history - Change Solumedrol 125 mg IVP to BID from QID -- decreasing dose with plan to DC on prednisone taper Respiratory Failure - Acute on Chronic - Continue to titrate supplemental oxygen to get down to her baseline at 1.5- 2L NC Leukocytosis--continues to improve - WBC 15. 73 ---> 15. 21-->12 - Infections +/- Steroids Use - Continue to monitor Supratherapeutic INR -4.3 today--hold on vitamin K for now -Likely due to levaquin -Hold Warfarin -Daily INR Mild hypokalemia -Supplement and follow with am labs -Magnesium WNL Chronic: History of A Flutter, on Warfarin HTN, Stable Respiratory Failure, 1.5 L NC at night and 2L NC with activities GERD, H2B Advanced COPD Anxiety/Depression, Stable Plan: She remains clinically stable Continue current treatment Taper steroids Routine AM Labs DVT/GI prophylaxis: Warfarin and H2B Continue PT/OT/RT Additional orders as above Code status: 1 LOS will be >96 hours due to slower than expected course of improvement, supratherapeutic INR, mild hypokalemia; possible discharge in 1-2 days.
[2017-03-26] MEDS: UMECLIDINIUM BROMIDE INH SCH (09:50)
[2017-03-26] MEDS: busPIRone 5 MG Tab PO SCH ×2 (10:14→22:12)
[2017-03-26] MEDS: Piperacillin/Tazobactam 4.5 GM in Dextrose 5% in Water 100 ML IV SCH ×2 (17:27)
[2017-03-26] MEDS ORDERED: Warfarin 7.5 MG Tab PO SCH (18:00)
[2017-03-26] MEDS: Albuterol/Ipratropium 3.0-0.5 MG/3 ML Neb Soln NEB PRN (19:30)
[2017-03-26] MEDS: [UNRECOGNIZED DRUG - OTHER] INH SCH (19:30)
[2017-03-26] MEDS: VILANTEROL INH SCH (19:30)
[2017-03-26] MEDS: Mirtazapine 15 MG Tab PO SCH (22:11)
[2017-03-26] MEDS: LORazepam 1 MG Tab PO PRN (22:13)
[2017-03-26] MEDS: busPIRone 15 MG Tab PO SCH (22:13)
[2017-03-27] MEDS: Piperacillin/Tazobactam 4.5 GM in Dextrose 5% in Water 100 ML IV SCH ×6 (01:05→17:31)
[2017-03-27] MEDS: [UNRECOGNIZED DRUG - OTHER] INH SCH ×2 (01:10→20:20)
[2017-03-27] MEDS: VILANTEROL INH SCH ×2 (01:10→20:20)
[2017-03-27] MEDS: Levofloxacin/Dextrose 5%-Water 750 MG in Premix Bag 1 BAG IV SCH (06:00)
[2017-03-27] MEDS: UMECLIDINIUM BROMIDE INH SCH (08:47)
[2017-03-27] MEDS: Albuterol/Ipratropium 3.0-0.5 MG/3 ML Neb Soln NEB PRN ×2 (09:11→20:21)
[2017-03-27] MEDS: Diltiazem 180 MG Cap.CD PO SCH (09:50)
[2017-03-27] MEDS: Potassium Chloride 20 MEQ Tab.ER PO SCH ×2 (09:50→20:01)
[2017-03-27] MEDS: DULoxetine 30 MG Cap PO SCH (09:50)
[2017-03-27] MEDS: Metoprolol Tartrate 50 MG Tab PO SCH ×2 (09:51→20:02)
[2017-03-27] MEDS: Famotidine 20 MG Tab PO SCH ×2 (09:52→20:01)
[2017-03-27] MEDS: Saccharomyces Boulardii (Probiotic) 250 MG Cap PO SCH ×3 (09:52→20:01)
[2017-03-27] MEDS: busPIRone 5 MG Tab PO SCH ×2 (10:10→20:01)
[2017-03-27] MEDS: methylPREDNISolone Sodium Succinate 125 MG/2 ML SDV IVPUSH SCH (10:12)
[2017-03-27] MEDS: Multivitamins,Therapeutic Tab PO SCH (11:03)
--- NOTE | 2017-03-27 11:57 | PCM.PN ---
- General Info Date of Service: 03/27/17 Admission Dx/Problem (Free Text): Admission Diagnosis/Problem Admission Diagnosis/Problem Pneumonia Holly is seen this morning, resting comfortably in bed. States still SOB especially when up and ambulatory- slight improvement from yesterday but very minimal; still on 3L/NC, baseline home O2 is 1.5L. Minimal to no coughing. Slept well. Afebrile; VSS; labs stable, K+ slightly low today Functional Status: Reports: Pain Controlled, Tolerating Diet, Ambulating, Urinating, Incentive Spirometry (and FV). Denies: New Symptoms - Review of Systems General: Reports: Weakness, Fatigue. Denies: Fever HEENT: Reports: No Symptoms Pulmonary: Reports: Shortness of Breath, Cough (minimal), Sputum (minimal) Cardiovascular: Reports: Dyspnea on Exertion Gastrointestinal: Reports: No Symptoms Musculoskeletal: Reports: No Symptoms - Patient Data Vitals - Most Recent: Last Vital Signs Temp 98.1 F 03/27/17 08:14 Pulse 76 03/27/17 09:51 Resp 18 03/27/17 08:14 BP 148/69 H 03/27/17 09:51 Pulse Ox 92 L 03/27/17 08:48 Weight - Most Recent: 149 lb 14.4 oz I&O - Last 24 Hours: Intake & Output 03/26/17 03/27/17 03/27/17 22:59 06:59 14:59 Intake Total 900 650 0 Output Total 2600 1300 Balance -1700 -650 0 Lab Results Last 24 Hours: Laboratory Results - last 24 hr 03/27/17 03/27/17 03/27/17 Range/Units 05:55 05:55 05:55 WBC 15.60 H (3.98-10.04) K/mm3 RBC 4.29 (3.98-5.22) M/mm3 Hgb 12.7 (11.2-15.7) gm/L Hct 37.9 (34.1-44.9) % MCV 88.3 (79.4-94.8) fl MCH 29.6 (25.6-32.2) pg MCHC 33.5 (32.2-35.5) g/dl RDW Std Deviation 41.9 (36.4-46.3) fL Plt Count 367 (182-369) K/mm3 MPV 9.0 L (9.4-12.3) fl Neut % (Auto) 83.0 H (34.0-71.1) % Lymph % (Auto) 7.6 L (19.3-51.7) % [place] % (Auto) 4.3 L (4.7-12.5) % Eos % (Auto) 0 L (0.7-5.8) Baso % (Auto) 0.2 (0.1-1.2) % Neut # (Auto) 12.94 H (1.56-6.13) K/mm3 Lymph # (Auto) 1.19 (1.18-3.74) K/mm3 [place] # (Auto) 0.67 H (0.24-0.36) K/mm3 Eos # (Auto) 0.00 L (0.04-0.36) K/mm3 Baso # (Auto) 0.03 (0.01-0.08) K/mm3 Manual Slide Review Abnormal smear PT 53.8 H* (8.0-13.0) SECONDS INR 4.48 Sodium 145 (136-145) mEq/L Potassium 3.2 L (3.5-5.1) mEq/L Chloride 103 (98-107) mEq/L Carbon Dioxide 35 H (21-32) mEq/L Anion Gap 10.2 (5-15) BUN 15 (7-18) mg/dL Creatinine 0.6 (0.55-1.02) mg/dL Est Cr Clr Drug Dosing 97.66 mL/min Estimated GFR (MDRD) > 60 (>60) mL/min BUN/Creatinine Ratio 25.0 H (14-18) Glucose 146 H (80-115) mg/dL Calcium 8.4 L (8.5-10.1) mg/dL Magnesium (1.8-2.4) mg/dl C-Reactive Protein 0.6 (<1.0) mg/dL 03/27/17 Range/Units 05:55 WBC (3.98-10.04) K/mm3 RBC (3.98-5.22) M/mm3 Hgb (11.2-15.7) gm/L Hct (34.1-44.9) % MCV (79.4-94.8) fl MCH (25.6-32.2) pg MCHC (32.2-35.5) g/dl RDW Std Deviation (36.4-46.3) fL Plt Count (182-369) K/mm3 MPV (9.4-12.3) fl Neut % (Auto) (34.0-71.1) % Lymph % (Auto) (19.3-51.7) % [place] % (Auto) (4.7-12.5) % Eos % (Auto) (0.7-5.8) Baso % (Auto) (0.1-1.2) % Neut # (Auto) (1.56-6.13) K/mm3 Lymph # (Auto) (1.18-3.74) K/mm3 [place] # (Auto) (0.24-0.36) K/mm3 Eos # (Auto) (0.04-0.36) K/mm3 Baso # (Auto) (0.01-0.08) K/mm3 Manual Slide Review PT (8.0-13.0) SECONDS INR Sodium (136-145) mEq/L Potassium (3.5-5.1) mEq/L Chloride (98-107) mEq/L Carbon Dioxide (21-32) mEq/L Anion Gap (5-15) BUN (7-18) mg/dL Creatinine (0.55-1.02) mg/dL Est Cr Clr Drug Dosing mL/min Estimated GFR (MDRD) (>60) mL/min BUN/Creatinine Ratio (14-18) Glucose (80-115) mg/dL Calcium (8.5-10.1) mg/dL Magnesium 2.2 (1.8-2.4) mg/dl C-Reactive Protein (<1.0) mg/dL Ahsan Results Last 24 Hours: Microbiology 03/22/17 15:35 Gram Stain - Final Sputum - Expectorated Sputum Culture - Final NORMAL RESPIRATORY GEORGE 2 DAYS Med Orders - Current: Current Medications Albuterol/Ipratropium (Duoneb 3.0-0.5 Mg/3 Ml) 3 ml NEB QID PRN PRN Reason: Shortness of Breath Last Admin: 03/27/17 09:11 Dose: 3 ml Bisacodyl (Dulcolax) 5 mg PO DAILY PRN PRN Reason: Constipation Buspirone HCl (Buspar) 30 mg PO BEDTIME [facility] Last Admin: 03/26/17 22:13 Dose: 30 mg Buspirone HCl (Buspar) 20 mg PO 0800 [place] Last Admin: 03/27/17 10:10 Dose: 20 mg Buspirone HCl (Buspar) 10 mg PO BEDTIME [place] Last Admin: 03/26/17 22:12 Dose: 10 mg Diltiazem HCl (Cardizem Cd) 360 mg PO DAILY [facility] Last Admin: 03/27/17 09:50 Dose: 360 mg Duloxetine HCl (Cymbalta) 30 mg PO DAILY [place] Last Admin: 03/27/17 09:50 Dose: 30 mg Famotidine (Pepcid) 20 mg PO BID [facility] Last Admin: 03/27/17 09:52 Dose: 20 mg Guaifenesin (Mucinex) 600 mg PO TID PRN PRN Reason: Congestion Last Admin: 03/22/17 15:23 Dose: 600 mg Levofloxacin/Dextrose 750 mg/ (Premix) 150 mls @ 100 mls/hr IV Q24H [place] Last Admin: 03/27/17 06:00 Dose: 100 mls/hr Piperacillin Sod/Tazobactam (Sod 4.5 gm/ Dextrose/Water) 100 mls @ 25 mls/hr IV Q8H [facility] Last Admin: 03/27/17 09:52 Dose: 25 mls/hr Lorazepam (Ativan) 1 mg PO BID PRN PRN Reason: Anxiety Last Admin: 03/26/17 22:13 Dose: 1 mg Methylprednisolone Sodium Succinate (Solu-Medrol) 80 mg IVPUSH Q12H [facility] Last Admin: 03/27/17 10:12 Dose: 80 mg Metoprolol Tartrate (Lopressor) 50 mg PO Q12HR [place] Last Admin: 03/27/17 09:51 Dose: 50 mg Mirtazapine (Remeron) 15 mg PO BEDTIME [facility] Last Admin: 03/26/17 22:11 Dose: 15 mg Multivitamins (Thera) 1 each PO DAILY [facility] Last Admin: 03/27/17 11:03 Dose: 1 each Fluticasone/Vilnterol [Breo Ellipta] 100/25 Own Med 0 each INH BEDTIME [facility] Last Admin: 03/27/17 01:10 Dose: Not Given Umeclidinium [place] [Incruse Ellipta] * * Own Med 0 each INH DAILY [facility] Last Admin: 03/27/17 08:47 Dose: 1 each Potassium Chloride (Klor-Con M20) 20 meq PO BID [place] Last Admin: 03/27/17 09:50 Dose: 20 meq Saccharomyces Boulardii (Florastor) 250 mg PO TID [facility] Last Admin: 03/27/17 09:52 Dose: 250 mg Senna/Docusate Sodium (Senna Plus) 1 tab PO BID PRN PRN Reason: Constipation Discontinued Medications Albuterol/Ipratropium (Duoneb 3.0-0.5 Mg/3 Ml) 3 ml NEB ONETIME ONE Stop: 03/22/17 08:56 Last Admin: 03/22/17 09:15 Dose: 3 ml Enoxaparin Sodium (Lovenox) 40 mg SUBCUT DAILY [facility] Last Admin: 03/23/17 09:07 Dose: 40 mg Furosemide (Lasix) 20 mg IVPUSH NOW ONE Stop: 03/26/17 09:17 Last Admin: 03/26/17 10:15 Dose: 20 mg Sodium Chloride (Normal Saline) 1,000 mls @ 150 mls/hr IV ASDIRECTED [facility] Last Admin: 03/23/17 06:04 Dose: 150 mls/hr Sodium Chloride (Normal Saline) 1,000 mls @ 75 mls/hr IV ASDIRECTED [facility] Last Admin: 03/26/17 04:04 Dose: 75 mls/hr Piperacillin Sod/Tazobactam (Sod 4.5 gm/ Sodium Chloride) 100 mls @ 200 mls/hr IV ONETIME ONE Stop: 03/23/17 10:14 Last Admin: 03/23/17 10:28 Dose: 200 mls/hr Piperacillin Sod/Tazobactam (Sod 4.5 gm/ Sodium Chloride) 100 mls @ 25 mls/hr IV Q8H [place] Stop: 03/26/17 14:00 Last Admin: 03/26/17 10:15 Dose: 25 mls/hr Influenza Virus Vaccine (Pharmacy To Dose - Influenza Vaccine) 1 each IM ONETIME ONE Stop: 03/22/17 11:16 Influenza Virus Vaccine (Fluzone High-Dose 2017-18) 180 mcg IM .ONCE ONE Stop: 03/22/17 11:46 Iopamidol (Isovue-300 (61%)) 80 ml IVPUSH ONETIME ONE Stop: 03/22/17 06:43 Last Admin: 03/22/17 07:17 Dose: 80 ml Levofloxacin (Levaquin) 750 mg PO ONETIME STA Stop: 03/22/17 06:18 Last Admin: 03/22/17 06:24 Dose: 750 mg Methylprednisolone Sodium Succinate (Solu-Medrol) 125 mg IVPUSH ONETIME ONE Stop: 03/22/17 09:19 Last Admin: 03/22/17 09:24 Dose: 125 mg Methylprednisolone Sodium Succinate (Solu-Medrol) 125 mg IVPUSH Q6H [place] Last Admin: 03/24/17 09:30 Dose: 125 mg Methylprednisolone Sodium Succinate (Solu-Medrol) 125 mg IVPUSH Q8H [place] Last Admin: 03/25/17 09:29 Dose: 125 mg Metoprolol Tartrate (Lopressor) 50 mg PO ONETIME ONE Stop: 03/22/17 14:09 Last Admin: 03/22/17 14:18 Dose: 50 mg Morphine Sulfate (Morphine) 1 mg IVPUSH ONETIME ONE Stop: 03/23/17 09:17 Last Admin: 03/23/17 10:38 Dose: 1 mg Umeclidinium [place] (1 Puff) 0 each INH DAILY [facility] Umeclidinium [place] [Incruse Ellipta] * * Own Med 0 each INH DAILY@2100 [place] Potassium Chloride (Klor-Con M20) 40 meq PO ONETIME ONE Stop: 03/26/17 09:17 Last Admin: 03/26/17 10:15 Dose: 40 meq Sodium Chloride (Saline Flush) 10 ml FLUSH ONETIME PRN PRN Reason: IV Flush Last Admin: 03/22/17 07:17 Dose: 10 ml Warfarin Sodium (Coumadin) 10 mg PO SUTUWETHSA [facility] Last Admin: 03/22/17 14:47 Dose: Not Given Warfarin Sodium (Pharmacy To Dose - Warfarin) 7.5 dose PO MOFR [place] Warfarin Sodium (Coumadin) 7.5 mg PO MoFr@1800 [place] Warfarin Sodium (Coumadin) 10 mg PO SuTuWeThSa@1800 [place] Last Admin: 03/25/17 17:32 Dose: 10 mg - Exam Quality Assessment: Supplemental Oxygen, DVT Prophylaxis General: Alert, Oriented, Cooperative, No Acute Distress HEENT: Pupils Equal, EOMI, Mucous Membr. Moist/[place] Neck: Supple Lungs: Normal Respiratory Effort, Decreased Breath Sounds (significantly throughout), Wheezing (minimal, scattered on exp) Cardiovascular: Regular Rate, Regular Rhythm, No Murmurs GI/Abdominal Exam: Normal Bowel Sounds, Soft, Non-Tender (Female) Exam: Deferred Back Exam: Normal Inspection Extremities: Normal Inspection, No Pedal Edema, Normal Capillary Refill Peripheral Pulses: 2+: Dorsalis Pedis (L), Dorsalis Pedis (R) Skin: Warm, Dry, Intact Neurological: No New Focal Deficit Psy/Mental Status: Alert, Normal Affect, Normal Mood - Problem List & Annotations (1) Pneumonia SNOMED Code(s): 221441412 Code(s): J18.9 - PNEUMONIA, UNSPECIFIED ORGANISM Status: Acute Priority: High Current Visit: Yes Qualifiers: Pneumonia type: due to unspecified organism Laterality: right Lung location: lower lobe of lung Qualified Code(s): J18.1 - Lobar pneumonia, unspecified organism (2) Emphysema lung SNOMED Code(s): 31476539 Code(s): J43.9 - EMPHYSEMA, UNSPECIFIED Status: Chronic Priority: High Current Visit: Yes Qualifiers: Emphysema type: unspecified Qualified Code(s): J43.9 - Emphysema, unspecified (3) Failure to thrive in adult SNOMED Code(s): 508463002 Code(s): R62.7 - ADULT FAILURE TO THRIVE Status: Chronic Priority: High Current Visit: Yes (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 SNOMED Code(s): 081234436 Code(s): J44.9 - CHRONIC OBSTRUCTIVE PULMONARY DISEASE, UNSPECIFIED; R64 - [place] Status: Chronic Priority: High Current Visit: Yes (5) Atrial fib/flutter, transient SNOMED Code(s): 920061920 Code(s): [id number] - Status: Chronic Priority: Low Current Visit: Yes (6) Anxiety SNOMED Code(s): 40365255 Code(s): F41.9 - ANXIETY DISORDER, UNSPECIFIED Status: Chronic Priority: High Current Visit: Yes (7) Supratherapeutic INR SNOMED Code(s): 511475640 Code(s): R79.1 - ABNORMAL COAGULATION PROFILE Status: Acute Priority: High Current Visit: Yes - Problem List Review Problem List Initiated/Reviewed/Updated: Yes - My Orders Last 24 Hours: My Active Orders 03/27/17 09:00 Potassium Chloride [Klor-Con M20] 20 meq PO BID - Plan Plan:: Assessment/Plan: Acute: Right Sided PNA, Continues to Improve - History of Severe COPD requires continuous O2; No malignancy on Chest CT scan - Chest CT scan: Diffuse increased septal thickening surrounding emphysematous change within the right lung - Cannot r/o Aspiration (On Ativan for Anxiety and has GERD/Reflux Disease)-- H2B BID - CRP 19.3 --> 9.3 --> 3.5 - MRSA/Mycoplasma and Strep Pneumoniae negative - Blood/Sputum culture/Influenza negative - Continue IV Levaquin/Zosyn, Routine RT Care and Acapella -Repeat CXR with blunting of costophrenic angles- PNA appears improved by my review. COPD Exacerbation, Continues to Improve- but slowly - Patient carries history - Change Solumedrol 125 mg IVP to BID from QID; decrease to 40 Q12 hrs today -- decreasing dose with plan to DC on prednisone taper Respiratory Failure - Acute on Chronic - Continue to titrate supplemental oxygen to get down to her baseline at 1.5- 2L NC Leukocytosis--continues to improve - WBC 15. 73 ---> 15. 21-->12 - Infections +/- Steroids Use - Continue to monitor Supratherapeutic INR -4. 48 today; will plan to give 2.5mg PO vit K today -Likely due to levaquin -Hold Warfarin -Daily INR to follow Mild hypokalemia, 3.2 today -Supplement and follow with am labs -Magnesium WNL Chronic: History of A Flutter, on Warfarin HTN, Stable Respiratory Failure, 1.5 L NC at night and 2L NC with activities GERD, H2B Advanced COPD Anxiety/Depression, Stable Plan: She remains clinically stable but with slow improvements Continue current treatment Taper steroids Routine AM Labs DVT/GI prophylaxis: Warfarin (supratherapeutic now, hold warfarin); cont with teds and H2B Continue PT/OT/RT Additional orders as above Code status: 1 LOS will be >96 hours due to slower than expected course of improvement, supratherapeutic INR, mild hypokalemia; possible discharge in 1-2 days.
[2017-03-27] MEDS ORDERED: Phytonadione ORAL 2.5mg/2.5ml Soln Simple Syrup U/D PO ONE (11:58)
[2017-03-27] MEDS: Furosemide 20 MG Tab PO SCH (12:47)
[2017-03-27] MEDS: methylPREDNISolone Sodium Succinate 40 MG/1 ML SDV IVPUSH SCH (12:47)
[2017-03-27] MEDS: LORazepam 1 MG Tab PO PRN (20:00)
[2017-03-27] MEDS: busPIRone 15 MG Tab PO SCH (20:01)
[2017-03-27] MEDS: Mirtazapine 15 MG Tab PO SCH (20:01)
[2017-03-28] MEDS: methylPREDNISolone Sodium Succinate 40 MG/1 ML SDV IVPUSH SCH ×2 (00:58→13:32)
[2017-03-28] MEDS: Piperacillin/Tazobactam 4.5 GM in Dextrose 5% in Water 100 ML IV SCH ×4 (01:00→13:32)
[2017-03-28] MEDS: Levofloxacin/Dextrose 5%-Water 750 MG in Premix Bag 1 BAG IV SCH (06:39)
--- NOTE | 2017-03-28 07:26 | PCM.DCSUM1 ---
Discharge Summary - Hospital Course Free Text/Narrative:: Rukhsana is a 66yo female, resident of [facility], brought to ED by EMS after staff noted fever and worsening SOB. States that she has chronic dyspnea on exertion, but that it is much worse tonight. She states that she has been wheezing for the past 2 days, and has had a dry cough for the past 2 or 3 days. Transfer papers from [facility] indicate that the patient had a temperature of 101.3, however, she is found to have a temperature of 98.5 in the ED. The patient was given a DuoNeb prior to transport to the ED, around 03: 30 this morning. The patient states that she ordinarily takes supplemental oxygen at 1 L/m during the day, with occasional increases when she exerts herself, and 1.5 L nightly. Currently, the patient is on 3 L, saturating 92%. The patient reports similar symptoms in the past, due to pneumonia and COPD exacerbation. The patient's PCP is Dr. Sloan. Hospitalist service is consulted for admission for RLL pneumonia, hypoxia, COPD exacerbation. Patient was started on levaquin, zosyn, solumedrol IVP and aggressive pulmonary toilet/RT. She had slow response to treatment with increasing oxygen requirements up to 5L for a period of a few days. Symptoms slowly started to improve. INR was followed and became supratherapeutic at highest of 4.5, likely due to levaquin therapy. She was given 2.5mg of oral vitamin K with decrease of INR to 1.5 the following day. Repeat CXR did show slight improvements in pneumonia findings but blunting of costophrenic angles, she was given lasix x 2 days with improvements. Oxygen requirements did come down to baseline. Solumedrol dose was tapered down. She will be discharged with PO levaquin x 2 more days for 7 total days of abx tx, prednisone taper, florastor probiotic, KCL supplement BID for mild hypokalemia. She is to have INR rechecked tomorrow, BMP and mag checked in one week all with results to PCP, Dr. Sloan. F/up with PCP within one week of discharge. - Discharge Data Discharge Date: 03/28/17 (admit date 03/22/17) Discharge Disposition: DC/Tfer to [facility] 03 Condition: Fair - Discharge Diagnosis/Problem(s) (1) Pneumonia SNOMED Code(s): 716752894 ICD Code: J18.9 - PNEUMONIA, UNSPECIFIED ORGANISM Status: Acute Priority : High Current Visit: Yes Qualifiers: Pneumonia type: due to unspecified organism Laterality: right Lung location: lower lobe of lung Qualified Code(s): J18.1 - Lobar pneumonia, unspecified organism (2) Emphysema lung SNOMED Code(s): 46363953 ICD Code: J43.9 - EMPHYSEMA, UNSPECIFIED Status: Chronic Priority: High Current Visit: Yes Qualifiers: Emphysema type: unspecified Qualified Code(s): J43.9 - Emphysema, unspecified (3) Failure to thrive in adult SNOMED Code(s): 940470089 ICD Code: R62.7 - ADULT FAILURE TO THRIVE Status: Chronic Priority: High Current Visit: Yes (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 SNOMED Code(s): 983705675 ICD Code: J44.9 - CHRONIC OBSTRUCTIVE PULMONARY DISEASE, UNSPECIFIED; R64 - [place]HEX[place] Status: Chronic Priority: High Current Visit: Yes (5) Atrial fib/flutter, transient SNOMED Code(s): 036450578 ICD Code: FCS3011 - Status: Chronic Priority: Low Current Visit: Yes (6) Anxiety SNOMED Code(s): 54598023 ICD Code: F41.9 - ANXIETY DISORDER, UNSPECIFIED Status: Chronic Priority : High Current Visit: Yes (7) Supratherapeutic INR SNOMED Code(s): 621166283 ICD Code: R79.1 - ABNORMAL COAGULATION PROFILE Status: Acute Priority: High Current Visit: Yes - Patient Summary/Data Operative Procedure(s) Performed: None Complications: None Consults: Consultations 03/26/17 08:14 OT Evaluation and Treatment [CONS] Routine PT Evaluation and Treatment [CONS] Routine Labs Pending at D/C: None Recommended Follow-up Testing/Procedures: Physical & occupation therapy to eval & treat Supplement oxygen via nasal cannula as needed to keep sats greater than 90% Nursing: Please give flu immunization or document refusal Lab: INR tomorrow (03/29/17)- results to PCP, Dr. Sloan BMP and magnesium in one week- results to PCP as above -Rx written for these labs to be drawn and results to PCP Consider repeat CXR in 2 weeks to assure resolution of pneumonia Follow up with PCP, Dr. Sloan within one week of discharge Planned Operative Procedure(s) after DC: None Hospital Course: As above - Patient Instructions Diet: Usual Diet as Tolerated Activity: As Tolerated Driving: Do Not Drive Showering/Bathing: May Shower Notify Provider of: Fever, Increased Pain, Nausea and/or Vomiting (worsening cough or shortness of breath) - Discharge Plan Prescriptions/Med Rec: Bifidobacter. Bifidum/B.Longum [Florajen Bifidoblend] 460 mg PO DAILY #30 capsule busPIRone [Buspar] 10 mg PO BEDTIME #30 tablet guaiFENesin [Mucinex] 600 mg PO BID #60 tab.er Levofloxacin [Levaquin] 750 mg PO DAILY #2 tablet Potassium Chloride [Klor-Con M20] 20 meq PO BID #60 tab.er Prednisone [IJD: Prednisone] 10 mg PO DAILY #30 tab Home Medications: Home Meds Albuterol/Ipratropium [DuoNeb 3.0-0.5 MG/3 ML] 3 ml NEB Q6HRRT PRN #120 neb 09/18 [Rx] Bisacodyl [Dulcolax] 5 mg PO DAILY PRN #30 tablet 10/05/16 [Rx] Docusate Sodium/Sennosides [Senna Plus] 1 tab PO BID PRN #60 tablet 10/05/16 [Rx ] Famotidine [Pepcid] 20 mg PO BID #60 tablet 10/05/16 [Rx] Metoprolol Tartrate [Lopressor] 50 mg PO Q12HR #60 tablet 10/05/16 [Rx] Mirtazapine [Remeron] 15 mg PO BEDTIME #30 tablet 10/05/16 [Rx] Albuterol Sulfate [Proair Respiclick] 90 mcg IH QID PRN 03/22/17 [History] Albuterol Sulfate [Proventil Hfa] 1 puff INH DAILY 03/22/17 [History] Calcium Carbonate/Vitamin D3 [Calcium 500 + Vit D 400] 1 tab PO BID 03/22/17 [ History] DULoxetine [Cymbalta] 30 mg PO DAILY 03/22/17 [History] Diltiazem HCl [Cardizem Cd] 360 mg PO DAILY 03/22/17 [History] Fluticasone/Vilanterol [Breo Ellipta 100-25 MCG Inhalation Kit] 1 puff INH DAILY 03/22/17 [History] LORazepam [Ativan] 1 mg PO BID PRN 03/22/17 [History] Multivitamin W/Iron, Minerals [Compete] 1 tab PO DAILY 03/22/17 [History] Umeclidinium [place] [Incruse Ellipta*] 1 puff INH DAILY 03/22/17 [History] Warfarin Pharmacy to Dose [Pharmacy to Dose - Warfarin] 7.5 dose PO MOFR [History] Warfarin [Coumadin] 10 mg PO SUTUWETHSA 03/22/17 [History] busPIRone [Buspar] 20 mg PO 0800 03/22/17 [History] busPIRone [Buspar] 40 mg PO BEDTIME 03/22/17 [History] Bifidobacter. Bifidum/B.Longum [Florajen Bifidoblend] 460 mg PO DAILY #30 capsule 03/28/17 [Rx] Levofloxacin [Levaquin] 750 mg PO DAILY #2 tablet 03/28/17 [Rx] Potassium Chloride [Klor-Con M20] 20 meq PO BID #60 tab.er 03/28/17 [Rx] Prednisone [IJD: Prednisone] 10 mg PO DAILY #30 tab 03/28/17 [Rx] busPIRone [Buspar] 10 mg PO BEDTIME #30 tablet 03/28/17 [Rx] guaiFENesin [Mucinex] 600 mg PO BID #60 tab.er 03/28/17 [Rx] Patient Handouts: Chronic Obstructive Pulmonary Disease Exacerbation, Easy-to- Read, Smoking Cessation, Tips for Success, [id number], Smoking Hazards, Heart Failure, [id number], Community-Acquired Pneumonia, Adult, [id number] Forms: ED Department Discharge Referrals: Serjio Sloan MD [Primary Care Provider] - - Discharge Summary/Plan Comment DC Time >30 min.: Yes (40 min) - General Info Date of Service: 03/28/17 Admission Dx/Problem (Free Text: Admission Diagnosis/Problem Admission Diagnosis/Problem Pneumonia Holly is seen this morning, resting comfortably in bed. O2 is weaned down to 2L/ NC (she is baseline of 1.5 to 2L prior to admission). She is breathing a little easier today. cough is minimal. Afebrile; VSS; labs stable. INR is down to 1.43 now with 2.5mg of oral vit K yesterday. Functional Status: Reports: Pain Controlled, Tolerating Diet, Ambulating, Urinating, Incentive Spirometry (and FV) - Review of Systems General: Reports: Weakness. Denies: Fever HEENT: Reports: No Symptoms Pulmonary: Reports: Shortness of Breath (improved- chronic), Cough (minimal to none). Denies: Pleuritic Chest Pain Cardiovascular: Reports: Dyspnea on Exertion (improved- chronic). Denies: Chest Pain, Palpitations Gastrointestinal: Reports: No Symptoms Genitourinary: Reports: No Symptoms Psychiatric: Reports: No Symptoms, Anxiety (chronic/controlled/baseline) - Patient Data Vitals - Most Recent: Last Vital Signs Temp 97.9 F 03/28/17 01:08 Pulse 70 03/28/17 01:08 Resp 16 03/28/17 01:08 BP 130/68 03/28/17 02:46 Pulse Ox 95 03/28/17 01:08 Weight - Most Recent: 146 lb I&O - Last 24 hours: Intake & Output 03/27/17 03/28/17 03/28/17 22:59 06:59 14:59 Intake Total 250 450 Output Total 1000 Balance -750 450 Lab Results - Last 24 hrs: Laboratory Results - last 24 hr 03/27/17 03/27/17 03/28/17 Range/Units 05:55 05:55 05:55 WBC (3.98-10.04) K/mm3 RBC (3.98-5.22) M/mm3 Hgb (11.2-15.7) gm/L Hct (34.1-44.9) % MCV (79.4-94.8) fl MCH (25.6-32.2) pg MCHC (32.2-35.5) g/dl RDW Std Deviation (36.4-46.3) fL Plt Count (182-369) K/mm3 MPV (9.4-12.3) fl Neut % (Auto) (34.0-71.1) % Lymph % (Auto) (19.3-51.7) % [place] % (Auto) (4.7-12.5) % Eos % (Auto) (0.7-5.8) Baso % (Auto) (0.1-1.2) % Neut # (Auto) (1.56-6.13) K/mm3 Lymph # (Auto) (1.18-3.74) K/mm3 [place] # (Auto) (0.24-0.36) K/mm3 Eos # (Auto) (0.04-0.36) K/mm3 Baso # (Auto) (0.01-0.08) K/mm3 Manual Slide Review PT 16.0 H (8.0-13.0) SECONDS INR 1.43 Sodium 145 (136-145) mEq/L Potassium 3.2 L (3.5-5.1) mEq/L Chloride 103 (98-107) mEq/L Carbon Dioxide 35 H (21-32) mEq/L Anion Gap 10.2 (5-15) BUN 15 (7-18) mg/dL Creatinine 0.6 (0.55-1.02) mg/dL Est Cr Clr Drug Dosing 97.66 mL/min Estimated GFR (MDRD) > 60 (>60) mL/min BUN/Creatinine Ratio 25.0 H (14-18) Glucose 146 H (80-115) mg/dL Calcium 8.4 L (8.5-10.1) mg/dL Magnesium 2.2 (1.8-2.4) mg/dl C-Reactive Protein 0.6 (<1.0) mg/dL 03/28/17 Range/Units 05:55 WBC 14.17 H (3.98-10.04) K/mm3 RBC 4.30 (3.98-5.22) M/mm3 Hgb 12.6 (11.2-15.7) gm/L Hct 37.9 (34.1-44.9) % MCV 88.1 (79.4-94.8) fl MCH 29.3 (25.6-32.2) pg MCHC 33.2 (32.2-35.5) g/dl RDW Std Deviation 41.7 (36.4-46.3) fL Plt Count 387 H (182-369) K/mm3 MPV 8.7 L (9.4-12.3) fl Neut % (Auto) 84.2 H (34.0-71.1) % Lymph % (Auto) 6.7 L (19.3-51.7) % [place] % (Auto) 5.3 (4.7-12.5) % Eos % (Auto) 0 L (0.7-5.8) Baso % (Auto) 0.1 (0.1-1.2) % Neut # (Auto) 11.92 H (1.56-6.13) K/mm3 Lymph # (Auto) 0.95 L (1.18-3.74) K/mm3 [place] # (Auto) 0.75 H (0.24-0.36) K/mm3 Eos # (Auto) 0.00 L (0.04-0.36) K/mm3 Baso # (Auto) 0.02 (0.01-0.08) K/mm3 Manual Slide Review Abnormal smear PT (8.0-13.0) SECONDS INR Sodium (136-145) mEq/L Potassium (3.5-5.1) mEq/L Chloride (98-107) mEq/L Carbon Dioxide (21-32) mEq/L Anion Gap (5-15) BUN (7-18) mg/dL Creatinine (0.55-1.02) mg/dL Est Cr Clr Drug Dosing mL/min Estimated GFR (MDRD) (>60) mL/min BUN/Creatinine Ratio (14-18) Glucose (80-115) mg/dL Calcium (8.5-10.1) mg/dL Magnesium (1.8-2.4) mg/dl C-Reactive Protein (<1.0) mg/dL Med Orders - Current: Current Medications Albuterol/Ipratropium (Duoneb 3.0-0.5 Mg/3 Ml) 3 ml NEB QID PRN PRN Reason: Shortness of Breath Last Admin: 03/27/17 20:21 Dose: 3 ml Bisacodyl (Dulcolax) 5 mg PO DAILY PRN PRN Reason: Constipation Buspirone HCl (Buspar) 30 mg PO BEDTIME [facility] Last Admin: 03/27/17 20:01 Dose: 30 mg Buspirone HCl (Buspar) 20 mg PO 0800 [facility] Last Admin: 03/27/17 10:10 Dose: 20 mg Buspirone HCl (Buspar) 10 mg PO BEDTIME [facility] Last Admin: 03/27/17 20:01 Dose: 10 mg Diltiazem HCl (Cardizem Cd) 360 mg PO DAILY [facility] Last Admin: 03/27/17 09:50 Dose: 360 mg Duloxetine HCl (Cymbalta) 30 mg PO DAILY [facility] Last Admin: 03/27/17 09:50 Dose: 30 mg Famotidine (Pepcid) 20 mg PO BID [facility] Last Admin: 03/27/17 20:01 Dose: 20 mg Furosemide (Lasix) 20 mg PO DAILY [facility] Last Admin: 03/27/17 12:47 Dose: 20 mg Guaifenesin (Mucinex) 600 mg PO TID PRN PRN Reason: Congestion Last Admin: 03/22/17 15:23 Dose: 600 mg Levofloxacin/Dextrose 750 mg/ (Premix) 150 mls @ 100 mls/hr IV Q24H [facility] Last Admin: 03/28/17 06:39 Dose: 100 mls/hr Piperacillin Sod/Tazobactam (Sod 4.5 gm/ Dextrose/Water) 100 mls @ 25 mls/hr IV Q8H [facility] Last Admin: 03/28/17 01:00 Dose: 25 mls/hr Lorazepam (Ativan) 1 mg PO BID PRN PRN Reason: Anxiety Last Admin: 03/27/17 20:00 Dose: 1 mg Methylprednisolone Sodium Succinate (Solu-Medrol) 40 mg IVPUSH Q12H [facility] Last Admin: 03/28/17 00:58 Dose: 40 mg Metoprolol Tartrate (Lopressor) 50 mg PO Q12HR [facility] Last Admin: 03/27/17 20:02 Dose: 50 mg Mirtazapine (Remeron) 15 mg PO BEDTIME [facility] Last Admin: 03/27/17 20:01 Dose: 15 mg Multivitamins (Thera) 1 each PO DAILY [facility] Last Admin: 03/27/17 11:03 Dose: 1 each Fluticasone/Vilnterol [Breo Ellipta] 100/25 Own Med 0 each INH BEDTIME [facility] Last Admin: 03/27/17 20:20 Dose: 1 each Umeclidinium [place] [Incruse Ellipta] * * Own Med 0 each INH DAILY [facility] Last Admin: 03/27/17 08:47 Dose: 1 each Potassium Chloride (Klor-Con M20) 20 meq PO BID [facility] Last Admin: 03/27/17 20:01 Dose: 20 meq Saccharomyces Boulardii (Florastor) 250 mg PO TID [facility] Last Admin: 03/27/17 20:01 Dose: 250 mg Senna/Docusate Sodium (Senna Plus) 1 tab PO BID PRN PRN Reason: Constipation Discontinued Medications Albuterol/Ipratropium (Duoneb 3.0-0.5 Mg/3 Ml) 3 ml NEB ONETIME ONE Stop: 03/22/17 08:56 Last Admin: 03/22/17 09:15 Dose: 3 ml Enoxaparin Sodium (Lovenox) 40 mg SUBCUT DAILY [facility] Last Admin: 03/23/17 09:07 Dose: 40 mg Furosemide (Lasix) 20 mg IVPUSH NOW ONE Stop: 03/26/17 09:17 Last Admin: 03/26/17 10:15 Dose: 20 mg Sodium Chloride (Normal Saline) 1,000 mls @ 150 mls/hr IV ASDIRECTED [facility] Last Admin: 03/23/17 06:04 Dose: 150 mls/hr Sodium Chloride (Normal Saline) 1,000 mls @ 75 mls/hr IV ASDIRECTED [facility] Last Admin: 03/26/17 04:04 Dose: 75 mls/hr Piperacillin Sod/Tazobactam (Sod 4.5 gm/ Sodium Chloride) 100 mls @ 200 mls/hr IV ONETIME ONE Stop: 03/23/17 10:14 Last Admin: 03/23/17 10:28 Dose: 200 mls/hr Piperacillin Sod/Tazobactam (Sod 4.5 gm/ Sodium Chloride) 100 mls @ 25 mls/hr IV Q8H [facility] Stop: 03/26/17 14:00 Last Admin: 03/26/17 10:15 Dose: 25 mls/hr Influenza Virus Vaccine (Pharmacy To Dose - Influenza Vaccine) 1 each IM ONETIME ONE Stop: 03/22/17 11:16 Influenza Virus Vaccine (Fluzone High-Dose 2017-18) 180 mcg IM .ONCE ONE Stop: 03/22/17 11:46 Iopamidol (Isovue-300 (61%)) 80 ml IVPUSH ONETIME ONE Stop: 03/22/17 06:43 Last Admin: 03/22/17 07:17 Dose: 80 ml Levofloxacin (Levaquin) 750 mg PO ONETIME STA Stop: 03/22/17 06:18 Last Admin: 03/22/17 06:24 Dose: 750 mg Methylprednisolone Sodium Succinate (Solu-Medrol) 125 mg IVPUSH ONETIME ONE Stop: 03/22/17 09:19 Last Admin: 03/22/17 09:24 Dose: 125 mg Methylprednisolone Sodium Succinate (Solu-Medrol) 125 mg IVPUSH Q6H [facility] Last Admin: 03/24/17 09:30 Dose: 125 mg Methylprednisolone Sodium Succinate (Solu-Medrol) 125 mg IVPUSH Q8H [facility] Last Admin: 03/25/17 09:29 Dose: 125 mg Methylprednisolone Sodium Succinate (Solu-Medrol) 80 mg IVPUSH Q12H [facility] Last Admin: 03/27/17 10:12 Dose: 80 mg Metoprolol Tartrate (Lopressor) 50 mg PO ONETIME ONE Stop: 03/22/17 14:09 Last Admin: 03/22/17 14:18 Dose: 50 mg Morphine Sulfate (Morphine) 1 mg IVPUSH ONETIME ONE Stop: 03/23/17 09:17 Last Admin: 03/23/17 10:38 Dose: 1 mg Umeclidinium [place] (1 Puff) 0 each INH DAILY [facility] Umeclidinium [place] [Incruse Ellipta] * * Own Med 0 each INH DAILY@2100 [facility] Phytonadione (Aquamephyton) 2.5 mg PO ONETIME ONE Stop: 03/27/17 11:59 Last Admin: 03/27/17 12:47 Dose: 2.5 mg Potassium Chloride (Klor-Con M20) 40 meq PO ONETIME ONE Stop: 03/26/17 09:17 Last Admin: 03/26/17 10:15 Dose: 40 meq Sodium Chloride (Saline Flush) 10 ml FLUSH ONETIME PRN PRN Reason: IV Flush Last Admin: 03/22/17 07:17 Dose: 10 ml Warfarin Sodium (Coumadin) 10 mg PO SUTUWETHSA [facility] Last Admin: 03/22/17 14:47 Dose: Not Given Warfarin Sodium (Pharmacy To Dose - Warfarin) 7.5 dose PO MOFR [facility] Warfarin Sodium (Coumadin) 7.5 mg PO MoFr@1800 [facility] Warfarin Sodium (Coumadin) 10 mg PO SuTuWeThSa@1800 [facility] Last Admin: 03/25/17 17:32 Dose: 10 mg - Exam Quality Assessment: Reports: Supplemental Oxygen, DVT Prophylaxis General: Reports: Alert, Oriented, Cooperative, No Acute Distress HEENT: Reports: Pupils Equal, EOMI, Mucous Membr. Moist/Crown Neck: Reports: Supple Lungs: Reports: Normal Respiratory Effort, Decreased Breath Sounds (throughout but better air exchange noted today) Cardiovascular: Reports: Irregular Rhythm GI/Abdominal Exam: Normal Bowel Sounds, Soft, Non-Tender (Female) Exam: Deferred Rectal (Female) Exam: Deferred Extremities: Normal Inspection, Normal Range of Motion, No Pedal Edema Skin: Reports: Warm, Dry Neurological: Reports: No New Focal Deficit Psy/Mental Status: Reports: Alert, Normal Affect, Normal Mood *Q Meaningful Use (DIS) - VTE *Q VTE Criteria *Q: - Stroke *Q Stroke Criteria *Q: - AMI *Q AMI Criteria *Q:
[2017-03-28] MEDS: Famotidine 20 MG Tab PO SCH (08:40)
[2017-03-28] MEDS: Saccharomyces Boulardii (Probiotic) 250 MG Cap PO SCH (08:40)
[2017-03-28] MEDS: Diltiazem 180 MG Cap.CD PO SCH (08:41)
[2017-03-28] MEDS: Metoprolol Tartrate 50 MG Tab PO SCH (08:41)
[2017-03-28] MEDS: DULoxetine 30 MG Cap PO SCH (08:41)
[2017-03-28] MEDS: Multivitamins,Therapeutic Tab PO SCH (08:42)
[2017-03-28] MEDS: Furosemide 20 MG Tab PO SCH (08:42)
[2017-03-28] MEDS: Potassium Chloride 20 MEQ Tab.ER PO SCH (08:42)
[2017-03-28 08:43] VITALS: BP 153/73
[2017-03-28] MEDS: LORazepam 1 MG Tab PO PRN (08:53)
[2017-03-28] MEDS: Albuterol/Ipratropium 3.0-0.5 MG/3 ML Neb Soln NEB PRN (09:10)
[2017-03-28] MEDS: UMECLIDINIUM BROMIDE INH SCH (09:11)
[2017-03-28] MEDS ORDERED: FLU Vacc TS 2017-18 (65yr UP)/PF 180 MCG/0.5 ML Syringe IM ONE (09:30)
[2017-03-28] MEDS: busPIRone 5 MG Tab PO SCH (09:45)
[2017-03-28] MEDS ORDERED: methylPREDNISolone Sodium Succinate 40 MG/1 ML SDV IVPUSH ONE (10:15)
== END 2017-03-28 10:10 | DRG 194 ==
LOC: JD.ED 03:52 → UNDOADMIN 09:42 → JD.MS 09:42
PROVIDERS: ADMIT Internal Medicine Cardiovascular Disease; ATTEND Internal Medicine Cardiovascular Disease
DX: J18.9 Pneumonia, unspecified organism (principal); J44.0 Chronic obstructive pulmonary disease with (acute) lower respiratory infection; J44.9 Chronic obstructive pulmonary disease, unspecified; J44.1 Chronic obstructive pulmonary disease with (acute) exacerbation; I10 Essential (primary) hypertension; I48.92 Unspecified atrial flutter; Z87.891 Personal history of nicotine dependence; I48.91 Unspecified atrial fibrillation; Z87.01 Personal history of pneumonia (recurrent); R09.02 Hypoxemia; R79.1 Abnormal coagulation profile; E87.6 Hypokalemia; R62.7 Adult failure to thrive; Z79.01 Long term (current) use of anticoagulants; F32.9 Major depressive disorder, single episode, unspecified; F41.9 Anxiety disorder, unspecified; M19.90 Unspecified osteoarthritis, unspecified site; K21.9 Gastro-esophageal reflux disease without esophagitis; N39.3 Stress incontinence (female) (male); H54.7 Unspecified visual loss; Z99.81 Dependence on supplemental oxygen; Z79.899 Other long term (current) drug therapy; Z23 Encounter for immunization
CPT/HCPCS: 71020; 71260; 96361; 94640; 99285; 93005 ×2; 96374; 85025; 85730; 85379; 85610; 82803; 36600; 36415; 80053; 84484; 83880; 83605; 87040 ×2; Q9967; A9270; J2930; J7040; J7050; 80048; 83036; 83735; 86140; 86738; 87070; 87205; 87641; 87804; 87899; 90662; 93010; 94667; 94668; 94760; 94761; 97161-GP; 97165-GO; G0008; J1650; J1956; J2270; J2543; J2920; J7030; J7060

== ENCOUNTER 2017-04-03 10:02 | Inpatient (IN) | payer MEDICARE, MEDICAID ==
[2017-04-03] MEDS ORDERED: Albuterol/Ipratropium 3.0-0.5 MG/3 ML Neb Soln NEB ONE (11:10)
--- NOTE | 2017-04-03 11:28 | EDM.PDOC ---
ED HPI GENERAL MEDICAL PROBLEM - General Chief Complaint: Respiratory Problem Stated Complaint: RESPIRATORY ISSUES Time Seen by Provider: 04/03/17 11:02 Source of Information: Reports: Patient, Care Home Records, Old Records ( recent hospitalization) History Limitations: Reports: No Limitations - History of Present Illness INITIAL COMMENTS - FREE TEXT/NARRATIVE: 66-year-old female presents for evaluation treatment of dyspnea on exertion. Patient was recently admitted to our hospital on 03-22-17 and discharge for similar symptoms. She was diagnosed with a COPD exacerbation, right lower lobe pneumonia and hypoxia. She was discharged home on Levaquin and prednisone. Received Zosyn and IV Solu-Medrol while in the hospital. Patient reports when she returned to the jail sheet the first day back she was able to walk and did not feel short of breath. She then states that the second day she was home she noticed worsening dyspnea with exertion. She reports that last night she had shortness of breath at rest and with exertion. She reports when she was able to relax the shortness of breath would improve. She is normally on 1-2 L of oxygen. Yesterday utilized 2 L of oxygen. She denies any nausea, vomiting, chest pain, earaches, sore throat, fevers or headaches. She reports that she's had back pain since leaving the hospital. Reportsa "little bit" of a cough. Reports she has been using her Brio and her Incruz. Has also been using her albuterol daily. No prn nebulizers used. Has prn duoneb ordered. Patient is currently on Coumadin. Lower Back Pain Score (Numeric/FACES): 4 - Related Data Allergies Allergy/AdvReac Type Severity Reaction Status Date / Time No Known Allergies Allergy Verified 04/03/17 10:15 Home Meds: Home Meds Albuterol/Ipratropium [DuoNeb 3.0-0.5 MG/3 ML] 3 ml NEB Q6HRRT PRN #120 neb 09/18 [Rx] Bisacodyl [Dulcolax] 5 mg PO DAILY PRN #30 tablet 10/05/16 [Rx] Docusate Sodium/Sennosides [Senna Plus] 1 tab PO BID PRN #60 tablet 10/05/16 [Rx ] Famotidine [Pepcid] 20 mg PO BID #60 tablet 10/05/16 [Rx] Metoprolol Tartrate [Lopressor] 50 mg PO Q12HR #60 tablet 10/05/16 [Rx] Mirtazapine [Remeron] 15 mg PO BEDTIME #30 tablet 10/05/16 [Rx] Albuterol Sulfate [Proair Respiclick] 90 mcg IH QID PRN 03/22/17 [History] Albuterol Sulfate [Proventil Hfa] 1 puff INH DAILY 03/22/17 [History] Calcium Carbonate/Vitamin D3 [Calcium 500 + Vit D 400] 1 tab PO BID 03/22/17 [ History] DULoxetine [Cymbalta] 30 mg PO DAILY 03/22/17 [History] Diltiazem HCl [Cardizem Cd] 360 mg PO DAILY 03/22/17 [History] Fluticasone/Vilanterol [Breo Ellipta 100-25 MCG Inhalation Kit] 1 puff INH DAILY 03/22/17 [History] LORazepam [Ativan] 1 mg PO BID PRN 03/22/17 [History] Multivitamin W/Iron, Minerals [Compete] 1 tab PO DAILY 03/22/17 [History] Umeclidinium [place] [Incruse Ellipta*] 1 puff INH DAILY 03/22/17 [History] Warfarin Pharmacy to Dose [Pharmacy to Dose - Warfarin] 7.5 dose PO MOFR [History] Warfarin [Coumadin] 10 mg PO SUTUWETHSA 03/22/17 [History] busPIRone [Buspar] 20 mg PO 0800 03/22/17 [History] busPIRone [Buspar] 40 mg PO QPM 03/22/17 [History] Bifidobacter. Bifidum/B.Longum [Florajen Bifidoblend] 460 mg PO DAILY #30 capsule 03/28/17 [Rx] Potassium Chloride [Klor-Con M20] 20 meq PO BID #60 tab.er 03/28/17 [Rx] guaiFENesin [Mucinex] 600 mg PO BID #60 tab.er 03/28/17 [Rx] Acetaminophen [Tylenol] 650 mg PO Q4HR PRN 04/03/17 [History] Prednisone [IJD: Prednisone] 30 mg PO DAILY 04/03/17 [History] Past Medical History HEENT History: Reports: Impaired Vision Other HEENT History: wears glasses Cardiovascular History: Reports: Arrhythmia, Hypertension Other Cardiovascular History: atrial flutter Respiratory History: Reports: COPD, Pneumonia, Recurrent, SOB Gastrointestinal History: Reports: GERD Genitourinary History: Reports: Urinary Incontinence Other Genitourinary History: dribbling Musculoskeletal History: Reports: Arthritis Neurological History: Reports: Migraines Psychiatric History: Reports: Anxiety, Depression - Infectious Disease History Infectious Disease History: Reports: Chicken Pox - Past Surgical History Cardiovascular Surgical History: Reports: None Female Surgical History: Reports: None Social & Family History - Family History Family Medical History: Noncontributory HEENT: Reports: Impaired Vision Respiratory: Reports: Asthma, COPD Musculoskeletal: Reports: Arthritis Oncologic: Reports: Breast, Colon, Lymphoma, Pancreatic - Tobacco Use Smoking Status *Q: Former Smoker Years of Tobacco use: 46 Packs/Tins Daily: 1.5 Used Tobacco, but Quit: Yes Month Tobacco Last Used: February Second Hand Smoke Exposure: No - Caffeine Use Caffeine Use: Reports: Coffee - Recreational Drug Use Recreational Drug Use: No Recreational Drug Type: Reports: Marijuana/Hashish Recreational Drug Use Frequency: Not Used In Over 6 Months - Living Situation & Occupation Living situation: Reports: Single, Extended Care Facility ([facility]) Occupation: Retired ED ROS GENERAL - Review of Systems Review Of Systems: See Below Constitutional: Denies: Fever, Diaphoresis, Decreased Appetite HEENT: Denies: Ear Pain, Throat Swelling Respiratory: Reports: Shortness of Breath, Cough Cardiovascular: Reports: Dyspnea on Exertion. Denies: Chest Pain GI/Abdominal: Denies: Nausea, Vomiting Musculoskeletal: Reports: Back Pain (low back) Neurological: Denies: Headache ED EXAM, GENERAL - Physical Exam Exam: See Below Exam Limited By: No Limitations General Appearance: Alert, WD/WN, No Apparent Distress, Cachetic Ears: Normal External Exam, Normal Canal, Hearing Grossly Normal, Normal TMs Nose: Normal Inspection Throat/Mouth: Normal Inspection, Normal Lips, Normal Voice, No Airway Compromise Respiratory/Chest: Decreased Breath Sounds Cardiovascular: Normal Peripheral Pulses, Regular Rate, Rhythm, No Murmur GI/Abdominal: Soft, Non-Tender Neurological: Alert, Oriented, Normal Cognition Psychiatric: Normal Affect, Normal Mood Skin Exam: Warm, Dry, Normal Color EKG INTERPRETATION EKG Date: 04/03/17 Time: 11:30 Rhythm: NSR Rate (Beats/Min): 89 [place]: Normal P-Wave: Present QRS: Normal ST-T: Elevated (II and III - likely early repolarization) QT: Normal EKG Interpretation Comments: NSR at 96 bpm. Decreased voltage precordial leads. Increased ST segment elevation in II and III - likely early repolarization. Near Q waves in V1, V2 and AVF, T wave inversion. Consider old anteroseptal CT. Reviewed by myself and Dr. Vogt. Course - Vital Signs Last Recorded V/S: Last Vital Signs Temp 37.2 C 04/03/17 10:15 Pulse 93 04/03/17 10:15 Resp 20 04/03/17 10:15 BP 151/94 H 04/03/17 10:15 Pulse Ox 90 L 04/03/17 11:11 - Orders/Labs/Meds Orders: Active Orders 24 hr Category Date Time Status Cardiac Monitoring [RC] . DIRECTED Care 04/03/17 11:10 Active EKG Documentation Completion [RC] ASDIRECTED Care 04/03/17 11:11 Active Oxygen Therapy [RC] ASDIRECTED Care 04/03/17 11:10 Active RT Aerosol Therapy [RC] ASDIRECTED Care 04/03/17 11:11 Active cefTRIAXone [Rocephin] Med 04/03/17 12:30 Active 2 gm IVPUSH Q24H EKG 12 Lead [EK] Stat Ther 04/03/17 11:10 Ordered Medication Orders Acetaminophen (Tylenol) 650 mg PO Q4H PRN PRN Reason: Pain (Mild 1-3)/fever Hydrocodone Bitart/Acetaminophen ([place] 325-5 Mg) 1 tab PO Q4H PRN PRN Reason: Pain (moderate 4-6) Albuterol/Ipratropium (Duoneb 3.0-0.5 Mg/3 Ml) 3 ml NEB Q4H PRN PRN Reason: Shortness Of Breath/wheezing Buspirone HCl (Buspar) 20 mg PO DAILY@0800 [place] Buspirone HCl (Buspar) 40 mg PO DAILY@1800 [facility] Ceftriaxone Sodium (Rocephin) 2 gm IVPUSH Q24H [facility] Last Admin: 04/03/17 12:34 Dose: Not Given Docusate Sodium (Colace) 100 mg PO BID PRN PRN Reason: Constipation Famotidine (Pepcid) 20 mg PO BID [facility] Guaifenesin (Mucinex) 600 mg PO BID [facility] Lorazepam (Ativan) 1 mg PO BID PRN PRN Reason: Anxiety Metoprolol Tartrate (Lopressor) 50 mg PO Q12HR [place] Mirtazapine (Remeron) 15 mg PO BEDTIME [facility] Non-Formulary Medication (Diltiazem Hcl [Cardizem Cd]) 360 mg PO DAILY [facility] Non-Formulary Medication (Fluticasone/Vilanterol) 1 puff INH DAILY [place] Non-Formulary Medication (Umeclidinium [place]) 1 puff INH DAILY [facility] Ondansetron HCl (Zofran Odt) 4 mg PO Q6H PRN PRN Reason: nausea, able to take PO Ondansetron HCl (Zofran) 4 mg IV Q6H PRN PRN Reason: Nausea/Vomiting Polyethylene Glycol (Miralax) 17 gm PO DAILY PRN PRN Reason: Constipation Potassium Chloride (Klor-Con M20) 20 meq PO BID [facility] Senna/Docusate Sodium (Senna Plus) 1 tab PO BID PRN PRN Reason: Constipation Temazepam (Restoril) 7.5 mg PO BEDTIME PRN PRN Reason: Sleep Warfarin Sodium (Coumadin) 10 mg PO SUTUWETHSA [facility] Labs: Laboratory Tests 04/03/17 04/03/17 04/03/17 Range/Units 11:10 11:10 11:10 WBC 45.97 H (3.98-10.04) K/mm3 RBC 4.35 (3.98-5.22) M/mm3 Hgb 13.0 (11.2-15.7) gm/L Hct 39.7 (34.1-44.9) % MCV 91.3 (79.4-94.8) fl MCH 29.9 (25.6-32.2) pg MCHC 32.7 (32.2-35.5) g/dl RDW Std Deviation 46.7 H (36.4-46.3) fL Plt Count 355 (182-369) K/mm3 MPV 8.8 L (9.4-12.3) fl Neutrophils % (Manual) 91 H (40-60) % Band Neutrophils % 3 (0-10) % Lymphocytes % (Manual) 3 L (20-40) % Atypical Lymphs % 0 % Monocytes % (Manual) 3 (2-10) % Eosinophils % (Manual) 0 L (0.7-5.8) % Basophils % (Manual) 0 L (0.1-1.2) Platelet Estimate Adequate Plt Morphology Comment Normal Anisocytosis 1+ slight RBC Morph Comment Not Reportable PT 40.5 H (8.0-13.0) SECONDS INR 3.43 Sodium 140 (136-145) mEq/L Potassium 5.1 (3.5-5.1) mEq/L Chloride 102 (98-107) mEq/L Carbon Dioxide 31 (21-32) mEq/L Anion Gap 12.1 (5-15) BUN 26 H (7-18) mg/dL Creatinine 0.6 (0.55-1.02) mg/dL Est Cr Clr Drug Dosing 97.73 mL/min Estimated GFR (MDRD) > 60 (>60) mL/min BUN/Creatinine Ratio 43.3 H (14-18) Glucose 130 H (80-115) mg/dL Calcium 9.3 (8.5-10.1) mg/dL Magnesium 2.0 (1.8-2.4) mg/dl Total Bilirubin 1.0 (0.2-1.0) mg/dL AST 24 (15-37) U/L ALT 39 (14-59) U/L Alkaline Phosphatase 46 (46-116) U/L CK-MB (CK-2) (0-3.6) ng/ml Troponin I (0.00-0.056) ng/mL C-Reactive Protein 5.9 H* (<1.0) mg/dL NT-Pro-B Natriuret Pep 218 H (0-125) pg/mL Total Protein 6.6 (6.4-8.2) g/dl Albumin 3.0 L (3.4-5.0) g/dl Globulin 3.6 gm/dL Albumin/Globulin Ratio 0.8 L (1-2) 04/03/17 04/03/17 Range/Units 11:10 11:10 WBC (3.98-10.04) K/mm3 RBC (3.98-5.22) M/mm3 Hgb (11.2-15.7) gm/L Hct (34.1-44.9) % MCV (79.4-94.8) fl MCH (25.6-32.2) pg MCHC (32.2-35.5) g/dl RDW Std Deviation (36.4-46.3) fL Plt Count (182-369) K/mm3 MPV (9.4-12.3) fl Neutrophils % (Manual) (40-60) % Band Neutrophils % (0-10) % Lymphocytes % (Manual) (20-40) % Atypical Lymphs % % Monocytes % (Manual) (2-10) % Eosinophils % (Manual) (0.7-5.8) % Basophils % (Manual) (0.1-1.2) Platelet Estimate Plt Morphology Comment Anisocytosis RBC Morph Comment PT (8.0-13.0) SECONDS INR Sodium (136-145) mEq/L Potassium (3.5-5.1) mEq/L Chloride (98-107) mEq/L Carbon Dioxide (21-32) mEq/L Anion Gap (5-15) BUN (7-18) mg/dL Creatinine (0.55-1.02) mg/dL Est Cr Clr Drug Dosing mL/min Estimated GFR (MDRD) (>60) mL/min BUN/Creatinine Ratio (14-18) Glucose (80-115) mg/dL Calcium (8.5-10.1) mg/dL Magnesium (1.8-2.4) mg/dl Total Bilirubin (0.2-1.0) mg/dL AST (15-37) U/L ALT (14-59) U/L Alkaline Phosphatase (46-116) U/L CK-MB (CK-2) < 0.5 (0-3.6) ng/ml Troponin I < 0.017 (0.00-0.056) ng/mL C-Reactive Protein (<1.0) mg/dL NT-Pro-B Natriuret Pep (0-125) pg/mL Total Protein (6.4-8.2) g/dl Albumin (3.4-5.0) g/dl Globulin gm/dL Albumin/Globulin Ratio (1-2) Meds: Medications Generic Name Dose Route Start Last Admin Trade Name Freq PRN Reason Stop Dose Admin Acetaminophen 650 mg 04/03/17 15:18 Tylenol PO Q4H PRN Pain (Mild 1-3)/fever Hydrocodone Bitart/Acetaminophen 1 tab 04/03/17 15:18 [place] 325-5 Mg PO Q4H PRN Pain (moderate 4-6) Albuterol/Ipratropium 3 ml 04/03/17 15:18 Duoneb 3.0-0.5 Mg/3 Ml NEB Q4H PRN Shortness Of Breath/wheezing Buspirone HCl 20 mg 04/04/17 08:00 Buspar PO DAILY@0800 [facility] Buspirone HCl 40 mg 04/03/17 18:00 Buspar PO DAILY@1800 [facility] Ceftriaxone Sodium 2 gm 04/03/17 12:30 04/03/17 12:34 Rocephin IVPUSH Not Given Q24H [facility] Docusate Sodium 100 mg 04/03/17 15:18 Colace PO BID PRN Constipation Famotidine 20 mg 04/03/17 21:00 Pepcid PO BID [facility] Guaifenesin 600 mg 04/03/17 21:00 Mucinex PO BID [facility] Lorazepam 1 mg 04/03/17 15:29 Ativan PO BID PRN Anxiety Metoprolol Tartrate 50 mg 04/03/17 21:00 Lopressor PO Q12HR [facility] Mirtazapine 15 mg 04/03/17 21:00 Remeron PO BEDTIME [facility] Non-Formulary Medication 360 mg 04/04/17 09:00 Diltiazem Hcl [Cardizem Cd] PO DAILY [facility] Non-Formulary Medication 1 puff 04/04/17 09:00 Fluticasone/Vilanterol INH DAILY [facility] Non-Formulary Medication 1 puff 04/04/17 09:00 Umeclidinium [place] INH DAILY [facility] Ondansetron HCl 4 mg 04/03/17 15:18 Zofran Odt PO Q6H PRN nausea, able to take PO Ondansetron HCl 4 mg 04/03/17 15:18 Zofran IV Q6H PRN Nausea/Vomiting Polyethylene Glycol 17 gm 04/03/17 15:18 Miralax PO DAILY PRN Constipation Potassium Chloride 20 meq 04/03/17 21:00 Klor-Con M20 PO BID [facility] Senna/Docusate Sodium 1 tab 04/03/17 15:18 Senna Plus PO BID PRN Constipation Temazepam 7.5 mg 04/03/17 15:18 Restoril PO BEDTIME PRN Sleep Warfarin Sodium 10 mg 04/03/17 15:30 Coumadin PO SUTUWETHSA [place] Discontinued Medications Generic Name Dose Route Start Last Admin Trade Name [place] PRN Reason Stop Dose Admin Albuterol/Ipratropium 3 ml 04/03/17 11:10 04/03/17 11:23 Duoneb 3.0-0.5 Mg/3 Ml NEB 04/03/17 11:11 3 ml ONETIME ONE Administration Aspirin 324 mg 04/03/17 11:38 04/03/17 12:00 Aspirin PO 04/03/17 11:39 324 mg ONETIME ONE Administration Ceftriaxone Sodium 2 gm/ 100 mls @ 200 mls/hr 04/03/17 12:32 04/03/17 12:39 Sodium Chloride IV 04/03/17 13:01 200 mls/hr ONETIME ONE Administration - Radiology Interpretation Free Text/Narrative:: chest 2 view impression per : 1. Increasing density mostly within the right middle lobe from prior exam presumably representing pneumonia. 2. Emphysematous change and other incidental findings. - Re-Assessments/Exams Free Text/Narrative Re-Assessment/Exam: 04/03/17 12:16 Reviewed the lab results with the patient. She again denies to me any chest pain , nausea, vomiting or diaphoresis. She is currently on 2 L via nasal cannula which is improved from 4 L she was on initially. She is doing better after the DuoNeb. 04/03/17 13:15 Troponin and CK-MB returned within normal limits. I reviewed the labs, chest x- ray and EKG with the patient. I started her 2 g IV Rocephin. Discussed disposition. She is a DNR/DNI. She does not comfortable [facility] and would like to stay in the hospital. I spoke with Dr. Amos, hospitalist telephone advice nurse. He agrees to accept the patient. Plan will likely be to discuss hospice care she has end-stage COPD. Patient's oxygen sats are currently in the low 90s on 2 L after receiving the DuoNeb. Departure - Departure Time of Disposition: 15:15 Disposition: Admitted As Inpatient 65 Condition: Poor Clinical Impression: Failure to thrive in adult Emphysema lung Qualifiers: Emphysema type: unspecified Qualified Code(s): J43.9 - Emphysema, unspecified Pneumonia Qualifiers: Pneumonia type: due to unspecified organism Laterality: right Lung location: lower lobe of lung Qualified Code(s): J18.1 - Lobar pneumonia, unspecified organism - Discharge Information - My Orders Last 24 Hours: My Active Orders 04/03/17 11:10 Cardiac Monitoring [RC] . DIRECTED Oxygen Therapy [RC] ASDIRECTED EKG 12 Lead [EK] Stat 04/03/17 11:11 EKG Documentation Completion [RC] ASDIRECTED RT Aerosol Therapy [RC] ASDIRECTED 04/03/17 12:30 cefTRIAXone [Rocephin] 2 gm IVPUSH Q24H - Assessment/Plan Last 24 Hours: My Active Orders 04/03/17 11:10 Cardiac Monitoring [RC] . DIRECTED Oxygen Therapy [RC] ASDIRECTED EKG 12 Lead [EK] Stat 04/03/17 11:11 EKG Documentation Completion [RC] ASDIRECTED RT Aerosol Therapy [RC] ASDIRECTED 04/03/17 12:30 cefTRIAXone [Rocephin] 2 gm IVPUSH Q24H
[2017-04-03] MEDS ORDERED: Aspirin 81 MG Tab.Chew PO ONE (11:38)
[2017-04-03] MEDS ORDERED: cefTRIAXone 2 GM Vial IVPUSH SCH (12:30)
[2017-04-03] MEDS ORDERED: cefTRIAXone 2 GM in Sodium Chloride 0.9% 100 ML IV ONE (12:32)
--- NOTE | 2017-04-03 14:55 | CR ---
Chest: Two views of the chest were obtained. Comparison: Prior chest x-ray of 03/26/17. Increasing density is noted primarily within the right middle lobe from prior exam. Left lung is clear. Heart size is normal. Scoliosis is noted within the spine. Lungs are hyperinflated compatible with emphysematous change. Impression: 1. Increasing density mostly within the right middle lobe from prior exam presumably representing pneumonia. 2. Emphysematous change and other incidental findings. Diagnostic code #3
[2017-04-03] MEDS ORDERED: Acetaminophen/HYDROcodone 325-5 MG Tab PO PRN (15:18)
[2017-04-03] MEDS ORDERED: Temazepam 7.5 MG Cap PO PRN (15:18)
[2017-04-03] MEDS ORDERED: Docusate Sodium 100 MG Cap PO PRN (15:18)
[2017-04-03] MEDS ORDERED: Ondansetron 4 MG/2 ML SDV IV PRN (15:18)
[2017-04-03] MEDS ORDERED: Ondansetron 4 MG Tab.DIS PO PRN (15:18)
[2017-04-03] MEDS ORDERED: Polyethylene Glycol 3350 Powder 17 GM Packet PO PRN (15:18)
[2017-04-03] MEDS ORDERED: Albuterol/Ipratropium 3.0-0.5 MG/3 ML Neb Soln NEB PRN (15:18)
[2017-04-03] MEDS ORDERED: LORazepam 1 MG Tab PO PRN (15:29)
[2017-04-03] MEDS ORDERED: Morphine 2 MG/ML Syringe IVPUSH PRN (16:04)
--- NOTE | 2017-04-03 16:14 | PCM.HP ---
H&P History of Present Illness - General Date of Service: 04/03/17 Admit Problem/Dx: Admission Diagnosis/Problem Admission Diagnosis/Problem Pneumonia Source of Information: Patient, Old Records, Provider, RN, RN Notes Reviewed History Limitations: Reports: No Limitations - History of Present Illness Initial Comments - Free Text/Narative: Rukhsana Vasquez is a 66 yo female patient who presented to our ED today with dyspnea on exertion. She was under our care from 03/22/17 to 03/28/17 for a COPD exacerbation, right lower lobe pneumonia, and hypoxia. She was sent home on levaquin and prednisone. In the hospital she was given zosyn and IV Solu- medrol. Rukhsana reportedly returned to the [facility] and felt great for one day. She reported she was able to walk without being short of breath. On the second day she reported worsening dyspnea with exertion. Last night she began experiencing dyspnea with rest as well. She is normally on 1-2L of oxygen. She denies nausea, vomiting, chest pain, ear or throat pain, fevers, or headaches. She reports back pain since leaving the hospital and a productive cough. She has been utilizing her Brio, Incruz, and albuterol daily. She has PRN nebulized duoneb ordered but has not been utilizing it. She is on Coumadin. She lives in [facility]. In the ED she was afebrile with a temperature of 37.2 C. Pulse 93, Resp 20, BP 151/94, Pulse ox 90. 12-lead EKG was obtained feeling a normal sinus rhythm at 96 bpm there is decreased voltage in the corneal leads. Increased ST segment elevation in II and III Most likely noting early repolarization. There is near Q waves in V1 and V2 and aVF, T-wave inversion. Consider old anteroseptal KS. This was interpreted by ER providers. Labs were obtained: White blood cell count elevated at 45.97. It is noted the patient is on steroids and has chronic COPD which could skew this test. Hemoglobin was normal at 13.0. Hematocrit 39.7. She was normocytic. Platelet count 355,000. Neutrophils elevated at 91. She had 3% bandemia. PT was high at 40.5. INR was on the high side at 3.43. Sodium was normal 140. Potassium normal at 5.1. Chloride normal at 102. Carbon dioxide normal at 31. Anion gap was 12.1. BUN was elevated at 26. Creatinine normal at 0.6. Estimated GFR greater than 60. Calcium normal 9.3. Magnesium normal at 2.0. Bilirubin normal at 1. Liver enzymes normal with AST at 24, ALT 39, alkaline phosphatase 46. CK-MB was less than 0.5. Troponin negative at less than 0.017. CRP was elevated at 5.9. ProBNP slightly elevated at 218. Albumin low at 3.0. She was given Rocephin in the ER, 2 g. Two-view chest x-ray interpreted by Dr. Kee: 1. Increasing density mostly within the right middle lobe from prior exam presumably representing pneumonia. 2. Emphysematous change and other incidental findings. On presentation she was on 4 L of oxygen she was titrated down to 2 L , which is her normal range. With this she is oxygen saturation is in the low 90s. She is also given a DuoNeb and dyspnea is improved. Patient reports she' s not feel comfortable going back to the [facility] would like to stay in the hospital. She carries a history of: atrial flutter, hypertension, COPD, recurrent shortness of breath, GERD, urinary incontinence, arthritis, migraines , anxiety, and depression. She was a one and a half pack a day smoker for 46 years, reportedly stopping last month. She was subsequently admitted as inpatient to the medical floor with telemetry. She is a DNR/DNI. Her primary care provider is Dr. Sloan at [facility] in [place]. Lower Back Pain Score (Numeric/FACES): 4 - Related Data Allergies/Adverse Reactions: Allergies Allergy/AdvReac Type Severity Reaction Status Date / Time No Known Allergies Allergy Verified 04/03/17 10:15 Home Medications: Home Meds Albuterol/Ipratropium [DuoNeb 3.0-0.5 MG/3 ML] 3 ml NEB Q6HRRT PRN #120 neb 09/18 [Rx] Bisacodyl [Dulcolax] 5 mg PO DAILY PRN #30 tablet 10/05/16 [Rx] Docusate Sodium/Sennosides [Senna Plus] 1 tab PO BID PRN #60 tablet 10/05/16 [Rx ] Famotidine [Pepcid] 20 mg PO BID #60 tablet 10/05/16 [Rx] Metoprolol Tartrate [Lopressor] 50 mg PO Q12HR #60 tablet 10/05/16 [Rx] Mirtazapine [Remeron] 15 mg PO BEDTIME #30 tablet 10/05/16 [Rx] Albuterol Sulfate [Proair Respiclick] 90 mcg IH QID PRN 03/22/17 [History] Albuterol Sulfate [Proventil Hfa] 1 puff INH DAILY 03/22/17 [History] Calcium Carbonate/Vitamin D3 [Calcium 500 + Vit D 400] 1 tab PO BID 03/22/17 [ History] DULoxetine [Cymbalta] 30 mg PO DAILY 03/22/17 [History] Diltiazem HCl [Cardizem Cd] 360 mg PO DAILY 03/22/17 [History] Fluticasone/Vilanterol [Breo Ellipta 100-25 MCG Inhalation Kit] 1 puff INH DAILY @2100 03/22/17 [History] LORazepam [Ativan] 1 mg PO BID PRN 03/22/17 [History] Multivitamin W/Iron, Minerals [Compete] 1 tab PO DAILY 03/22/17 [History] Umeclidinium [place] [Incruse Ellipta*] 1 puff INH DAILY 03/22/17 [History] Warfarin [Coumadin] 10 mg PO SUTUWETHSA 03/22/17 [History] busPIRone [Buspar] 20 mg PO 0800 03/22/17 [History] busPIRone [Buspar] 40 mg PO QPM 03/22/17 [History] Bifidobacter. Bifidum/B.Longum [Florajen Bifidoblend] 460 mg PO DAILY #30 capsule 03/28/17 [Rx] Potassium Chloride [Klor-Con M20] 20 meq PO BID #60 tab.er 03/28/17 [Rx] guaiFENesin [Mucinex] 600 mg PO BID #60 tab.er 03/28/17 [Rx] Acetaminophen [Tylenol] 650 mg PO Q4HR PRN 04/03/17 [History] Prednisone [IJD: Prednisone] 30 mg PO DAILY 04/03/17 [History] Warfarin [Coumadin] 7.5 mg PO MOFR 04/03/17 [History] Past Medical History HEENT History: Reports: Impaired Vision Other HEENT History: wears glasses Cardiovascular History: Reports: Arrhythmia, Hypertension Other Cardiovascular History: atrial flutter Respiratory History: Reports: COPD, Pneumonia, Recurrent, SOB Gastrointestinal History: Reports: GERD Genitourinary History: Reports: Urinary Incontinence Other Genitourinary History: dribbling Musculoskeletal History: Reports: Arthritis Neurological History: Reports: Migraines Psychiatric History: Reports: Anxiety, Depression - Infectious Disease History Infectious Disease History: Reports: Chicken Pox - Past Surgical History Cardiovascular Surgical History: Reports: None Female Surgical History: Reports: None Social & Family History - Family History Family Medical History: Noncontributory HEENT: Reports: Impaired Vision Respiratory: Reports: Asthma, COPD Musculoskeletal: Reports: Arthritis Oncologic: Reports: Breast, Colon, Lymphoma, Pancreatic - Tobacco Use Smoking Status *Q: Former Smoker Years of Tobacco use: 46 Packs/Tins Daily: 1.5 Used Tobacco, but Quit: Yes Month Tobacco Last Used: February Hand Smoke Exposure: No - Caffeine Use Caffeine Use: Reports: Coffee - Recreational Drug Use Recreational Drug Use: No Recreational Drug Type: Reports: Marijuana/Hashish Recreational Drug Use Frequency: Not Used In Over 6 Months - Living Situation & Occupation Living situation: Reports: Single, Extended Care Facility ([facility]) Occupation: Retired H&P Review of Systems - Review of Systems: Review Of Systems: See Below General: Reports: No Symptoms. Denies: Fever, Chills, Malaise, Weakness, Fatigue, Decreased Appetite HEENT: Reports: No Symptoms. Denies: Ear Pain, Eye Pain, Headaches, Hearing Changes, Sinus Congestion, Visual Changes Pulmonary: Reports: Shortness of Breath, Cough, Sputum (Brown in color ). Denies: Wheezing, Pleuritic Chest Pain Cardiovascular: Reports: Dyspnea on Exertion. Denies: Chest Pain, Palpitations , Orthopnea, Edema, Lightheadedness Gastrointestinal: Reports: No Symptoms. Denies: Abdominal Pain, Black Stool, Constipation, Diarrhea, Distension, Nausea, Vomiting Genitourinary: Reports: No Symptoms. Denies: Dysuria, Frequency, Burning, Pain , Urgency Musculoskeletal: Reports: Back Pain (Chronic lower ). Denies: Neck Pain, Shoulder Pain, Arm Pain, Hand Pain, Joint Swelling, Muscle Pain, Muscle Stiffness Skin: Reports: No Symptoms Psychiatric: Reports: No Symptoms Neurological: Reports: No Symptoms. Denies: Confusion, Dizziness, Headache, Numbness, Tingling, Weakness, Change in Speech Exam - Exam Exam: See Below - Vital Signs Vital Signs: Last Vital Signs Temp 98.9 F 04/03/17 10:15 Pulse 93 04/03/17 10:15 Resp 20 04/03/17 10:15 BP 151/94 H 04/03/17 10:15 Pulse Ox 90 L 04/03/17 11:11 Weight: 150 lb - Exam Quality Assessment: Supplemental Oxygen (2L), DVT Prophylaxis General: Alert, Oriented, Cooperative. No: Mild Distress HEENT: Conjunctiva Clear, EACs Clear, EOMI, Hearing Intact, Mucosa Moist & [place] , Nares Patent, Normal Nasal Septum, Posterior Pharynx Clear, Pupils Equal, Pupils Reactive Neck: Supple, Trachea Midline. No: JVD, Thyromegaly Lungs: Clear to Auscultation, Normal Respiratory Effort, Decreased Breath Sounds (in all [place] ). No: Crackles, Rales, Rhonchi, Rub, Stridor, Wheezing Cardiovascular: Regular Rate, Regular Rhythm GI/Abdominal Exam: Normal Bowel Sounds, Soft, Non-Tender, No Organomegaly, No Distention, No Abnormal Bruit, No Mass (Female) Exam: Deferred Rectal (Female) Exam: Deferred Back Exam: Normal Inspection, Decreased Range of Motion Extremities: Normal Inspection, Normal Range of Motion, Non-Tender, No Pedal Edema, Normal Capillary Refill Peripheral Pulses: 2+: Radial (L), Radial (R), Posterior Tibial (L), Posterior Tibial (R), Dorsalis Pedis (L), Dorsalis Pedis (R) Skin: Warm, Dry, Intact Neurological: Cranial Nerves Intact (Grossly) Neuro Extensive - Mental Status: Alert, Oriented x3, Normal Mood/Affect, Normal Cognition, Memory Intact Neuro Extensive - Motor, Sensory, Reflexes: CN II-XII Intact (Grossly), Normal Gait Psychiatric: Alert, Normal Affect, Normal Mood Physical Exam Comments:: Patient examined while lying in bed. She does not appear to be in any respiratory distress although she reports she is short of breath. He is on 2 L nasal cannula which according to the ER notes is her baseline. She does appear somewhat anxious. I did communicate with the patient that her lungs are very damaged and she will likely be short of breath for the rest of her life. Is also communicated that she will likely be on oxygen. I explained to her that from this point her condition will only worsen. She voiced understanding. - Patient Data Result Diagrams: 04/03/17 11:10 04/03/17 11:10 *Q Meaningful Use (ADM) - VTE *Q VTE Criteria *Q: - Stroke *Q Stroke Criteria *Q: - AMI *Q AMI Criteria *Q: - Problem List (1) COPD exacerbation SNOMED Code(s): 933236939 ICD Code: J44.1 - CHRONIC OBSTRUCTIVE PULMONARY DISEASE W (ACUTE) EXACERBATION Status: Acute Priority: High Current Visit: Yes (2) Leukocytosis SNOMED Code(s): 984683393 ICD Code: D72.829 - ELEVATED WHITE BLOOD CELL COUNT, UNSPECIFIED Status: Acute Priority: Medium Current Visit: Yes Qualifiers: Leukocytosis type: unspecified Qualified Code(s): D72.829 - Elevated white blood cell count, unspecified (3) Elevated C-reactive protein (CRP) SNOMED Code(s): 103291597 ICD Code: R79.82 - ELEVATED C-REACTIVE PROTEIN (CRP) Status: Acute Priority: Medium Current Visit: Yes (4) Emphysema lung SNOMED Code(s): 15596491 ICD Code: J43.9 - EMPHYSEMA, UNSPECIFIED Status: Chronic Priority: High Current Visit: Yes Qualifiers: Emphysema type: unspecified Qualified Code(s): J43.9 - Emphysema, unspecified (5) Anxiety SNOMED Code(s): 94883641 ICD Code: F41.9 - ANXIETY DISORDER, UNSPECIFIED Status: Chronic Priority : Medium Current Visit: Yes Problem List Initiated/Reviewed/Updated: Yes Orders Last 24hrs: Active Orders 24 hr Category Date Time Status Patient Status [ADT] Routine ADT 04/03/17 15:15 Active Acapella [RT Chest Physiotherapy] [RC] ASDIRECTED Care 04/03/17 15:27 Active Ambulate [RC] PER UNIT ROUTINE Care 04/03/17 15:19 Active Antiembolic Devices [RC] PER UNIT ROUTINE Care 04/03/17 15:22 Active Height and Weight [RC] DAILY Care 04/03/17 15:18 Active Intake and Output [RC] QSHIFT Care 04/03/17 15:19 Active Pulse Oximetry [RC] PRN Care 04/03/17 15:19 Active RT Aerosol Therapy [RC] ASDIRECTED Care 04/03/17 15:22 Active RT Incentive Spirometry [RC] Q2HWA Care 04/03/17 15:26 Active Up With Assistance [RC] ASDIRECTED Care 04/03/17 15:18 Active VTE/DVT Education [RC] PER UNIT ROUTINE Care 04/03/17 15:18 Active Vital Signs [RC] Q4H Care 04/03/17 15:18 Active Consult to Case Management [CONS] Routine Cons 04/03/17 15:18 Active Consult to Washing Machine Repairer [CONS] Routine Cons 04/03/17 15:18 Active OT Evaluation and Treatment [CONS] Routine Cons 04/03/17 15:18 Active PT Evaluation and Treatment [CONS] Routine Cons 04/03/17 15:18 Active Respiratory Care Assess and Treatment [CONS] Routine Cons 04/03/17 15:18 Active 2 Gram Sodium Diet [DIET] Diet 04/03/17 Dinner Active BASIC METABOLIC PANEL,BMP [CHEM] AM Lab 04/04/17 05:11 Ordered BASIC METABOLIC PANEL,BMP [CHEM] AM Lab 04/05/17 05:11 Ordered BASIC METABOLIC PANEL,BMP [CHEM] AM Lab 04/06/17 05:11 Ordered BASIC METABOLIC PANEL,BMP [CHEM] AM Lab 04/07/17 05:11 Ordered CBC WITH AUTO DIFF [HEME] AM Lab 04/04/17 05:11 Ordered CBC WITH AUTO DIFF [HEME] AM Lab 04/05/17 05:11 Ordered CBC WITH AUTO DIFF [HEME] AM Lab 04/06/17 05:11 Ordered CBC WITH AUTO DIFF [HEME] AM Lab 04/07/17 05:11 Ordered CRP [C-REACTIVE PROTEIN] [CHEM] AM Lab 04/04/17 05:11 Ordered CRP [C-REACTIVE PROTEIN] [CHEM] AM Lab 04/05/17 05:11 Ordered CRP [C-REACTIVE PROTEIN] [CHEM] AM Lab 04/06/17 05:11 Ordered CRP [C-REACTIVE PROTEIN] [CHEM] AM Lab 04/07/17 05:11 Ordered MAGNESIUM [CHEM] AM Lab 04/04/17 05:11 Ordered MAGNESIUM [CHEM] AM Lab 04/05/17 05:11 Ordered MAGNESIUM [CHEM] AM Lab 04/06/17 05:11 Ordered MAGNESIUM [CHEM] AM Lab 04/07/17 05:11 Ordered Acetaminophen [Tylenol] Med 04/03/17 15:18 Active 650 mg PO Q4H PRN Acetaminophen/HYDROcodone [Industry 325-5 MG] Med 04/03/17 15:18 Active 1 tab PO Q4H PRN Albuterol/Ipratropium [DuoNeb 3.0-0.5 MG/3 ML] Med 04/03/17 15:18 Active 3 ml NEB Q4H PRN Diltiazem [Cardizem CD] Med 04/04/17 09:00 Active 360 mg PO DAILY Docusate Sodium [Colace] Med 04/03/17 15:18 Active 100 mg PO BID PRN Docusate Sodium/Sennosides [Senna Plus] Med 04/03/17 15:18 Active 1 tab PO BID PRN Famotidine [Pepcid] Med 04/03/17 21:00 Active 20 mg PO BID Fluticasone/Vilanterol Med 04/04/17 09:00 Ordered 1 puff INH DAILY LORazepam [Ativan] Med 04/03/17 15:29 Active 1 mg PO BID PRN Levofloxacin/Dextrose 5%-Water [Levaquin in D5W 750 MG/ Med 04/03/17 16:00 Ordered 150 ML] 750 mg Premix Bag 1 bag IV Q24H Metoprolol Tartrate [Lopressor] Med 04/03/17 21:00 Active 50 mg PO Q12HR Mirtazapine [Remeron] Med 04/03/17 21:00 Active 15 mg PO BEDTIME Ondansetron [Zofran ODT] Med 04/03/17 15:18 Active 4 mg PO Q6H PRN Ondansetron [Zofran] Med 04/03/17 15:18 Active 4 mg IV Q6H PRN Piperacillin/Tazobactam [Zosyn] 4.5 gm Med 04/03/17 15:58 Ordered Sodium Chloride 0.9% [Normal Saline] 100 ml IV ONETIME Polyethylene Glycol 3350 [MiraLAX] Med 04/03/17 15:18 Active 17 gm PO DAILY PRN Potassium Chloride [Klor-Con M20] Med 04/03/17 21:00 Active 20 meq PO BID Temazepam [Restoril] Med 04/03/17 15:18 Active 7.5 mg PO BEDTIME PRN Umeclidinium [place] Med 04/04/17 09:00 Ordered 1 puff INH DAILY Warfarin [Coumadin] Med 04/03/17 15:30 Ordered 10 mg PO SUTUWETHSA busPIRone [Buspar] Med 04/04/17 08:00 Active 20 mg PO DAILY@0800 busPIRone [Buspar] Med 04/03/17 18:00 Active 40 mg PO DAILY@1800 guaiFENesin [Mucinex] Med 04/03/17 21:00 Active 600 mg PO BID methylPREDNISolone Sod Succ [Solu-MEDROL] Med 04/03/17 16:00 Ordered 125 mg IVPUSH Q6H Antiembolic Hose [OM.PC] Per Unit Routine Oth 04/03/17 15:19 Ordered Resuscitation Status Routine Resus Stat 04/03/17 15:18 Ordered Medication Orders Acetaminophen (Tylenol) 650 mg PO Q4H PRN PRN Reason: Pain (Mild 1-3)/fever Hydrocodone Bitart/Acetaminophen (Industry 325-5 Mg) 1 tab PO Q4H PRN PRN Reason: Pain (moderate 4-6) Albuterol/Ipratropium (Duoneb 3.0-0.5 Mg/3 Ml) 3 ml NEB Q4H PRN PRN Reason: Shortness Of Breath/wheezing Buspirone HCl (Buspar) 20 mg PO DAILY@0800 KADEEM Buspirone HCl (Buspar) 40 mg PO DAILY@1800 [facility] Ceftriaxone Sodium (Rocephin) 2 gm IVPUSH Q24H [facility] Last Admin: 04/03/17 12:34 Dose: Not Given Diltiazem HCl (Cardizem Cd) 360 mg PO DAILY [facility] Docusate Sodium (Colace) 100 mg PO BID PRN PRN Reason: Constipation Famotidine (Pepcid) 20 mg PO BID [facility] Guaifenesin (Mucinex) 600 mg PO BID [facility] Levofloxacin/Dextrose 750 mg/ (Premix) 150 mls @ 100 mls/hr IV Q24H [facility] Lorazepam (Ativan) 1 mg PO BID PRN PRN Reason: Anxiety Methylprednisolone Sodium Succinate (Solu-Medrol) 125 mg IVPUSH Q6H [facility] Metoprolol Tartrate (Lopressor) 50 mg PO Q12HR [facility] Mirtazapine (Remeron) 15 mg PO BEDTIME [facility] Non-Formulary Medication (Fluticasone/Vilanterol) 1 puff INH DAILY [facility] Non-Formulary Medication (Umeclidinium [place]) 1 puff INH DAILY [facility] Ondansetron HCl (Zofran Odt) 4 mg PO Q6H PRN PRN Reason: nausea, able to take PO Ondansetron HCl (Zofran) 4 mg IV Q6H PRN PRN Reason: Nausea/Vomiting Polyethylene Glycol (Miralax) 17 gm PO DAILY PRN PRN Reason: Constipation Potassium Chloride (Klor-Con M20) 20 meq PO BID [facility] Senna/Docusate Sodium (Senna Plus) 1 tab PO BID PRN PRN Reason: Constipation Temazepam (Restoril) 7.5 mg PO BEDTIME PRN PRN Reason: Sleep Warfarin Sodium (Coumadin) 10 mg PO SuTuWeThSa@1800 [facility] Assessment/Plan Comment:: I/P: Acute: COPD exacerbation vs. pneumonia -Afebrile -Productive cough -Recently discharged (03/28/17) for right lower lobe pneumonia, COPD exacerbation and hypoxia -4L O2 required in ED titrated down to 2L (baseline) upon admission to hospital floor -Patient reports baseline dyspnea with exertion, however be began having dyspnea at rest today -WBC 45.97, however patient is on steroids from last admission and has severe COPD which is likely to skew results. -CRP 5.9, however patient has severe COPD which can skew results -Rocephin given in ED, Levaquin and Zosyn started. - Will continue Levaquin tomorrow and stop zosyn. -CXR per Dr. Kee - 1:increasing density mostly within the right middle lobe form prior exam presumably representing pneumonia. 2. Emphysematous change and other incidental findings. -Monitor oxygen saturations as indicated -Titrate O2 as needed -IS/Acapella -Albuterol/Duoneb as needed -Morphine for SOB PRN -Mucinex as indicated -Steroids as indicated - will taper judging on response -She is end stage COPD Leukocytosis -As described above Elevated CRP -As described above Anxiety -Worsening with shortness of breath -Home medications as ordered Chronic: Hx/o atrial flutter HTN GERD Urinary incontinence Arthritis Migraines Depression On warfarin - INR on high end of normal. Warfarin held today. Will dose monitor INR in AM and resume tomorrow. Plan: Admit to medical floor on telemetry SW/CM for discharge planning PT/OT GI prophylaxis - home pepcid order DVT/PE prophylaxis - SOLOMON koch, Pt. on warfarin -INR 3.43 Other orders as indicated above Home medications as ordered She is a DNR/DNI. Her PCP is Dr. Sloan at [facility] in [place].
[2017-04-03] MEDS: Levofloxacin/Dextrose 5%-Water 750 MG in Premix Bag 1 BAG IV SCH (17:36)
[2017-04-03] MEDS: methylPREDNISolone Sodium Succinate 125 MG/2 ML SDV IVPUSH SCH ×2 (17:39→21:06)
[2017-04-03] MEDS: Acetaminophen 325 MG Tab PO PRN (17:43)
[2017-04-03] MEDS: busPIRone 5 MG Tab PO SCH (17:44)
[2017-04-03] MEDS: Piperacillin/Tazobactam 4.5 GM in Sodium Chloride 0.9% 100 ML IV ONE ×2 (17:49→19:27)
[2017-04-03] MEDS: Famotidine 20 MG Tab PO SCH (21:05)
[2017-04-03] MEDS: guaiFENesin 600 MG Tab.ER PO SCH (21:05)
[2017-04-03] MEDS: Mirtazapine 15 MG Tab PO SCH (21:05)
[2017-04-03] MEDS: Potassium Chloride 20 MEQ Tab.ER PO SCH (21:05)
[2017-04-03] MEDS: Metoprolol Tartrate 50 MG Tab PO SCH (21:05)
[2017-04-03] MEDS ORDERED: Metoprolol Tartrate 5 MG/5 ML SDV IVPUSH PRN (21:29)
[2017-04-03] MEDS ORDERED: hydrALAZINE 10 MG Tab PO PRN (21:29)
[2017-04-04] MEDS: methylPREDNISolone Sodium Succinate 125 MG/2 ML SDV IVPUSH SCH ×4 (04:05→20:59)
[2017-04-04] MEDS ORDERED: LORazepam 0.5 MG Tab PO PRN (07:02)
--- NOTE | 2017-04-04 07:12 | PCM.PN ---
- General Info Date of Service: 04/04/17 Admission Dx/Problem (Free Text): Admission Diagnosis/Problem Admission Diagnosis/Problem Pneumonia Holly is seen this morning, still feels SOB this morning. Is coughing but has not been productive today. She reports last night she was able to get up large chunk of brown sputum then became acutely SOB. She has SLAUGHTER which is "about the same". Supplemental O2 is down to 2L/NC. She is on solumedrol and IV levaquin, florastor. Functional Status: Reports: Pain Controlled, Tolerating Diet, Ambulating, Urinating, Incentive Spirometry. Denies: New Symptoms - Review of Systems General: Reports: Weakness. Denies: Fever HEENT: Reports: No Symptoms Pulmonary: Reports: Shortness of Breath, Cough (minimal). Denies: Sputum Cardiovascular: Reports: Dyspnea on Exertion. Denies: Chest Pain, Palpitations Gastrointestinal: Reports: No Symptoms Genitourinary: Reports: No Symptoms Psychiatric: Reports: Anxiety - Patient Data Vitals - Most Recent: Last Vital Signs Temp 97.3 F 04/04/17 03:08 Pulse 76 04/04/17 03:08 Resp 18 04/04/17 03:08 BP 126/81 04/04/17 03:08 Pulse Ox 95 04/04/17 03:08 Weight - Most Recent: 139 lb 3.2 oz I&O - Last 24 Hours: Intake & Output 04/03/17 04/04/17 04/04/17 22:59 06:59 14:59 Intake Total 0 550 Output Total 600 Balance 0 -50 Lab Results Last 24 Hours: Laboratory Results - last 24 hr 04/03/17 04/04/17 Range/Units 21:15 06:05 WBC 22.71 H (3.98-10.04) K/mm3 RBC 3.85 L (3.98-5.22) M/mm3 Hgb 11.4 (11.2-15.7) gm/L Hct 35.2 (34.1-44.9) % MCV 91.4 (79.4-94.8) fl MCH 29.6 (25.6-32.2) pg MCHC 32.4 (32.2-35.5) g/dl RDW Std Deviation 46.6 H (36.4-46.3) fL Plt Count 326 (182-369) K/mm3 MPV 9.2 L (9.4-12.3) fl Neut % (Auto) 96.5 H (34.0-71.1) % Lymph % (Auto) 2.2 L (19.3-51.7) % Alexander % (Auto) 1.1 L (4.7-12.5) % Eos % (Auto) 0 L (0.7-5.8) Baso % (Auto) 0.0 L (0.1-1.2) % Neut # (Auto) 21.89 H (1.56-6.13) K/mm3 Lymph # (Auto) 0.51 L (1.18-3.74) K/mm3 Alexander # (Auto) 0.25 (0.24-0.36) K/mm3 Eos # (Auto) 0.00 L (0.04-0.36) K/mm3 Baso # (Auto) 0.01 (0.01-0.08) K/mm3 MRSA (PCR) Negative Med Orders - Current: Current Medications Acetaminophen (Tylenol) 650 mg PO Q4H PRN PRN Reason: Pain (Mild 1-3)/fever Last Admin: 04/03/17 17:43 Dose: 650 mg Hydrocodone Bitart/Acetaminophen ([place] 325-5 Mg) 1 tab PO Q4H PRN PRN Reason: Pain (moderate 4-6) Albuterol/Ipratropium (Duoneb 3.0-0.5 Mg/3 Ml) 3 ml NEB Q4H PRN PRN Reason: Shortness Of Breath/wheezing Albuterol/Ipratropium (Duoneb 3.0-0.5 Mg/3 Ml) 3 ml NEB Q6HRRT [facility] Buspirone HCl (Buspar) 20 mg PO DAILY@0800 [facility] Buspirone HCl (Buspar) 40 mg PO DAILY@1800 [facility] Last Admin: 04/03/17 17:44 Dose: 40 mg Diltiazem HCl (Cardizem Cd) 360 mg PO DAILY [facility] Docusate Sodium (Colace) 100 mg PO BID PRN PRN Reason: Constipation Duloxetine HCl (Cymbalta) 30 mg PO DAILY [facility] Famotidine (Pepcid) 20 mg PO BID [facility] Last Admin: 04/03/17 21:05 Dose: 20 mg Guaifenesin (Mucinex) 600 mg PO BID [facility] Last Admin: 04/03/17 21:05 Dose: 600 mg Hydralazine HCl (Apresoline) 10 mg PO Q6H PRN PRN Reason: Hypertension Levofloxacin/Dextrose 750 mg/ (Premix) 150 mls @ 100 mls/hr IV Q24H [facility] Last Admin: 04/03/17 17:36 Dose: 100 mls/hr Lorazepam (Ativan) 1 mg PO BID PRN PRN Reason: Anxiety Lorazepam (Ativan) 0.5 mg PO Q4H PRN PRN Reason: restlessness/SOB Magnesium Sulfate (Pharmacy To Dose - Magnesium Replacement) 1 dose .XX ASDIRECTED [facility] Methylprednisolone Sodium Succinate (Solu-Medrol) 125 mg IVPUSH Q6H [facility] Last Admin: 04/04/17 04:05 Dose: 125 mg Metoprolol Tartrate (Lopressor) 50 mg PO Q12HR [facility] Last Admin: 04/03/17 21:05 Dose: 50 mg Metoprolol Tartrate (Lopressor) 5 mg IVPUSH Q4H PRN PRN Reason: Tachycardia Mirtazapine (Remeron) 15 mg PO BEDTIME [facility] Last Admin: 04/03/17 21:05 Dose: 15 mg Morphine Sulfate (Morphine) 1 mg IVPUSH Q4H PRN PRN Reason: Shortness of breath Non-Formulary Medication (Fluticasone/Vilanterol) 1 puff INH DAILY [facility] Non-Formulary Medication (Umeclidinium Imperial) 1 puff INH DAILY [facility] Non-Formulary Medication (Multivitamin W/Iron, Minerals [Compete]) 1 tab PO DAILY [facility] Ondansetron HCl (Zofran Odt) 4 mg PO Q6H PRN PRN Reason: nausea, able to take PO Ondansetron HCl (Zofran) 4 mg IV Q6H PRN PRN Reason: Nausea/Vomiting Polyethylene Glycol (Miralax) 17 gm PO DAILY PRN PRN Reason: Constipation Potassium Chloride (Klor-Con M20) 20 meq PO BID [facility] Last Admin: 04/03/17 21:05 Dose: 20 meq Potassium Chloride (Pharmacy To Dose - Potassium Replacement) 1 dose .XX ASDIRECTED [facility] Saccharomyces Boulardii (Florastor) 250 mg PO BID [facility] Temazepam (Restoril) 7.5 mg PO BEDTIME PRN PRN Reason: Sleep Warfarin Sodium (Coumadin) 10 mg PO SuTuWeThSa@1800 [place] Warfarin Sodium (Coumadin) 7.5 mg PO MOFR [facility] Discontinued Medications Albuterol/Ipratropium (Duoneb 3.0-0.5 Mg/3 Ml) 3 ml NEB ONETIME ONE Stop: 04/03/17 11:11 Last Admin: 04/03/17 11:23 Dose: 3 ml Aspirin (Aspirin) 324 mg PO ONETIME ONE Stop: 04/03/17 11:39 Last Admin: 04/03/17 12:00 Dose: 324 mg Ceftriaxone Sodium (Rocephin) 2 gm IVPUSH Q24H [facility] Last Admin: 04/03/17 12:34 Dose: Not Given Ceftriaxone Sodium 2 gm/ (Sodium Chloride) 100 mls @ 200 mls/hr IV ONETIME ONE Stop: 04/03/17 13:01 Last Admin: 04/03/17 12:39 Dose: 200 mls/hr Piperacillin Sod/Tazobactam (Sod 4.5 gm/ Sodium Chloride) 100 mls @ 200 mls/hr IV ONETIME ONE Stop: 04/03/17 16:27 Last Admin: 04/03/17 19:27 Dose: 200 mls/hr Ceftriaxone Sodium 2 gm/ (Sodium Chloride) 100 mls @ 200 mls/hr IV Q24H [facility] Senna/Docusate Sodium (Senna Plus) 1 tab PO BID PRN PRN Reason: Constipation - Exam Quality Assessment: Supplemental Oxygen, DVT Prophylaxis General: Alert, Oriented, Cooperative, No Acute Distress HEENT: Pupils Equal, EOMI, Mucous Membr. Moist/[place] Neck: Supple Lungs: Normal Respiratory Effort, Decreased Breath Sounds (throughout). No: Rales, Rhonchi, Wheezing Cardiovascular: Irregular Rhythm GI/Abdominal Exam: Normal Bowel Sounds, Soft, Non-Tender (Female) Exam: Deferred Back Exam: Normal Inspection Extremities: Normal Inspection, Normal Capillary Refill, Pedal Edema (very trace to minimal bilat) Peripheral Pulses: 1+: Dorsalis Pedis (L), Dorsalis Pedis (R) Neurological: No New Focal Deficit Psy/Mental Status: Alert, Normal Mood, Other (flat affect) - Problem List & Annotations (1) COPD exacerbation SNOMED Code(s): 854983786 Code(s): J44.1 - CHRONIC OBSTRUCTIVE PULMONARY DISEASE W (ACUTE) EXACERBATION Status: Acute Priority: High Current Visit: Yes (2) Pneumonia SNOMED Code(s): 306800673 Code(s): J18.9 - PNEUMONIA, UNSPECIFIED ORGANISM Status: Acute Priority: High Current Visit: Yes Qualifiers: Pneumonia type: due to unspecified organism Laterality: right Lung location: middle lobe of lung Qualified Code(s): J18.1 - Lobar pneumonia, unspecified organism (3) Emphysema lung SNOMED Code(s): 80058604 Code(s): J43.9 - EMPHYSEMA, UNSPECIFIED Status: Chronic Priority: High Current Visit: Yes Qualifiers: Emphysema type: unspecified Qualified Code(s): J43.9 - Emphysema, unspecified (4) Hypoxia SNOMED Code(s): 737153353 Code(s): R09.02 - HYPOXEMIA Status: Acute Priority: High Current Visit : Yes (5) Leukocytosis SNOMED Code(s): 737987781 Code(s): D72.829 - ELEVATED WHITE BLOOD CELL COUNT, UNSPECIFIED Status: Acute Priority: Medium Current Visit: Yes Qualifiers: Leukocytosis type: unspecified Qualified Code(s): D72.829 - Elevated white blood cell count, unspecified (6) Elevated C-reactive protein (CRP) SNOMED Code(s): 297843977 Code(s): R79.82 - ELEVATED C-REACTIVE PROTEIN (CRP) Status: Acute Priority: Medium Current Visit: Yes (7) Atrial fib/flutter, transient SNOMED Code(s): 845432697 Code(s): LXB8328 - Status: Chronic Priority: Medium Current Visit: Yes (8) Anxiety SNOMED Code(s): 10546040 Code(s): F41.9 - ANXIETY DISORDER, UNSPECIFIED Status: Chronic Priority: High Current Visit: Yes (9) Supratherapeutic INR SNOMED Code(s): 079263197 Code(s): R79.1 - ABNORMAL COAGULATION PROFILE Status: Acute Priority: High Current Visit: Yes (10) Failure to thrive in adult SNOMED Code(s): 804960253 Code(s): R62.7 - ADULT FAILURE TO THRIVE Status: Chronic Priority: High Current Visit: No (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 SNOMED Code(s): 251522053 Code(s): J44.9 - CHRONIC OBSTRUCTIVE PULMONARY DISEASE, UNSPECIFIED; R64 - [place] Status: Chronic Priority: High Current Visit: No - Problem List Review Problem List Initiated/Reviewed/Updated: Yes - My Orders Last 24 Hours: My Active Orders 04/04/17 06:59 RT Aerosol Therapy [RC] ASDIRECTED 04/04/17 07:00 Albuterol/Ipratropium [DuoNeb 3.0-0.5 MG/3 ML] 3 ml NEB Q6HRRT 04/04/17 07:02 LORazepam [Ativan] 0.5 mg PO Q4H PRN 04/04/17 09:00 DULoxetine [Cymbalta] 30 mg PO DAILY Multivitamin W/Iron, Minerals [Compete] 1 tab PO DAILY Saccharomyces Boulardii [Florastor] 250 mg PO BID - Plan Plan:: I/P: Acute: COPD exacerbation vs. pneumonia -Afebrile -Productive cough -Recently discharged (03/28/17) for right lower lobe pneumonia, COPD exacerbation and hypoxia -4L O2 required in ED titrated down to 2L (baseline) upon admission to hospital floor -Patient reports baseline dyspnea with exertion, however be began having dyspnea at rest today -WBC 45.97, however patient is on steroids from last admission and has severe COPD which is likely to skew results. ---improved today to 22K -CRP 5.9, however patient has severe COPD which can skew results -Rocephin given in ED, Levaquin and Zosyn started. - Will continue Levaquin tomorrow and stop zosyn. Florastor BID -CXR per Dr. Kee - 1:increasing density mostly within the right middle lobe form prior exam presumably representing pneumonia. 2. Emphysematous change and other incidental findings.---Will repeat CXR tomorrow am to follow -Monitor oxygen saturations as indicated -Titrate O2 as needed -IS/Acapella -Albuterol/Duoneb Q6H -Morphine for SOB PRN -Mucinex as indicated -Steroids as indicated - will taper judging on response -She is end stage COPD Leukocytosis - Improved today --45K -->22.71 -As described above Elevated CRP -As described above Anxiety -Worsening with shortness of breath -Home medications as ordered, Cymbalta daily--consider dose increase, will monitor -Ativan TID, may also help with SLAUGHTER/SOB Chronic: Hx/o atrial flutter- on warfarin HTN- stable GERD- Cont H2 sky Urinary incontinence Arthritis Migraines Depression- Cymbalta as above On warfarin - INR on high end of normal. Warfarin held today. Will dose monitor INR in AM and resume tomorrow. Plan: Admit to medical floor on telemetry SW/CM for discharge planning- when ready will plan for DC back to [facility] PT/OT GI prophylaxis - home pepcid order DVT/PE prophylaxis - SOLOMON koch, Pt. on warfarin -INR 3.43 Other orders as indicated above Home medications as ordered She is a DNR/DNI. Her PCP is Dr. Sloan at [facility] here in [place].
[2017-04-04] MEDS: Acetaminophen 325 MG Tab PO PRN ×3 (08:23→20:15)
[2017-04-04] MEDS ORDERED: Diphtheria,Pertussis(Acell),Tetanus Vaccine 0.5 ML SDV IM ONE (08:30)
[2017-04-04] MEDS: busPIRone 5 MG Tab PO SCH ×3 (08:32→18:41)
[2017-04-04] MEDS: Diltiazem 180 MG Cap.CD PO SCH (08:32)
[2017-04-04] MEDS: Metoprolol Tartrate 50 MG Tab PO SCH ×2 (08:32→20:10)
[2017-04-04] MEDS: DULoxetine 30 MG Cap PO SCH (08:32)
[2017-04-04] MEDS: Multivitamins,Therapeutic Tab PO SCH (08:33)
[2017-04-04] MEDS: Famotidine 20 MG Tab PO SCH ×2 (08:33→20:10)
[2017-04-04] MEDS: guaiFENesin 600 MG Tab.ER PO SCH ×2 (08:33→20:11)
[2017-04-04] MEDS: Saccharomyces Boulardii (Probiotic) 250 MG Cap PO SCH ×2 (08:33→20:11)
[2017-04-04] MEDS: Potassium Chloride 20 MEQ Tab.ER PO SCH ×2 (08:33→20:10)
[2017-04-04] MEDS: Albuterol/Ipratropium 3.0-0.5 MG/3 ML Neb Soln NEB SCH ×4 (09:17→20:31)
[2017-04-04] MEDS: Umeclidinium Bromide 1 PUFF INH SCH (09:20)
[2017-04-04] MEDS: Fluticasone/Vilanterol 1 PUFF INH SCH (09:20)
[2017-04-04] MEDS ORDERED: cefTRIAXone 2 GM in Sodium Chloride 0.9% 100 ML IV SCH (12:00)
[2017-04-04] MEDS: LORazepam 0.5 MG Tab PO SCH ×3 (12:22→21:09)
--- NOTE | 2017-04-04 13:44 | PCM.SN ---
- Free Text/Narrative Note: Spoke with patients cousin, Swati, (after OK rec'd from Holly to talk with her). Updated her on patient's condition and reviewed findings of xray, labs, medications. Reviewed course of care and expectations. Discussed future health status, hospice status or if she is hospice candidate at this time. I feel it is unable to be determined at this time patient's life expectancy. Likely will be >6 months so, feel with appropriate treatment and maybe increased daily prednisone. I do not feel she is Hospice candidate as of yet, Swati agrees and does not wish patient to go to Hospice care or for this to be mentioned to patient. Swati wishes to be called if any acute changes and when discharge is planned-- is her phone/contact number.
[2017-04-04] MEDS: Levofloxacin/Dextrose 5%-Water 750 MG in Premix Bag 1 BAG IV SCH (15:21)
[2017-04-04] MEDS: busPIRone 15 MG Tab PO SCH (18:38)
[2017-04-04] MEDS: Warfarin 10 MG Tab PO SCH (18:39)
[2017-04-04] MEDS: Mirtazapine 15 MG Tab PO SCH (20:10)
[2017-04-05] MEDS: methylPREDNISolone Sodium Succinate 125 MG/2 ML SDV IVPUSH SCH ×2 (03:00→10:12)
[2017-04-05] MEDS: Albuterol/Ipratropium 3.0-0.5 MG/3 ML Neb Soln NEB SCH ×4 (04:09→20:24)
[2017-04-05] MEDS: Potassium Chloride 20 MEQ Tab.ER PO SCH ×2 (08:18→21:31)
[2017-04-05] MEDS: Famotidine 20 MG Tab PO SCH ×2 (08:18→21:33)
[2017-04-05] MEDS: Saccharomyces Boulardii (Probiotic) 250 MG Cap PO SCH ×2 (08:18→21:30)
[2017-04-05] MEDS: Multivitamins,Therapeutic Tab PO SCH (08:18)
[2017-04-05] MEDS: Metoprolol Tartrate 50 MG Tab PO SCH ×2 (08:18→21:34)
[2017-04-05] MEDS: DULoxetine 30 MG Cap PO SCH (08:18)
[2017-04-05] MEDS: LORazepam 0.5 MG Tab PO SCH ×3 (08:19→21:32)
[2017-04-05] MEDS: busPIRone 5 MG Tab PO SCH ×2 (08:19→19:05)
[2017-04-05] MEDS: Diltiazem 180 MG Cap.CD PO SCH (08:19)
[2017-04-05] MEDS: guaiFENesin 600 MG Tab.ER PO SCH ×2 (08:19→21:37)
[2017-04-05] MEDS: Fluticasone/Vilanterol 1 PUFF INH SCH (08:20)
[2017-04-05] MEDS: Umeclidinium Bromide 1 PUFF INH SCH ×2 (08:21→08:59)
[2017-04-05] MEDS: Acetaminophen 325 MG Tab PO PRN ×3 (08:30→21:47)
--- NOTE | 2017-04-05 09:18 | CR ---
Chest: Two views of the chest were obtained. Comparison: Prior chest x-ray of 04/03/17. Previous density within the right middle lobe and lesser density within the right lower lobe appears to have significantly improved and almost completely resolved on current exam. Lungs otherwise are clear but hyperinflated. Heart size is normal. Tortuous thoracic aorta is seen. Scoliosis present within the spine. Bony structures are osteopenic. Impression: 1. Density within the right middle lobe and lesser within the right lower lobe shows near complete resolution from prior chest x-ray. 2. Other stable findings as noted above. Nothing new is seen. Diagnostic code #2
--- NOTE | 2017-04-05 12:31 | PCM.PN ---
- General Info Date of Service: 04/05/17 Admission Dx/Problem (Free Text): Admission Diagnosis/Problem Admission Diagnosis/Problem Pneumonia Holly is seen this morning, feels more SOB today than yesterday. Supplemental oxygen is up to 4L/NC this morning. She is coughing with minimal production. She feels weak, good appetite. Functional Status: Reports: Pain Controlled, Tolerating Diet, Ambulating, Urinating, Incentive Spirometry. Denies: New Symptoms - Review of Systems General: Reports: Weakness, Fatigue. Denies: Fever HEENT: Reports: Sore Throat Pulmonary: Reports: Shortness of Breath, Cough Cardiovascular: Reports: Dyspnea on Exertion. Denies: Chest Pain, Palpitations Gastrointestinal: Reports: No Symptoms Genitourinary: Reports: No Symptoms Musculoskeletal: Reports: No Symptoms Neurological: Reports: No Symptoms - Patient Data Vitals - Most Recent: Last Vital Signs Temp 98.1 F 04/05/17 11:55 Pulse 86 04/05/17 11:55 Resp 18 04/05/17 11:55 BP 137/58 L 04/05/17 11:55 Pulse Ox 94 L 04/05/17 11:55 Weight - Most Recent: 140 lb 1.6 oz I&O - Last 24 Hours: Intake & Output 04/04/17 04/05/17 04/05/17 22:59 06:59 14:59 Intake Total 550 600 Output Total 300 150 Balance 250 450 Lab Results Last 24 Hours: Laboratory Results - last 24 hr 04/04/17 04/04/17 04/05/17 Range/Units 15:25 17:40 05:55 WBC 26.91 H (3.98-10.04) K/mm3 RBC 3.58 L (3.98-5.22) M/mm3 Hgb 10.7 L (11.2-15.7) gm/L Hct 33.4 L (34.1-44.9) % MCV 93.3 (79.4-94.8) fl MCH 29.9 (25.6-32.2) pg MCHC 32.0 L (32.2-35.5) g/dl RDW Std Deviation 47.6 H (36.4-46.3) fL Plt Count 353 (182-369) K/mm3 MPV 9.2 L (9.4-12.3) fl Neut % (Auto) 95.0 H (34.0-71.1) % Lymph % (Auto) 2.2 L (19.3-51.7) % [place] % (Auto) 2.5 L (4.7-12.5) % Eos % (Auto) 0 L (0.7-5.8) Baso % (Auto) 0.0 L (0.1-1.2) % Neut # (Auto) 25.57 H (1.56-6.13) K/mm3 Lymph # (Auto) 0.60 L (1.18-3.74) K/mm3 [place] # (Auto) 0.66 H (0.24-0.36) K/mm3 Eos # (Auto) 0.00 L (0.04-0.36) K/mm3 Baso # (Auto) 0.01 (0.01-0.08) K/mm3 Manual Slide Review Abnormal smear PT (8.0-13.0) SECONDS INR Sodium (136-145) mEq/L Potassium (3.5-5.1) mEq/L Chloride (98-107) mEq/L Carbon Dioxide (21-32) mEq/L Anion Gap (5-15) BUN (7-18) mg/dL Creatinine (0.55-1.02) mg/dL Est Cr Clr Drug Dosing mL/min Estimated GFR (MDRD) (>60) mL/min BUN/Creatinine Ratio (14-18) Glucose (80-115) mg/dL Lactic Acid 2.9 H (0.4-2.0) mmol/L Calcium (8.5-10.1) mg/dL Magnesium (1.8-2.4) mg/dl C-Reactive Protein (<1.0) mg/dL Urine Color Dark yellow (Yellow) Urine Appearance Clear (Clear) Urine pH 6.0 (5.0-8.0) Ur Specific [place] > or = 1.030 (1.005-1.030) Urine Protein 1+ H (Negative) Urine Glucose (UA) Negative (Negative) Urine Ketones Negative (Negative) Urine Occult Blood Negative (Negative) Urine Nitrite Negative (Negative) Urine Bilirubin Negative (Negative) Urine Urobilinogen 0.2 (0.2-1.0) Ur Leukocyte Esterase Negative (Negative) Urine RBC Not seen (0-5) /hpf Urine WBC 0-5 (0-5) /hpf Ur Epithelial Cells 5-10 H (0-5) /hpf Urine Bacteria Not seen (FEW) /hpf Urine Mucus Few (FEW) /hpf 04/05/17 04/05/17 Range/Units 05:55 05:55 WBC (3.98-10.04) K/mm3 RBC (3.98-5.22) M/mm3 Hgb (11.2-15.7) gm/L Hct (34.1-44.9) % MCV (79.4-94.8) fl MCH (25.6-32.2) pg MCHC (32.2-35.5) g/dl RDW Std Deviation (36.4-46.3) fL Plt Count (182-369) K/mm3 MPV (9.4-12.3) fl Neut % (Auto) (34.0-71.1) % Lymph % (Auto) (19.3-51.7) % [place] % (Auto) (4.7-12.5) % Eos % (Auto) (0.7-5.8) Baso % (Auto) (0.1-1.2) % Neut # (Auto) (1.56-6.13) K/mm3 Lymph # (Auto) (1.18-3.74) K/mm3 [place] # (Auto) (0.24-0.36) K/mm3 Eos # (Auto) (0.04-0.36) K/mm3 Baso # (Auto) (0.01-0.08) K/mm3 Manual Slide Review PT 22.3 H (8.0-13.0) SECONDS INR 1.96 Sodium 145 (136-145) mEq/L Potassium 4.4 (3.5-5.1) mEq/L Chloride 109 H (98-107) mEq/L Carbon Dioxide 29 (21-32) mEq/L Anion Gap 11.4 (5-15) BUN 30 H (7-18) mg/dL Creatinine 0.5 L (0.55-1.02) mg/dL Est Cr Clr Drug Dosing 109.53 mL/min Estimated GFR (MDRD) > 60 (>60) mL/min BUN/Creatinine Ratio 60.0 H (14-18) Glucose 154 H (80-115) mg/dL Lactic Acid (0.4-2.0) mmol/L Calcium 8.5 (8.5-10.1) mg/dL Magnesium 2.2 (1.8-2.4) mg/dl C-Reactive Protein 5.6 H* (<1.0) mg/dL Urine Color (Yellow) Urine Appearance (Clear) Urine pH (5.0-8.0) Ur Specific [place] (1.005-1.030) Urine Protein (Negative) Urine Glucose (UA) (Negative) Urine Ketones (Negative) Urine Occult Blood (Negative) Urine Nitrite (Negative) Urine Bilirubin (Negative) Urine Urobilinogen (0.2-1.0) Ur Leukocyte Esterase (Negative) Urine RBC (0-5) /hpf Urine WBC (0-5) /hpf Ur Epithelial Cells (0-5) /hpf Urine Bacteria (FEW) /hpf Urine Mucus (FEW) /hpf Med Orders - Current: Current Medications Acetaminophen (Tylenol) 650 mg PO Q4H PRN PRN Reason: Pain (Mild 1-3)/fever Last Admin: 04/05/17 08:30 Dose: 650 mg Hydrocodone Bitart/Acetaminophen ([place] 325-5 Mg) 1 tab PO Q4H PRN PRN Reason: Pain (moderate 4-6) Albuterol/Ipratropium (Duoneb 3.0-0.5 Mg/3 Ml) 3 ml NEB Q4H PRN PRN Reason: Shortness Of Breath/wheezing Albuterol/Ipratropium (Duoneb 3.0-0.5 Mg/3 Ml) 3 ml NEB Q6HRRT [facility] Last Admin: 04/05/17 08:58 Dose: 3 ml Buspirone HCl (Buspar) 20 mg PO DAILY@0800 [facility] Last Admin: 04/05/17 08:19 Dose: 20 mg Buspirone HCl (Buspar) 10 mg PO DAILY@1800 [facility] Last Admin: 04/04/17 18:39 Dose: 10 mg Buspirone HCl (Buspar) 30 mg PO DAILY@1800 [facility] Last Admin: 04/04/17 18:38 Dose: 30 mg Diltiazem HCl (Cardizem Cd) 360 mg PO DAILY [facility] Last Admin: 04/05/17 08:19 Dose: 360 mg Docusate Sodium (Colace) 100 mg PO BID PRN PRN Reason: Constipation Duloxetine HCl (Cymbalta) 30 mg PO DAILY [facility] Last Admin: 04/05/17 08:18 Dose: 30 mg Famotidine (Pepcid) 20 mg PO BID [facility] Last Admin: 04/05/17 08:18 Dose: 20 mg Guaifenesin (Mucinex) 600 mg PO BID [facility] Last Admin: 04/05/17 08:19 Dose: 600 mg Hydralazine HCl (Apresoline) 10 mg PO Q6H PRN PRN Reason: Hypertension Lorazepam (Ativan) 1 mg PO BID PRN PRN Reason: Anxiety Lorazepam (Ativan) 0.5 mg PO TID [facility] Last Admin: 04/05/17 08:19 Dose: 0.5 mg Magnesium Sulfate (Pharmacy To Dose - Magnesium Replacement) 1 dose .XX ASDIRECTED [facility] Methylprednisolone Sodium Succinate (Solu-Medrol) 80 mg IVPUSH Q12H [facility] Metoprolol Tartrate (Lopressor) 50 mg PO Q12HR [facility] Last Admin: 04/05/17 08:18 Dose: 50 mg Metoprolol Tartrate (Lopressor) 5 mg IVPUSH Q4H PRN PRN Reason: Tachycardia Mirtazapine (Remeron) 15 mg PO BEDTIME [facility] Last Admin: 04/04/17 20:10 Dose: 15 mg Morphine Sulfate (Morphine) 1 mg IVPUSH Q4H PRN PRN Reason: Shortness of breath Multivitamins (Thera) 1 each PO DAILY [facility] Last Admin: 04/05/17 08:18 Dose: 1 each Ondansetron HCl (Zofran Odt) 4 mg PO Q6H PRN PRN Reason: nausea, able to take PO Ondansetron HCl (Zofran) 4 mg IV Q6H PRN PRN Reason: Nausea/Vomiting Fluticasone/ (Vilanterol 1 Puff) 0 each INH DAILY [facility] Last Admin: 04/05/17 08:20 Dose: Not Given Umeclidinium [place] (1 Puff) 0 each INH DAILY [facility] Last Admin: 04/05/17 08:59 Dose: 1 each Polyethylene Glycol (Miralax) 17 gm PO DAILY PRN PRN Reason: Constipation Potassium Chloride (Klor-Con M20) 20 meq PO BID [facility] Last Admin: 04/05/17 08:18 Dose: 20 meq Potassium Chloride (Pharmacy To Dose - Potassium Replacement) 1 dose .XX ASDIRECTED [facility] Saccharomyces Boulardii (Florastor) 250 mg PO BID [facility] Last Admin: 04/05/17 08:18 Dose: 250 mg Temazepam (Restoril) 7.5 mg PO BEDTIME PRN PRN Reason: Sleep Warfarin Sodium (Coumadin) 10 mg PO SuTuWeThSa@1800 [facility] Last Admin: 04/04/17 18:39 Dose: 10 mg Warfarin Sodium (Coumadin) 7.5 mg PO MOFR [facility] Discontinued Medications Albuterol/Ipratropium (Duoneb 3.0-0.5 Mg/3 Ml) 3 ml NEB ONETIME ONE Stop: 04/03/17 11:11 Last Admin: 04/03/17 11:23 Dose: 3 ml Aspirin (Aspirin) 324 mg PO ONETIME ONE Stop: 04/03/17 11:39 Last Admin: 04/03/17 12:00 Dose: 324 mg Buspirone HCl (Buspar) 40 mg PO DAILY@1800 [facility] Last Admin: 04/04/17 18:41 Dose: Not Given Ceftriaxone Sodium (Rocephin) 2 gm IVPUSH Q24H [facility] Last Admin: 04/03/17 12:34 Dose: Not Given Diphtheria/Tetanus/Acell Pertussis (Adacel) 0.5 ml IM .ONCE ONE Stop: 04/04/17 08:31 Ceftriaxone Sodium 2 gm/ (Sodium Chloride) 100 mls @ 200 mls/hr IV ONETIME ONE Stop: 04/03/17 13:01 Last Admin: 04/03/17 12:39 Dose: 200 mls/hr Levofloxacin/Dextrose 750 mg/ (Premix) 150 mls @ 100 mls/hr IV Q24H [facility] Last Admin: 04/04/17 15:21 Dose: 100 mls/hr Piperacillin Sod/Tazobactam (Sod 4.5 gm/ Sodium Chloride) 100 mls @ 200 mls/hr IV ONETIME ONE Stop: 04/03/17 16:27 Last Admin: 04/03/17 19:27 Dose: 200 mls/hr Ceftriaxone Sodium 2 gm/ (Sodium Chloride) 100 mls @ 200 mls/hr IV Q24H [facility] Lorazepam (Ativan) 0.5 mg PO Q4H PRN PRN Reason: restlessness/SOB Methylprednisolone Sodium Succinate (Solu-Medrol) 125 mg IVPUSH Q6H [place] Last Admin: 04/05/17 10:12 Dose: 125 mg Senna/Docusate Sodium (Senna Plus) 1 tab PO BID PRN PRN Reason: Constipation - Exam Quality Assessment: Supplemental Oxygen, DVT Prophylaxis General: Alert, Oriented, No Acute Distress HEENT: Pupils Equal, EOMI, Mucous Membr. Moist/[place] Neck: Supple Lungs: Normal Respiratory Effort, Decreased Breath Sounds Cardiovascular: Regular Rate, Regular Rhythm GI/Abdominal Exam: Normal Bowel Sounds, Soft, Non-Tender (Female) Exam: Deferred Extremities: Normal Inspection, No Pedal Edema, Normal Capillary Refill Peripheral Pulses: 1+: Dorsalis Pedis (L), Dorsalis Pedis (R) Neurological: No New Focal Deficit Psy/Mental Status: Alert, Normal Affect, Normal Mood - Problem List & Annotations (1) COPD exacerbation SNOMED Code(s): 222960370 Code(s): J44.1 - CHRONIC OBSTRUCTIVE PULMONARY DISEASE W (ACUTE) EXACERBATION Status: Acute Priority: High Current Visit: Yes (2) Pneumonia SNOMED Code(s): 259269454 Code(s): J18.9 - PNEUMONIA, UNSPECIFIED ORGANISM Status: Acute Priority: High Current Visit: Yes Qualifiers: Pneumonia type: due to unspecified organism Laterality: right Lung location: middle lobe of lung Qualified Code(s): J18.1 - Lobar pneumonia, unspecified organism (3) Emphysema lung SNOMED Code(s): 27061052 Code(s): J43.9 - EMPHYSEMA, UNSPECIFIED Status: Chronic Priority: High Current Visit: Yes Qualifiers: Emphysema type: unspecified Qualified Code(s): J43.9 - Emphysema, unspecified (4) Hypoxia SNOMED Code(s): 257924115 Code(s): R09.02 - HYPOXEMIA Status: Acute Priority: High Current Visit : Yes (5) Leukocytosis SNOMED Code(s): 411327885 Code(s): D72.829 - ELEVATED WHITE BLOOD CELL COUNT, UNSPECIFIED Status: Acute Priority: Medium Current Visit: Yes Qualifiers: Leukocytosis type: unspecified Qualified Code(s): D72.829 - Elevated white blood cell count, unspecified (6) Elevated C-reactive protein (CRP) SNOMED Code(s): 418628768 Code(s): R79.82 - ELEVATED C-REACTIVE PROTEIN (CRP) Status: Acute Priority: Medium Current Visit: Yes (7) Atrial fib/flutter, transient SNOMED Code(s): 111735761 Code(s): VHM4167 - Status: Chronic Priority: Medium Current Visit: Yes (8) Anxiety SNOMED Code(s): 34343681 Code(s): F41.9 - ANXIETY DISORDER, UNSPECIFIED Status: Chronic Priority: High Current Visit: Yes (9) Supratherapeutic INR SNOMED Code(s): 859555339 Code(s): R79.1 - ABNORMAL COAGULATION PROFILE Status: Acute Priority: High Current Visit: Yes (10) Failure to thrive in adult SNOMED Code(s): 043133582 Code(s): R62.7 - ADULT FAILURE TO THRIVE Status: Chronic Priority: High Current Visit: No (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 pneumonia -Afebrile -Productive cough-- white to clear, minimal cough -Recently discharged (03/28/17) for right lower lobe pneumonia, COPD exacerbation and hypoxia -Levaquin IV; DC'd today as CXR improved to clearing, this is just COPD exacerbation at this time -IS/Acapella -Albuterol/Duoneb Q6H -Morphine for SOB PRN -Mucinex as BID -Steroids - IV solu medrol, taper today to 80mg BID then to oral taper on discharge -She is end stage COPD Leukocytosis 26K today; likely d/t steroid use as above -As described above Elevated CRP -- improved to 5.6 -As described above Anxiety -Worsening with shortness of breath -Home medications as ordered, Cymbalta daily--consider dose increase, will monitor -Ativan TID, may also help with SLAUGHTER/SOB Chronic: Hx/o atrial flutter- on warfarin HTN- stable GERD- Cont H2 sky Urinary incontinence Arthritis Migraines Depression- Cymbalta as above On warfarin - INR on high end of normal. Warfarin held today. Will dose monitor INR in AM and resume tomorrow. Plan: Admit to medical floor on telemetry SW/CM for discharge planning- plan DC back to [facility] tomorrow PT/OT GI prophylaxis - home pepcid order DVT/PE prophylaxis - SOLOMON hose, Warfarin Other orders as indicated above Home medications as ordered She is a DNR/DNI. Her PCP is Dr. Sloan at [facility] here in [place].
[2017-04-05] MEDS: Warfarin 10 MG Tab PO SCH (18:50)
[2017-04-05] MEDS: busPIRone 15 MG Tab PO SCH (19:05)
[2017-04-05] MEDS: Mirtazapine 15 MG Tab PO SCH (21:32)
[2017-04-05] MEDS: methylPREDNISolone Sodium Succinate 40 MG/1 ML SDV IVPUSH SCH (21:38)
[2017-04-06] MEDS: Albuterol/Ipratropium 3.0-0.5 MG/3 ML Neb Soln NEB SCH ×3 (04:06→14:58)
[2017-04-06] MEDS ORDERED: Saccharomyces Boulardii (Probiotic) 250 MG Cap PO SCH (08:45)
[2017-04-06] MEDS: Fluticasone/Vilanterol 1 PUFF INH SCH (08:50)
[2017-04-06] MEDS: LORazepam 0.5 MG Tab PO SCH (09:02)
[2017-04-06] MEDS: Multivitamins,Therapeutic Tab PO SCH (09:03)
[2017-04-06] MEDS: Saccharomyces Boulardii (Probiotic) 250 MG Cap PO SCH (09:03)
[2017-04-06] MEDS: busPIRone 5 MG Tab PO SCH (09:03)
[2017-04-06] MEDS: Acetaminophen 325 MG Tab PO PRN ×2 (09:03→13:47)
[2017-04-06] MEDS: guaiFENesin 600 MG Tab.ER PO SCH (09:03)
[2017-04-06] MEDS: Famotidine 20 MG Tab PO SCH (09:04)
[2017-04-06] MEDS: Potassium Chloride 20 MEQ Tab.ER PO SCH (09:04)
[2017-04-06] MEDS: DULoxetine 30 MG Cap PO SCH (09:04)
[2017-04-06] MEDS: Metoprolol Tartrate 50 MG Tab PO SCH (09:04)
[2017-04-06] MEDS: Diltiazem 180 MG Cap.CD PO SCH (09:05)
[2017-04-06] MEDS: methylPREDNISolone Sodium Succinate 40 MG/1 ML SDV IVPUSH SCH (09:10)
[2017-04-06] MEDS ORDERED: Loperamide 2 MG Cap PO ONE (09:52)
[2017-04-06] MEDS: Umeclidinium Bromide 1 PUFF INH SCH (10:35)
--- NOTE | 2017-04-06 14:16 | PCM.DCSUM1 ---
<Mario Cornell - Last Filed: 04/06/17 14:31> Discharge Summary - Hospital Course Free Text/Narrative:: Rukhsana Vasquez is a 66 yo female patient who presented to our ED today with dyspnea on exertion. She was under our care from 03/22/17 to 03/28/17 for a COPD exacerbation, right lower lobe pneumonia, and hypoxia. She was sent home on levaquin and prednisone. In the hospital she was given zosyn and IV Solu- medrol. Rukhsana reportedly returned to the [place] [facility] and felt great for one day. She reported she was able to walk without being short of breath. On the second day she reported worsening dyspnea with exertion. Last night she began experiencing dyspnea with rest as well. She is normally on 1-2L of oxygen. She denies nausea, vomiting, chest pain, ear or throat pain, fevers, or headaches. She reports back pain since leaving the hospital and a productive cough. She has been utilizing her Brio, Incruz, and albuterol daily. She has PRN nebulized duoneb ordered but has not been utilizing it. She is on Coumadin. She lives in [facility]. In the ED she was afebrile with a temperature of 37.2 C. Pulse 93, Resp 20, BP 151/94, Pulse ox 90. 12-lead EKG was obtained feeling a normal sinus rhythm at 96 bpm there is decreased voltage in the corneal leads. Increased ST segment elevation in II and III Most likely noting early repolarization. There is near Q waves in V1 and V2 and aVF, T-wave inversion. Consider old anteroseptal MS. This was interpreted by ER providers. Labs were obtained: White blood cell count elevated at 45.97. It is noted the patient is on steroids and has chronic COPD which could skew this test. Hemoglobin was normal at 13.0. Hematocrit 39.7. She was normocytic. Platelet count 355,000. Neutrophils elevated at 91. She had 3% bandemia. PT was high at 40.5. INR was on the high side at 3.43. Sodium was normal 140. Potassium normal at 5.1. Chloride normal at 102. Carbon dioxide normal at 31. Anion gap was 12.1. BUN was elevated at 26. Creatinine normal at 0.6. Estimated GFR greater than 60. Calcium normal 9.3. Magnesium normal at 2.0. Bilirubin normal at 1. Liver enzymes normal with AST at 24, ALT 39, alkaline phosphatase 46. CK-MB was less than 0.5. Troponin negative at less than 0.017. CRP was elevated at 5.9. ProBNP slightly elevated at 218. Albumin low at 3.0. She was given Rocephin in the ER, 2 g. Two-view chest x-ray interpreted by Dr. Kee: 1. Increasing density mostly within the right middle lobe from prior exam presumably representing pneumonia. 2. Emphysematous change and other incidental findings. On presentation she was on 4 L of oxygen she was titrated down to 2 L , which is her normal range. With this she is oxygen saturation is in the low 90s. She is also given a DuoNeb and dyspnea is improved. Patient reports she' s not feel comfortable going back to the [place] [facility] would like to stay in the hospital. She carries a history of: atrial flutter, hypertension, COPD, recurrent shortness of breath, GERD, urinary incontinence, arthritis, migraines , anxiety, and depression. She was a one and a half pack a day smoker for 46 years, reportedly stopping last month. She was subsequently admitted as inpatient to the medical floor with telemetry. She is a DNR/DNI. Her primary care provider is Dr. Sloan at [facility] in [place]. While in our care she continued to improve. It was suspected her symptoms were more based on pneumonia and then a COPD exacerbation as her white count was extremely elevated, as was her CRP. She continued receiving Levaquin IV. Chest x-ray was obtained and interpreted by Dr. Kee as showing densities within the right middle lobe and lesser within the right lower lobe showed near complete resolution from prior chest x-ray. Other stable findings nothing new is seen. Levaquin was discontinued. Probiotic was started and she can continue this at home as a prescription was sent. She can continue her Mucinex. While in our care was noticed that the patient is extremely anxious. She also displayed some symptoms of depression. She told many staff members that she does not want to know about her status and care as there is concern she would "give up." We strongly suggest patient see outpatient psychiatric services to address these issues. Just prior to discharge, after being told she would be leaving, the patient began to have diarrhea. She had 2 episodes. C. difficile stool study was ordered as patient has received multiple antibiotics. He for stool sample could be obtained the patient was given Imodium and has had no diarrhea since. It is believed that the diarrhea may be a reaction to the news that she is going home. The patient knowledge is that she was extremely worried about this and believes the diarrhea may be from this as well. She'll be given Imodium prescription for discharge. Should the patient develop irretractable diarrhea, stool study should be considered for C. difficile. Again, the patient is having no abdominal complaints currently. She should follow-up with her primary care provider, Dr. Sloan, within 7-10 days. - Discharge Data Discharge Date: 04/06/17 (Admit date: 04/03/17) Discharge Disposition: DC/Tfer to SNF 03 Condition: Good - Discharge Diagnosis/Problem(s) (1) COPD exacerbation SNOMED Code(s): 594061519 ICD Code: J44.1 - CHRONIC OBSTRUCTIVE PULMONARY DISEASE W (ACUTE) EXACERBATION Status: Acute Priority: High (2) Leukocytosis SNOMED Code(s): 576981110 ICD Code: D72.829 - ELEVATED WHITE BLOOD CELL COUNT, UNSPECIFIED Status: Chronic Priority: Medium QualifierTitle: Leukocytosis type: unspecified Qualified Code(s): D72.829 - Elevated white blood cell count, unspecified (3) Elevated C-reactive protein (CRP) SNOMED Code(s): 712013118 ICD Code: R79.82 - ELEVATED C-REACTIVE PROTEIN (CRP) Status: Chronic Priority: Medium (4) Emphysema lung SNOMED Code(s): 49365145 ICD Code: J43.9 - EMPHYSEMA, UNSPECIFIED Status: Chronic Priority: High QualifierTitle: Emphysema type: unspecified Qualified Code(s): J43.9 - Emphysema, unspecified (5) Anxiety SNOMED Code(s): 96351599 ICD Code: F41.9 - ANXIETY DISORDER, UNSPECIFIED Status: Chronic Priority : High (6) Diarrhea SNOMED Code(s): 33304135 ICD Code: R19.7 - DIARRHEA, UNSPECIFIED Status: Resolved Priority: Low QualifierTitle: Diarrhea type: functional diarrhea Qualified Code(s): K59.1 - Functional diarrhea - Patient Summary/Data Consults: Consultations 04/03/17 15:18 Consult to Case Management [CONS] Routine Consult to Chuck Tender [CONS] Routine OT Evaluation and Treatment [CONS] Routine PT Evaluation and Treatment [CONS] Routine Respiratory Care Assess and Treatment [CONS] Routine - Patient Instructions Diet: Usual Diet as Tolerated Activity: As Tolerated Driving: Do Not Drive Showering/Bathing: May Shower Notify Provider of: Fever, Increased Pain (worsening cough or SOB) - Discharge Plan Prescriptions/Med Rec: Loperamide [Imodium] 2 mg PO Q6H PRN #20 cap PRN Reason: Diarrhea LORazepam [Ativan] 0.5 mg PO TID #90 tablet Prednisone [IJD: Prednisone] 10 mg PO DAILY #30 tab Home Medications: Home Meds Albuterol/Ipratropium [DuoNeb 3.0-0.5 MG/3 ML] 3 ml NEB Q6HRRT PRN #120 neb 09/18 [Rx] Bisacodyl [Dulcolax] 5 mg PO DAILY PRN #30 tablet 10/05/16 [Rx] Famotidine [Pepcid] 20 mg PO BID #60 tablet 10/05/16 [Rx] Metoprolol Tartrate [Lopressor] 50 mg PO Q12HR #60 tablet 10/05/16 [Rx] Mirtazapine [Remeron] 15 mg PO BEDTIME #30 tablet 10/05/16 [Rx] Albuterol Sulfate [Proventil Hfa] 1 puff INH DAILY 03/22/17 [History] Calcium Carbonate/Vitamin D3 [Calcium 500 + Vit D 400] 1 tab PO BID 03/22/17 [ History] DULoxetine [Cymbalta] 30 mg PO DAILY 03/22/17 [History] Diltiazem HCl [Cardizem Cd] 360 mg PO DAILY 03/22/17 [History] Fluticasone/Vilanterol [Breo Ellipta 100-25 MCG Inhalation Kit] 1 puff INH DAILY @2100 03/22/17 [History] LORazepam [Ativan] 1 mg PO BID PRN 03/22/17 [History] Multivitamin W/Iron, Minerals [Compete] 1 tab PO DAILY 03/22/17 [History] Umeclidinium [place] [Incruse Ellipta*] 1 puff INH DAILY 03/22/17 [History] Warfarin [Coumadin] 10 mg PO SUTUWETHSA 03/22/17 [History] busPIRone [Buspar] 20 mg PO 0800 03/22/17 [History] busPIRone [Buspar] 40 mg PO QPM 03/22/17 [History] Bifidobacter. Bifidum/B.Longum [Florajen Bifidoblend] 460 mg PO DAILY #30 capsule 03/28/17 [Rx] Potassium Chloride [Klor-Con M20] 20 meq PO BID #60 tab.er 03/28/17 [Rx] guaiFENesin [Mucinex] 600 mg PO BID #60 tab.er 03/28/17 [Rx] Acetaminophen [Tylenol] 650 mg PO Q4HR PRN 04/03/17 [History] Warfarin [Coumadin] 7.5 mg PO MOFR 04/03/17 [History] Albuterol [Proventil HFA] 6.7 gm INH Q6H PRN 04/04/17 [History] Docusate Sodium [Colace] 100 mg PO BID PRN 04/04/17 [History] LORazepam [Ativan] 0.5 mg PO TID #90 tablet 04/05/17 [Rx] Prednisone [IJD: Prednisone] 10 mg PO DAILY #30 tab 04/05/17 [Rx] Loperamide [Imodium] 2 mg PO Q6H PRN #20 cap 04/06/17 [Rx] Patient Handouts: Shortness of Breath, [id number], Chronic Obstructive Pulmonary Disease, [id number], Hand Washing, [id number], Community-Acquired Pneumonia, Adult, [id number] Forms: ED Department Discharge Referrals: Serjio Sloan MD [Primary Care Provider] - - Discharge Summary/Plan Comment DC Time >30 min.: Yes (45 mins) - General Info Date of Service: 04/06/17 Admission Dx/Problem (Free Text: Admission Diagnosis/Problem Admission Diagnosis/Problem Pneumonia Holly is seen this morning, feels more SOB today than yesterday. Supplemental oxygen is up to 4L/NC this morning. She is coughing with minimal production. She feels weak, good appetite. Functional Status: Reports: Pain Controlled, Tolerating Diet, Ambulating, Urinating, Incentive Spirometry. Denies: New Symptoms - Review of Systems General: Reports: No Symptoms. Denies: Fever, Weakness, Fatigue HEENT: Reports: No Symptoms Pulmonary: Reports: Shortness of Breath, Cough. Denies: Sputum, Hemoptysis, Wheezing Cardiovascular: Reports: Dyspnea on Exertion. Denies: Palpitations, Edema Gastrointestinal: Reports: No Symptoms Genitourinary: Reports: No Symptoms Musculoskeletal: Reports: No Symptoms Skin: Reports: No Symptoms Neurological: Reports: No Symptoms Psychiatric: Reports: No Symptoms - Patient Data Vitals - Most Recent: Last Vital Signs Temp 97.9 F 04/06/17 12:22 Pulse 77 04/06/17 12:22 Resp 28 H 04/06/17 12:22 BP 148/72 H 04/06/17 12:22 Pulse Ox 97 04/06/17 12:22 Weight - Most Recent: 64.954 kg I&O - Last 24 hours: Intake & Output 04/05/17 04/06/17 04/06/17 22:59 06:59 14:59 Intake Total 750 300 0 Output Total 1200 350 Balance -450 -50 0 Lab Results - Last 24 hrs: Laboratory Results - last 24 hr 04/06/17 04/06/17 04/06/17 Range/Units 06:20 06:20 06:20 WBC 22.38 H (3.98-10.04) K/mm3 RBC 3.52 L (3.98-5.22) M/mm3 Hgb 10.6 L (11.2-15.7) gm/L Hct 33.1 L (34.1-44.9) % MCV 94.0 (79.4-94.8) fl MCH 30.1 (25.6-32.2) pg MCHC 32.0 L (32.2-35.5) g/dl RDW Std Deviation 49.1 H (36.4-46.3) fL Plt Count 357 (182-369) K/mm3 MPV 9.1 L (9.4-12.3) fl Neut % (Auto) 95.9 H (34.0-71.1) % Lymph % (Auto) 2.1 L (19.3-51.7) % [place] % (Auto) 1.6 L (4.7-12.5) % Eos % (Auto) 0 L (0.7-5.8) Baso % (Auto) 0.0 L (0.1-1.2) % Neut # (Auto) 21.46 H (1.56-6.13) K/mm3 Lymph # (Auto) 0.47 L (1.18-3.74) K/mm3 [place] # (Auto) 0.36 (0.24-0.36) K/mm3 Eos # (Auto) 0.00 L (0.04-0.36) K/mm3 Baso # (Auto) 0.01 (0.01-0.08) K/mm3 Manual Slide Review Abnormal smear PT 46.8 H (8.0-13.0) SECONDS INR 3.93 Sodium 145 (136-145) mEq/L Potassium 4.4 (3.5-5.1) mEq/L Chloride 108 H (98-107) mEq/L Carbon Dioxide 30 (21-32) mEq/L Anion Gap 11.4 (5-15) BUN 34 H (7-18) mg/dL Creatinine 0.6 (0.55-1.02) mg/dL Est Cr Clr Drug Dosing 93.30 mL/min Estimated GFR (MDRD) > 60 (>60) mL/min BUN/Creatinine Ratio 56.7 H (14-18) Glucose 164 H (80-115) mg/dL Calcium 8.3 L (8.5-10.1) mg/dL Magnesium 2.4 (1.8-2.4) mg/dl C-Reactive Protein 1.9 H* (<1.0) mg/dL VIKAS Results - Last 24 hrs: Microbiology 04/04/17 17:28 Aerobic Blood Culture - Preliminary Blood NO GROWTH AFTER 1 DAY Anaerobic Blood Culture - Preliminary NO GROWTH AFTER 1 DAY 04/04/17 17:40 Aerobic Blood Culture - Preliminary Blood - Venous NO GROWTH AFTER 1 DAY Anaerobic Blood Culture - Preliminary NO GROWTH AFTER 1 DAY Med Orders - Current: Current Medications Acetaminophen (Tylenol) 650 mg PO Q4H PRN PRN Reason: Pain (Mild 1-3)/fever Last Admin: 04/06/17 13:47 Dose: 650 mg Hydrocodone Bitart/Acetaminophen ([place] 325-5 Mg) 1 tab PO Q4H PRN PRN Reason: Pain (moderate 4-6) Albuterol/Ipratropium (Duoneb 3.0-0.5 Mg/3 Ml) 3 ml NEB Q4H PRN PRN Reason: Shortness Of Breath/wheezing Albuterol/Ipratropium (Duoneb 3.0-0.5 Mg/3 Ml) 3 ml NEB Q6HRRT [facility] Last Admin: 04/06/17 08:49 Dose: 3 ml Buspirone HCl (Buspar) 20 mg PO DAILY@0800 [facility] Last Admin: 04/06/17 09:03 Dose: 20 mg Buspirone HCl (Buspar) 10 mg PO DAILY@1800 [facility] Last Admin: 04/05/17 19:05 Dose: 10 mg Buspirone HCl (Buspar) 30 mg PO DAILY@1800 [facility] Last Admin: 04/05/17 19:05 Dose: 30 mg Diltiazem HCl (Cardizem Cd) 360 mg PO DAILY [facility] Last Admin: 04/06/17 09:05 Dose: 360 mg Docusate Sodium (Colace) 100 mg PO BID PRN PRN Reason: Constipation Duloxetine HCl (Cymbalta) 30 mg PO DAILY [facility] Last Admin: 04/06/17 09:04 Dose: 30 mg Famotidine (Pepcid) 20 mg PO BID [facility] Last Admin: 04/06/17 09:04 Dose: 20 mg Guaifenesin (Mucinex) 600 mg PO BID [facility] Last Admin: 04/06/17 09:03 Dose: 600 mg Hydralazine HCl (Apresoline) 10 mg PO Q6H PRN PRN Reason: Hypertension Magnesium Sulfate (Pharmacy To Dose - Magnesium Replacement) 1 dose .XX ASDIRECTED [facility] Methylprednisolone Sodium Succinate (Solu-Medrol) 80 mg IVPUSH Q12H [facility] Last Admin: 04/06/17 09:10 Dose: 80 mg Metoprolol Tartrate (Lopressor) 50 mg PO Q12HR [facility] Last Admin: 04/06/17 09:04 Dose: 50 mg Metoprolol Tartrate (Lopressor) 5 mg IVPUSH Q4H PRN PRN Reason: Tachycardia Mirtazapine (Remeron) 15 mg PO BEDTIME [facility] Last Admin: 04/05/17 21:32 Dose: 15 mg Morphine Sulfate (Morphine) 1 mg IVPUSH Q4H PRN PRN Reason: Shortness of breath Multivitamins (Thera) 1 each PO DAILY [facility] Last Admin: 04/06/17 09:03 Dose: 1 each Ondansetron HCl (Zofran Odt) 4 mg PO Q6H PRN PRN Reason: nausea, able to take PO Ondansetron HCl (Zofran) 4 mg IV Q6H PRN PRN Reason: Nausea/Vomiting Umeclidinium [place] (1 Puff) 0 each INH DAILY [facility] Last Admin: 04/06/17 10:35 Dose: Not Given Fluticasone/ (Vilanterol 1 Puff) 0 each INH BEDTIME [place] Polyethylene Glycol (Miralax) 17 gm PO DAILY PRN PRN Reason: Constipation Potassium Chloride (Klor-Con M20) 20 meq PO BID [facility] Last Admin: 04/06/17 09:04 Dose: 20 meq Potassium Chloride (Pharmacy To Dose - Potassium Replacement) 1 dose .XX ASDIRECTED [facility] Saccharomyces Boulardii (Florastor) 250 mg PO BID [facility] Last Admin: 04/06/17 09:03 Dose: 250 mg Temazepam (Restoril) 7.5 mg PO BEDTIME PRN PRN Reason: Sleep Warfarin Sodium (Coumadin) 10 mg PO SuTuWeThSa@1800 [facility] Last Admin: 04/05/17 18:50 Dose: 10 mg Warfarin Sodium (Coumadin) 7.5 mg PO MOFR [facility] Discontinued Medications Albuterol/Ipratropium (Duoneb 3.0-0.5 Mg/3 Ml) 3 ml NEB ONETIME ONE Stop: 04/03/17 11:11 Last Admin: 04/03/17 11:23 Dose: 3 ml Aspirin (Aspirin) 324 mg PO ONETIME ONE Stop: 04/03/17 11:39 Last Admin: 04/03/17 12:00 Dose: 324 mg Buspirone HCl (Buspar) 40 mg PO DAILY@1800 [facility] Last Admin: 04/04/17 18:41 Dose: Not Given Ceftriaxone Sodium (Rocephin) 2 gm IVPUSH Q24H [facility] Last Admin: 04/03/17 12:34 Dose: Not Given Diphtheria/Tetanus/Acell Pertussis (Adacel) 0.5 ml IM .ONCE ONE Stop: 04/04/17 08:31 Ceftriaxone Sodium 2 gm/ (Sodium Chloride) 100 mls @ 200 mls/hr IV ONETIME ONE Stop: 04/03/17 13:01 Last Admin: 04/03/17 12:39 Dose: 200 mls/hr Levofloxacin/Dextrose 750 mg/ (Premix) 150 mls @ 100 mls/hr IV Q24H [facility] Last Admin: 04/04/17 15:21 Dose: 100 mls/hr Piperacillin Sod/Tazobactam (Sod 4.5 gm/ Sodium Chloride) 100 mls @ 200 mls/hr IV ONETIME ONE Stop: 04/03/17 16:27 Last Admin: 04/03/17 19:27 Dose: 200 mls/hr Ceftriaxone Sodium 2 gm/ (Sodium Chloride) 100 mls @ 200 mls/hr IV Q24H [place] Loperamide HCl (Imodium) 4 mg PO ONETIME ONE Stop: 04/06/17 09:53 Last Admin: 04/06/17 10:13 Dose: 4 mg Lorazepam (Ativan) 1 mg PO BID PRN PRN Reason: Anxiety Lorazepam (Ativan) 0.5 mg PO Q4H PRN PRN Reason: restlessness/SOB Lorazepam (Ativan) 0.5 mg PO TID [facility] Last Admin: 04/06/17 09:02 Dose: 0.5 mg Methylprednisolone Sodium Succinate (Solu-Medrol) 125 mg IVPUSH Q6H [facility] Last Admin: 04/05/17 10:12 Dose: 125 mg Fluticasone/ (Vilanterol 1 Puff) 0 each INH DAILY [facility] Last Admin: 04/06/17 08:50 Dose: 1 each Saccharomyces Boulardii (Florastor) 250 mg PO BID [facility] Senna/Docusate Sodium (Senna Plus) 1 tab PO BID PRN PRN Reason: Constipation - Exam Quality Assessment: Reports: Supplemental Oxygen (2L ), DVT Prophylaxis General: Reports: Alert, Oriented, Cooperative, No Acute Distress HEENT: Reports: Pupils Equal, Pupils Reactive, EOMI, Mucous Membr. Moist/[place] Neck: Reports: Supple, No JVD, No Thyromegaly Lungs: Reports: Normal Respiratory Effort, Decreased Breath Sounds Cardiovascular: Reports: Regular Rate, Regular Rhythm GI/Abdominal Exam: Normal Bowel Sounds, Soft, Non-Tender, No Organomegaly (Female) Exam: Deferred Rectal (Female) Exam: Deferred Back Exam: Reports: Normal Inspection, Decreased Range of Motion Extremities: Normal Inspection, Normal Range of Motion, Non-Tender, No Pedal Edema, Normal Capillary Refill Skin: Reports: Warm, Dry, Intact Neurological: Reports: No New Focal Deficit Psy/Mental Status: Reports: Alert, Normal Affect, Normal Mood *Q Meaningful Use (DIS) - VTE *Q VTE Criteria *Q: - Stroke *Q Stroke Criteria *Q: - AMI *Q AMI Criteria *Q: <Sarah Trejo Yoana - Last Filed: 04/08/17 13:31> Discharge Summary - Hospital Course Free Text/Narrative:: Extensive summary provided, see above - Patient Summary/Data Consults: Consultations 04/03/17 15:18 Consult to Case Management [CONS] Routine Consult to Chuck Tender [CONS] Routine OT Evaluation and Treatment [CONS] Routine PT Evaluation and Treatment [CONS] Routine Respiratory Care Assess and Treatment [CONS] Routine - Patient Data Vitals - Most Recent: Last Vital Signs Temp 36.6 C 04/06/17 15:54 Pulse 83 04/06/17 15:55 Resp 18 04/06/17 15:54 BP 154/58 H 04/06/17 15:55 Pulse Ox 95 04/06/17 15:55 VIKAS Results - Last 24 hrs: Microbiology 04/04/17 17:28 Aerobic Blood Culture - Preliminary Blood NO GROWTH AFTER 3 DAYS Anaerobic Blood Culture - Preliminary NO GROWTH AFTER 3 DAYS 04/04/17 17:40 Aerobic Blood Culture - Preliminary Blood - Venous NO GROWTH AFTER 3 DAYS Anaerobic Blood Culture - Preliminary NO GROWTH AFTER 3 DAYS Med Orders - Current: Current Medications Discontinued Medications Acetaminophen (Tylenol) 650 mg PO Q4H PRN PRN Reason: Pain (Mild 1-3)/fever Last Admin: 04/06/17 13:47 Dose: 650 mg Hydrocodone Bitart/Acetaminophen ([place] 325-5 Mg) 1 tab PO Q4H PRN PRN Reason: Pain (moderate 4-6) Albuterol/Ipratropium (Duoneb 3.0-0.5 Mg/3 Ml) 3 ml NEB ONETIME ONE Stop: 04/03/17 11:11 Last Admin: 04/03/17 11:23 Dose: 3 ml Albuterol/Ipratropium (Duoneb 3.0-0.5 Mg/3 Ml) 3 ml NEB Q4H PRN PRN Reason: Shortness Of Breath/wheezing Albuterol/Ipratropium (Duoneb 3.0-0.5 Mg/3 Ml) 3 ml NEB Q6HRRT [facility] Last Admin: 04/06/17 14:58 Dose: 3 ml Aspirin (Aspirin) 324 mg PO ONETIME ONE Stop: 04/03/17 11:39 Last Admin: 04/03/17 12:00 Dose: 324 mg Buspirone HCl (Buspar) 20 mg PO DAILY@0800 [facility] Last Admin: 04/06/17 09:03 Dose: 20 mg Buspirone HCl (Buspar) 40 mg PO DAILY@1800 [facility] Last Admin: 04/04/17 18:41 Dose: Not Given Buspirone HCl (Buspar) 10 mg PO DAILY@1800 [facility] Last Admin: 04/05/17 19:05 Dose: 10 mg Buspirone HCl (Buspar) 30 mg PO DAILY@1800 [facility] Last Admin: 04/05/17 19:05 Dose: 30 mg Ceftriaxone Sodium (Rocephin) 2 gm IVPUSH Q24H [facility] Last Admin: 04/03/17 12:34 Dose: Not Given Diltiazem HCl (Cardizem Cd) 360 mg PO DAILY [facility] Last Admin: 04/06/17 09:05 Dose: 360 mg Diphtheria/Tetanus/Acell Pertussis (Adacel) 0.5 ml IM .ONCE ONE Stop: 04/04/17 08:31 Docusate Sodium (Colace) 100 mg PO BID PRN PRN Reason: Constipation Duloxetine HCl (Cymbalta) 30 mg PO DAILY [facility] Last Admin: 04/06/17 09:04 Dose: 30 mg Famotidine (Pepcid) 20 mg PO BID [facility] Last Admin: 04/06/17 09:04 Dose: 20 mg Guaifenesin (Mucinex) 600 mg PO BID [facility] Last Admin: 04/06/17 09:03 Dose: 600 mg Hydralazine HCl (Apresoline) 10 mg PO Q6H PRN PRN Reason: Hypertension Ceftriaxone Sodium 2 gm/ (Sodium Chloride) 100 mls @ 200 mls/hr IV ONETIME ONE Stop: 04/03/17 13:01 Last Admin: 04/03/17 12:39 Dose: 200 mls/hr Levofloxacin/Dextrose 750 mg/ (Premix) 150 mls @ 100 mls/hr IV Q24H [facility] Last Admin: 04/04/17 15:21 Dose: 100 mls/hr Piperacillin Sod/Tazobactam (Sod 4.5 gm/ Sodium Chloride) 100 mls @ 200 mls/hr IV ONETIME ONE Stop: 04/03/17 16:27 Last Admin: 04/03/17 19:27 Dose: 200 mls/hr Ceftriaxone Sodium 2 gm/ (Sodium Chloride) 100 mls @ 200 mls/hr IV Q24H [facility] Loperamide HCl (Imodium) 4 mg PO ONETIME ONE Stop: 04/06/17 09:53 Last Admin: 04/06/17 10:13 Dose: 4 mg Lorazepam (Ativan) 1 mg PO BID PRN PRN Reason: Anxiety Lorazepam (Ativan) 0.5 mg PO Q4H PRN PRN Reason: restlessness/SOB Lorazepam (Ativan) 0.5 mg PO TID [facility] Last Admin: 04/06/17 09:02 Dose: 0.5 mg Magnesium Sulfate (Pharmacy To Dose - Magnesium Replacement) 1 dose .XX ASDIRECTED [facility] Methylprednisolone Sodium Succinate (Solu-Medrol) 125 mg IVPUSH Q6H [facility] Last Admin: 04/05/17 10:12 Dose: 125 mg Methylprednisolone Sodium Succinate (Solu-Medrol) 80 mg IVPUSH Q12H [facility] Last Admin: 04/06/17 09:10 Dose: 80 mg Metoprolol Tartrate (Lopressor) 50 mg PO Q12HR [facility] Last Admin: 04/06/17 09:04 Dose: 50 mg Metoprolol Tartrate (Lopressor) 5 mg IVPUSH Q4H PRN PRN Reason: Tachycardia Mirtazapine (Remeron) 15 mg PO BEDTIME [facility] Last Admin: 04/05/17 21:32 Dose: 15 mg Morphine Sulfate (Morphine) 1 mg IVPUSH Q4H PRN PRN Reason: Shortness of breath Multivitamins (Thera) 1 each PO DAILY [facility] Last Admin: 04/06/17 09:03 Dose: 1 each Ondansetron HCl (Zofran Odt) 4 mg PO Q6H PRN PRN Reason: nausea, able to take PO Ondansetron HCl (Zofran) 4 mg IV Q6H PRN PRN Reason: Nausea/Vomiting Fluticasone/ (Vilanterol 1 Puff) 0 each INH DAILY [facility] Last Admin: 04/06/17 08:50 Dose: 1 each Umeclidinium [place] (1 Puff) 0 each INH DAILY [facility] Last Admin: 04/06/17 10:35 Dose: Not Given Fluticasone/ (Vilanterol 1 Puff) 0 each INH BEDTIME [facility] Polyethylene Glycol (Miralax) 17 gm PO DAILY PRN PRN Reason: Constipation Potassium Chloride (Klor-Con M20) 20 meq PO BID [facility] Last Admin: 04/06/17 09:04 Dose: 20 meq Potassium Chloride (Pharmacy To Dose - Potassium Replacement) 1 dose .XX ASDIRECTED [facility] Saccharomyces Boulardii (Florastor) 250 mg PO BID [facility] Last Admin: 04/06/17 09:03 Dose: 250 mg Saccharomyces Boulardii (Florastor) 250 mg PO BID [facility] Senna/Docusate Sodium (Senna Plus) 1 tab PO BID PRN PRN Reason: Constipation Temazepam (Restoril) 7.5 mg PO BEDTIME PRN PRN Reason: Sleep Warfarin Sodium (Coumadin) 10 mg PO [email or web address] [facility] Last Admin: 04/05/17 18:50 Dose: 10 mg Warfarin Sodium (Coumadin) 7.5 mg PO MOFR [facility] *Q Meaningful Use (DIS) - VTE *Q VTE Criteria *Q: - Stroke *Q Stroke Criteria *Q: - AMI *Q AMI Criteria *Q:
[2017-04-06 16:13] VITALS: BP 154/58
[2017-04-06] MEDS ORDERED: Fluticasone/Vilanterol 1 PUFF INH SCH (21:00)
[2017-04-06] MEDS ORDERED: Warfarin 5 MG Tab PO SCH (23:38)
== END 2017-04-06 16:35 | DRG 191 ==
LOC: JD.ED 10:02 → UNDOADMIN 13:46 → JD.MS 13:46 → UNDODISIN 04-06 16:35
PROVIDERS: ADMIT Internal Medicine; ATTEND Internal Medicine
DX: J18.9 Pneumonia, unspecified organism (principal); J43.9 Emphysema, unspecified; R62.7 Adult failure to thrive; J44.1 Chronic obstructive pulmonary disease with (acute) exacerbation; I48.92 Unspecified atrial flutter; Z87.891 Personal history of nicotine dependence; J44.9 Chronic obstructive pulmonary disease, unspecified; D72.829 Elevated white blood cell count, unspecified; R79.82 Elevated C-reactive protein (CRP); R79.1 Abnormal coagulation profile; R19.7 Diarrhea, unspecified; Z66 Do not resuscitate; I10 Essential (primary) hypertension; Z79.01 Long term (current) use of anticoagulants; K21.9 Gastro-esophageal reflux disease without esophagitis; R32 Unspecified urinary incontinence; G43.909 Migraine, unspecified, not intractable, without status migrainosus; M19.90 Unspecified osteoarthritis, unspecified site; F32.9 Major depressive disorder, single episode, unspecified; F41.9 Anxiety disorder, unspecified; Z87.01 Personal history of pneumonia (recurrent); H54.7 Unspecified visual loss; Z99.81 Dependence on supplemental oxygen; Z79.899 Other long term (current) drug therapy
CPT/HCPCS: 36415; 71020; 80053; 82553; 83735; 83880; 84484; 85025; 85610; 86140; 93005; 94640; 96365; 99285; A9270; J0696; J7030; 80048; 81001; 83605; 87040; 87641; 93010; 94667; 94668; 94761; 97110-GP; 97112-GP; 97116-GP; 97161-GP; 97165-GO; 99231; 99232; J1956; J2543; J2920; J2930

== ENCOUNTER 2017-04-27 10:06 | Emergency (ER) | payer MEDICARE, MEDICAID ==
[2017-04-27] MEDS ORDERED: Sodium Chloride 0.9% 10 ML Syringe FLUSH PRN (10:37)
[2017-04-27] MEDS ORDERED: Albuterol/Ipratropium 3.0-0.5 MG/3 ML Neb Soln NEB ONE (10:39)
[2017-04-27] MEDS ORDERED: Oseltamivir 75 MG Cap PO ONE (12:45)
--- NOTE | 2017-04-27 12:52 | EDM.PDOC ---
ED HPI GENERAL MEDICAL PROBLEM - General Chief Complaint: Fever Stated Complaint: [facility] Time Seen by Provider: 04/27/17 10:27 Source of Information: Reports: Patient, Retirement Records History Limitations: Reports: No Limitations - History of Present Illness INITIAL COMMENTS - FREE TEXT/NARRATIVE: The patient presents with a fever. She has a history of COPD that is advanced and she lives at the [facility] in [place]. She says she has had a fever for a few days and they checked it and it was 104 at [facility]. They gave her tylenol and sent her here. She has no fever now. She has no cough. She says she may be a little more short of breath. She has no headache, ear pain, sore throat, abdominal pain, nausea, vomiting or dysuria. Onset: Gradual Duration: Day(s): (2) Severity: Mild Improves with: Reports: None Worsens with: Reports: None Associated Symptoms: Reports: Fever/Chills, Shortness of Breath. Denies: Chest Pain, Cough, Headaches, Nausea/Vomiting - Related Data Allergies Allergy/AdvReac Type Severity Reaction Status Date / Time No Known Allergies Allergy Verified 04/27/17 10:46 Home Meds: Home Meds Albuterol/Ipratropium [DuoNeb 3.0-0.5 MG/3 ML] 3 ml NEB Q6HRRT PRN #120 neb 09/18 [Rx] Bisacodyl [Dulcolax] 5 mg PO DAILY PRN #30 tablet 10/05/16 [Rx] Famotidine [Pepcid] 20 mg PO BID #60 tablet 10/05/16 [Rx] Metoprolol Tartrate [Lopressor] 50 mg PO Q12HR #60 tablet 10/05/16 [Rx] Mirtazapine [Remeron] 15 mg PO BEDTIME #30 tablet 10/05/16 [Rx] Calcium Carbonate/Vitamin D3 [Calcium 500 + Vit D 400] 1 tab PO BID 03/22/17 [ History] DULoxetine [Cymbalta] 30 mg PO DAILY 03/22/17 [History] Diltiazem HCl [Cardizem Cd] 360 mg PO DAILY 03/22/17 [History] Fluticasone/Vilanterol [Breo Ellipta 100-25 MCG Inhalation Kit] 1 puff INH DAILY @2100 03/22/17 [History] LORazepam [Ativan] 1 mg PO BID PRN 03/22/17 [History] Multivitamin W/Iron, Minerals [Compete] 1 tab PO DAILY 03/22/17 [History] Umeclidinium Craig [Incruse Ellipta*] 1 puff INH DAILY 03/22/17 [History] Warfarin [Coumadin] 10 mg PO SUTUWETHSA 03/22/17 [History] busPIRone [Buspar] 20 mg PO 0800 03/22/17 [History] busPIRone [Buspar] 40 mg PO QPM 03/22/17 [History] Bifidobacter. Bifidum/B.Longum [Florajen Bifidoblend] 460 mg PO DAILY #30 capsule 03/28/17 [Rx] Potassium Chloride [Klor-Con M20] 20 meq PO BID #60 tab.er 03/28/17 [Rx] guaiFENesin [Mucinex] 600 mg PO BID #60 tab.er 03/28/17 [Rx] Acetaminophen [Tylenol] 650 mg PO Q4HR PRN 04/03/17 [History] Warfarin [Coumadin] 7.5 mg PO MOFR 04/03/17 [History] Albuterol [Proventil HFA] 6.7 gm INH Q6H PRN 04/04/17 [History] Docusate Sodium [Colace] 100 mg PO BID PRN 04/04/17 [History] Loperamide [Imodium] 2 mg PO Q6H PRN #20 cap 04/06/17 [Rx] Acetaminophen [Tylenol] 650 mg PO TID 04/27/17 [History] Furosemide [Lasix] 20 mg PO ASDIRECTED 04/27/17 [History] LORazepam [Ativan] 0.5 mg PO TID 04/27/17 [History] Oseltamivir [Tamiflu] 75 mg PO BID #9 cap 04/27/17 [Rx] Sennosides/Docusate Sodium [Senna S Tablet] 1 tab PO DAILY 04/27/17 [History] Past Medical History HEENT History: Reports: Impaired Vision Other HEENT History: wears glasses Cardiovascular History: Reports: Arrhythmia, Hypertension Other Cardiovascular History: atrial flutter Respiratory History: Reports: COPD, Pneumonia, Recurrent, SOB Gastrointestinal History: Reports: GERD Genitourinary History: Reports: Urinary Incontinence Other Genitourinary History: dribbling Musculoskeletal History: Reports: Arthritis Neurological History: Reports: Migraines Psychiatric History: Reports: Anxiety, Depression Endocrine/Metabolic History: Reports: None Immunologic History: Reports: None Oncologic (Cancer) History: Reports: None Dermatologic History: Reports: None - Infectious Disease History Infectious Disease History: Reports: Chicken Pox - Past Surgical History HEENT Surgical History: Reports: None Cardiovascular Surgical History: Reports: None Female Surgical History: Reports: None Social & Family History - Family History Family Medical History: Noncontributory HEENT: Reports: Impaired Vision Respiratory: Reports: Asthma, COPD Musculoskeletal: Reports: Arthritis Oncologic: Reports: Breast, Colon, Lymphoma, Pancreatic - Tobacco Use Smoking Status *Q: Former Smoker Years of Tobacco use: 46 Packs/Tins Daily: 1.5 Used Tobacco, but Quit: Yes Month Tobacco Last Used: september 2016 Second Hand Smoke Exposure: No - Caffeine Use Caffeine Use: Reports: Coffee - Recreational Drug Use Recreational Drug Use: No Recreational Drug Type: Reports: Marijuana/Hashish Recreational Drug Use Frequency: Not Used In Over 6 Months - Living Situation & Occupation Living situation: Reports: Single, Extended Care Facility ([facility]) Occupation: Retired ED ROS GENERAL - Review of Systems Review Of Systems: See Below Constitutional: Reports: Fever HEENT: Reports: No Symptoms Respiratory: Reports: Shortness of Breath. Denies: Cough Cardiovascular: Reports: No Symptoms Endocrine: Reports: No Symptoms GI/Abdominal: Reports: No Symptoms : Reports: No Symptoms Musculoskeletal: Reports: No Symptoms ED EXAM, GENERAL - Physical Exam Exam: See Below Exam Limited By: No Limitations General Appearance: Alert, No Apparent Distress Ears: Normal External Exam Nose: Normal Inspection Throat/Mouth: Normal Inspection Head: Atraumatic, Normocephalic Neck: Normal Inspection Respiratory/Chest: No Respiratory Distress, Decreased Breath Sounds Cardiovascular: Regular Rate, Rhythm, No Edema, No Murmur GI/Abdominal: Soft, Non-Tender, No Organomegaly, No Mass Back Exam: Normal Inspection Extremities: Normal Inspection Neurological: Alert, Oriented, No Motor/Sensory Deficits Course - Vital Signs Last Recorded V/S: Last Vital Signs Temp 98.9 F 04/27/17 10:16 Pulse 85 04/27/17 10:16 Resp 16 04/27/17 10:16 BP 131/61 04/27/17 10:16 Pulse Ox 96 04/27/17 11:20 - Orders/Labs/Meds Orders: Active Orders 24 hr Category Date Time Status Cardiac Monitoring [RC] . DIRECTED Care 04/27/17 10:37 Active Oxygen Therapy [RC] PRN Care 04/27/17 10:37 Active Peripheral IV Care [RC] . DIRECTED Care 04/27/17 10:38 Active RT Aerosol Therapy [RC] ASDIRECTED Care 04/27/17 10:39 Active Chest 2V [CR] Stat Exams 04/27/17 10:38 Taken CULTURE BLOOD [BC] Stat Lab 04/27/17 11:00 Received CULTURE BLOOD [BC] Stat Lab 04/27/17 11:10 Received RESPIRATORY PANEL BY PCR [MREF] Stat Lab 04/27/17 12:44 Uncollected UA W/MICROSCOPIC [URIN] Stat Lab 04/27/17 10:37 Uncollected Sodium Chloride 0.9% [Saline Flush] Med 04/27/17 10:37 Active 10 ml FLUSH ASDIRECTED PRN Blood Culture x2 Reflex Set [OM.PC] Stat Oth 04/27/17 10:38 Ordered Peripheral IV Insertion Adult [OM.PC] Stat Oth 04/27/17 10:37 Ordered Medication Orders Sodium Chloride (Saline Flush) 10 ml FLUSH ASDIRECTED PRN PRN Reason: Keep Vein Open Last Admin: 04/27/17 11:18 Dose: 10 ml Labs: Laboratory Tests 04/27/17 04/27/17 Range/Units 11:00 11:00 WBC 8.32 (3.98-10.04) K/mm3 RBC 3.82 L (3.98-5.22) M/mm3 Hgb 11.4 (11.2-15.7) gm/L Hct 35.3 (34.1-44.9) % MCV 92.4 (79.4-94.8) fl MCH 29.8 (25.6-32.2) pg MCHC 32.3 (32.2-35.5) g/dl RDW Std Deviation 47.9 H (36.4-46.3) fL Plt Count 392 H (182-369) K/mm3 MPV 8.6 L (9.4-12.3) fl Neut % (Auto) 54.1 (34.0-71.1) % Lymph % (Auto) 27.4 (19.3-51.7) % [place] % (Auto) 15.4 H (4.7-12.5) % Eos % (Auto) 1.4 (0.7-5.8) Baso % (Auto) 0.5 (0.1-1.2) % Neut # (Auto) 4.50 (1.56-6.13) K/mm3 Lymph # (Auto) 2.28 (1.18-3.74) K/mm3 [place] # (Auto) 1.28 H (0.24-0.36) K/mm3 Eos # (Auto) 0.12 (0.04-0.36) K/mm3 Baso # (Auto) 0.04 (0.01-0.08) K/mm3 Manual Slide Review Abnormal smear Sodium 143 (136-145) mEq/L Potassium 4.6 (3.5-5.1) mEq/L Chloride 105 (98-107) mEq/L Carbon Dioxide 30 (21-32) mEq/L Anion Gap 12.6 (5-15) BUN 15 (7-18) mg/dL Creatinine 0.6 (0.55-1.02) mg/dL Est Cr Clr Drug Dosing 98.39 mL/min Estimated GFR (MDRD) > 60 (>60) mL/min BUN/Creatinine Ratio 25.0 H (14-18) Glucose 105 (80-115) mg/dL Calcium 9.0 (8.5-10.1) mg/dL Total Bilirubin 0.6 (0.2-1.0) mg/dL AST 18 (15-37) U/L ALT 25 (14-59) U/L Alkaline Phosphatase 103 (46-116) U/L C-Reactive Protein 14.0 H* (<1.0) mg/dL Total Protein 6.8 (6.4-8.2) g/dl Albumin 2.9 L (3.4-5.0) g/dl Globulin 3.9 gm/dL Albumin/Globulin Ratio 0.7 L (1-2) Meds: Medications Generic Name Dose Route Start Last Admin Trade Name Freq PRN Reason Stop Dose Admin Sodium Chloride 10 ml 04/27/17 10:37 04/27/17 11:18 Saline Flush FLUSH 10 ml ASDIRECTED PRN Administration Keep Vein Open Discontinued Medications Generic Name Dose Route Start Last Admin Trade Name Nova PRN Reason Stop Dose Admin Albuterol/Ipratropium 3 ml 04/27/17 10:39 04/27/17 11:20 Duoneb 3.0-0.5 Mg/3 Ml NEB 04/27/17 10:40 3 ml ONETIME ONE Administration Oseltamivir Phosphate 75 mg 04/27/17 12:45 Tamiflu PO 04/27/17 12:46 ONETIME ONE - Re-Assessments/Exams Free Text/Narrative Re-Assessment/Exam: 04/27/17 12:50 I ordered oxygen, IV saline lock, labs, CXR and an albuterol treatment. Her CXR looks good. Her CBC and CMP look good. Her CRP is elevated at 14. Her influenza is negative. She feels better after the treatment. This is not pneumonia. I am concerned this could be a viral illness. I talked with Dr Trejo our hospitalist and we both agreed she did not need to be admitted but she recommended a viral panel and start her on some tamiflu until that came back. I will give her a dose now. Departure - Departure Time of Disposition: 12:55 Disposition: Home, Self-Care 01 Condition: Good Clinical Impression: Elevated C-reactive protein (CRP), Viral syndrome Emphysema lung Qualifiers: Emphysema type: unspecified Qualified Code(s): J43.9 - Emphysema, unspecified - Discharge Information Prescriptions: Oseltamivir [Tamiflu] 75 mg PO BID #9 cap Referrals: Serjio Sloan MD [Primary Care Provider] - 1 Week Additional Instructions: Take the tamiflu 2 times per day for 5 days or until the respiratory viral panel comes back. I am concerned you have a viral upper respiratory infection. One of them we are checking for is influenza. Your screening test today for influenza was negative. You could still have influenza so take the tamiflu until the respiratory viral panel comes back. The tamiflu may make your stomach upset so take it with food. You should be in respiratory isolation and wear a mask and good hand washing until the test comes back. Please return if you are worse. - My Orders Last 24 Hours: My Active Orders 04/27/17 10:37 Cardiac Monitoring [RC] . DIRECTED Oxygen Therapy [RC] PRN UA W/MICROSCOPIC [URIN] Stat Sodium Chloride 0.9% [Saline Flush] 10 ml FLUSH ASDIRECTED PRN Peripheral IV Insertion Adult [OM.PC] Stat 04/27/17 10:38 Peripheral IV Care [RC] . DIRECTED Chest 2V [CR] Stat Blood Culture x2 Reflex Set [OM.PC] Stat 04/27/17 10:39 RT Aerosol Therapy [RC] ASDIRECTED 04/27/17 11:00 CULTURE BLOOD [BC] Stat 04/27/17 11:10 CULTURE BLOOD [BC] Stat 04/27/17 12:44 RESPIRATORY PANEL BY PCR [MREF] Stat - Assessment/Plan Last 24 Hours: My Active Orders 04/27/17 10:37 Cardiac Monitoring [RC] . DIRECTED Oxygen Therapy [RC] PRN UA W/MICROSCOPIC [URIN] Stat Sodium Chloride 0.9% [Saline Flush] 10 ml FLUSH ASDIRECTED PRN Peripheral IV Insertion Adult [OM.PC] Stat 04/27/17 10:38 Peripheral IV Care [RC] . DIRECTED Chest 2V [CR] Stat Blood Culture x2 Reflex Set [OM.PC] Stat 04/27/17 10:39 RT Aerosol Therapy [RC] ASDIRECTED 04/27/17 11:00 CULTURE BLOOD [BC] Stat 04/27/17 11:10 CULTURE BLOOD [BC] Stat 04/27/17 12:44 RESPIRATORY PANEL BY PCR [MREF] Stat
[2017-04-27 13:09] VITALS: BP 126/67
--- NOTE | 2017-04-30 07:59 | CR ---
Chest: Two views of the chest were obtained. Comparison: Prior chest x-ray of 04/05/17. Heart size is normal. Mild tortuosity of the thoracic aorta is seen. Lungs are hyperinflated compatible with emphysematous change. Nothing acute is seen within the lungs. Mild anterior wedge deformity is noted within the lower thoracic spine and upper thoracic spine which is stable. Scoliosis is also noted. Impression: 1. Emphysematous change. Other incidental findings. Nothing acute is appreciated. Diagnostic code #2
== END 2017-04-27 15:20 | disposition home or self-care (01) ==
LOC: JD.ED 10:06
DX: B34.9 Viral infection, unspecified (principal); J43.9 Emphysema, unspecified; R79.82 Elevated C-reactive protein (CRP); Z79.899 Other long term (current) drug therapy; I10 Essential (primary) hypertension; Z87.01 Personal history of pneumonia (recurrent); F41.9 Anxiety disorder, unspecified; F32.9 Major depressive disorder, single episode, unspecified; Z87.891 Personal history of nicotine dependence
CPT/HCPCS: 36415; 71020; 80053; 85025; 86140; 87040; 87486; 87581; 87633; 87798; 87804; 94640; 99285; A9270; J7050; 99284

== ENCOUNTER 2017-08-06 05:30 | Inpatient (IN) | payer MEDICARE, MEDICAID ==
[2017-08-06] MEDS ORDERED: Albuterol/Ipratropium 3.0-0.5 MG/3 ML Neb Soln NEB ONE (05:52)
--- NOTE | 2017-08-06 05:52 | EDM.PDOC ---
ED HPI GENERAL MEDICAL PROBLEM - General Chief Complaint: Respiratory Problem Stated Complaint: [facility] Time Seen by Provider: 08/06/17 05:43 Source of Information: Reports: Patient, EMS Notes Reviewed History Limitations: Reports: No Limitations - History of Present Illness INITIAL COMMENTS - FREE TEXT/NARRATIVE: 66-year-old female presents to the ED per ambulance from [facility]. She indicates she didn't feel quite well on Sunday, August 03. Following day she started to feel quite ill with fever and very productive cough and increased shortness of breath. The dyspnea and shortness of breath has worsened over the last 24 hours. Cough remains productive but she is not bringing up any phlegm. Appetite is decreased. Since her mouth is very dry. Diarrhea. No vomiting although she is nauseated at present. She did receive albuterol treatment en route to the hospital and O2 sats improved from 84% to 95%. They'll follow back to 89% off oxygen. She is usually on oxygen 2 L/m at all times. Currently on 3 L she is 91%. Will be to increase it to 4 L/m after ABGs are completed. Denies any chest pain. She has no known coronary disease. Quit smoking about 11 months ago. No recent changes to any of her medications. Onset: Gradual Onset Date: 08/03/17 Duration: Day(s): Location: Reports: Chest (Increasing productive sounding cough and just difficulty breathing with O2 sats falling as low as 84% of) Quality: Reports: Other ( home when the paramedics picked her up. Dr. messina cough weakness and dyspnea.) Severity: Moderate Improves with: Reports: None Worsens with: Reports: Other (She decided call him once after getting up from bed and is getting to the bathroom and laid her out tremendously.), Movement Context: Denies: Activity, Exercise, Sick Contact, Trauma, Other Associated Symptoms: Reports: Chest Pain, Cough, cough w sputum, Fever/Chills, Loss of Appetite, Malaise, Nausea/Vomiting, Shortness of Breath, Weakness ( Nausea without vomiting). 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 (see below) - Related Data Allergies Allergy/AdvReac Type Severity Reaction Status Date / Time No Known Allergies Allergy Verified 08/06/17 05:43 Home Meds: Home Meds Albuterol/Ipratropium [DuoNeb 3.0-0.5 MG/3 ML] 3 ml NEB Q6HRRT PRN #120 neb 09/18 [Rx] Bisacodyl [Dulcolax] 5 mg PO DAILY PRN #30 tablet 10/05/16 [Rx] Famotidine [Pepcid] 20 mg PO BID #60 tablet 10/05/16 [Rx] Metoprolol Tartrate [Lopressor] 50 mg PO Q12HR #60 tablet 10/05/16 [Rx] Mirtazapine [Remeron] 15 mg PO BEDTIME #30 tablet 10/05/16 [Rx] Calcium Carbonate/Vitamin D3 [Calcium 500 + Vit D 400] 1 tab PO BID 03/22/17 [ History] DULoxetine [Cymbalta] 30 mg PO DAILY 03/22/17 [History] Diltiazem HCl [Cardizem Cd] 360 mg PO DAILY 03/22/17 [History] LORazepam [Ativan] 1 mg PO BID PRN 03/22/17 [History] Multivitamin W/Iron, Minerals [Compete] 1 tab PO DAILY 03/22/17 [History] Umeclidinium [place] [Incruse Ellipta*] 1 puff INH DAILY 03/22/17 [History] Warfarin [Coumadin] 7.5 mg PO WETH 03/22/17 [History] busPIRone [Buspar] 20 mg PO 0800 03/22/17 [History] busPIRone [Buspar] 40 mg PO QPM 03/22/17 [History] Bifidobacter. Bifidum/B.Longum [Florajen Bifidoblend] 460 mg PO DAILY #30 capsule 03/28/17 [Rx] Potassium Chloride [Klor-Con M20] 20 meq PO BID #60 tab.er 03/28/17 [Rx] Acetaminophen [Tylenol] 650 mg PO Q4HR PRN 04/03/17 [History] Warfarin [Coumadin] 5 mg PO SUMOTUWETHFRSA 04/03/17 [History] Albuterol [Proventil HFA] 6.7 gm INH DAILY 04/04/17 [History] Docusate Sodium [Colace] 100 mg PO BID PRN 04/04/17 [History] Loperamide [Imodium] 2 mg PO Q6H PRN #20 cap 04/06/17 [Rx] Furosemide [Lasix] 20 mg PO Q2D 04/27/17 [History] Sennosides/Docusate Sodium [Senna S Tablet] 1 tab PO DAILY 04/27/17 [History] Albuterol Sulfate [Proair Respiclick] 2 puff INH QID PRN 08/06/17 [History] Budesonide [Pulmicort] 1 dose INH BID PRN 08/06/17 [History] Budesonide/Formoterol [Symbicort 160-4.5 MCG] 2 puff INH BID 08/06/17 [History] Cyclobenzaprine HCl 5 mg PO TID 08/06/17 [History] fentaNYL [Duragesic] 12 mcg TOP Q2D 08/06/17 [History] guaiFENesin [Tussin] 10 ml PO DAILY PRN 08/06/17 [History] traMADol [Ultram] 50 mg PO Q8H PRN 08/06/17 [History] Past Medical History HEENT History: Reports: Impaired Vision Other HEENT History: wears glasses Cardiovascular History: Reports: Arrhythmia, Hypertension Other Cardiovascular History: atrial flutter Respiratory History: Reports: Bronchitis, Recurrent, COPD, Pneumonia, Recurrent , SOB, Other (See Below) (Her med list that suggests that she was treated for influenza back in April last year.) Gastrointestinal History: Reports: GERD Genitourinary History: Reports: Urinary Incontinence Other Genitourinary History: dribbling Musculoskeletal History: Reports: Arthritis, Osteoarthritis (Primarily knees hips and lower back) Neurological History: Reports: Migraines Psychiatric History: Reports: Anxiety, Depression (Currently on antidepressants. ) Endocrine/Metabolic History: Reports: None. Denies: Diabetes, Type II Immunologic History: Reports: None Oncologic (Cancer) History: Reports: None Dermatologic History: Reports: None - Infectious Disease History Infectious Disease History: Reports: Chicken Pox - Past Surgical History HEENT Surgical History: Reports: None Cardiovascular Surgical History: Reports: None Female Surgical History: Reports: None Social & Family History - Family History Family Medical History: Noncontributory HEENT: Reports: Impaired Vision Respiratory: Reports: Asthma, COPD Musculoskeletal: Reports: Arthritis Oncologic: Reports: Breast, Colon, Lymphoma, Pancreatic - Tobacco Use Smoking Status *Q: Former Smoker Years of Tobacco use: 46 Packs/Tins Daily: 1.5 Used Tobacco, but Quit: Yes Month Tobacco Last Used: september 2016 Second Hand Smoke Exposure: No - Caffeine Use Caffeine Use: Reports: Coffee - Recreational Drug Use Recreational Drug Use: No Recreational Drug Type: Reports: Marijuana/Hashish Recreational Drug Use Frequency: Not Used In Over 6 Months - Living Situation & Occupation Living situation: Reports: Single, Extended Care Facility ([facility]) Occupation: Retired ED ROS GENERAL - Review of Systems Review Of Systems: See Below Constitutional: Reports: Fever, Malaise, Weakness, Fatigue, Decreased Appetite, Weight Loss. Denies: Chills HEENT: Reports: No Symptoms Respiratory: Reports: Shortness of Breath, Wheezing, Cough, Sputum. Denies: Pleuritic Chest Pain, Hemoptysis Cardiovascular: Reports: Chest Pain ( FROM COUGHING), Edema ( Mild lower extremities bilaterally. ). Denies: Blood Pressure Problem, Claudication, Lightheadedness, Orthopnea Endocrine: Reports: No Symptoms GI/Abdominal: Reports: Decreased Appetite, Nausea. Denies: Vomiting : Reports: No Symptoms Musculoskeletal: Reports: Back Pain, Joint Pain (knees ) Skin: Reports: No Symptoms Neurological: Reports: No Symptoms Psychiatric: Reports: No Symptoms Hematologic/Lymphatic: Reports: No Symptoms ED EXAM, GENERAL - Physical Exam Exam: See Below Exam Limited By: No Limitations General Appearance: Alert, WD/WN, Moderate Distress, Other (Moderate respiratory distress. Respiratory distress 22-26/m with O2 sats of 88% on 2 L. On 3 L she remained 91%. Her lips are extremely dry and oropharynx is very dry with trunk coated.) Eye Exam: Bilateral Eye: Normal Inspection Ears: Normal TMs Throat/Mouth: Other Head: Atraumatic, Normocephalic (Tongue is very dry and coated. Oropharynx is also very dry without any signs of infection.) Neck: Normal Inspection, Supple, Non-Tender, Full Range of Motion. No: Carotid Bruit, Lymphadenopathy (L), Lymphadenopathy (R) Respiratory/Chest: Respiratory Distress (Mild tachypnea at rest 22-26/m.), Decreased Breath Sounds, Rales (Gurgling respirations in the bottom of the right lung.), Rhonchi (Rhonchi both upper lobes that clear with coughing.), Wheezing (Sounds are diminished to the lower 30% of lung [place].) Cardiovascular: No Gallop, No Murmur, No Rub, Irregularly Irregular (Much of his frequent PVCs or atrial flutter.). No: Regular Rate, Rhythm, No Edema, No JVD Peripheral Pulses: 1+: Posterior Tibial (L), Posterior Tibial (R), Dorsalis Pedis (L), Dorsalis Pedis (R), 2+: Carotid (L), Carotid (R) GI/Abdominal: Soft, Non-Tender (Gallstones are quite quiet sent.), No Organomegaly, No Abnormal Bruit, No Mass, Pelvis Stable, Abnormal Bowel Sounds, Other (No surgical scars.) Back Exam: Normal Inspection, Full Range of Motion. No: CVA Tenderness (L), CVA Tenderness (R) Extremities: Normal Inspection, Normal Range of Motion, Non-Tender, Pedal Edema (1+ edema lower extremities 2 lower tib-fib.) Neurological: Alert, Oriented, CN II-XII Intact, Normal Cognition Psychiatric: Normal Affect, Normal Mood Skin Exam: Warm, Dry, Intact, Normal Color, No Rash Course - Vital Signs Last Recorded V/S: Last Vital Signs Temp 36.3 C 08/06/17 05:37 Pulse 84 08/06/17 05:37 Resp 22 H 08/06/17 05:37 BP 126/69 08/06/17 05:37 Pulse Ox 92 L 08/06/17 06:20 - Orders/Labs/Meds Orders: Active Orders 24 hr Category Date Time Status Admission Status [Patient Status] [ADT] Routine ADT 08/06/17 07:17 Ordered EKG Documentation Completion [RC] STAT Care 08/06/17 05:44 Active Oxygen Therapy [RC] ASDIRECTED Care 08/06/17 05:44 Active Peripheral IV Care [RC] . DIRECTED Care 08/06/17 07:18 Ordered RT Aerosol Therapy [RC] ASDIRECTED Care 08/06/17 05:52 Active Chest 1V Frontal [CR] Stat Exams 08/06/17 05:44 Taken ABG [BLOOD GAS ARTERIAL] [BG] Stat Lab 08/06/17 07:30 Ordered CULTURE BLOOD [BC] Stat Lab 08/06/17 06:40 Received CULTURE BLOOD [BC] Stat Lab 08/06/17 06:50 Received UA W/MICROSCOPIC [URIN] Stat Lab 08/06/17 07:01 Ordered Dextrose 5%-0.9% NaCl [Dextrose 5%-Normal Saline] 1,000 Med 08/06/17 06:00 Active ml IV ASDIRECTED Levofloxacin/Dextrose 5%-Water [Levaquin in D5W 750 MG/ Med 08/06/17 06:36 Active 150 ML] 750 mg Premix Bag 1 bag IV ONETIME Sodium Chloride 0.9% [Saline Flush] Med 08/06/17 07:17 Ordered 10 ml FLUSH ASDIRECTED PRN Blood Culture x2 Reflex Set [OM.PC] Stat Oth 08/06/17 05:45 Ordered Peripheral IV Insertion Adult [OM.PC] Stat Oth 08/06/17 07:17 Ordered Medication Orders Dextrose/Sodium Chloride (Dextrose 5%-Normal Saline) 1,000 mls @ 150 mls/hr IV ASDIRECTED KADEEM Last Admin: 08/06/17 06:14 Dose: 150 mls/hr Levofloxacin/Dextrose 750 mg/ (Premix) 150 mls @ 100 mls/hr IV ONETIME ONE Stop: 08/06/17 08:05 Last Admin: 08/06/17 06:43 Dose: 100 mls/hr Labs: Laboratory Tests 08/06/17 08/06/17 08/06/17 Range/Units 05:40 05:40 05:40 WBC 15.10 H (3.98-10.04) K/mm3 RBC 4.80 (3.98-5.22) M/mm3 Hgb 13.3 (11.2-15.7) gm/L Hct 41.5 (34.1-44.9) % MCV 86.5 (79.4-94.8) fl MCH 27.7 (25.6-32.2) pg MCHC 32.0 L (32.2-35.5) g/dl RDW Std Deviation 48.6 H (36.4-46.3) fL Plt Count 350 (182-369) K/mm3 MPV 8.8 L (9.4-12.3) fl Neutrophils % (Manual) 85 H (40-60) % Band Neutrophils % 0 (0-10) % Lymphocytes % (Manual) 6 L (20-40) % Atypical Lymphs % 0 % Monocytes % (Manual) 7 (2-10) % Eosinophils % (Manual) 2 (0.7-5.8) % Basophils % (Manual) 0 L (0.1-1.2) Platelet Estimate Adequate RBC Morph Comment Normal PT 21.9 H (8.0-13.0) SECONDS INR 2.03 Puncture Site ABG pH (7.35-7.45) ABG pCO2 (35.0-45.0) mmHg ABG pO2 (80.0-100.0) mmHg ABG HCO3 (22.0-26.0) meq/L ABG O2 Saturation (96.0-97.0) % ABG Base Excess (-2-2.0) A-a Gradient mmHg O2 Delivery Device Oxygen Flow Rate FiO2 (21.00-100.00) % Sodium 140 (136-145) mEq/L Potassium 4.0 (3.5-5.1) mEq/L Chloride 103 (98-107) mEq/L Carbon Dioxide 31 (21-32) mEq/L Anion Gap 10.0 (5-15) BUN 21 H (7-18) mg/dL Creatinine 0.7 (0.55-1.02) mg/dL Est Cr Clr Drug Dosing 83.21 mL/min Estimated GFR (MDRD) > 60 (>60) mL/min BUN/Creatinine Ratio 30.0 H (14-18) Glucose 171 H (80-115) mg/dL Calcium 9.2 (8.5-10.1) mg/dL Magnesium 1.9 (1.8-2.4) mg/dl Total Bilirubin 0.2 (0.2-1.0) mg/dL AST 16 (15-37) U/L ALT 16 (14-59) U/L Alkaline Phosphatase 89 (46-116) U/L CK-MB (CK-2) 1.0 (0-3.6) ng/ml Troponin I < 0.017 (0.00-0.056) ng/mL C-Reactive Protein 2.5 H* (<1.0) mg/dL NT-Pro-B Natriuret Pep (0-125) pg/mL Total Protein 7.6 (6.4-8.2) g/dl Albumin 3.4 (3.4-5.0) g/dl Globulin 4.2 gm/dL Albumin/Globulin Ratio 0.8 L (1-2) 08/06/17 08/06/17 Range/Units 05:40 06:05 WBC (3.98-10.04) K/mm3 RBC (3.98-5.22) M/mm3 Hgb (11.2-15.7) gm/L Hct (34.1-44.9) % MCV (79.4-94.8) fl MCH (25.6-32.2) pg MCHC (32.2-35.5) g/dl RDW Std Deviation (36.4-46.3) fL Plt Count (182-369) K/mm3 MPV (9.4-12.3) fl Neutrophils % (Manual) (40-60) % Band Neutrophils % (0-10) % Lymphocytes % (Manual) (20-40) % Atypical Lymphs % % Monocytes % (Manual) (2-10) % Eosinophils % (Manual) (0.7-5.8) % Basophils % (Manual) (0.1-1.2) Platelet Estimate RBC Morph Comment PT (8.0-13.0) SECONDS INR Puncture Site Lt brachial ABG pH 7.34 L (7.35-7.45) ABG pCO2 53.3 H (35.0-45.0) mmHg ABG pO2 58.0 L (80.0-100.0) mmHg ABG HCO3 28.0 H (22.0-26.0) meq/L ABG O2 Saturation 90.5 L (96.0-97.0) % ABG Base Excess 1.8 (-2-2.0) A-a Gradient 80 mmHg O2 Delivery Device Cannula Oxygen Flow Rate 3.0 FiO2 32.00 (21.00-100.00) % Sodium (136-145) mEq/L Potassium (3.5-5.1) mEq/L Chloride (98-107) mEq/L Carbon Dioxide (21-32) mEq/L Anion Gap (5-15) BUN (7-18) mg/dL Creatinine (0.55-1.02) mg/dL Est Cr Clr Drug Dosing mL/min Estimated GFR (MDRD) (>60) mL/min BUN/Creatinine Ratio (14-18) Glucose (80-115) mg/dL Calcium (8.5-10.1) mg/dL Magnesium (1.8-2.4) mg/dl Total Bilirubin (0.2-1.0) mg/dL AST (15-37) U/L ALT (14-59) U/L Alkaline Phosphatase (46-116) U/L CK-MB (CK-2) (0-3.6) ng/ml Troponin I (0.00-0.056) ng/mL C-Reactive Protein (<1.0) mg/dL NT-Pro-B Natriuret Pep 150 H (0-125) pg/mL Total Protein (6.4-8.2) g/dl Albumin (3.4-5.0) g/dl Globulin gm/dL Albumin/Globulin Ratio (1-2) Meds: Medications Generic Name Dose Route Start Last Admin Trade Name Freq PRN Reason Stop Dose Admin Dextrose/Sodium Chloride 1,000 mls @ 150 mls/hr 08/06/17 06:00 08/06/17 06:14 Dextrose 5%-Normal Saline IV 150 mls/hr ASDIRECTED KADEEM Administration Levofloxacin/Dextrose 750 mg/ 150 mls @ 100 mls/hr 08/06/17 06:36 08/06/17 06 :43 Premix IV 08/06/17 08:05 100 mls/hr ONETIME ONE Administration Discontinued Medications Generic Name Dose Route Start Last Admin Trade Name Freq PRN Reason Stop Dose Admin Albuterol/Ipratropium 3 ml 08/06/17 05:52 08/06/17 06:18 Duoneb 3.0-0.5 Mg/3 Ml NEB 08/06/17 05:53 3 ml ONETIME ONE Administration - Radiology Interpretation Free Text/Narrative:: 66-year-old female attends the emergency room by ambulance from [place] where she resides. She states she essentially became increasingly short of breath during the night especially on exertion from walking from her bed to her bathroom. She is on 2 L/m of oxygen all times due to COPD. She has a harsh paroxysmal productive sounding cough for the last 2 and half days. Low-grade fever no chills or rigors. She can't remember she had a flu shot or not. Appetite has been poor the last 24 hours. When she was picked up by paramedics her O2 sats were 84%. She did improve transiently to 8095% with albuterol treatment. Here she is 88% on 2 L/m and will be increased to 3 L. Plan ABGs to be done to see if she is retaining CO2. One view chest x-ray ECG and routine labs to include influenza screen. IV will be D5 normal saline at 150 mils per hour. Will repeat DuoNeb. Chest sounds very congested with gurgling respirations and the base of the right lung. Query pneumonia. - Re-Assessments/Exams Free Text/Narrative Re-Assessment/Exam: 08/06/17 06:15 ECG shows sinus rhythm at 72/m with no abdomen maladies. A normal ECG. Chest x-ray reveals hyperinflated lung [place] with an infiltrate in the right lower lobe compatible with pneumonia. There is slight haziness along the pleura of the left lower lobe as well suspicious for developing pneumonia in this lower lobe as well. Patient will be started on Levaquin 750 mg IV as soon as her blood cultures 2 were collected. 08/06/17 06:40 White count is elevated at 15.10. There is a left shift of 85% neutrophils no bands reported. Hemoglobin is 13.3 with hematocrit of 41.5. Platelet count 350,000. PT is 21.9 with an INR of 2.03. Blood gases showed pH of 7.34 with a PCO2 elevated at 53.3. Is therefore a CO2 retainer and by definition is in respiratory failure. PO2 is 58. ABG is 28. O2 saturations are 90.5% which correlates with our monitor. Collected on 3 L/m by nasal cannula. Sodium is 140 with a potassium of 4.0. Toward 103 with a bicarbonate 31. Anion gap is 10.0 BUNs 21.0 creatinine is 0.7. EGFR is greater than 60. Glucose is elevated at 171. Calcium 9.2 with a magnesium of 1.9. Liver function normal CK- MB fraction 1.0 troponin I is less than 0.017. C-reactive protein is mildly elevated at 2.5. BNP is 150. His is slightly elevated for her. Patient will be started on a Venturi mask at 50%. Blood gases can be checked in a half an hour or so to see if they improve. 08/06/17 06:43 influenza screen is negative as well. She will be placed on a Venturi mask as above ABGs will be checked at about 0730 hrs. I have spoken with on-call hospice Dr. Trejo and she will arrange admission when feasible. At this time we do not have an open bed on med surgery floor. Tentatively [facility] Evans is now here and so advised. Departure - Departure Time of Disposition: 07:21 Disposition: Admitted As Inpatient 65 Condition: Fair Clinical Impression: Pneumonia Qualifiers: Pneumonia type: due to unspecified organism Laterality: right Lung location: lower lobe of lung Qualified Code(s): J18.1 - Lobar pneumonia, unspecified organism Respiratory failure Qualifiers: Chronicity: acute on chronic Respiratory failure complication: hypercapnia Qualified Code(s): J96.22 - Acute and chronic respiratory failure with hypercapnia - Discharge Information Referrals: Serjio Sloan MD [Primary Care Provider] - Forms: ED Department Discharge - My Orders Last 24 Hours: My Active Orders 08/06/17 05:44 EKG Documentation Completion [RC] STAT Oxygen Therapy [RC] ASDIRECTED Chest 1V Frontal [CR] Stat 08/06/17 05:45 Blood Culture x2 Reflex Set [OM.PC] Stat 08/06/17 05:52 RT Aerosol Therapy [RC] ASDIRECTED 08/06/17 06:00 Dextrose 5%-0.9% NaCl [Dextrose 5%-Normal Saline] 1,000 ml IV ASDIRECTED 08/06/17 06:36 Levofloxacin/Dextrose 5%-Water [Levaquin in D5W 750 MG/150 ML] 750 mg Premix Bag 1 bag IV ONETIME 08/06/17 06:40 CULTURE BLOOD [BC] Stat 08/06/17 06:50 CULTURE BLOOD [BC] Stat 08/06/17 07:01 UA W/MICROSCOPIC [URIN] Stat 08/06/17 07:17 Admission Status [Patient Status] [ADT] Routine Sodium Chloride 0.9% [Saline Flush] 10 ml FLUSH ASDIRECTED PRN Peripheral IV Insertion Adult [OM.PC] Stat 08/06/17 07:18 Peripheral IV Care [RC] . DIRECTED 08/06/17 07:30 ABG [BLOOD GAS ARTERIAL] [BG] Stat - Assessment/Plan Last 24 Hours: My Active Orders 08/06/17 05:44 EKG Documentation Completion [RC] STAT Oxygen Therapy [RC] ASDIRECTED Chest 1V Frontal [CR] Stat 08/06/17 05:45 Blood Culture x2 Reflex Set [OM.PC] Stat 08/06/17 05:52 RT Aerosol Therapy [RC] ASDIRECTED 08/06/17 06:00 Dextrose 5%-0.9% NaCl [Dextrose 5%-Normal Saline] 1,000 ml IV ASDIRECTED 08/06/17 06:36 Levofloxacin/Dextrose 5%-Water [Levaquin in D5W 750 MG/150 ML] 750 mg Premix Bag 1 bag IV ONETIME 08/06/17 06:40 CULTURE BLOOD [BC] Stat 08/06/17 06:50 CULTURE BLOOD [BC] Stat 08/06/17 07:01 UA W/MICROSCOPIC [URIN] Stat 08/06/17 07:17 Admission Status [Patient Status] [ADT] Routine Sodium Chloride 0.9% [Saline Flush] 10 ml FLUSH ASDIRECTED PRN Peripheral IV Insertion Adult [OM.PC] Stat 08/06/17 07:18 Peripheral IV Care [RC] . DIRECTED 08/06/17 07:30 ABG [BLOOD GAS ARTERIAL] [BG] Stat
[2017-08-06] MEDS ORDERED: Dextrose 5%-0.9% NaCl 1,000 ML IV SCH (06:00)
[2017-08-06] MEDS ORDERED: Levofloxacin/Dextrose 5%-Water 750 MG in Premix Bag 1 BAG IV ONE (06:36)
[2017-08-06] MEDS ORDERED: Sodium Chloride 0.9% 10 ML Syringe FLUSH PRN (07:17)
[2017-08-06] MEDS ORDERED: Albuterol/Ipratropium 3.0-0.5 MG/3 ML Neb Soln NEB SCH (10:00)
--- NOTE | 2017-08-06 10:05 | CR ---
Chest: Portable view of the chest was obtained. Comparison: Prior chest x-ray of 04/27/17. Parenchymal density is seen within the right lung base. Lungs otherwise are clear but hyperinflated. Heart is slightly enlarged. Tortuous thoracic aorta is seen. Bony structures are osteopenic. Impression: 1. Mild increased density within right lung base. Findings most likely due to pneumonia. 2. Emphysematous change and other incidental findings. Diagnostic code #3
[2017-08-06] MEDS: Albuterol/Ipratropium 3.0-0.5 MG/3 ML Neb Soln NEB SCH ×3 (10:17→20:53)
--- NOTE | 2017-08-06 13:04 | PCM.HP ---
H&P History of Present Illness - General Date of Service: 08/06/17 Admit Problem/Dx: Admission Diagnosis/Problem Admission Diagnosis/Problem Pneumonia Source of Information: Patient, Provider History Limitations: Reports: No Limitations - History of Present Illness Initial Comments - Free Text/Narative: 66 year old female from [place], presents with fever/chills associated cough with sputum. She also stated that has felt more sick over the last 24 hours. The initial symptoms occurred 08/03/17. She describes both a productive and nonproductive cough. There has been a decreased appetite. Nausea without vomiting has also occurred. She will be admitted for pneumonia. Onset of Symptoms: Reports: Gradual Symptom Onset Date: 08/03/17 Duration of Symptoms: Reports: Day(s):, Getting Worse Location: Reports: Generalized Quality: Reports: Same as Previous Episode Severity: Moderate Improves with: Reports: Medication Worsens with: Reports: None Context: Reports: Sick Contact Associated Symptoms: Reports: cough w sputum, Loss of Appetite, Malaise, Nausea/ Vomiting, Seizure, Shortness of Breath, Weakness - Related Data Allergies/Adverse Reactions: Allergies Allergy/AdvReac Type Severity Reaction Status Date / Time No Known Allergies Allergy Verified 08/06/17 05:43 Home Medications: Home Meds Albuterol/Ipratropium [DuoNeb 3.0-0.5 MG/3 ML] 3 ml NEB Q6HRRT PRN #120 neb 09/18 [Rx] Bisacodyl [Dulcolax] 5 mg PO DAILY PRN #30 tablet 10/05/16 [Rx] Famotidine [Pepcid] 20 mg PO BID #60 tablet 10/05/16 [Rx] Metoprolol Tartrate [Lopressor] 50 mg PO Q12HR #60 tablet 10/05/16 [Rx] Mirtazapine [Remeron] 15 mg PO BEDTIME #30 tablet 10/05/16 [Rx] Calcium Carbonate/Vitamin D3 [Calcium 500 + Vit D 400] 1 tab PO BID 03/22/17 [ History] DULoxetine [Cymbalta] 30 mg PO DAILY 03/22/17 [History] Diltiazem HCl [Cardizem Cd] 360 mg PO DAILY 03/22/17 [History] LORazepam [Ativan] 1 mg PO BID PRN 03/22/17 [History] Multivitamin W/Iron, Minerals [Compete] 1 tab PO DAILY 03/22/17 [History] Umeclidinium [place] [Incruse Ellipta*] 1 puff INH DAILY 03/22/17 [History] busPIRone [Buspar] 20 mg PO 0800 03/22/17 [History] busPIRone [Buspar] 40 mg PO QPM 03/22/17 [History] Bifidobacter. Bifidum/B.Longum [Florajen Bifidoblend] 460 mg PO DAILY #30 capsule 03/28/17 [Rx] Potassium Chloride [Klor-Con M20] 20 meq PO BID #60 tab.er 03/28/17 [Rx] Acetaminophen [Tylenol] 650 mg PO Q4HR PRN 04/03/17 [History] Warfarin [Coumadin] 5 mg PO SUMOTUFRSA 04/03/17 [History] Albuterol [Proventil HFA] 6.7 gm INH DAILY 04/04/17 [History] Docusate Sodium [Colace] 100 mg PO BID PRN 04/04/17 [History] Loperamide [Imodium] 2 mg PO Q6H PRN #20 cap 04/06/17 [Rx] Furosemide [Lasix] 20 mg PO Q2D 04/27/17 [History] Sennosides/Docusate Sodium [Senna S Tablet] 1 tab PO DAILY 04/27/17 [History] Albuterol Sulfate [Proair Respiclick] 2 puff INH QID PRN 08/06/17 [History] Budesonide [Pulmicort] 1 dose INH BID PRN 08/06/17 [History] Budesonide/Formoterol [Symbicort 160-4.5 MCG] 2 puff INH BID 08/06/17 [History] Cyclobenzaprine HCl 5 mg PO TID 08/06/17 [History] fentaNYL [Duragesic] 12 mcg TOP Q2D 08/06/17 [History] guaiFENesin [Tussin] 10 ml PO DAILY PRN 08/06/17 [History] traMADol [Ultram] 50 mg PO Q8H PRN 08/06/17 [History] Past Medical History HEENT History: Reports: Impaired Vision Other HEENT History: wears glasses Cardiovascular History: Reports: Arrhythmia, Hypertension Other Cardiovascular History: hx of atrial flutter Respiratory History: Reports: Bronchitis, Recurrent, COPD, Pneumonia, Recurrent , SOB, Other (See Below) Other Respiratory History: emphysema,hypoxemia, chronic oxygen use Gastrointestinal History: Reports: GERD Genitourinary History: Reports: Urinary Incontinence Other Genitourinary History: dribbling Musculoskeletal History: Reports: Arthritis, Osteoarthritis Other Musculoskeletal History: low back pain, generalized muscle weakness Neurological History: Reports: Migraines Psychiatric History: Reports: Anxiety, Depression Endocrine/Metabolic History: Reports: None Other Endocrine/Metabolic History: hemorrhagic thrombocytopenia, chronic elevated WBC Hematologic History: Reports: Idiopathic Thrombocytopenia, Other (See Below) Other Hematologic History: chronic elevated WBC Immunologic History: Reports: None Oncologic (Cancer) History: Reports: None Dermatologic History: Reports: None Other Dermatologic History: sebaceous cysts - Infectious Disease History Infectious Disease History: Reports: Chicken Pox - Past Surgical History HEENT Surgical History: Reports: None Cardiovascular Surgical History: Reports: None Female Surgical History: Reports: None Social & Family History - Family History Family Medical History: Noncontributory HEENT: Reports: Impaired Vision Respiratory: Reports: Asthma, COPD Musculoskeletal: Reports: Arthritis Oncologic: Reports: Breast, Colon, Lymphoma, Pancreatic - Tobacco Use Smoking Status *Q: Former Smoker Years of Tobacco use: 46 Packs/Tins Daily: 1.5 Used Tobacco, but Quit: Yes Month Tobacco Last Used: september 2016 Second Hand Smoke Exposure: No - Caffeine Use Caffeine Use: Reports: Coffee - Recreational Drug Use Recreational Drug Use: No Recreational Drug Type: Reports: Marijuana/Hashish Recreational Drug Use Frequency: Not Used In Over 6 Months - Living Situation & Occupation Living situation: Reports: Single, Extended Care Facility ([facility]) Occupation: Retired H&P Review of Systems - Review of Systems: Review Of Systems: See Below General: Reports: Fever, Chills, Malaise, Weakness, Fatigue HEENT: Reports: No Symptoms Pulmonary: Reports: Shortness of Breath, Wheezing, Pleuritic Chest Pain, Cough, Sputum Cardiovascular: Reports: Lightheadedness Gastrointestinal: Reports: No Symptoms Genitourinary: Reports: No Symptoms Musculoskeletal: Reports: No Symptoms Skin: Reports: No Symptoms Psychiatric: Reports: No Symptoms Neurological: Reports: No Symptoms Hematologic/Lymphatic: Reports: No Symptoms Immunologic: Reports: No Symptoms Exam - Exam Exam: See Below - Vital Signs Vital Signs: Last Vital Signs Temp 36.5 C 08/06/17 07:15 Pulse 87 08/06/17 07:15 Resp 22 H 08/06/17 08:39 BP 145/59 H 08/06/17 07:15 Pulse Ox 91 L 08/06/17 10:17 Weight: 70.364 kg - Exam Quality Assessment: Supplemental Oxygen, DVT Prophylaxis General: Alert, Oriented, Cooperative HEENT: Conjunctiva Clear, Nares Patent, Normal Nasal Septum, Pupils Equal, Pupils Reactive, PERRLA Neck: Trachea Midline Lungs: Normal Respiratory Effort, Decreased Breath Sounds, Rhonchi, Wheezing Cardiovascular: Regular Rate, Regular Rhythm GI/Abdominal Exam: Normal Bowel Sounds, Soft, Non-Tender, No Organomegaly, No Distention (Female) Exam: Deferred Rectal (Female) Exam: Deferred Extremities: Normal Inspection, Non-Tender, No Pedal Edema Skin: Warm Neurological: Cranial Nerves Intact Neuro Extensive - Mental Status: Alert, Oriented x3, Normal Mood/Affect, Normal Cognition, Memory Intact Neuro Extensive - Motor, Sensory, Reflexes: CN II-XII Intact Psychiatric: Alert, Normal Affect, Normal Mood - Patient Data Lab Results Last 24 hrs: Laboratory Results - last 24 hr 08/06/17 08/06/17 Range/Units 07:30 11:20 Puncture Site Rt radial ABG pH 7.32 L (7.35-7.45) ABG pCO2 55.0 H (35.0-45.0) mmHg ABG pO2 104.0 H (80.0-100.0) mmHg ABG HCO3 27.3 H (22.0-26.0) meq/L ABG O2 Saturation 98.2 H (96.0-97.0) % ABG Base Excess 0.8 (-2-2.0) Foreign Test Positive A-a Gradient 147 mmHg O2 Delivery Device Venturi mask FiO2 50.00 (21.00-100.00) % MRSA (PCR) Positive H Result Diagrams: 08/06/17 05:40 08/06/17 05:40 *Q Meaningful Use (ADM) - VTE *Q VTE Criteria *Q: - Stroke *Q Stroke Criteria *Q: - AMI *Q AMI Criteria *Q: - Problem List (1) Respiratory distress, acute SNOMED Code(s): 457689694 ICD Code: R06.03 - ACUTE RESPIRATORY DISTRESS Status: Acute Current Visit : Yes (2) Pneumonia SNOMED Code(s): 136770969 ICD Code: J18.9 - PNEUMONIA, UNSPECIFIED ORGANISM Status: Acute Current Visit: Yes Qualifiers: Pneumonia type: due to unspecified organism Laterality: right Lung location: lower lobe of lung Qualified Code(s): J18.1 - Lobar pneumonia, unspecified organism (3) COPD exacerbation SNOMED Code(s): 406689488504671 ICD Code: J44.1 - CHRONIC OBSTRUCTIVE PULMONARY DISEASE W (ACUTE) EXACERBATION Status: Acute Priority: High Current Visit: No (4) Elevated C-reactive protein (CRP) SNOMED Code(s): 369610984282762 ICD Code: R79.82 - ELEVATED C-REACTIVE PROTEIN (CRP) Status: Chronic Priority: Medium Current Visit: No (5) Emphysema lung SNOMED Code(s): 12189819 ICD Code: J43.9 - EMPHYSEMA, UNSPECIFIED Status: Chronic Priority: High Current Visit: No Qualifiers: Emphysema type: unspecified Qualified Code(s): J43.9 - Emphysema, unspecified (6) Leukocytosis SNOMED Code(s): 587921085 ICD Code: D72.829 - ELEVATED WHITE BLOOD CELL COUNT, UNSPECIFIED Status: Chronic Priority: Medium Current Visit: No Qualifiers: Leukocytosis type: unspecified Qualified Code(s): D72.829 - Elevated white blood cell count, unspecified Problem List Initiated/Reviewed/Updated: Yes Orders Last 24hrs: Active Orders 24 hr Category Date Time Status RT Aerosol Therapy [RC] ASDIRECTED Care 08/06/17 09:57 Active OT Evaluation and Treatment [CONS] Routine Cons 08/06/17 09:30 Active PT Evaluation and Treatment [CONS] Routine Cons 08/06/17 09:30 Active Full Liquid Diet [DIET] Diet 08/06/17 Lunch Active RESPIRATORY PANEL BY PCR [MREF] Stat Lab 08/06/17 10:25 Received STREP PNEUMONIAE ANTIGEN [MREF] Stat Lab 08/06/17 07:01 Received Albuterol/Ipratropium [DuoNeb 3.0-0.5 MG/3 ML] Med 08/06/17 10:00 Active 3 ml NEB QIDRT Famotidine [Pepcid] Med 08/06/17 21:00 Active 20 mg PO BID Warfarin Pharmacy to Dose [Pharmacy to Dose - Warfarin] Med 08/06/17 11:45 Active 1 dose .XX ASDIRECTED PRN Warfarin [Coumadin] Med 08/06/17 18:00 Active 5 mg PO DAILY@1800 Code Status [Resuscitation Status] Routine Resus Stat 08/06/17 09:29 Ordered Medication Orders Albuterol/Ipratropium (Duoneb 3.0-0.5 Mg/3 Ml) 3 ml NEB QIDRT [facility] Last Admin: 08/06/17 10:17 Dose: 3 ml Famotidine (Pepcid) 20 mg PO BID [facility] Sodium Chloride (Saline Flush) 10 ml FLUSH ASDIRECTED PRN PRN Reason: Keep Vein Open Warfarin Sodium (Pharmacy To Dose - Warfarin) 1 dose .XX ASDIRECTED PRN PRN Reason: RX To Dose Warfarin Sodium (Coumadin) 5 mg PO DAILY@1800 [facility] Stop: 08/06/17 20:00 Assessment/Plan Comment:: Impression: Acute respiratory distress Hypercapnia/Hypoxia RLL PNA COPD exacerbation Chronic HTN HLD GERD History of A Flutter/Fib Urinary Incontinence Anxiety/Depression Plan: IVF ATB, continue Levoquin Resp work up pending; droplet isolation NEBS scheduled/prn Home meds Daily labs DVT/GI prophylaxis Consult PT/OT/CM
[2017-08-06] MEDS ORDERED: Loperamide 2 MG Cap PO PRN (16:21)
[2017-08-06] MEDS ORDERED: Docusate Sodium 100 MG Cap PO PRN (16:21)
[2017-08-06] MEDS ORDERED: Bisacodyl 5 MG Tab PO PRN (16:21)
[2017-08-06] MEDS ORDERED: Budesonide 0.5 MG/2 ML Neb Susp INH PRN (16:21)
[2017-08-06] MEDS ORDERED: Warfarin 5 MG Tab PO SCH ×2 (16:30→18:00)
[2017-08-06] MEDS ORDERED: Albuterol 0.083% 2.5 MG/3 ML Neb Soln NEB PRN (16:31)
[2017-08-06] MEDS: LORazepam 1 MG Tab PO PRN (16:58)
[2017-08-06] MEDS: busPIRone 15 MG Tab PO SCH (17:00)
[2017-08-06] MEDS: busPIRone 5 MG Tab PO SCH (17:01)
[2017-08-06] MEDS ORDERED: Diltiazem 120 MG Cap.CD PO ONE (19:57)
[2017-08-06] MEDS ORDERED: Metoprolol Tartrate 5 MG/5 ML SDV IVPUSH PRN (19:59)
[2017-08-06] MEDS ORDERED: fentaNYL 12 MCG/HR Transdermal Patch TOP SCH (20:00)
[2017-08-06] MEDS: Metoprolol Tartrate 50 MG Tab PO SCH (20:22)
[2017-08-06] MEDS: guaiFENesin 600 MG Tab.ER PO SCH (20:22)
[2017-08-06] MEDS: Cyclobenzaprine 10 MG Tab PO SCH (20:23)
[2017-08-06] MEDS: Potassium Chloride 20 MEQ Tab.ER PO SCH (20:24)
[2017-08-06] MEDS: Mirtazapine 15 MG Tab PO SCH (20:25)
[2017-08-06] MEDS: Famotidine 20 MG Tab PO SCH (20:27)
[2017-08-06] MEDS: Formoterol/Mometasone 200-5 MCG 8.8 GM Inhaler IH SCH (20:53)
[2017-08-06] MEDS ORDERED: Famotidine 20 MG Tab PO SCH (21:00)
[2017-08-06] MEDS: Acetaminophen 325 MG Tab PO PRN (21:09)
[2017-08-07] MEDS: Albuterol/Ipratropium 3.0-0.5 MG/3 ML Neb Soln NEB SCH ×4 (05:43→21:05)
[2017-08-07] MEDS: Formoterol/Mometasone 200-5 MCG 8.8 GM Inhaler IH SCH ×2 (05:45→21:05)
[2017-08-07] MEDS: Levofloxacin/Dextrose 5%-Water 750 MG in Premix Bag 1 BAG IV SCH (05:59)
[2017-08-07] MEDS: Acetaminophen 325 MG Tab PO PRN ×3 (06:00→20:25)
[2017-08-07] MEDS: traMADol 50 MG Tab PO PRN (06:20)
[2017-08-07] MEDS: UMECLIDINIUM BROMIDE INH SCH (09:20)
[2017-08-07] MEDS: Saccharomyces Boulardii (Probiotic) 250 MG Cap PO SCH (09:35)
[2017-08-07] MEDS: guaiFENesin 600 MG Tab.ER PO SCH ×2 (09:36→20:22)
[2017-08-07] MEDS: busPIRone 15 MG Tab PO SCH ×2 (09:36→18:03)
[2017-08-07] MEDS: Diltiazem 180 MG Cap.CD PO SCH (09:36)
[2017-08-07] MEDS: Potassium Chloride 20 MEQ Tab.ER PO SCH ×2 (09:36→20:22)
[2017-08-07] MEDS: DULoxetine 30 MG Cap PO SCH (09:36)
[2017-08-07] MEDS: Cyclobenzaprine 10 MG Tab PO SCH ×3 (09:37→20:21)
[2017-08-07] MEDS: Metoprolol Tartrate 50 MG Tab PO SCH ×2 (09:37→20:24)
[2017-08-07] MEDS: busPIRone 5 MG Tab PO SCH ×2 (09:37→18:03)
[2017-08-07] MEDS: Famotidine 20 MG Tab PO SCH ×2 (09:37→20:23)
[2017-08-07] MEDS: LORazepam 1 MG Tab PO PRN (11:51)
--- NOTE | 2017-08-07 15:03 | PCM.PN ---
- General Info Date of Service: 08/07/17 Functional Status: Reports: Tolerating Diet, Urinating - Review of Systems General: Reports: Weakness HEENT: Reports: No Symptoms Pulmonary: Reports: No Symptoms Cardiovascular: Reports: No Symptoms Gastrointestinal: Reports: No Symptoms Genitourinary: Reports: No Symptoms Musculoskeletal: Reports: No Symptoms Skin: Reports: No Symptoms Neurological: Reports: No Symptoms Psychiatric: Reports: No Symptoms - Patient Data Vitals - Most Recent: Last Vital Signs Temp 37.8 C 08/07/17 14:19 Pulse 107 H 08/07/17 09:37 Resp 18 08/07/17 09:00 BP 135/68 08/07/17 09:37 Pulse Ox 96 08/07/17 09:17 Weight - Most Recent: 70.443 kg I&O - Last 24 Hours: Intake & Output 08/07/17 08/07/17 08/07/17 06:59 14:59 22:59 Intake Total 200 Output Total 340 Balance 200 -340 Lab Results Last 24 Hours: Laboratory Results - last 24 hr 08/07/17 08/07/17 08/07/17 Range/Units 05:49 05:49 05:49 WBC 8.78 (3.98-10.04) K/mm3 RBC 4.17 (3.98-5.22) M/mm3 Hgb 11.5 (11.2-15.7) gm/L Hct 36.3 (34.1-44.9) % MCV 87.1 (79.4-94.8) fl MCH 27.6 (25.6-32.2) pg MCHC 31.7 L (32.2-35.5) g/dl RDW Std Deviation 49.3 H (36.4-46.3) fL Plt Count 312 (182-369) K/mm3 MPV 9.3 L (9.4-12.3) fl Neut % (Auto) 68.9 (34.0-71.1) % Lymph % (Auto) 15.0 L (19.3-51.7) % [place] % (Auto) 15.0 H (4.7-12.5) % Eos % (Auto) 0.3 L (0.7-5.8) Baso % (Auto) 0.6 (0.1-1.2) % Neut # (Auto) 6.04 (1.56-6.13) K/mm3 Lymph # (Auto) 1.32 (1.18-3.74) K/mm3 [place] # (Auto) 1.32 H (0.24-0.36) K/mm3 Eos # (Auto) 0.03 L (0.04-0.36) K/mm3 Baso # (Auto) 0.05 (0.01-0.08) K/mm3 PT (8.0-13.0) SECONDS INR Sodium 140 (136-145) mEq/L Potassium 4.0 (3.5-5.1) mEq/L Chloride 102 (98-107) mEq/L Carbon Dioxide 30 (21-32) mEq/L Anion Gap 12.0 (5-15) BUN 17 (7-18) mg/dL Creatinine 0.5 L (0.55-1.02) mg/dL Est Cr Clr Drug Dosing 114.10 mL/min Estimated GFR (MDRD) > 60 (>60) mL/min BUN/Creatinine Ratio 34.0 H (14-18) Glucose 106 (80-115) mg/dL Lactic Acid 0.7 (0.4-2.0) mmol/L Calcium 8.8 (8.5-10.1) mg/dL Magnesium 1.8 (1.8-2.4) mg/dl C-Reactive Protein 6.9 H* (<1.0) mg/dL 08/07/17 Range/Units 05:49 WBC (3.98-10.04) K/mm3 RBC (3.98-5.22) M/mm3 Hgb (11.2-15.7) gm/L Hct (34.1-44.9) % MCV (79.4-94.8) fl MCH (25.6-32.2) pg MCHC (32.2-35.5) g/dl RDW Std Deviation (36.4-46.3) fL Plt Count (182-369) K/mm3 MPV (9.4-12.3) fl Neut % (Auto) (34.0-71.1) % Lymph % (Auto) (19.3-51.7) % [place] % (Auto) (4.7-12.5) % Eos % (Auto) (0.7-5.8) Baso % (Auto) (0.1-1.2) % Neut # (Auto) (1.56-6.13) K/mm3 Lymph # (Auto) (1.18-3.74) K/mm3 [place] # (Auto) (0.24-0.36) K/mm3 Eos # (Auto) (0.04-0.36) K/mm3 Baso # (Auto) (0.01-0.08) K/mm3 PT 29.4 H (8.0-13.0) SECONDS INR 2.72 Sodium (136-145) mEq/L Potassium (3.5-5.1) mEq/L Chloride (98-107) mEq/L Carbon Dioxide (21-32) mEq/L Anion Gap (5-15) BUN (7-18) mg/dL Creatinine (0.55-1.02) mg/dL Est Cr Clr Drug Dosing mL/min Estimated GFR (MDRD) (>60) mL/min BUN/Creatinine Ratio (14-18) Glucose (80-115) mg/dL Lactic Acid (0.4-2.0) mmol/L Calcium (8.5-10.1) mg/dL Magnesium (1.8-2.4) mg/dl C-Reactive Protein (<1.0) mg/dL Med Orders - Current: Current Medications Acetaminophen (Tylenol) 650 mg PO Q6H PRN PRN Reason: Pain/Fever Last Admin: 08/07/17 14:19 Dose: 650 mg Albuterol (Proventil Neb Soln) 2.5 mg NEB Q4HRRT PRN PRN Reason: Shortness of Breath Albuterol/Ipratropium (Duoneb 3.0-0.5 Mg/3 Ml) 3 ml NEB QIDRT [facility] Last Admin: 08/07/17 09:17 Dose: 3 ml Bisacodyl (Dulcolax) 5 mg PO DAILY PRN PRN Reason: Constipation Budesonide (Pulmicort) 0.5 mg INH BID PRN PRN Reason: Shortness of Breath Buspirone HCl (Buspar) 30 mg PO QPM [facility] Last Admin: 08/06/17 17:00 Dose: 30 mg Buspirone HCl (Buspar) 15 mg PO DAILY@0800 [facility] Last Admin: 08/07/17 09:36 Dose: 15 mg Buspirone HCl (Buspar) 10 mg PO QPM [facility] Last Admin: 08/06/17 17:01 Dose: 10 mg Buspirone HCl (Buspar) 5 mg PO DAILY@0800 [facility] Last Admin: 08/07/17 09:37 Dose: 5 mg Cyclobenzaprine HCl (Flexeril) 5 mg PO TID [facility] Last Admin: 08/07/17 14:19 Dose: 5 mg Diltiazem HCl (Cardizem Cd) 180 mg PO DAILY [facility] Last Admin: 08/07/17 09:36 Dose: 180 mg Docusate Sodium (Colace) 100 mg PO BID PRN PRN Reason: Constipation Duloxetine HCl (Cymbalta) 30 mg PO DAILY [facility] Last Admin: 08/07/17 09:36 Dose: 30 mg Famotidine (Pepcid) 20 mg PO BID [facility] Last Admin: 08/07/17 09:37 Dose: 20 mg Fentanyl (Duragesic) 12 mcg TRDERM Q72H [facility] Guaifenesin (Mucinex) 1,200 mg PO BID [facility] Last Admin: 08/07/17 09:36 Dose: 1,200 mg Levofloxacin/Dextrose 750 mg/ (Premix) 150 mls @ 100 mls/hr IV Q24H [facility] Last Admin: 08/07/17 05:59 Dose: 100 mls/hr Loperamide HCl (Imodium) 2 mg PO Q6H PRN PRN Reason: Diarrhea Lorazepam (Ativan) 1 mg PO BID PRN PRN Reason: Anxiety Last Admin: 08/07/17 11:51 Dose: 1 mg Metoprolol Tartrate (Lopressor) 50 mg PO Q12HR [facility] Last Admin: 08/07/17 09:37 Dose: 50 mg Metoprolol Tartrate (Lopressor) 5 mg IVPUSH Q6H PRN PRN Reason: HR>120 Mirtazapine (Remeron) 15 mg PO BEDTIME [facility] Last Admin: 08/06/17 20:25 Dose: 15 mg Miscellaneous Information (Remove Patch) 1 ea TRDERM Q3D [facility] Mometasone Furoate/Formoterol Fumar (Dulera 200-5 Mcg) 0 puff IH BIDRT [facility] Last Admin: 08/07/17 05:45 Dose: 2 puff Umeclidinium [place] (Incruse Ellipta) Inhaler 0 each INH DAILY [facility] Last Admin: 08/07/17 09:20 Dose: Not Given Potassium Chloride (Klor-Con M20) 20 meq PO BID [facility] Last Admin: 08/07/17 09:36 Dose: 20 meq Saccharomyces Boulardii (Florastor) 250 mg PO DAILY [facility] Last Admin: 08/07/17 09:35 Dose: 250 mg Senna/Docusate Sodium (Senna Plus) 1 tab PO DAILY [facility] Last Admin: 08/07/17 09:36 Dose: 1 tab Sodium Chloride (Saline Flush) 10 ml FLUSH ASDIRECTED PRN PRN Reason: Keep Vein Open Tramadol HCl (Ultram) 50 mg PO Q8H PRN PRN Reason: Pain Last Admin: 08/07/17 06:20 Dose: 50 mg Warfarin Sodium (Pharmacy To Dose - Warfarin) 1 dose .XX ASDIRECTED PRN PRN Reason: RX To Dose Warfarin Sodium (Coumadin) 2.5 mg PO ONETIME ONE Stop: 08/07/17 18:01 Discontinued Medications Albuterol/Ipratropium (Duoneb 3.0-0.5 Mg/3 Ml) 3 ml NEB ONETIME ONE Stop: 08/06/17 05:53 Last Admin: 08/06/17 06:18 Dose: 3 ml Albuterol/Ipratropium (Duoneb 3.0-0.5 Mg/3 Ml) 3 ml NEB QID [facility] Diltiazem HCl (Cardizem Cd) 120 mg PO ONETIME ONE Stop: 08/06/17 19:58 Last Admin: 08/06/17 20:24 Dose: 120 mg Famotidine (Pepcid) 20 mg PO BID [facility] Last Admin: 08/06/17 20:24 Dose: 20 mg Dextrose/Sodium Chloride (Dextrose 5%-Normal Saline) 1,000 mls @ 150 mls/hr IV ASDIRECTED [facility] Last Infusion: 08/06/17 11:17 Dose: 0 mls/hr Levofloxacin/Dextrose 750 mg/ (Premix) 150 mls @ 100 mls/hr IV ONETIME ONE Stop: 08/06/17 08:05 Last Admin: 08/06/17 06:43 Dose: 100 mls/hr Warfarin Sodium (Coumadin) 5 mg PO DAILY@1800 [facility] Stop: 08/06/17 20:00 Last Admin: 08/06/17 17:01 Dose: 5 mg Warfarin Sodium (Coumadin) 5 mg PO SUMOTUFREJIA [facility] Last Admin: 08/07/17 10:39 Dose: Not Given - Exam Quality Assessment: Supplemental Oxygen, DVT Prophylaxis General: Alert, Oriented, Cooperative, No Acute Distress HEENT: Pupils Equal, Pupils Reactive, EOMI Neck: Trachea Midline, No JVD Lungs: Normal Respiratory Effort Cardiovascular: Regular Rate, Regular Rhythm GI/Abdominal Exam: Normal Bowel Sounds, Soft, Non-Tender, No Organomegaly, No Distention (Female) Exam: Deferred Back Exam: Normal Inspection Extremities: Normal Inspection Skin: Warm Neurological: No New Focal Deficit Psy/Mental Status: Alert, Normal Affect, Normal Mood - Problem List & Annotations (1) Respiratory distress, acute SNOMED Code(s): 323287992 Code(s): R06.03 - ACUTE RESPIRATORY DISTRESS Status: Acute Current Visit : Yes (2) Pneumonia SNOMED Code(s): 001288873 Code(s): J18.9 - PNEUMONIA, UNSPECIFIED ORGANISM Status: Acute Current Visit: Yes Qualifiers: Pneumonia type: due to unspecified organism Laterality: right Lung location: lower lobe of lung Qualified Code(s): J18.1 - Lobar pneumonia, unspecified organism (3) COPD exacerbation SNOMED Code(s): 944190780841297 Code(s): J44.1 - CHRONIC OBSTRUCTIVE PULMONARY DISEASE W (ACUTE) EXACERBATION Status: Acute Priority: High Current Visit: No (4) Elevated C-reactive protein (CRP) SNOMED Code(s): 025744936724666 Code(s): R79.82 - ELEVATED C-REACTIVE PROTEIN (CRP) Status: Chronic Priority: Medium Current Visit: No (5) Emphysema lung SNOMED Code(s): 35906563 Code(s): J43.9 - EMPHYSEMA, UNSPECIFIED Status: Chronic Priority: High Current Visit: No Qualifiers: Emphysema type: unspecified Qualified Code(s): J43.9 - Emphysema, unspecified (6) Leukocytosis SNOMED Code(s): 677225595 Code(s): D72.829 - ELEVATED WHITE BLOOD CELL COUNT, UNSPECIFIED Status: Chronic Priority: Medium Current Visit: No Qualifiers: Leukocytosis type: unspecified Qualified Code(s): D72.829 - Elevated white blood cell count, unspecified - Problem List Review Problem List Initiated/Reviewed/Updated: Yes - My Orders Last 24 Hours: My Active Orders 08/06/17 16:21 Bisacodyl [Dulcolax] 5 mg PO DAILY PRN Budesonide [Pulmicort] 0.5 mg INH BID PRN Docusate Sodium [Colace] 100 mg PO BID PRN LORazepam [Ativan] 1 mg PO BID PRN Loperamide [Imodium] 2 mg PO Q6H PRN traMADol [Ultram] 50 mg PO Q8H PRN 08/06/17 16:31 Albuterol [Proventil Neb Soln] 2.5 mg NEB Q4HRRT PRN 08/06/17 16:33 Acetaminophen [Tylenol] 650 mg PO Q6H PRN 08/06/17 16:34 CM Case Management Follow Up [CM] Routine 08/06/17 18:00 busPIRone [Buspar] 10 mg PO QPM busPIRone [Buspar] 30 mg PO QPM 08/06/17 19:59 Metoprolol Tartrate [Lopressor] 5 mg IVPUSH Q6H PRN 08/06/17 21:00 Cyclobenzaprine [Flexeril] 5 mg PO TID Famotidine [Pepcid] 20 mg PO BID Metoprolol Tartrate [Lopressor] 50 mg PO Q12HR Mirtazapine [Remeron] 15 mg PO BEDTIME Mometasone/Formoterol [Dulera 200-5 MCG] 0 puff IH BIDRT Potassium Chloride [Klor-Con M20] 20 meq PO BID guaiFENesin [Mucinex] 1,200 mg PO BID 08/07/17 07:00 Levofloxacin/Dextrose 5%-Water [Levaquin in D5W 750 MG/150 ML] 750 mg Premix Bag 1 bag IV Q24H 08/07/17 08:00 busPIRone [Buspar] 15 mg PO DAILY@0800 busPIRone [Buspar] 5 mg PO DAILY@0800 08/07/17 09:00 DULoxetine [Cymbalta] 30 mg PO DAILY Diltiazem [Cardizem CD] 180 mg PO DAILY Docusate Sodium/Sennosides [Senna Plus] 1 tab PO DAILY Patient's Own Medication [Ptom] 0 each INH DAILY Saccharomyces Boulardii [Florastor] 250 mg PO DAILY 08/07/17 17:00 Remove Patch 1 ea TRDERM Q3D fentaNYL [Duragesic] 12 mcg TRDERM Q72H 08/07/17 18:00 Warfarin [Coumadin] 2.5 mg PO ONETIME ONE 08/08/17 05:00 BMP [BASIC METABOLIC PANEL,BMP] [CHEM] DAILY CBC WITH AUTO DIFF [HEME] DAILY CRP [C-REACTIVE PROTEIN] [CHEM] DAILY LACTIC ACID [CHEM] DAILY MAGNESIUM [CHEM] DAILY 08/08/17 08:00 Echo Comp wo Cont [US] Routine 08/09/17 05:00 BMP [BASIC METABOLIC PANEL,BMP] [CHEM] DAILY CBC WITH AUTO DIFF [HEME] DAILY CRP [C-REACTIVE PROTEIN] [CHEM] DAILY LACTIC ACID [CHEM] DAILY MAGNESIUM [CHEM] DAILY 08/10/17 05:00 BMP [BASIC METABOLIC PANEL,BMP] [CHEM] DAILY CBC WITH AUTO DIFF [HEME] DAILY CRP [C-REACTIVE PROTEIN] [CHEM] DAILY LACTIC ACID [CHEM] DAILY MAGNESIUM [CHEM] DAILY 08/11/17 05:00 BMP [BASIC METABOLIC PANEL,BMP] [CHEM] DAILY CBC WITH AUTO DIFF [HEME] DAILY CRP [C-REACTIVE PROTEIN] [CHEM] DAILY LACTIC ACID [CHEM] DAILY MAGNESIUM [CHEM] DAILY - Plan Plan:: Impression: Acute respiratory distress Hypercapnia/Hypoxia RLL PNA--improving COPD exacerbation Chronic HTN HLD GERD History of A Flutter/Fib Urinary Incontinence Anxiety/Depression Plan: IVF ATB, continue Levoquin Resp work up pending; droplet isolation NEBS scheduled/prn Home meds Daily labs DVT/GI prophylaxis Consult PT/OT/CM
[2017-08-07] MEDS ORDERED: Magnesium Sulfate/Water 2 GM in Premix Bag 1 BAG IV ONE (15:15)
[2017-08-07] MEDS ORDERED: fentaNYL 12 MCG/HR Transdermal Patch TRDERM SCH (17:00)
[2017-08-07] MEDS ORDERED: Warfarin 2.5 MG Tab PO ONE (18:00)
[2017-08-07] MEDS: Mirtazapine 15 MG Tab PO SCH (20:23)
[2017-08-08] MEDS: traMADol 50 MG Tab PO PRN ×2 (01:14→10:17)
[2017-08-08] MEDS: LORazepam 1 MG Tab PO PRN ×2 (01:15→16:42)
[2017-08-08] MEDS: Formoterol/Mometasone 200-5 MCG 8.8 GM Inhaler IH SCH ×2 (06:14→20:59)
[2017-08-08] MEDS: Albuterol/Ipratropium 3.0-0.5 MG/3 ML Neb Soln NEB SCH ×4 (06:15→20:59)
[2017-08-08] MEDS: Levofloxacin/Dextrose 5%-Water 750 MG in Premix Bag 1 BAG IV SCH (06:31)
[2017-08-08] MEDS: Saccharomyces Boulardii (Probiotic) 250 MG Cap PO SCH (08:50)
[2017-08-08] MEDS: Potassium Chloride 20 MEQ Tab.ER PO SCH ×2 (08:50→20:13)
[2017-08-08] MEDS: Famotidine 20 MG Tab PO SCH ×2 (08:50→20:11)
[2017-08-08] MEDS: Diltiazem 180 MG Cap.CD PO SCH (08:51)
[2017-08-08] MEDS: guaiFENesin 600 MG Tab.ER PO SCH ×2 (08:51→20:11)
[2017-08-08] MEDS: Cyclobenzaprine 10 MG Tab PO SCH ×3 (08:51→20:12)
[2017-08-08] MEDS: busPIRone 15 MG Tab PO SCH ×2 (08:51→17:01)
[2017-08-08] MEDS: busPIRone 5 MG Tab PO SCH ×2 (08:52→17:01)
[2017-08-08] MEDS: Metoprolol Tartrate 50 MG Tab PO SCH ×2 (08:52→20:10)
[2017-08-08] MEDS: UMECLIDINIUM BROMIDE INH SCH ×2 (08:53→09:35)
[2017-08-08] MEDS: DULoxetine 30 MG Cap PO SCH (08:54)
--- NOTE | 2017-08-08 16:07 | PCM.PN ---
- General Info Date of Service: 08/08/17 Admission Dx/Problem (Free Text): Admission Diagnosis/Problem Admission Diagnosis/Problem Pneumonia Subjective Update: Gaby paulson. She is resting in bed. She reports she is feeling slightly better however she does still have a substantial cough. Explained that this is part of the healing process as she will likely continue coughing up mucus. Did add Acapella. Respiratory viral panel returned positive for RSV. MRSA nasal swab was positive. Will add mupirocin twice a day for 5 days. Functional Status: Reports: Pain Controlled, Urinating, Incentive Spirometry. Denies: Tolerating Diet (will advance as she has not been eating much ), New Symptoms - Review of Systems General: Reports: Weakness. Denies: Fever, Fatigue, Malaise HEENT: Reports: No Symptoms. Denies: Sinus Congestion, Sore Throat Pulmonary: Reports: Shortness of Breath, Cough, Sputum, Wheezing. Denies: Pleuritic Chest Pain Cardiovascular: Reports: Dyspnea on Exertion. Denies: Chest Pain, Palpitations Gastrointestinal: Denies: Abdominal Pain, Constipation, Diarrhea, Nausea, Vomiting Genitourinary: Reports: No Symptoms Musculoskeletal: Reports: No Symptoms Skin: Reports: No Symptoms Neurological: Reports: No Symptoms Psychiatric: Reports: No Symptoms - Patient Data Vitals - Most Recent: Last Vital Signs Temp 97.9 F 08/08/17 14:26 Pulse 86 08/08/17 14:26 Resp 16 08/08/17 14:26 BP 116/68 08/08/17 14:26 Pulse Ox 95 08/08/17 15:28 Weight - Most Recent: 147 lb 9.6 oz I&O - Last 24 Hours: Intake & Output 08/08/17 08/08/17 08/08/17 06:59 14:59 22:59 Intake Total 400 Output Total 350 Balance 50 Lab Results Last 24 Hours: Laboratory Results - last 24 hr 08/08/17 08/08/17 08/08/17 Range/Units 06:03 06:03 06:03 WBC 5.40 (3.98-10.04) K/mm3 RBC 4.03 (3.98-5.22) M/mm3 Hgb 11.2 (11.2-15.7) gm/L Hct 35.0 (34.1-44.9) % MCV 86.8 (79.4-94.8) fl MCH 27.8 (25.6-32.2) pg MCHC 32.0 L (32.2-35.5) g/dl RDW Std Deviation 48.6 H (36.4-46.3) fL Plt Count 277 (182-369) K/mm3 MPV 9.2 L (9.4-12.3) fl Neut % (Auto) 45.6 (34.0-71.1) % Lymph % (Auto) 30.2 (19.3-51.7) % [place] % (Auto) 20.2 H (4.7-12.5) % Eos % (Auto) 3.1 (0.7-5.8) Baso % (Auto) 0.9 (0.1-1.2) % Neut # (Auto) 2.46 (1.56-6.13) K/mm3 Lymph # (Auto) 1.63 (1.18-3.74) K/mm3 [place] # (Auto) 1.09 H (0.24-0.36) K/mm3 Eos # (Auto) 0.17 (0.04-0.36) K/mm3 Baso # (Auto) 0.05 (0.01-0.08) K/mm3 Manual Slide Review Normal smear PT 35.3 H (8.0-13.0) SECONDS INR 3.26 Sodium 140 (136-145) mEq/L Potassium 3.9 (3.5-5.1) mEq/L Chloride 103 (98-107) mEq/L Carbon Dioxide 29 (21-32) mEq/L Anion Gap 11.9 (5-15) BUN 15 (7-18) mg/dL Creatinine 0.5 L (0.55-1.02) mg/dL Est Cr Clr Drug Dosing 114.10 mL/min Estimated GFR (MDRD) > 60 (>60) mL/min BUN/Creatinine Ratio 30.0 H (14-18) Glucose 91 (80-115) mg/dL Lactic Acid (0.4-2.0) mmol/L Calcium 8.7 (8.5-10.1) mg/dL Magnesium 2.1 (1.8-2.4) mg/dl C-Reactive Protein 5.0 H* (<1.0) mg/dL 08/08/17 Range/Units 06:26 WBC (3.98-10.04) K/mm3 RBC (3.98-5.22) M/mm3 Hgb (11.2-15.7) gm/L Hct (34.1-44.9) % MCV (79.4-94.8) fl MCH (25.6-32.2) pg MCHC (32.2-35.5) g/dl RDW Std Deviation (36.4-46.3) fL Plt Count (182-369) K/mm3 MPV (9.4-12.3) fl Neut % (Auto) (34.0-71.1) % Lymph % (Auto) (19.3-51.7) % [place] % (Auto) (4.7-12.5) % Eos % (Auto) (0.7-5.8) Baso % (Auto) (0.1-1.2) % Neut # (Auto) (1.56-6.13) K/mm3 Lymph # (Auto) (1.18-3.74) K/mm3 [place] # (Auto) (0.24-0.36) K/mm3 Eos # (Auto) (0.04-0.36) K/mm3 Baso # (Auto) (0.01-0.08) K/mm3 Manual Slide Review PT (8.0-13.0) SECONDS INR Sodium (136-145) mEq/L Potassium (3.5-5.1) mEq/L Chloride (98-107) mEq/L Carbon Dioxide (21-32) mEq/L Anion Gap (5-15) BUN (7-18) mg/dL Creatinine (0.55-1.02) mg/dL Est Cr Clr Drug Dosing mL/min Estimated GFR (MDRD) (>60) mL/min BUN/Creatinine Ratio (14-18) Glucose (80-115) mg/dL Lactic Acid 0.7 (0.4-2.0) mmol/L Calcium (8.5-10.1) mg/dL Magnesium (1.8-2.4) mg/dl C-Reactive Protein (<1.0) mg/dL Ahsan Results Last 24 Hours: Microbiology 08/06/17 10:25 Respiratory Virus Panel (PCR) ([facility]) - Final Nasopharyngeal Swab Med Orders - Current: Current Medications Acetaminophen (Tylenol) 650 mg PO Q6H PRN PRN Reason: Pain/Fever Last Admin: 08/07/17 20:25 Dose: 650 mg Albuterol (Proventil Neb Soln) 2.5 mg NEB Q4HRRT PRN PRN Reason: Shortness of Breath Albuterol/Ipratropium (Duoneb 3.0-0.5 Mg/3 Ml) 3 ml NEB QIDRT [facility] Last Admin: 08/08/17 15:28 Dose: 3 ml Bisacodyl (Dulcolax) 5 mg PO DAILY PRN PRN Reason: Constipation Budesonide (Pulmicort) 0.5 mg INH BID PRN PRN Reason: Shortness of Breath Buspirone HCl (Buspar) 30 mg PO QPM [facility] Last Admin: 08/07/17 18:03 Dose: 30 mg Buspirone HCl (Buspar) 15 mg PO DAILY@0800 [facility] Last Admin: 08/08/17 08:51 Dose: 15 mg Buspirone HCl (Buspar) 10 mg PO QPM [facility] Last Admin: 08/07/17 18:03 Dose: 10 mg Buspirone HCl (Buspar) 5 mg PO DAILY@0800 [facility] Last Admin: 08/08/17 08:52 Dose: 5 mg Cyclobenzaprine HCl (Flexeril) 5 mg PO TID [facility] Last Admin: 08/08/17 08:51 Dose: 5 mg Diltiazem HCl (Cardizem Cd) 180 mg PO DAILY [facility] Last Admin: 08/08/17 08:51 Dose: 180 mg Docusate Sodium (Colace) 100 mg PO BID PRN PRN Reason: Constipation Duloxetine HCl (Cymbalta) 30 mg PO DAILY [facility] Last Admin: 08/08/17 08:54 Dose: 30 mg Famotidine (Pepcid) 20 mg PO BID [facility] Last Admin: 08/08/17 08:50 Dose: 20 mg Fentanyl (Duragesic) 12 mcg TRDERM Q72H [facility] Last Admin: 08/07/17 17:56 Dose: 12 mcg Guaifenesin (Mucinex) 1,200 mg PO BID [facility] Last Admin: 08/08/17 08:51 Dose: 1,200 mg Levofloxacin (Levaquin) 750 mg PO Q24H [facility] Loperamide HCl (Imodium) 2 mg PO Q6H PRN PRN Reason: Diarrhea Lorazepam (Ativan) 1 mg PO BID PRN PRN Reason: Anxiety Last Admin: 08/08/17 01:15 Dose: 1 mg Metoprolol Tartrate (Lopressor) 50 mg PO Q12HR [facility] Last Admin: 08/08/17 08:52 Dose: 50 mg Metoprolol Tartrate (Lopressor) 5 mg IVPUSH Q6H PRN PRN Reason: HR>120 Mirtazapine (Remeron) 15 mg PO BEDTIME [facility] Last Admin: 08/07/17 20:23 Dose: 15 mg Miscellaneous Information (Remove Patch) 1 ea TRDERM Q3D [facility] Last Admin: 08/07/17 17:57 Dose: 1 ea Mometasone Furoate/Formoterol Fumar (Dulera 200-5 Mcg) 0 puff IH BIDRT [facility] Last Admin: 08/08/17 06:14 Dose: 2 puff Mupirocin (Bactroban Oint) 1 gm TOP BID [facility] Stop: 08/13/17 09:01 Umeclidinium [place] (Incruse Ellipta) Inhaler 0 each INH DAILY [facility] Last Admin: 08/08/17 09:35 Dose: 1 each Potassium Chloride (Klor-Con M20) 20 meq PO BID [facility] Last Admin: 08/08/17 08:50 Dose: 20 meq Saccharomyces Boulardii (Florastor) 250 mg PO DAILY [facility] Last Admin: 08/08/17 08:50 Dose: 250 mg Senna/Docusate Sodium (Senna Plus) 1 tab PO DAILY [facility] Last Admin: 08/08/17 08:50 Dose: 1 tab Sodium Chloride (Saline Flush) 10 ml FLUSH ASDIRECTED PRN PRN Reason: Keep Vein Open Tramadol HCl (Ultram) 50 mg PO Q8H PRN PRN Reason: Pain Last Admin: 08/08/17 10:17 Dose: 50 mg Warfarin Sodium (Pharmacy To Dose - Warfarin) 1 dose .XX ASDIRECTED PRN PRN Reason: RX To Dose Discontinued Medications Albuterol/Ipratropium (Duoneb 3.0-0.5 Mg/3 Ml) 3 ml NEB ONETIME ONE Stop: 08/06/17 05:53 Last Admin: 08/06/17 06:18 Dose: 3 ml Albuterol/Ipratropium (Duoneb 3.0-0.5 Mg/3 Ml) 3 ml NEB QID [facility] Diltiazem HCl (Cardizem Cd) 120 mg PO ONETIME ONE Stop: 08/06/17 19:58 Last Admin: 08/06/17 20:24 Dose: 120 mg Famotidine (Pepcid) 20 mg PO BID [facility] Last Admin: 08/06/17 20:24 Dose: 20 mg Dextrose/Sodium Chloride (Dextrose 5%-Normal Saline) 1,000 mls @ 150 mls/hr IV ASDIRECTED [facility] Last Infusion: 08/06/17 11:17 Dose: 0 mls/hr Levofloxacin/Dextrose 750 mg/ (Premix) 150 mls @ 100 mls/hr IV ONETIME ONE Stop: 08/06/17 08:05 Last Admin: 08/06/17 06:43 Dose: 100 mls/hr Levofloxacin/Dextrose 750 mg/ (Premix) 150 mls @ 100 mls/hr IV Q24H [facility] Last Admin: 08/08/17 06:31 Dose: 100 mls/hr Magnesium Sulfate 2 gm/ Premix 50 mls @ 25 mls/hr IV ONETIME ONE Stop: 08/07/17 17:14 Last Admin: 08/07/17 16:14 Dose: 25 mls/hr Warfarin Sodium (Coumadin) 5 mg PO DAILY@1800 [facility] Stop: 08/06/17 20:00 Last Admin: 08/06/17 17:01 Dose: 5 mg Warfarin Sodium (Coumadin) 5 mg PO SUMOTUFRSA [facility] Last Admin: 08/07/17 10:39 Dose: Not Given Warfarin Sodium (Coumadin) 2.5 mg PO ONETIME ONE Stop: 08/07/17 18:01 Last Admin: 08/07/17 17:58 Dose: 2.5 mg - Exam Quality Assessment: Supplemental Oxygen, DVT Prophylaxis General: Alert, Oriented, Cooperative, No Acute Distress HEENT: Pupils Equal, Pupils Reactive, EOMI, Mucous Membr. Moist/[place] Neck: Supple, Trachea Midline, No JVD Lungs: Normal Respiratory Effort, Rhonchi (mild - left lower lobe ), Wheezing Cardiovascular: Regular Rate, Regular Rhythm GI/Abdominal Exam: Normal Bowel Sounds, Soft, Non-Tender, No Organomegaly, No Distention, No Abnormal Bruit, No Mass, Pelvis Stable (Female) Exam: Deferred Back Exam: Normal Inspection, Full Range of Motion Extremities: Normal Inspection, Normal Range of Motion, Non-Tender, No Pedal Edema, Normal Capillary Refill Peripheral Pulses: 3+: Radial (L), Radial (R), Posterior Tibial (L), Posterior Tibial (R), Dorsalis Pedis (L), Dorsalis Pedis (R) Skin: Warm, Dry, Intact Neurological: No New Focal Deficit Psy/Mental Status: Alert, Normal Affect, Normal Mood - Problem List & Annotations (1) RSV (respiratory syncytial virus infection) SNOMED Code(s): 23307732 Code(s): B97.4 - RESPIRATORY SYNCYTIAL VIRUS CAUSING DISEASES [facility] Status: Acute Priority: High Current Visit: Yes (2) Pneumonia SNOMED Code(s): 303580459 Code(s): J18.9 - PNEUMONIA, UNSPECIFIED ORGANISM Status: Acute Priority: High Current Visit: Yes Qualifiers: Pneumonia type: due to unspecified organism Laterality: right Lung location: lower lobe of lung Qualified Code(s): J18.1 - Lobar pneumonia, unspecified organism (3) Respiratory distress, acute SNOMED Code(s): 243082183 Code(s): R06.03 - ACUTE RESPIRATORY DISTRESS Status: Resolved Priority: High Current Visit: Yes (4) COPD exacerbation SNOMED Code(s): 040684849200134 Code(s): J44.1 - CHRONIC OBSTRUCTIVE PULMONARY DISEASE W (ACUTE) EXACERBATION Status: Acute Priority: High Current Visit: No (5) Elevated C-reactive protein (CRP) SNOMED Code(s): 948831602998411 Code(s): R79.82 - ELEVATED C-REACTIVE PROTEIN (CRP) Status: Acute Priority: Medium Current Visit: No (6) Emphysema lung SNOMED Code(s): 49645770 Code(s): J43.9 - EMPHYSEMA, UNSPECIFIED Status: Chronic Priority: High Current Visit: No Qualifiers: Emphysema type: unspecified Qualified Code(s): J43.9 - Emphysema, unspecified (7) Leukocytosis SNOMED Code(s): 045335263 Code(s): D72.829 - ELEVATED WHITE BLOOD CELL COUNT, UNSPECIFIED Status: Resolved Priority: Medium Current Visit: No Qualifiers: Leukocytosis type: unspecified Qualified Code(s): D72.829 - Elevated white blood cell count, unspecified (8) Positive nasal culture for methicillin resistant Staphylococcus aureus SNOMED Code(s): 686441377 Code(s): Z22.322 - CARRIER OR SUSPECTED CARRIER OF METHICILLIN RESIS STAPH Status: Acute Priority: High Current Visit: Yes - Problem List Review Problem List Initiated/Reviewed/Updated: Yes - My Orders Last 24 Hours: My Active Orders 08/08/17 21:00 Mupirocin Oint [Bactroban Oint] 1 gm TOP BID - Plan Plan:: Impression: Acute respiratory distress, resolved Hypercapnia/Hypoxia, imporved RLL PNA--improving COPD exacerbation MRSA positive nasal swab Postivie RSV Chronic HTN HLD GERD History of A Flutter/Fib Urinary Incontinence Anxiety/Depression Plan: IVF ATB, continue Levoquin Resp work up - Positive RSV; droplet isolation NEBS scheduled/prn Mupirocin BID to nose x5 days Home meds Daily labs DVT/GI prophylaxis RT/IS/Acapella Consult PT/OT/CM Code status: DNR; PCP: Dr. Sloan
[2017-08-08] MEDS: Acetaminophen 325 MG Tab PO PRN (16:42)
[2017-08-08] MEDS ORDERED: Remove Patch*FENTANYL TRDERM SCH (20:00)
[2017-08-08] MEDS: Mupirocin Oint 22 GM Tube TOP SCH (20:08)
[2017-08-08] MEDS: Mirtazapine 15 MG Tab PO SCH (20:12)
[2017-08-09] MEDS: traMADol 50 MG Tab PO PRN (06:26)
[2017-08-09] MEDS: Formoterol/Mometasone 200-5 MCG 8.8 GM Inhaler IH SCH (06:41)
[2017-08-09] MEDS: Albuterol/Ipratropium 3.0-0.5 MG/3 ML Neb Soln NEB SCH ×2 (06:41→08:59)
[2017-08-09] MEDS ORDERED: Levofloxacin 750 MG Tab PO SCH (07:00)
[2017-08-09] MEDS: busPIRone 5 MG Tab PO SCH (08:33)
[2017-08-09] MEDS: Mupirocin Oint 22 GM Tube TOP SCH (08:33)
[2017-08-09] MEDS: busPIRone 15 MG Tab PO SCH (08:33)
[2017-08-09] MEDS: Diltiazem 180 MG Cap.CD PO SCH (08:34)
[2017-08-09] MEDS: DULoxetine 30 MG Cap PO SCH (08:34)
[2017-08-09] MEDS: Cyclobenzaprine 10 MG Tab PO SCH (08:35)
[2017-08-09] MEDS: Potassium Chloride 20 MEQ Tab.ER PO SCH (08:36)
[2017-08-09] MEDS: Saccharomyces Boulardii (Probiotic) 250 MG Cap PO SCH (08:36)
[2017-08-09] MEDS: Metoprolol Tartrate 50 MG Tab PO SCH (08:36)
[2017-08-09] MEDS: Famotidine 20 MG Tab PO SCH (08:37)
[2017-08-09] MEDS: guaiFENesin 600 MG Tab.ER PO SCH (08:37)
[2017-08-09 08:38] VITALS: BP 123/68
[2017-08-09] MEDS: Acetaminophen 325 MG Tab PO PRN (08:48)
[2017-08-09] MEDS: UMECLIDINIUM BROMIDE INH SCH (08:59)
[2017-08-09] MEDS: LORazepam 1 MG Tab PO PRN (10:05)
--- NOTE | 2017-08-09 10:08 | PCM.DCSUM1 ---
Discharge Summary - Hospital Course Free Text/Narrative:: 66 year old female from [place], presents with fever/chills associated cough with sputum. She also stated that has felt more sick over the last 24 hours. The initial symptoms occurred 08/03/17. She describes both a productive and nonproductive cough. There has been a decreased appetite. Nausea without vomiting has also occurred. She will be admitted for pneumonia. - Discharge Data Discharge Date: 08/09/17 (admit date 08/06/17) Discharge Disposition: DC/Tfer to SNF 03 Condition: Fair - Discharge Diagnosis/Problem(s) (1) Pneumonia SNOMED Code(s): 435602570 ICD Code: J18.9 - PNEUMONIA, UNSPECIFIED ORGANISM Status: Acute Priority : High Current Visit: Yes Qualifiers: Pneumonia type: due to unspecified organism Laterality: right Lung location: lower lobe of lung Qualified Code(s): J18.1 - Lobar pneumonia, unspecified organism (2) COPD exacerbation SNOMED Code(s): 675045878614522 ICD Code: J44.1 - CHRONIC OBSTRUCTIVE PULMONARY DISEASE W (ACUTE) EXACERBATION Status: Acute Priority: High Current Visit: Yes (3) Respiratory failure SNOMED Code(s): 333792242 ICD Code: J96.90 - RESPIRATORY FAILURE, UNSP, UNSP W HYPOXIA OR HYPERCAPNIA Status: Chronic Priority: High Current Visit: Yes Qualifiers: Chronicity: acute on chronic Respiratory failure complication: hypercapnia Qualified Code(s): J96.22 - Acute and chronic respiratory failure with hypercapnia (4) Respiratory distress, acute SNOMED Code(s): 324421212 ICD Code: R06.03 - ACUTE RESPIRATORY DISTRESS Status: Resolved Priority: High Current Visit: Yes (5) RSV (respiratory syncytial virus infection) SNOMED Code(s): 88915769 ICD Code: B97.4 - RESPIRATORY SYNCYTIAL VIRUS CAUSING DISEASES CLASSD ELSWHR Status: Acute Priority: High Current Visit: Yes (6) Positive nasal culture for methicillin resistant Staphylococcus aureus SNOMED Code(s): 502565411 ICD Code: Z22.322 - CARRIER OR SUSPECTED CARRIER OF METHICILLIN RESIS STAPH Status: Acute Priority: High Current Visit: Yes - Patient Summary/Data Operative Procedure(s) Performed: None Complications: None Consults: Consultations 08/06/17 09:30 OT Evaluation and Treatment [CONS] Routine PT Evaluation and Treatment [CONS] Routine 08/08/17 17:08 Consult to Weapons Specialist [CONS] Routine Labs Pending at D/C: None Recommended Follow-up Testing/Procedures: Patient DC instructions: Follow up with PCP, Dr. Sloan within one week of DC -Consider repeat CXR in [address] Sloan discretion Supplemental O2 to keep sats >90% Ambulate TID Hospital Course: Impression: Acute respiratory distress, resolved Hypercapnia/Hypoxia, improved RLL PNA--improving -Repeat CXR on day of dc with improved PNA findings to RLL; consider repeat CXR in 2 weeks, will defer to PCP. COPD exacerbation -Cont supplemental oxygen on DC MRSA positive nasal swab Positive RSV Chronic HTN- stable HLD- cont home meds GERD- cont home meds History of A Flutter/Fib- rate controlled Urinary Incontinence Anxiety/Depression- stable Plan: IVF--DC'd ATB, continue Levaquin- was switched to PO yesterday, will DC on Levaquin Resp work up - Positive RSV; droplet isolation RT/NEBS scheduled/prn Mupirocin BID to nose x5 days Home meds Daily labs DVT/GI prophylaxis RT/IS/Acapella Consult PT/OT/CM Code status: DNR; PCP: Dr. Sloan - Patient Instructions Diet: Usual Diet as Tolerated (Pulmocare supplement or ensure with meals), Drink 8-10+ Glasses/Day Activity: As Tolerated Showering/Bathing: May Shower Notify Provider of: Fever, Increased Pain, Nausea and/or Vomiting - Discharge Plan Home Medications: Home Meds Albuterol/Ipratropium [DuoNeb 3.0-0.5 MG/3 ML] 3 ml NEB Q6HRRT PRN #120 neb 09/18 [Rx] Bisacodyl [Dulcolax] 5 mg PO DAILY PRN #30 tablet 10/05/16 [Rx] Famotidine [Pepcid] 20 mg PO BID #60 tablet 10/05/16 [Rx] Metoprolol Tartrate [Lopressor] 50 mg PO Q12HR #60 tablet 10/05/16 [Rx] Mirtazapine [Remeron] 15 mg PO BEDTIME #30 tablet 10/05/16 [Rx] Calcium Carbonate/Vitamin D3 [Calcium 500 + Vit D 400] 1 tab PO BID 03/22/17 [ History] DULoxetine [Cymbalta] 30 mg PO DAILY 03/22/17 [History] Diltiazem HCl [Cardizem Cd] 360 mg PO DAILY 03/22/17 [History] LORazepam [Ativan] 1 mg PO BID PRN 03/22/17 [History] Multivitamin W/Iron, Minerals [Compete] 1 tab PO DAILY 03/22/17 [History] Umeclidinium [place] [Incruse Ellipta*] 1 puff INH DAILY 03/22/17 [History] busPIRone [Buspar] 20 mg PO 0800 03/22/17 [History] busPIRone [Buspar] 40 mg PO QPM 03/22/17 [History] Bifidobacter. Bifidum/B.Longum [Florajen Bifidoblend] 460 mg PO DAILY #30 capsule 03/28/17 [Rx] Potassium Chloride [Klor-Con M20] 20 meq PO BID #60 tab.er 03/28/17 [Rx] Acetaminophen [Tylenol] 650 mg PO Q4HR PRN 04/03/17 [History] Warfarin [Coumadin] 5 mg PO SUMOTUFRSA 04/03/17 [History] Albuterol [Proventil HFA] 6.7 gm INH DAILY 04/04/17 [History] Docusate Sodium [Colace] 100 mg PO BID PRN 04/04/17 [History] Loperamide [Imodium] 2 mg PO Q6H PRN #20 cap 04/06/17 [Rx] Furosemide [Lasix] 20 mg PO Q2D 04/27/17 [History] Sennosides/Docusate Sodium [Senna S Tablet] 1 tab PO DAILY 04/27/17 [History] Albuterol Sulfate [Proair Respiclick] 2 puff INH QID PRN 08/06/17 [History] Budesonide [Pulmicort] 1 dose INH BID PRN 08/06/17 [History] Budesonide/Formoterol [Symbicort 160-4.5 MCG] 2 puff INH BID 08/06/17 [History] Cyclobenzaprine HCl 5 mg PO TID 08/06/17 [History] fentaNYL [Duragesic] 12 mcg TOP Q3D 08/06/17 [History] guaiFENesin [Tussin] 10 ml PO DAILY PRN 08/06/17 [History] traMADol [Ultram] 50 mg PO Q8H PRN 08/06/17 [History] Forms: ED Department Discharge Referrals: Serjio Sloan MD [Primary Care Provider] - (Ask your doctor about possibly receiving a TDaP vaccine.) - Discharge Summary/Plan Comment DC Time >30 min.: Yes (45 min) - General Info Date of Service: 08/09/17 Admission Dx/Problem (Free Text: Admission Diagnosis/Problem Admission Diagnosis/Problem Pneumonia Much improved, still SOB but this is chronic. Cough is improved. C/O back pain this morning (she has acute on chronic LBP). Plans for DC back to [facility] today. Functional Status: Reports: Pain Controlled, Tolerating Diet, Ambulating, Urinating, Incentive Spirometry - Review of Systems General: Reports: Weakness (chronic) HEENT: Reports: No Symptoms Pulmonary: Reports: Shortness of Breath (chronic but improved), Cough Cardiovascular: Reports: Dyspnea on Exertion (chronic but improved) Gastrointestinal: Reports: No Symptoms Genitourinary: Reports: No Symptoms Musculoskeletal: Reports: Back Pain (chronic) Neurological: Reports: No Symptoms - Patient Data Vitals - Most Recent: Last Vital Signs Temp 97.9 F 08/09/17 08:24 Pulse 103 H 08/09/17 08:36 Resp 22 H 08/09/17 08:24 BP 123/68 08/09/17 08:36 Pulse Ox 94 L 08/09/17 08:59 Weight - Most Recent: 147 lb 9.6 oz I&O - Last 24 hours: Intake & Output 08/08/17 08/09/17 08/09/17 22:59 06:59 14:59 Intake Total 260 420 Output Total 400 350 Balance -140 70 Lab Results - Last 24 hrs: Laboratory Results - last 24 hr 08/08/17 08/09/17 08/09/17 Range/Units 06:03 05:55 05:55 WBC 5.31 (3.98-10.04) K/mm3 RBC 4.16 (3.98-5.22) M/mm3 Hgb 11.3 (11.2-15.7) gm/L Hct 36.2 (34.1-44.9) % MCV 87.0 (79.4-94.8) fl MCH 27.2 (25.6-32.2) pg MCHC 31.2 L (32.2-35.5) g/dl RDW Std Deviation 48.2 H (36.4-46.3) fL Plt Count 299 (182-369) K/mm3 MPV 8.9 L (9.4-12.3) fl Neut % (Auto) 44.6 (34.0-71.1) % Lymph % (Auto) 35.0 (19.3-51.7) % [place] % (Auto) 15.1 H (4.7-12.5) % Eos % (Auto) 3.8 (0.7-5.8) Baso % (Auto) 1.1 (0.1-1.2) % Neut # (Auto) 2.37 (1.56-6.13) K/mm3 Lymph # (Auto) 1.86 (1.18-3.74) K/mm3 [place] # (Auto) 0.80 H (0.24-0.36) K/mm3 Eos # (Auto) 0.20 (0.04-0.36) K/mm3 Baso # (Auto) 0.06 (0.01-0.08) K/mm3 Manual Slide Review Normal smear PT 35.3 H (8.0-13.0) SECONDS INR 3.26 Sodium 139 (136-145) mEq/L Potassium 4.2 (3.5-5.1) mEq/L Chloride 103 (98-107) mEq/L Carbon Dioxide 31 (21-32) mEq/L Anion Gap 9.2 (5-15) BUN 16 (7-18) mg/dL Creatinine 0.6 (0.55-1.02) mg/dL Est Cr Clr Drug Dosing 95.09 mL/min Estimated GFR (MDRD) > 60 (>60) mL/min BUN/Creatinine Ratio 26.7 H (14-18) Glucose 87 (80-115) mg/dL Calcium 8.5 (8.5-10.1) mg/dL Magnesium 2.0 (1.8-2.4) mg/dl C-Reactive Protein 2.8 H* (<1.0) mg/dL [facility] Results - Last 24 hrs: Microbiology 08/06/17 10:25 Respiratory Virus Panel (PCR) ([facility]) - Final Nasopharyngeal Swab Med Orders - Current: Current Medications Acetaminophen (Tylenol) 650 mg PO Q6H PRN PRN Reason: Pain/Fever Last Admin: 08/09/17 08:48 Dose: 650 mg Albuterol (Proventil Neb Soln) 2.5 mg NEB Q4HRRT PRN PRN Reason: Shortness of Breath Albuterol/Ipratropium (Duoneb 3.0-0.5 Mg/3 Ml) 3 ml NEB QIDRT [facility] Last Admin: 08/09/17 08:59 Dose: 3 ml Bisacodyl (Dulcolax) 5 mg PO DAILY PRN PRN Reason: Constipation Budesonide (Pulmicort) 0.5 mg INH BID PRN PRN Reason: Shortness of Breath Buspirone HCl (Buspar) 30 mg PO QPM [facility] Last Admin: 08/08/17 17:01 Dose: 30 mg Buspirone HCl (Buspar) 15 mg PO DAILY@0800 [facility] Last Admin: 08/09/17 08:33 Dose: 15 mg Buspirone HCl (Buspar) 10 mg PO QPM [facility] Last Admin: 08/08/17 17:01 Dose: 10 mg Buspirone HCl (Buspar) 5 mg PO DAILY@0800 [facility] Last Admin: 08/09/17 08:33 Dose: 5 mg Cyclobenzaprine HCl (Flexeril) 5 mg PO TID [facility] Last Admin: 08/09/17 08:35 Dose: 5 mg Diltiazem HCl (Cardizem Cd) 180 mg PO DAILY [facility] Last Admin: 08/09/17 08:34 Dose: 180 mg Docusate Sodium (Colace) 100 mg PO BID PRN PRN Reason: Constipation Duloxetine HCl (Cymbalta) 30 mg PO DAILY [facility] Last Admin: 08/09/17 08:34 Dose: 30 mg Famotidine (Pepcid) 20 mg PO BID [facility] Last Admin: 08/09/17 08:37 Dose: 20 mg Fentanyl (Duragesic) 12 mcg TRDERM Q72H [facility] Last Admin: 08/07/17 17:56 Dose: 12 mcg Guaifenesin (Mucinex) 1,200 mg PO BID [facility] Last Admin: 08/09/17 08:37 Dose: 1,200 mg Levofloxacin (Levaquin) 750 mg PO Q24H [facility] Last Admin: 08/09/17 06:09 Dose: 750 mg Loperamide HCl (Imodium) 2 mg PO Q6H PRN PRN Reason: Diarrhea Lorazepam (Ativan) 1 mg PO BID PRN PRN Reason: Anxiety Last Admin: 08/08/17 16:42 Dose: 1 mg Metoprolol Tartrate (Lopressor) 50 mg PO Q12HR [facility] Last Admin: 08/09/17 08:36 Dose: 50 mg Metoprolol Tartrate (Lopressor) 5 mg IVPUSH Q6H PRN PRN Reason: HR>120 Mirtazapine (Remeron) 15 mg PO BEDTIME [facility] Last Admin: 08/08/17 20:12 Dose: 15 mg Miscellaneous Information (Remove Patch) 1 ea TRDERM Q3D [facility] Last Admin: 08/07/17 17:57 Dose: 1 ea Mometasone Furoate/Formoterol Fumar (Dulera 200-5 Mcg) 0 puff IH BIDRT [facility] Last Admin: 08/09/17 06:41 Dose: 2 puff Mupirocin (Bactroban Oint) 0 gm TOP BID [facility] Stop: 08/13/17 09:01 Last Admin: 08/09/17 08:33 Dose: 1 applic Umeclidinium [place] (Incruse Ellipta) Inhaler 0 each INH DAILY [facility] Last Admin: 08/09/17 08:59 Dose: 1 each Potassium Chloride (Klor-Con M20) 20 meq PO BID [facility] Last Admin: 08/09/17 08:36 Dose: 20 meq Saccharomyces Boulardii (Florastor) 250 mg PO DAILY [facility] Last Admin: 08/09/17 08:36 Dose: 250 mg Senna/Docusate Sodium (Senna Plus) 1 tab PO DAILY [facility] Last Admin: 08/09/17 08:37 Dose: 1 tab Sodium Chloride (Saline Flush) 10 ml FLUSH ASDIRECTED PRN PRN Reason: Keep Vein Open Tramadol HCl (Ultram) 50 mg PO Q8H PRN PRN Reason: Pain Last Admin: 08/09/17 06:26 Dose: 50 mg Warfarin Sodium (Pharmacy To Dose - Warfarin) 1 dose .XX ASDIRECTED PRN PRN Reason: RX To Dose Discontinued Medications Albuterol/Ipratropium (Duoneb 3.0-0.5 Mg/3 Ml) 3 ml NEB ONETIME ONE Stop: 08/06/17 05:53 Last Admin: 08/06/17 06:18 Dose: 3 ml Albuterol/Ipratropium (Duoneb 3.0-0.5 Mg/3 Ml) 3 ml NEB QID [facility] Diltiazem HCl (Cardizem Cd) 120 mg PO ONETIME ONE Stop: 08/06/17 19:58 Last Admin: 08/06/17 20:24 Dose: 120 mg Famotidine (Pepcid) 20 mg PO BID [facility] Last Admin: 08/06/17 20:24 Dose: 20 mg Dextrose/Sodium Chloride (Dextrose 5%-Normal Saline) 1,000 mls @ 150 mls/hr IV ASDIRECTED [facility] Last Infusion: 08/06/17 11:17 Dose: 0 mls/hr Levofloxacin/Dextrose 750 mg/ (Premix) 150 mls @ 100 mls/hr IV ONETIME ONE Stop: 08/06/17 08:05 Last Admin: 08/06/17 06:43 Dose: 100 mls/hr Levofloxacin/Dextrose 750 mg/ (Premix) 150 mls @ 100 mls/hr IV Q24H [facility] Last Admin: 08/08/17 06:31 Dose: 100 mls/hr Magnesium Sulfate 2 gm/ Premix 50 mls @ 25 mls/hr IV ONETIME ONE Stop: 08/07/17 17:14 Last Admin: 08/07/17 16:14 Dose: 25 mls/hr Warfarin Sodium (Coumadin) 5 mg PO DAILY@1800 [facility] Stop: 08/06/17 20:00 Last Admin: 08/06/17 17:01 Dose: 5 mg Warfarin Sodium (Coumadin) 5 mg PO SUMOTUFRSA [facility] Last Admin: 08/07/17 10:39 Dose: Not Given Warfarin Sodium (Coumadin) 2.5 mg PO ONETIME ONE Stop: 08/07/17 18:01 Last Admin: 08/07/17 17:58 Dose: 2.5 mg - Exam Quality Assessment: Reports: Supplemental Oxygen, DVT Prophylaxis General: Reports: Alert, Oriented, Cooperative, Other (thin/cachectic) HEENT: Reports: Pupils Equal, Pupils Reactive, EOMI, Mucous Membr. Moist/[place] Neck: Reports: Supple Lungs: Reports: Normal Respiratory Effort, Decreased Breath Sounds Cardiovascular: Reports: Irregular Rhythm GI/Abdominal Exam: Normal Bowel Sounds, Soft, Non-Tender (Female) Exam: Deferred Rectal (Female) Exam: Deferred Back Exam: Reports: Normal Inspection Extremities: No Pedal Edema, Normal Capillary Refill Neurological: Reports: No New Focal Deficit Psy/Mental Status: Reports: Alert, Normal Affect *Q Meaningful Use (DIS) - VTE *Q VTE Criteria *Q: - Stroke *Q Stroke Criteria *Q: - AMI *Q AMI Criteria *Q:
--- NOTE | 2017-08-09 10:54 | CR ---
Chest: Two views of the chest are obtained. Comparison: Prior chest x-ray of 08/06/17 and 04/27/17. Parenchymal density is noted within the right lung base. Lung markings are mildly increased which appear chronic. Lungs are hyperinflated compatible with emphysematous change. Bony structures are osteopenic. Several stable compression deformities are noted within the spine. Scoliosis is also present within the spine. Impression: 1. Parenchymal density within the right lung base most likely due to nodular area of atelectasis. 2. Emphysematous change and other incidental findings. Diagnostic code #2
== END 2017-08-09 12:00 | DRG 190 ==
LOC: JD.ED 05:30 → JD.ICU 07:17 → JD.MS 08-08 00:20
PROVIDERS: ADMIT Internal Medicine Cardiovascular Disease; ATTEND Internal Medicine Cardiovascular Disease
DX: J44.0 Chronic obstructive pulmonary disease with (acute) lower respiratory infection (principal); J18.9 Pneumonia, unspecified organism; J96.22 Acute and chronic respiratory failure with hypercapnia; J44.9 Chronic obstructive pulmonary disease, unspecified; I48.92 Unspecified atrial flutter; J44.1 Chronic obstructive pulmonary disease with (acute) exacerbation; Z87.01 Personal history of pneumonia (recurrent); Z87.891 Personal history of nicotine dependence; R79.82 Elevated C-reactive protein (CRP); I10 Essential (primary) hypertension; K21.9 Gastro-esophageal reflux disease without esophagitis; R32 Unspecified urinary incontinence; M19.90 Unspecified osteoarthritis, unspecified site; F32.9 Major depressive disorder, single episode, unspecified; F41.9 Anxiety disorder, unspecified; I48.91 Unspecified atrial fibrillation; J43.9 Emphysema, unspecified; A49.02 Methicillin resistant Staphylococcus aureus infection, unspecified site; B97.4 Respiratory syncytial virus as the cause of diseases classified elsewhere; Z66 Do not resuscitate; H54.7 Unspecified visual loss; Z79.01 Long term (current) use of anticoagulants; Z79.899 Other long term (current) drug therapy
CPT/HCPCS: 36415; 36600; 71045; 80053; 81001; 82553; 82803; 83735; 83880; 84484; 85025; 85610; 86140; 86738; 87040 ×2; 87804 ×2; 87899; 93005; 94640; 96365; 99285; J1956; J7042; 71046; 71046-26; 80048; 83605; 87486; 87581; 87633; 87641; 87798; 93306; 94667; 94760; 94761; 97110-GP; 97116-GP; 97162-GP; 97165-GO; 99222; 99231; A9270-GY; J3475; J3490